=== PATIENT | male | born 1955 | race Caucasian/White ===

== ENCOUNTER 2017-07-05 11:05 | Inpatient (IN) | payer MEDICARE ==
[2017-07-05] MEDS ORDERED: Vancomycin(*) 1,000 MG in NS 0.9% 250 ML* 250 ML IVPB SCH (15:44)
[2017-07-05] MEDS ORDERED: NS 0.9% 500 ML* 500 ML IV ONE (15:47)
--- NOTE | 2017-07-05 16:25 | RAD ---
INDICATION: Atrial fibrillation. Sepsis. CHF. COMPARISON: None TECHNIQUE: An AP portable semierect view obtained at 1603 hours is submitted. FINDINGS: Bones/Soft Tissues: There are no acute bony findings. Cardiomediastinal: The cardiac silhouette is prominent. Lungs: There are no infiltrates. The examination is mildly expiratory with vascular crowding Pleura: There are no pleural effusions. Other: None IMPRESSION: Mildly prominent cardiac silhouette. Expiratory film. Lungs clear.
[2017-07-05] MEDS ORDERED: Cefepime(*) 1 GM in NS 0.9% 50 ML* 50 ML IVPB SCH (17:00)
--- NOTE | 2017-07-05 17:12 | RAD ---
INDICATION: Pain and swelling. COMPARISON: None TECHNIQUE: Duplex interrogation of the Lowerextremity was performed. FINDINGS: Deep veins: The common femoral, great saphenous, profunda femoris, proximal, mid, and distal deep femoral, popliteal, posterior tibial, and peroneal veins are patent. There is normal compressibility, augmentation, and phasic flow. Superficial veins: There are no findings of superficial thrombophlebitis. Popliteal fossa:There is no evidence of a popliteal cyst. Soft tissues:There are no soft tissue abnormalities. IMPRESSION: Normal examination. No evidence of deep venous thrombosis
[2017-07-05] MEDS: NS 0.9% 1000 ML* 1,000 ML IV SCH (17:56)
[2017-07-05] MEDS ORDERED: Vancomycin per Pharmacy* NOTE FOLLOW UP PRN (17:56)
[2017-07-05] MEDS: Insulin LISPRO* 1 UNITS UNIT SUBCUT SCH (17:56)
[2017-07-05 17:59] LABS: Hematocrit 25 % (42-52); Hemoglobin 8.2 g/dl (14.0-18.0); Mean Corpuscular HGB Conc 33 g/dl (31-36); Mean Corpuscular Hemoglobin 30 pg (27-31); Mean Corpuscular Volume 91 fL (80-94); Mean Platelet Volume 8 um3 (7.4-10.4); Red Blood Count 2.77 10^6/ul (4.0-5.4); Red Cell Distribution Width 17 % (10.5-15); White Blood Count 11.1 10^3/ul (3.5-10.8)
[2017-07-05] MEDS ORDERED: Meropenem 500MG PREMIX(*) 500 MG/50 ML BAG IV SCH ×2 (18:00)
[2017-07-05] MEDS ORDERED: Vancomycin(*) 2,000 MG in NS 0.9% 500 ML* 500 ML IVPB ONE (18:00)
[2017-07-05 18:22] LABS: Albumin 1.7 g/dL (3.2-5.2); BUN/Creatinine Ratio 26.5 (8-20); EGFR African American 52.4 (>60); EGFR Non-African American 40.8 (>60); Globulin 2.5 g/dL (2-4); Potassium 2.8 mmol/L (3.5-5.0); Total Bilirubin 2.4 mg/dL (0.2-1.0); Total Protein 4.2 g/dL (6.4-8.9)
[2017-07-05 18:24] LABS: Calcium 5.6 mg/dL (8.6-10.3)
[2017-07-05 18:42] LABS: Troponin I 0.28 ng/mL (<0.04)
[2017-07-05 19:42] LABS: Albumin 2.7 g/dL (3.2-5.2); BUN/Creatinine Ratio 24.5 (8-20); Calcium 8.7 mg/dL (8.6-10.3); EGFR Non-African American 24.9 (>60); Globulin 3.5 g/dL (2-4); Potassium 4.6 mmol/L (3.5-5.0); Total Bilirubin 3.9 mg/dL (0.2-1.0); Total Protein 6.2 g/dL (6.4-8.9)
[2017-07-05 20:05] LABS: Ferritin 92.6 ng/mL (24-336)
[2017-07-05 20:09] LABS: Folate 7.59 ng/mL (>3.99)
[2017-07-05 20:10] LABS: Vitamin B12 1193 pg/mL (180-914)
[2017-07-05 20:14] LABS: Troponin I 0.38 ng/mL (<0.04)
[2017-07-05 20:17] LABS: Hematocrit 32 % (42-52); Hemoglobin 10.5 g/dl (14.0-18.0); Mean Corpuscular HGB Conc 33 g/dl (31-36); Mean Corpuscular Hemoglobin 29 pg (27-31); Mean Corpuscular Volume 89 fL (80-94); Mean Platelet Volume 8 um3 (7.4-10.4); Red Blood Count 3.64 10^6/ul (4.0-5.4); Red Cell Distribution Width 17 % (10.5-15)
[2017-07-05 20:35] LABS: Total Iron Binding Capacity 307 mcg/dL (250-450); Transferrin 219 mg/dL (203-362)
[2017-07-05 20:46] LABS: Iron < 15 ug/dL (50-212)
--- NOTE | 2017-07-05 21:01 | HP ---
CC: Dr. Felipe* HISTORY AND PHYSICAL: DATE OF ADMISSION: 07/05/17 PRIMARY CARE PROVIDER: Dr. Felipe. ATTENDING PHYSICIAN WHILE IN THE HOSPITAL: Ramakrishna Cheema MD* (report being dictated by Calros Montelongo NP). CHIEF COMPLAINT: Fall. HISTORY OF PRESENT ILLNESS: Mr. Geller is a 62-year-old male patient who does have a history of diabetes, CHF, AFib, and hypertension, also hyperlipidemia, IBS, and chronic cellulitis with a history of MRSA. He comes in to the [facility] originally with complaints of a mechanical fall out of his wheelchair last night. He says that his brother had stopped by, had done his laundry and he was taking the laundry back and tossing it out of the way and when he did, he, in his words, kept going with the laundry bag and he fell out his chair on the floor. This was around 11 o'clock last night. He lied on the floor all night. He was unable to get up back on to the bed and was unable to call for help, but he knew that this morning his neighbors below him would be getting up to go to their jobs as they get up early for their job and he around 8 o'clock started yelling and hollering for help. They heard him and came to his aid and immediately called 911. He denies having any chest pain. He does not feel anymore short of breath and is in his baseline. He denies any fevers or cough, and no chills. He denied having any abdominal pain and he does admit to having vomiting first thing in the morning, but none now and there has not been any diarrhea and there has been no dysuria or frequency. He denied any loss of consciousness. He does state that about 2 weeks ago, it was noted that he did have left lower extremity cellulitis and swelling. He sought care particularly for the swelling about a week ago with his primary. There was not any cellulitis documented at that point. He was set up with the wound clinic. He was set up to have this evaluated and unfortunately though when he went to [facility] for the fall today, it was noted that there was more erythema and the erythema was extending up into his groin, which was new. He denies any pain. He denies any trauma and he does state that over the last week that dressing that was applied has been saturated with weeping. He does state that he has not noticed any purulent discharge or pus and does state that there has not been any pain. There was concern though at [facility] because it was noted that he appeared to be in acute renal failure. He appeared to have an elevated troponin of unclear etiology and because of this he was sent over to our hospital for further evaluation and care. PAST MEDICAL HISTORY: Significant for: 1. Diabetes. 2. CHF, unknown EF. We will try to get records. 3. AFib, on apixaban. 4. Hypertension. 5. Hyperlipidemia. 6. Depression. 7. IBS. 8. History of MRSA. 9. CKD, unknown, baseline creatinine. 10. History of diverticulitis. PAST SURGICAL HISTORY: 1. He has had a bowel resection with colostomy placement secondary to diverticulitis and now reversal. 2. He has had knee surgeries bilaterally. MEDICATIONS: The home meds according to the ER list from [facility], and again we are trying to get a more accurate list, includes: 1. Lasix 40 mg twice a day. 2. Magnesium oxide 400 mg twice a day. 3. Simvastatin 40 mg p.o. daily. 4. Metoprolol 50 mg p.o. daily. 5. Apixaban 5 mg p.o. b.i.d. ALLERGIES TO MEDICATIONS: Include KEFLEX, PENICILLIN, XARELTO, WARFARIN, and BACTRIM. FAMILY HISTORY: Both his mother and father, he specifically denied them having any cancer, strokes, diabetes, or heart disease. He says they both in their 80s. SOCIAL HISTORY: He is former smoker, he quit about 8 months ago. He does not drink alcohol anymore. He does live alone. His surrogate decision maker is his ex- . REVIEW OF SYSTEMS: There is no documented fever. He denied any significant weight change. There was no double vision. He denies having any ear discharge. No rhinorrhea. No sore throat. No thyroid enlargement. Denied having any chest pain. No worsening shortness of breath. No abdominal pain. He did admit to having 1 episode of nausea and vomiting this morning. No diarrhea. No dysuria. No frequency. There was no loss of consciousness reported. No pruritus. He does admit to having the lower extremity swelling and the erythema is now new. Review of 14 systems was completed, all others negative. PHYSICAL EXAMINATION GENERAL: At this time, Mr. Geller is a 62-year-old male patient, he appears to be chronically ill and he appears to be older than stated age. He is sitting in the hospital bed. He does not appear to be in any acute distress. VITAL SIGNS: Here today reveals his blood pressure was 97/57, temperature was 97.2, respirations were 20, his pulse was noted on telemetry of 101. HEENT: Head: Atraumatic. Eyes: Sclerae are anicteric. Throat: Oral mucosa appears to be dry. No oropharyngeal erythema. NECK: Supple. LUNGS: Diminished in the bases, but there was no wheezes or rales. HEART: Sounds S1 and S2. Irregularly irregular rate. No murmurs, rubs, or gallops. ABDOMEN: Soft and flat. He did have a significant amount of scrotal edema and edema to the penis. Again, nontender on exam. Bowel sounds present. EXTREMITIES: Pulses are palpable. He does have pedal edema bilaterally and the left leg does appear to be more swollen compared to the right leg. There are areas of erythema extending from the left knee up into the left groin. That was warm to touch. There was no pain on palpation. He did have pitting edema to the pedal areas again, about +3 bilaterally. He has sensation and range of motion intact at this point. No obvious gross wounds. He has a significant amount of dry skin to the left lower extremity and there was weeping noted. NEUROLOGICAL: He is awake. He is alert. He is oriented x3. No gross focal deficits. SKIN: Grossly intact with the exception of the aforementioned erythema. DIAGNOSTIC STUDIES/LAB DATA: His labs from [facility] today revealed sodium of 134, potassium of 4.6, chloride of 99, bicarb of 22, BUN of 65. His creatinine was 3, again I do not have previous values, I am going to try to get records. His glucose was 104. His lactic was 2.9. His calcium was 9.1, mag 2.2, total bili is 4.0, AST 46, ALT was 10, his alk phos was 128. His CK was 1090. His CK -MB was 14.2 and his troponin was 0.349. BNP was 2890. INR was 1.5. PTT was 31. WBC of 13.4, his RBC was 4.08, hemoglobin 12.0, hematocrit of 37, his platelet count was 386,000. There was chest x-ray obtained, I am unable to load it as it is cracked, but the impression was read as cardiomegaly, impression: Massive cardiomegaly. No gross acute cardiopulmonary disease. He had multiple EKGs at [facility], the one from today did show what appeared to be right bundle-branch block with atrial fibrillation with a PVC, rate of 120. I did review it to the previous EKG today , it does appear to be similar with the exception that the rate now is 120. Old medical records were reviewed. ASSESSMENT AND PLAN: Mr. Geller is a 62-year-old male patient with multiple medical problems coming into our hospital today from [facility] as a transfer with concerns for cellulitis and sepsis and indeterminate troponins. He will be admitted under inpatient status for: 1. Sepsis as evidenced by he has an elevated white count. His heart rate there was 120. He also has signs of serious sepsis as again, he does appear to be in acute renal failure. In addition to this, also does appear to have some demand ischemia and his lactic was 2.9 over there. I am going to repeat the lactic now, repeat blood cultures here. I am going to actually give him vancomycin for his antibiotic along with cefepime as well. I will give him 1 g every 24 hours of the cefepime given his renal function. I will give him an additional 500 cc bolus as I do not want to fluid overload him. He did get a liter over at [facility]. Then I will put him on normal saline at 100 an hour and follow him closely and again follow serial lactates. We will tinsley culture him. We will repeat the chest x-ray now and I will send off a urinalysis as well. 2. Atrial fibrillation. I do note that he was on apixaban outpatient. Unfortunately, though I am going to hold off on giving him anymore apixaban. He will probably need to be on a heparin drip and I am going to wait until tomorrow to start full anticoagulation. Because of him taking apixaban last night and with his renal failure, I would like to make sure that this drug is cleared out his system before we anticoagulate him. I think he should probably be bridged. His CHADS- VASC score is high given his history of congestive heart failure, diabetes, and hypertension, but I think we can wait until tomorrow. Right now rate is at 100. We will monitor him for any atrial fibrillation with rapid ventricular response. 3. Acute renal failure. The patient does state that his creatinine is always elevated. He does not know his numbers, but we will try to get records. The plan will be to get a FeNa. We will hydrate him. I am going to hold off on his Lasix as I do think that probably there is a component of acute tubular necrosis, he may be prerenal and dehydration. Also, his CK being elevated certainly could have caused him to have a little bit of worsening failure, so I think we need to hydrate him, follow his renal function closely and avoid nephrotoxic agents. 4. Mild rhabdomyolysis. Again his CK was in the 1000s. We are gong to repeat these and follow and continue hydration. 5. Lactic acidosis. Again, probably secondary to him being septic from the cellulitis. I will go ahead and trend these. Also he, according to the patient was on metformin for his diabetes and that certainly with the elevated creatinine could cause this, so we will again follow these serially. 6. Hypertension. His blood pressure is in the 90s systolic here. We will hydrate him, hold off on blood pressure meds. 7. Hyperlipidemia. Once we have an accurate list, we will continue his meds. 8. Diabetes. He will be on lispro sliding scale while he is here. 9. History of congestive heart failure. Again, he appears to be dehydrated. I do know that his BNP was over 2000 at [facility], but again the acute renal failure certainly could throw this number off. He appears to be dry, so I am going to continue with hydration, particularly given the concerns of cellulitis. 10. Left lower extremity edema. Again, this does appear to be chronic; however , I am going to get a wound care consult. He was to see wound care, but he has not been able to set up the appointment. I am going to get an ultrasound of lower extremity. For now, for dressing changes, I am just going to put him on ABDs with Kerlix dressings and we will follow the cellulitis closely. 11. Scrotal edema. He is not having any pain currently. I am just going to elevate the scrotum. We will monitor this. It was probably going to get worse with the IV hydration, but I think at this point he does need the hydration. Should there be any issues, we would have a low threshold to consult Urology. 12. DVT prophylaxis. I will start him on heparin subcu, but again I think within 24 hours from now, we may want to consider bridging him on to a heparin drip in the setting of acute illness with his atrial fibrillation as his CHADS- VASC score is high to prevent cerebrovascular accident. 13. Code status. He wished to be a full code. 14. Fluids, electrolytes, and nutrition. I did order a heart-healthy diet. TIME SPENT: On the admission was approximately 60 minutes; greater than half the time was spent [id number] with the patient obtaining my history and physical, other half time was spent going over the plan of care with the patient and implementing plan of care. I did discuss the plan of care with my attending, Dr. Cheema, he is in agreement. CARLOS MONTELONGO NP [id number]/CPS #: [id number] BRITANY
[2017-07-05] MEDS ORDERED: Heparin VIAL(*) 5000 UNITS/ML VIAL (FIVE THOUSAND) SUBCUT SCH (22:00)
[2017-07-05] MEDS ORDERED: Diltiazem IV* 5 MG/ML 5 ML VIAL (for loading dose/IV Push) (25 MG) IV PUSH ONE (23:00)
[2017-07-05 23:59] LABS: Urine Bacteria 3+ (Absent); Urine Bilirubin Negative (Negative); Urine Glucose Negative (Negative); Urine Nitrite Negative (Negative)
[2017-07-06 00:08] LABS: Troponin I 0.37 ng/mL (<0.04)
[2017-07-06 00:10] LABS: Urine Random Sodium < 18 mmol/L
[2017-07-06 00:28] LABS: Hematocrit 33 % (42-52); Hemoglobin 10.8 g/dl (14.0-18.0)
[2017-07-06] MEDS ORDERED: Diltiazem DRIP* 100 MG/100 ML ADDV.BAG IVPB ONE (01:43)
[2017-07-06] MEDS ORDERED: Diltiazem IV* 5 MG/ML 5 ML VIAL (for loading dose/IV Push) (25 MG) IV SLOW PU ONE (01:45)
[2017-07-06] MEDS: diPHENhydraMINE PO* 25 MG PO PRN ×2 (02:09→22:02)
[2017-07-06 04:53] LABS: Hematocrit 33 % (42-52); Hemoglobin 10.7 g/dl (14.0-18.0); Mean Corpuscular HGB Conc 32 g/dl (31-36); Mean Corpuscular Hemoglobin 29 pg (27-31); Mean Corpuscular Volume 89 fL (80-94); Mean Platelet Volume 8 um3 (7.4-10.4); Red Cell Distribution Width 17 % (10.5-15); White Blood Count 13.5 10^3/ul (3.5-10.8)
[2017-07-06 05:14] LABS: Calcium 8.7 mg/dL (8.6-10.3); EGFR Non-African American 24.1 (>60); Potassium 4.6 mmol/L (3.5-5.0)
[2017-07-06] MEDS ORDERED: NS 0.9% 250 ML* 250 ML ONE (08:05)
[2017-07-06] MEDS: Insulin LISPRO* 1 UNITS UNIT SUBCUT SCH ×3 (08:11→18:02)
[2017-07-06] MEDS ORDERED: Perflutren Lipid Microsphere* 3 ML VIAL ONE (08:12)
[2017-07-06] MEDS ORDERED: Vancomycin(*) 1,250 MG in NS 0.9% 250 ML* 250 ML IVPB SCH (09:00)
--- NOTE | 2017-07-06 09:57 | ECHO ---
Patient: CHERRY MONIQUE [facility] Rec#: [id number] : 1955 Date: 07/06/2017 Age: 62y Height: 185.42 cm / 73.0 in Weight: 191.42 kg / 421.9 lbs Sex: M BSA: 2.96 Room#: 453 Admit Date#: 07/05/2017 Type: Inpatient Referring: Carlos Montelongo NP Reading: Nain Jeff MD Lead Custodian: Kathryn Herrera RDCS CC: Josh Felipe DO Transthoracic Echocardiogram Indication: CHF, A-fib, elevated troponins. BP: 104/76 HR: 102 Rhythm: A-Fib Findings History: Morbid obesity, DM, CHF, A-fib, HTN, HLD, MRSA, CKD, former smoker. Technical Comments: The study is technically difficult. The study is technically limited due to poor apical windows. The study is technically limited due to patient body habitus. The study was technically limited due to the patient's inability to lay in the left lateral decubitus position. Completed at 0915. Left Ventricle: The left ventricular chamber size is mildly dilated. Moderate concentric left ventricular hypertrophy is observed. There is a focal wall motion abnormality present.In limited views and with contrast the inferior wall appears hypokinetic as does the interventricular septum. There is mild to moderately decreased left ventricular systolic function. The estimated ejection fraction is 40-45%. There is septal flattening of the interventricular septum consistent with right ventricular volume or pressure overload. The assessment of diastolic function is non-diagnostic. Left Atrium: The left atrium is not well visualized. The left atrium is moderate to severely dilated. Right Ventricle: The right ventricle is not well visualized. Moderator Band present. The right ventricle is moderate to severely dilated. The right ventricular global systolic function is mildly to moderately reduced.Imagee qualty is suboptimal for accurate assessment Right Atrium: The right atrium is not well visualized. The right atrial cavity size is severely dilated. Aortic Valve: The aortic valve is trileaflet. The aortic valve leaflets are moderately thickened.The noncoroanry cusp has a calcified nodule on it. There is a trace of aortic regurgitation. There is borderline aortic stenosis present. Mitral Valve: The mitral valve leaflets are mildly thickened. There is a trace of mitral regurgitation. There is no evidence of mitral stenosis. Tricuspid Valve: The tricuspid valve leaflets are normal. There is mild tricuspid regurgitation. The right ventricular systolic pressure is estimated at 31 mmHg. There is evidence that pulmonary hypertension may be underestimated. There is no tricuspid stenosis. Pulmonic Valve: The pulmonic valve appears normal. There is trace to mild pulmonic regurgitation. There is no pulmonic stenosis. Pericardium: There is no significant pericardial effusion. A pericardial fat pad is visualized. Aorta: There is no dilatation of the ascending aorta. The aortic arch is not well visualized. The aortic root is normal in size. Pulmonary Artery: The main pulmonary artery appears normal. Venous: The venous system is not well visualized. The inferior vena cava is not visualized. Contrast: Definity was used to optimize study. 6 mL of diluted Definity was utilized. Intravenous contrast was used to enhance endocardial border definition. Conclusions The study is technically difficult making comments ingeneral less reliable. The study is technically limited due to poor apical windows. The study is technically limited due to patient body habitus. The study was technically limited due to the patient's inability to lay in the left lateral decubitus position. There is a focal wall motion abnormality present.In limited views and with contrast the inferior wall appears hypokinetic as does the interventricular septum. There is mild to moderately decreased left ventricular systolic function. The estimated ejection fraction is 40-45%. There is septal flattening of the interventricular septum consistent with right ventricular volume or pressure overload. The left atrium is moderate to severely dilated. The right ventricle is moderate to severely dilated. The right ventricular global systolic function is mild to moderately reduced. The right atrial cavity size is severely dilated. There is a trace of aortic regurgitation. There is borderline aortic stenosis present. There is a trace of mitral regurgitation. There is mild tricuspid regurgitation. There is trace to mild pulmonic regurgitation. No reports of prior studies are offered for comparison. Measurements Name Value Normal Range RVIDd (AP) 2D 4.5 cm (0.9 - 2.6) RVDdMajor (2D) 5.2 cm (2.2 - 4.4) RAd ISD 4CH 6.48 cm (3.4 - 4.9) RA (A4C)W 5.62 cm (2.9 - 4.6) IVSd (2D) 1.5 cm (0.6 - 1) LVPWd (2D) 1.4 cm (0.6 - 1) LVIDd (2D) 5.7 cm (3.6 - 5.4) LVIDs (2D) 4.4 cm - LV FS (2D) 22 % (25 - 45) Aortic Annulus 2 cm (1.4 - 2.6) Ao root diameter (2D) 2.8 cm (2.1 - 3.5) Ascending Ao 3.1 cm (2.1 - 3.4) LA dimension (AP) 2D 6.3 cm (2.3 - 3.8) LAd ISD 4CH 7.9 cm (2.9 - 5.3) LA ISD 4CH W 6.1 cm (2.5 - 4.5) Name Value Normal Range MV E-wave Vmax 1.11 m/sec - MV deceleration time 222.8 msec - LV septal e' Vmax 0.12 m/sec - LV lateral e' Vmax 0.11 m/sec - LV E:e' septal ratio 9.25 ratio - LV E:e' lateral ratio 10.09 ratio - Name Value Normal Range AV Vmax 1.96 m/sec - AV VTI 51.04 cm - AV peak gradient 15.51 mmHg - AV mean gradient 10.28 mmHg - LVOT Vmax 0.8 m/sec - LVOT VTI 13.4 cm - LVOT peak gradient 2.58 mmHg - LVOT mean gradient 1.46 mmHg - JEFF Vmax 1 m/sec - Name Value Normal Range TR Vmax 2.4 m/sec - TR peak gradient 23 mmHg - RAP 8 mmHg - RVSP 31 mmHg - Name Value Normal Range PV Vmax 0.7 m/sec - PV peak gradient 2.1 mmHg -
[2017-07-06 10:58] LABS: Hematocrit 33 % (42-52); Hemoglobin 10.5 g/dl (14.0-18.0); Mean Corpuscular HGB Conc 32 g/dl (31-36); Mean Corpuscular Hemoglobin 29 pg (27-31); Mean Corpuscular Volume 90 fL (80-94); Mean Platelet Volume 8 um3 (7.4-10.4); Red Blood Count 3.63 10^6/ul (4.0-5.4); Red Cell Distribution Width 17 % (10.5-15); White Blood Count 14.4 10^3/ul (3.5-10.8)
[2017-07-06] MEDS ORDERED: Clindamycin 600 MG IVPREMIX(* 600 MG/50 ML SDV IV SCH (11:00)
[2017-07-06] MEDS: Heparin DRIP 25,000 UNITS(*) 25,000 UNITS/500 ML BAG IVPB SCH (11:03)
[2017-07-06] MEDS: Metoprolol Tartrate TAB* 50 mg PO SCH ×2 (11:04→22:07)
[2017-07-06] MEDS: Heparin VIAL(*) 5000 UNITS/ML VIAL (FIVE THOUSAND) IV SCH (11:04)
[2017-07-06 11:45] LABS: Blood Urea Nitrogen 68 mg/dL (6-24); Creatine Kinase 395 U/L (10-223)
[2017-07-06] MEDS ORDERED: Diltiazem TAB* 30 MG PO SCH (12:00)
[2017-07-06] MEDS: Clindamycin 600 MG IVPREMIX(* 600 MG/50 ML SDV IV SCH ×2 (13:32→22:03)
--- NOTE | 2017-07-06 14:13 | CONS ---
CONSULTATION REPORT: DATE OF CONSULT: 07/06/17 REQUESTING PROVIDER: ALEXA Mon CONSULTING SERVICE: Infectious Disease. REASON FOR CONSULT: Left lower extremity cellulitis. IMPRESSION: 1. Left lower extremity lymphedema with venous stasis changes and cellulitis, likely streptococcal. 2. Morbid obesity. 3. Non-ST elevation myocardial infarction. 4. Sepsis present on admission. 5. Multiple antibiotic allergies including CEPHALOSPORINS, PENICILLIN, and SULFA causing hives. RECOMMENDATION: Stop meropenem, start clindamycin 600 mg IV every 8 hours and follow his leg. A Wound consult for his severe stasis dermatitis would be helpful. We will stop the vancomycin. HISTORY OF PRESENT ILLNESS: This is a 62-year-old man with left lower extremity cellulitis, transferred here from [facility]. He had been developing some redness in the left leg over the last few days and had some drainage from his leg chronically as well. He had presented to the [facility]. He was found to have acute kidney injury in the setting of chronic kidney disease, he was transferred here. He was placed on cefepime and then meropenem. Fevers improved. Blood cultures are pending. A urinalysis done showed leukocyte esterase, no nitrites. He has had elevated troponin, he is to have a cardiac evaluation. He has no chest pain. He had some shortness of breath. He has noticed left leg is painful. It is a little bit better since he has kept it elevated while he has been here. He had no draining fluid. No discrete wound. PAST MEDICAL HISTORY: 1. Diabetes. 2. Congestive heart failure. 3. Atrial fibrillation. 4. Hypertension. 5. Hyperlipidemia. 6. Depression. 7. Irritable bowel syndrome. 8. Past MRSA infection 9. Chronic kidney disease. 10. Diverticulitis. 11. History of partial colectomy with colostomy and then reversal. 12. Status post bilateral knee surgery. MEDICATIONS: 1. Meropenem 500 mg IV every day. 2. Insulin. 3. Heparin infusion. 4. Diltiazem infusion. 5. Zofran. 6. Vancomycin 1 g q.12 hours. 7. Benadryl. ALLERGIES: KEFLEX, PENICILLIN, BACTRIM caused hives, XARELTO, and WARFARIN. FAMILY HISTORY: Both in their 80s with no particular illness that he knows of. SOCIAL HISTORY: Past smoker, past alcohol. Lives by himself. REVIEW OF SYSTEMS: A 14-point review of systems was negative except as noted above. PHYSICAL EXAM: Vital Signs: Temperature 36.2, heart rate 100, respiratory rate 22, blood pressure 105/60, O2 sat 95% on room air. General: He is awake, nondistressed. Neurologic: He is oriented x3. Follows all commands. He has sensation decreased to light touch in both legs. HEENT: There is no conjunctival hemorrhage. Oropharynx without lesions. Neck: Supple. Lymph Nodes: There is no cervical, supraclavicular, inguinal, axillary, or epitrochlear lymphadenopathy. Heart: Regular and tachycardic without murmurs. Lungs: Clear to auscultation bilaterally. Abdomen: Soft, nontender, nondistended, obese, well-healed midline scar. Skin: There are bilateral lower extremity venous stasis changes. On the left, there is diffuse erythema and warmth extending up through the mid thigh from the ankle. There is no knee or ankle tenderness to palpation. LABORATORY DATA: White blood cell count 13, hemoglobin 10, platelets 320. Creatinine is 2.7. Please see impressions and recommendation as outlined above, which I have discussed with ALEXA Mon. Thank you for asking me to see Ms. Geller in consultation. [id number]/[facility] #: [id number] BRITANY
[2017-07-06] MEDS: NS 0.9% 1000 ML* 1,000 ML IV SCH (15:34)
--- NOTE | 2017-07-06 17:22 | PN ---
Subjective Date of Service: 07/06/17 Interval History: Patient's only acute complaint is itching rash on the right side of his back. This is new and has not been experienced before at home. Questionable correlation between first administration of vancomycin and onset of rash. No other signs of red man syndrome. Partial relief with Benadryl. No CP, SOB, N/V, F/C, Abdominal Pain, dysuria. Persistent pain in leg. Family History: Unchanged from Admission Social History: Unchanged from Admission Past Medical History: Unchanged from Admission Objective Active Medications: Acetaminophen (Tylenol Tab*) 650 mg PO Q4H PRN PRN Reason: FEVER/PAIN Dextrose (D50w Syringe 50 Ml*) 12.5 gm IV PUSH .FOR FS < 60 - SS PRN PRN Reason: FS < 60 Diphenhydramine HCl (Benadryl Po*) 25 mg PO Q6H PRN PRN Reason: ITCHING Last Admin: 07/06/17 02:09 Dose: 25 mg Heparin Sodium (Porcine) (Heparin Vial(*)) 0 units IV .PER PROTOCOL MASTER PRN Reason: Protocol Last Admin: 07/06/17 11:04 Dose: 9,400 units Sodium Chloride (Ns 0.9% 1000 Ml*) 1,000 mls @ 100 mls/hr IV PER RATE MASTER Stop: 07/07/17 01:59 Last Admin: 07/06/17 15:34 Dose: 100 mls/hr Heparin Sodium/Dextrose (Heparin Drip 25,000 Units(*)) 25,000 units in 500 mls @ 0 mls/hr IVPB .PER RATE MASTER; Per Protocol PRN Reason: Protocol Last Admin: 07/06/17 11:03 Dose: 35 mls/hr Clindamycin HCl/Dextrose (Cleocin 600 Mg Ivpremix(*) Sdv) 600 mg in 50 mls @ 100 mls/hr IV Q8H [facility] Last Admin: 07/06/17 13:32 Dose: 100 mls/hr Insulin Human Lispro (Humalog*) 0 units SUBCUT AC [facility] PRN Reason: Protocol Last Admin: 07/06/17 12:26 Dose: 2 units Metoprolol Tartrate (Lopressor Tab*) 50 mg PO BID [facility] Last Admin: 07/06/17 11:04 Dose: 50 mg Ondansetron HCl (Zofran Inj*) 4 mg IV Q6H PRN PRN Reason: NAUSEA Vital Signs 07/05/17 07/05/17 07/05/17 17:43 19:15 19:30 Temperature 97.7 F Pulse Rate 110 Respiratory 16 16 Rate Blood Pressure 108/68 104/62 (mmHg) O2 Sat by Pulse 97 Oximetry 07/05/17 07/05/17 07/05/17 21:07 22:37 22:52 Temperature 98.1 F 97.6 F 97.6 F Pulse Rate 102 67 138 Respiratory 16 20 20 Rate Blood Pressure 98/63 106/61 106/61 (mmHg) O2 Sat by Pulse 96 97 97 Oximetry 07/05/17 07/06/17 07/06/17 23:21 00:03 01:47 Temperature 97.9 F 97.5 F Pulse Rate 115 90 Respiratory 20 16 Rate Blood Pressure 100/52 102/55 (mmHg) O2 Sat by Pulse 97 94 98 Oximetry 07/06/17 07/06/17 07/06/17 02:09 02:22 02:26 Temperature Pulse Rate 103 Respiratory 18 Rate Blood Pressure 110/66 103/70 (mmHg) O2 Sat by Pulse 92 Oximetry 07/06/17 07/06/17 07/06/17 02:31 02:34 02:35 Temperature Pulse Rate Respiratory Rate Blood Pressure 120/67 113/69 113/70 (mmHg) O2 Sat by Pulse Oximetry 07/06/17 07/06/17 07/06/17 02:37 02:39 02:41 Temperature Pulse Rate 110 103 Respiratory Rate Blood Pressure 111/68 112/71 113/68 (mmHg) O2 Sat by Pulse 81 90 Oximetry 07/06/17 07/06/17 07/06/17 02:46 02:56 03:00 Temperature Pulse Rate 104 107 Respiratory Rate Blood Pressure 111/73 100/75 (mmHg) O2 Sat by Pulse 93 94 Oximetry 07/06/17 07/06/17 07/06/17 03:11 03:26 03:30 Temperature Pulse Rate 104 114 104 Respiratory Rate Blood Pressure 108/75 89/65 106/80 (mmHg) O2 Sat by Pulse 93 92 93 Oximetry 07/06/17 07/06/17 07/06/17 03:45 03:47 03:48 Temperature Pulse Rate 104 105 Respiratory Rate Blood Pressure 122/67 84/42 105/74 (mmHg) O2 Sat by Pulse 93 93 Oximetry 07/06/17 07/06/17 07/06/17 03:56 04:00 04:09 Temperature Pulse Rate 103 103 Respiratory 16 Rate Blood Pressure 103/67 (mmHg) O2 Sat by Pulse 93 95 Oximetry 07/06/17 07/06/17 07/06/17 04:11 04:13 04:20 Temperature 98.3 F Pulse Rate 103 105 Respiratory Rate Blood Pressure 97/61 114/71 (mmHg) O2 Sat by Pulse 94 95 Oximetry 07/06/17 07/06/17 07/06/17 04:37 04:41 05:00 Temperature Pulse Rate 105 Respiratory Rate Blood Pressure 104/76 113/80 (mmHg) O2 Sat by Pulse 95 Oximetry 07/06/17 07/06/17 07/06/17 05:11 05:26 06:00 Temperature Pulse Rate 103 109 108 Respiratory Rate Blood Pressure 117/73 101/76 (mmHg) O2 Sat by Pulse 95 97 94 Oximetry 07/06/17 07/06/17 07/06/17 07:00 07:12 07:35 Temperature 97.2 F Pulse Rate 104 103 Respiratory 22 Rate Blood Pressure 105/60 (mmHg) O2 Sat by Pulse 96 95 Oximetry 07/06/17 07/06/17 07/06/17 08:00 08:23 09:00 Temperature Pulse Rate 103 102 103 Respiratory 22 Rate Blood Pressure 91/55 (mmHg) O2 Sat by Pulse 94 92 95 Oximetry 07/06/17 07/06/17 07/06/17 09:07 09:09 09:22 Temperature Pulse Rate 103 103 Respiratory Rate Blood Pressure 111/68 111/71 107/81 (mmHg) O2 Sat by Pulse 97 94 Oximetry 07/06/17 07/06/17 07/06/17 10:00 15:21 16:00 Temperature 97.3 F Pulse Rate 102 81 Respiratory 18 Rate Blood Pressure 92/65 (mmHg) O2 Sat by Pulse 98 98 Oximetry Oxygen Devices in Use Now: None Appearance: Patient is a 62yo morbidly obese male who appears older than stated age and is sitting in the bed in NAD. Eyes: No Scleral Icterus, PERRLA Ears/Nose/Mouth/Throat: NL Teeth, Lips, Gums, Clear Oropharnyx, Mucous Membranes Moist, - - High Mallampati score. Neck: NL Appearance and Movements; NL JVP, Trachea Midline Respiratory: Symmetrical Chest Expansion and Respiratory Effort, Clear to Auscultation Cardiovascular: NL Sounds; No Murmurs; No JVD, RRR, - - 4+ pitting edema in the B/L LE, worse in left than right. Abdominal: NL Sounds; No Tenderness; No Distention, No Hepatosplenomegaly, - - Exam limited by morbid obesity. Lymphatic: No Cervical Adenopathy, No Inguinal Adenopathy Skin: - - Redness and blanchable skin edema on Right side. Superficial lacerations on leg with erythema without weeping. Neurological: Alert and Oriented x 3, - - CN II-XII intact. Result Diagrams: 07/06/17 10:28 07/06/17 10:28 Microbiology and Other Data: Microbiology 07/05/17 16:30 Nasal Screen MRSA (PCR)(RICK) - Final Nasal Mrsa Negative Assess/Plan/Problems-Billing Assessment: Patient is a 62yo male with a PMH significant for Morbid obesity, CHF, Paroxysmal Afib, DMII, HTN, HLD, Depression, CKD who presents after a fall without head trauma and prolonged laying and sepsis presumably secondary to a lower leg wound or a UTI, also with mild rhabdomyolysis, Prerenal ROSY, and NSTEMI presumably from demand ischemia. Patient is improving with fluids and antibiotics. - Patient Problems (1) Cellulitis Current Visit: Yes Status: Acute Code(s): L03.90 - CELLULITIS, UNSPECIFIED SNOMED Code(s): 630686380 Comment: Presumable cause of sepsis. Chronic leg wound. Was supposed to follow up with wound clinic today. No inguinal lymphadenopathy palpated. Erythema up whole left leg to groin. Appreciate ID input, Clindamycin ordered. Will order probiotic. Appreciate wound care consult. Keep legs elevated to decrease edema and aid healing. (2) CHF (congestive heart failure) Current Visit: Yes Status: Acute Code(s): I50.9 - HEART FAILURE, UNSPECIFIED SNOMED Code(s): 03729976 Comment: EF 40-45 by most recent Echo, will attempt to get records to compare. NSTEMI most likely due to demand ischemia, trending down. Consider outpatient stress test. Hold lasix at this time due to prerenal ROSY by FeNa. Consider ACEI on discharge after ROSY resolves. (3) UTI (urinary tract infection) Current Visit: Yes Status: Acute Comment: Positive Leukocyte esterase without nitrate. No Dysuria. Awaiting culture and sensativities. Continue Clindamycin. (4) Rhabdomyolysis Current Visit: Yes Status: Acute Code(s): M62.82 - RHABDOMYOLYSIS SNOMED Code(s): 634417476 Comment: CK peaked at 575, tending down, ROSY prerenal, will keep hydrated to avoid rhabdomyolysis induced ROSY. (5) ROSY (acute kidney injury) Current Visit: Yes Status: Acute Code(s): N17.9 - ACUTE KIDNEY FAILURE, UNSPECIFIED SNOMED Code(s): 86664878 Comment: Prerenal by FeNa, dehydrated on admission. Given 2.5L of fluid at this point, will gently supplement fluids and continue to monitor kidney function. Hold Lasix. (6) NSTEMI (non-ST elevated myocardial infarction) Current Visit: Yes Status: Acute Code(s): I21.4 - NON-ST ELEVATION (NSTEMI) MYOCARDIAL INFARCTION SNOMED Code(s): 612515180 Comment: Probably due to demand ischemia. No CP, SOB, or EKG changes. Consider outpatient stress test. (7) HTN (hypertension) Current Visit: Yes Status: Acute Code(s): I10 - ESSENTIAL (PRIMARY) HYPERTENSION SNOMED Code(s): 30176753 Comment: Borderline hypotension on metoprolol for rate control. Will continue to monitor. (8) HLD (hyperlipidemia) Current Visit: Yes Status: Acute Code(s): E78.5 - HYPERLIPIDEMIA, UNSPECIFIED SNOMED Code(s): 04884544 Comment: Hold simvastatin due to rhabdomyolysis. (9) Afib Current Visit: Yes Status: Acute Code(s): I48.91 - UNSPECIFIED ATRIAL FIBRILLATION SNOMED Code(s): 04186227 Comment: Paroxysmal, hard to interpret EKG due to body habitus. Probable Afib after probable NSR. Rate controlled. Heparin Drip for Anticoagulation due ROSY. Continue Eliquis at discharge if able. (10) Diabetes mellitus Current Visit: Yes Status: Acute Code(s): E11.9 - TYPE 2 DIABETES MELLITUS WITHOUT COMPLICATIONS SNOMED Code(s): 08640281 Comment: FSBG and SSI. Status and Disposition: Patient is admitted inpatient. Will Discharge when medically stable.
[2017-07-07] MEDS: Heparin DRIP 25,000 UNITS(*) 25,000 UNITS/500 ML BAG IVPB SCH ×3 (02:07→17:28)
[2017-07-07 04:54] LABS: Hematocrit 35 % (42-52); Hemoglobin 11.5 g/dl (14.0-18.0); Mean Corpuscular HGB Conc 33 g/dl (31-36); Mean Corpuscular Hemoglobin 30 pg (27-31); Mean Corpuscular Volume 90 fL (80-94); Mean Platelet Volume 9 um3 (7.4-10.4); Red Blood Count 3.89 10^6/ul (4.0-5.4); Red Cell Distribution Width 17 % (10.5-15); White Blood Count 12.8 10^3/ul (3.5-10.8)
[2017-07-07 05:09] LABS: Albumin 2.7 g/dL (3.2-5.2); BUN/Creatinine Ratio 23.8 (8-20); Calcium 9.1 mg/dL (8.6-10.3); EGFR African American 27.4 (>60); EGFR Non-African American 21.3 (>60); Globulin 3.9 g/dL (2-4); Magnesium 2.2 mg/dL (1.9-2.7); Potassium 4.5 mmol/L (3.5-5.0); Total Bilirubin 2.8 mg/dL (0.2-1.0); Total Protein 6.6 g/dL (6.4-8.9)
[2017-07-07] MEDS: Clindamycin 600 MG IVPREMIX(* 600 MG/50 ML SDV IV SCH ×3 (05:12→20:16)
[2017-07-07] MEDS: Heparin VIAL(*) 5000 UNITS/ML VIAL (FIVE THOUSAND) IV SCH ×2 (05:52→14:43)
[2017-07-07] MEDS: Insulin LISPRO* 1 UNITS UNIT SUBCUT SCH ×3 (08:17→17:02)
[2017-07-07] MEDS ORDERED: Vancomycin Trough Check NOTE FOLLOW UP ONE (08:30)
[2017-07-07] MEDS: Metoprolol Tartrate TAB* 50 mg PO SCH ×2 (09:02→20:15)
[2017-07-07] MEDS ORDERED: NS 0.9% 1000 ML* 1,000 ML IV SCH (14:30)
[2017-07-07] MEDS: Lactobacillus Acidophilu (GG)* 1 CAP CAP PO SCH (14:44)
--- NOTE | 2017-07-07 18:23 | PN ---
Subjective Date of Service: 07/07/17 Interval History: Patient states he feels better than he has in months and denies any complaints including CP, N/V, F/C, Dizziness, Abdominal Pain, Dysuria, or other pain. Patient denies SOB, but can only speak for several words at a time without having to stop to breathe. Family History: Unchanged from Admission Social History: Unchanged from Admission Past Medical History: Unchanged from Admission Objective Active Medications: Acetaminophen (Tylenol Tab*) 650 mg PO Q4H PRN PRN Reason: FEVER/PAIN Dextrose (D50w Syringe 50 Ml*) 12.5 gm IV PUSH .FOR FS < 60 - SS PRN PRN Reason: FS < 60 Diphenhydramine HCl (Benadryl Po*) 25 mg PO Q6H PRN PRN Reason: ITCHING Last Admin: 07/06/17 22:02 Dose: 25 mg Heparin Sodium (Porcine) (Heparin Vial(*)) 0 units IV .PER PROTOCOL [facility] PRN Reason: Protocol Last Admin: 07/07/17 14:43 Dose: 5,000 units Heparin Sodium/Dextrose (Heparin Drip 25,000 Units(*)) 25,000 units in 500 mls @ 0 mls/hr IVPB .PER RATE MASTER; Per Protocol PRN Reason: Protocol Last Admin: 07/07/17 17:28 Dose: 45 mls/hr Clindamycin HCl/Dextrose (Cleocin 600 Mg Ivpremix(*) Sdv) 600 mg in 50 mls @ 100 mls/hr IV Q8H [facility] Last Admin: 07/07/17 12:56 Dose: 100 mls/hr Sodium Chloride (Ns 0.9% 1000 Ml*) 1,000 mls @ 100 mls/hr IV PER RATE [facility] Stop: 07/08/17 00:29 Last Admin: 07/07/17 14:44 Dose: 100 mls/hr Insulin Human Lispro (Humalog*) 0 units SUBCUT AC [facility] PRN Reason: Protocol Last Admin: 07/07/17 17:02 Dose: Not Given Lactobacillus Rhamnosus (Culturelle*) 1 cap PO DAILY [facility] Last Admin: 07/07/17 14:44 Dose: 1 cap Metoprolol Tartrate (Lopressor Tab*) 50 mg PO BID [facility] Last Admin: 07/07/17 09:02 Dose: Not Given Ondansetron HCl (Zofran Inj*) 4 mg IV Q6H PRN PRN Reason: NAUSEA Vital Signs 07/06/17 07/06/17 07/06/17 19:54 20:00 22:02 Temperature Pulse Rate 80 Respiratory 19 20 20 Rate Blood Pressure 93/65 (mmHg) O2 Sat by Pulse 99 Oximetry 07/07/17 07/07/17 07/07/17 00:02 03:35 08:00 Temperature 98.6 F 99.0 F Pulse Rate 76 85 Respiratory 20 20 16 Rate Blood Pressure 99/65 98/69 (mmHg) O2 Sat by Pulse 98 97 Oximetry 07/07/17 07/07/17 07/07/17 08:38 09:02 11:11 Temperature 97.3 F 97.3 F 97.4 F Pulse Rate 84 84 92 Respiratory 20 20 20 Rate Blood Pressure 94/63 94/63 96/64 (mmHg) O2 Sat by Pulse 95 95 97 Oximetry 07/07/17 15:20 Temperature Pulse Rate 91 Respiratory 18 Rate Blood Pressure 103/62 (mmHg) O2 Sat by Pulse 100 Oximetry Oxygen Devices in Use Now: None Appearance: Patient is a 62yo morbidly obese male who appears older than stated age and is sitting in the bed in [facility]. Eyes: No Scleral Icterus, PERRLA Ears/Nose/Mouth/Throat: NL Teeth, Lips, Gums, Clear Oropharnyx, Mucous Membranes Moist Neck: NL Appearance and Movements; NL JVP, Trachea Midline Respiratory: Symmetrical Chest Expansion and Respiratory Effort, - - Slight expiratory wheezes heard throughout. Cardiovascular: NL Sounds; No Murmurs; No JVD, RRR, - - Pulses 2+ in the bilateral PT, DP and Radial Areas. Abdominal: NL Sounds; No Tenderness; No Distention, No Hepatosplenomegaly, - - Exam limited by body habitus. Large hypertrophic scar consistent with previous abdominal surgery. Lymphatic: No Cervical Adenopathy Extremities: No Clubbing, Cyanosis, - - 4+ pitting edema in the B/L LE, worse on the left than the right with erythma and scaling of the skin worse on the left than the right. No interval improvement. Neurological: Alert and Oriented x 3 Result Diagrams: 07/07/17 04:20 07/07/17 04:20 Microbiology and Other Data: Microbiology 07/05/17 16:30 Nasal Screen MRSA (PCR)(RICK) - Final Nasal Mrsa Negative Assess/Plan/Problems-Billing Assessment: Patient is a 62yo male with a PMH significant for Morbid obesity, CHF, Paroxysmal Afib, DMII, HTN, HLD, Depression, CKD who presents after a fall without head trauma and prolonged laying and sepsis presumably secondary to a lower leg wound or a UTI, also with mild rhabdomyolysis, Prerenal ROSY, and NSTEMI presumably from demand ischemia. Patient is improving with fluids and antibiotics. - Patient Problems (1) Cellulitis Current Visit: Yes Status: Acute Code(s): L03.90 - CELLULITIS, UNSPECIFIED SNOMED Code(s): 301219310 Comment: Presumable cause of sepsis. Chronic leg wound. Was supposed to follow up with wound clinic today. No inguinal lymphadenopathy palpated. Erythema up whole left leg to groin. Appreciate ID input, Clindamycin ordered. Will order probiotic. Appreciate wound care consult. Keep legs elevated to decrease edema and aid healing. Kidney functioning still deteriorating with prerenal cause. Will continue fluids and hold lasix. (2) CHF (congestive heart failure) Current Visit: Yes Status: Acute Code(s): I50.9 - HEART FAILURE, UNSPECIFIED SNOMED Code(s): 38707387 Comment: EF 40-45 by most recent Echo, Consistent with 07/27 TTE. NSTEMI most likely due to demand ischemia, trending down. Consider outpatient stress test. Hold lasix at this time due to prerenal ROSY by FeNa. Consider ACEI on discharge after ROSY resolves. (3) UTI (urinary tract infection) Current Visit: Yes Status: Acute Comment: Positive Leukocyte esterase without nitrate. No Dysuria. Awaiting culture and sensativities. Continue Clindamycin. (4) Rhabdomyolysis Current Visit: Yes Status: Acute Code(s): M62.82 - RHABDOMYOLYSIS SNOMED Code(s): 017918536 Comment: CK peaked at 575, trending down, ROSY prerenal, will keep hydrated to avoid rhabdomyolysis induced ROSY. (5) ROSY (acute kidney injury) Current Visit: Yes Status: Acute Code(s): N17.9 - ACUTE KIDNEY FAILURE, UNSPECIFIED SNOMED Code(s): 86747210 Comment: Prerenal by FeNa, dehydrated on admission. Creatinine still increasing. Continue gentle fluids. Given 3.5L of fluid at this point, will gently supplement fluids and continue to monitor kidney function. Hold Lasix. (6) NSTEMI (non-ST elevated myocardial infarction) Current Visit: Yes Status: Acute Code(s): I21.4 - NON-ST ELEVATION (NSTEMI) MYOCARDIAL INFARCTION SNOMED Code(s): 323868547 Comment: Probably due to demand ischemia. No CP, SOB, or EKG changes. Consider outpatient stress test. (7) HTN (hypertension) Current Visit: Yes Status: Acute Code(s): I10 - ESSENTIAL (PRIMARY) HYPERTENSION SNOMED Code(s): 99997408 Comment: Borderline hypotension on metoprolol for rate control. Will continue to monitor. One dose held today for hypotension. (8) HLD (hyperlipidemia) Current Visit: Yes Status: Acute Code(s): E78.5 - HYPERLIPIDEMIA, UNSPECIFIED SNOMED Code(s): 23894356 Comment: Hold simvastatin due to rhabdomyolysis. (9) Afib Current Visit: Yes Status: Acute Code(s): I48.91 - UNSPECIFIED ATRIAL FIBRILLATION SNOMED Code(s): 10161753 Comment: Paroxysmal, hard to interpret EKG due to body habitus. Probable Afib after probable NSR. Rate controlled. Heparin Drip for Anticoagulation due ROSY. Continue Eliquis at discharge if able. Unknown reaction to warfarin. (10) Diabetes mellitus Current Visit: Yes Status: Acute Code(s): E11.9 - TYPE 2 DIABETES MELLITUS WITHOUT COMPLICATIONS SNOMED Code(s): 15472498 Comment: FSBG and SSI. Status and Disposition: Patient is admitted inpatient. Will Discharge when medically stable.
[2017-07-08] MEDS: Clindamycin 600 MG IVPREMIX(* 600 MG/50 ML SDV IV SCH ×3 (04:58→21:26)
[2017-07-08] MEDS: Heparin DRIP 25,000 UNITS(*) 25,000 UNITS/500 ML BAG IVPB SCH (05:31)
[2017-07-08 06:47] LABS: Hematocrit 36 % (42-52); Hemoglobin 11.5 g/dl (14.0-18.0); Mean Corpuscular HGB Conc 33 g/dl (31-36); Mean Corpuscular Hemoglobin 29 pg (27-31); Mean Corpuscular Volume 90 fL (80-94); Mean Platelet Volume 8 um3 (7.4-10.4); Red Blood Count 3.92 10^6/ul (4.0-5.4); Red Cell Distribution Width 17 % (10.5-15); White Blood Count 11.7 10^3/ul (3.5-10.8)
[2017-07-08 06:54] LABS: Comments Flag Yes
[2017-07-08 06:55] LABS: Add Diff/Slide Review? Slide Review Added
[2017-07-08 07:01] LABS: Anion Gap 9 mmol/L (2-11); BUN/Creatinine Ratio 24.9 (8-20); Blood Urea Nitrogen 76 mg/dL (6-24); CO2 Carbon Dioxide 22 mmol/L (22-32); Calcium 9.4 mg/dL (8.6-10.3); Chloride 98 mmol/L (101-111); Creatine Kinase 86 U/L (10-223); EGFR African American 26.7 (>60); EGFR Non-African American 20.8 (>60); Glucose 90 mg/dL (70-100); Magnesium 2.4 mg/dL (1.9-2.7); Potassium 4.9 mmol/L (3.5-5.0); Sodium 129 mmol/L (133-145)
[2017-07-08] MEDS: Insulin LISPRO* 1 UNITS UNIT SUBCUT SCH ×3 (08:01→16:13)
[2017-07-08] MEDS: Metoprolol Tartrate TAB* 50 mg PO SCH (09:33)
[2017-07-08] MEDS: Lactobacillus Acidophilu (GG)* 1 CAP CAP PO SCH (09:33)
--- NOTE | 2017-07-08 13:37 | PN ---
Subjective Date of Service: 07/08/17 Interval History: Patient seen and examined at his bedside. He reports he feels much better today but c/o "back itching" and increased edema in his LE, and scrotum. He denies SOB /CP. No fevers or chills. No N/V/D. Reports good appetite. No abdominal pain. Family History: Unchanged from Admission Social History: Unchanged from Admission Past Medical History: Unchanged from Admission Objective Active Medications: Acetaminophen (Tylenol Tab*) 650 mg PO Q4H PRN PRN Reason: FEVER/PAIN Dextrose (D50w Syringe 50 Ml*) 12.5 gm IV PUSH .FOR FS < 60 - SS PRN PRN Reason: FS < 60 Diphenhydramine HCl (Benadryl Po*) 25 mg PO Q6H PRN PRN Reason: ITCHING Last Admin: 07/06/17 22:02 Dose: 25 mg Heparin Sodium (Porcine) (Heparin Vial(*)) 0 units IV .PER PROTOCOL MASTER PRN Reason: Protocol Last Admin: 07/07/17 14:43 Dose: 5,000 units Hydroxyzine HCl (Atarax Tab*) 25 mg PO Q4H PRN PRN Reason: PRURITIS Heparin Sodium/Dextrose (Heparin Drip 25,000 Units(*)) 25,000 units in 500 mls @ 0 mls/hr IVPB .PER RATE MASTER; Per Protocol PRN Reason: Protocol Last Admin: 07/08/17 05:31 Dose: 40 mls/hr Clindamycin HCl/Dextrose (Cleocin 600 Mg Ivpremix(*) Sdv) 600 mg in 50 mls @ 100 mls/hr IV Q8H [facility] Last Admin: 07/08/17 13:24 Dose: 100 mls/hr Insulin Human Lispro (Humalog*) 0 units SUBCUT AC [facility] PRN Reason: Protocol Last Admin: 07/08/17 11:39 Dose: Not Given Lactobacillus Rhamnosus (Culturelle*) 1 cap PO DAILY [facility] Last Admin: 07/08/17 09:33 Dose: 1 cap Metoprolol Tartrate (Lopressor Tab*) 50 mg PO BID [facility] Last Admin: 07/08/17 09:33 Dose: 50 mg Ondansetron HCl (Zofran Inj*) 4 mg IV Q6H PRN PRN Reason: NAUSEA Vital Signs 07/07/17 07/07/17 07/07/17 15:20 19:38 20:00 Temperature Pulse Rate 91 94 Respiratory 18 18 20 Rate Blood Pressure 103/62 114/65 (mmHg) O2 Sat by Pulse 100 98 Oximetry 07/07/17 07/08/17 07/08/17 23:30 04:09 07:38 Temperature 97.3 F 97.3 F Pulse Rate 91 88 Respiratory 20 24 22 Rate Blood Pressure 102/70 88/57 (mmHg) O2 Sat by Pulse 98 100 Oximetry 07/08/17 07/08/17 07/08/17 07:39 11:19 11:29 Temperature 97.1 F 97.3 F 97.3 F Pulse Rate 86 83 83 Respiratory 20 20 20 Rate Blood Pressure 106/68 95/65 95/65 (mmHg) O2 Sat by Pulse 99 100 100 Oximetry Oxygen Devices in Use Now: None Appearance: morbidly obese male laying in bed resting with eyes closed; awkes easily to voice, A+O x3 in NAD. Eyes: No Scleral Icterus, PERRLA Ears/Nose/Mouth/Throat: Mucous Membranes Moist, - - poor dentition Respiratory: Symmetrical Chest Expansion and Respiratory Effort, Clear to Auscultation Cardiovascular: RRR, - - 3+ LE edema noted Abdominal: - - morbidly obese, soft, nontender. unable to auscultate BS due to obesity Neurological: Alert and Oriented x 3, NL Sensation Lines/Tubes/Other Access: Clean, Dry and Intact Peripheral IV Nutrition: Taking PO's Result Diagrams: 07/08/17 06:35 07/08/17 06:35 Microbiology and Other Data: Microbiology 07/05/17 16:30 Nasal Screen MRSA (PCR)(RICK) - Final Nasal Mrsa Negative Assess/Plan/Problems-Billing Assessment: Patient is a 62yo male with a PMH significant for Morbid obesity, CHF, Paroxysmal Afib, DMII, HTN, HLD, Depression, CKD who presents after a fall without head trauma and prolonged laying and sepsis presumably secondary to a lower leg wound or a UTI, also with mild rhabdomyolysis, Prerenal ROSY, and NSTEMI presumably from demand ischemia. - Patient Problems (1) Cellulitis Comment: Presumable cause of sepsis. Chronic leg wound. Follows with the wound clinic. Appreciate ID input, Clindamycin ordered. Continue probiotic. Appreciate wound care consult. Keep legs elevated to decrease edema and aid healing. (2) ROSY (acute kidney injury) Comment: Prerenal by FeNa, dehydrated on admission. Creatinine still increasing (mildly) . Lasix on hold. Recheck in am (3) Elevated troponin Comment: Trop peaked at 0.40. Suspect secondary to demand ischemia. No CP, SOB, or EKG changes. Consider outpatient stress test. (4) Afib Comment: Eliquis on hold due to renal function Continue BB w/ hold parameters (5) CHF (congestive heart failure) Comment: No SOB; increased LE edema EF 40-45 by most recent Echo, Consistent with 07/27 TTE Hold Lasix today and re-evaluate tomorrow. (6) Diabetes mellitus Comment: FSBG and SSI. (7) HLD (hyperlipidemia) Comment: continue simvastatin (8) HTN (hypertension) Comment: Borderline hypotension on metoprolol for rate control with hold parameters (9) DVT prophylaxis Comment: HSQ Status and Disposition: inpatient. LOS > 2 days. Discharge when medically stable.
[2017-07-08] MEDS ORDERED: Furosemide IV* 10 MG/ML VIAL (40 MG) IV ONE (14:16)
[2017-07-08] MEDS ORDERED: Metoprolol Tartrate TAB* 50 mg PO SCH (14:33)
[2017-07-08 14:58] LABS: Prealbumin < 3 mg/dL (18-38)
[2017-07-08] MEDS: Atorvastatin* 10 MG TAB PO SCH (16:48)
[2017-07-08] MEDS: Heparin VIAL(*) 5000 UNITS/ML VIAL (FIVE THOUSAND) SUBCUT SCH (21:26)
[2017-07-08] MEDS: Benzonatate CAP* 100 MG PO SCH (22:28)
[2017-07-08] MEDS: Metoprolol Tartrate TAB* 25 MG PO SCH (22:28)
[2017-07-09] MEDS: Clindamycin 600 MG IVPREMIX(* 600 MG/50 ML SDV IV SCH ×3 (05:28→21:53)
[2017-07-09] MEDS: Heparin VIAL(*) 5000 UNITS/ML VIAL (FIVE THOUSAND) SUBCUT SCH ×3 (05:28→21:53)
[2017-07-09 06:59] LABS: Hematocrit 36 % (42-52); Hemoglobin 11.6 g/dl (14.0-18.0); Mean Corpuscular HGB Conc 32 g/dl (31-36); Mean Corpuscular Hemoglobin 29 pg (27-31); Mean Corpuscular Volume 90 fL (80-94); Mean Platelet Volume 8 um3 (7.4-10.4); Red Blood Count 4.03 10^6/ul (4.0-5.4); Red Cell Distribution Width 17 % (10.5-15); White Blood Count 12.1 10^3/ul (3.5-10.8)
[2017-07-09 07:01] LABS: Add Diff/Slide Review? Slide Review Added; Comments Flag Yes
[2017-07-09 07:12] LABS: Calcium 9.3 mg/dL (8.6-10.3); EGFR African American 24.1 (>60); EGFR Non-African American 18.7 (>60)
[2017-07-09 07:32] LABS: Potassium 5.2 mmol/L (3.5-5.0)
[2017-07-09] MEDS: Insulin LISPRO* 1 UNITS UNIT SUBCUT SCH ×3 (08:26→16:36)
[2017-07-09 08:38] LABS: Eosinophils % 5 % (0-6); Immature Granulocytes 1 % (0-9); Neutrophil % 69 % (38-83)
[2017-07-09 08:39] LABS: Polychromasia 1+
[2017-07-09] MEDS: Metoprolol Tartrate TAB* 25 MG PO SCH ×3 (10:11→21:58)
[2017-07-09] MEDS: Benzonatate CAP* 100 MG PO SCH ×4 (10:11→21:53)
[2017-07-09] MEDS: Lactobacillus Acidophilu (GG)* 1 CAP CAP PO SCH (10:11)
[2017-07-09] MEDS ORDERED: Furosemide IV* 10 MG/ML 2 ML VIAL (20 MG) IV SLOW PU ONE (15:44)
--- NOTE | 2017-07-09 16:30 | PN ---
Subjective Date of Service: 07/09/17 Interval History: Mr. Geller reports he feels tired today because he hasnt been able to sleep well. He reports he continues to feel edematous in LE's, thighs and back. He reports his LE wounds has less pain and feels that it is getting better. He denies SOB or CP. Denies orthopnea. No fevers or chills. He reports good appetite. No N/V/ D. He reports it is his norm to "dribble when urinating" but he does think he has been urinating a little less than normally - he does reports he has voided multiple times today. No abdominal or flank pain. He denies large prostate, no hx of kidney stones or stents in the past. Family History: Unchanged from Admission Social History: Unchanged from Admission Past Medical History: Unchanged from Admission Objective Active Medications: Acetaminophen (Tylenol Tab*) 650 mg PO Q4H PRN PRN Reason: FEVER/PAIN Atorvastatin Calcium (Lipitor*) 10 mg PO 1700 [facility] Last Admin: 07/08/17 16:48 Dose: 10 mg Benzonatate (Tessalon Cap*) 100 mg PO QID [facility] Last Admin: 07/09/17 13:54 Dose: 100 mg Dextrose (D50w Syringe 50 Ml*) 12.5 gm IV PUSH .FOR FS < 60 - SS PRN PRN Reason: FS < 60 Diphenhydramine HCl (Benadryl Po*) 25 mg PO Q6H PRN PRN Reason: ITCHING Last Admin: 07/06/17 22:02 Dose: 25 mg Heparin Sodium (Porcine) (Heparin Vial(*)) 5,000 units SUBCUT Q8HR [facility] Last Admin: 07/09/17 13:54 Dose: 5,000 units Hydroxyzine HCl (Atarax Tab*) 25 mg PO Q4H PRN PRN Reason: PRURITIS Clindamycin HCl/Dextrose (Cleocin 600 Mg Ivpremix(*) Sdv) 600 mg in 50 mls @ 100 mls/hr IV Q8H [facility] Last Admin: 07/09/17 13:54 Dose: 100 mls/hr Insulin Human Lispro (Humalog*) 0 units SUBCUT AC [facility] PRN Reason: Protocol Last Admin: 07/09/17 12:32 Dose: Not Given Lactobacillus Rhamnosus (Culturelle*) 1 cap PO DAILY [facility] Last Admin: 07/09/17 10:11 Dose: 1 cap Metoprolol Tartrate (Lopressor Tab*) 25 mg PO BID [facility] Last Admin: 07/09/17 10:11 Dose: 25 mg Ondansetron HCl (Zofran Inj*) 4 mg IV Q6H PRN PRN Reason: NAUSEA Vital Signs 07/08/17 07/08/17 07/08/17 20:00 20:05 23:07 Temperature 97.3 F 97.3 F Pulse Rate 87 85 Respiratory 18 18 22 Rate Blood Pressure 103/65 100/71 (mmHg) O2 Sat by Pulse 97 96 Oximetry 07/08/17 07/09/17 07/09/17 23:32 03:11 04:00 Temperature 97.3 F Pulse Rate 85 86 Respiratory 24 Rate Blood Pressure 81/64 110/60 (mmHg) O2 Sat by Pulse 96 93 95 Oximetry 07/09/17 07/09/17 07/09/17 08:00 08:03 11:33 Temperature 97.3 F 97.4 F Pulse Rate 84 82 Respiratory 18 20 20 Rate Blood Pressure 103/65 106/70 (mmHg) O2 Sat by Pulse 97 97 96 Oximetry 07/09/17 07/09/17 07/09/17 15:34 15:43 16:00 Temperature 97.0 F Pulse Rate 81 Respiratory 16 Rate Blood Pressure 95/59 (mmHg) O2 Sat by Pulse 94 94 Oximetry Oxygen Devices in Use Now: None Appearance: super morbid obesity male A+O x3 in NAD Eyes: No Scleral Icterus, PERRLA Ears/Nose/Mouth/Throat: - - poor dentition Neck: NL Appearance and Movements; NL JVP Respiratory: Symmetrical Chest Expansion and Respiratory Effort, Clear to Auscultation Cardiovascular: RRR, - Abdominal: - - obese, soft, nontender Extremities: No Edema - 3+ Neurological: Alert and Oriented x 3 Lines/Tubes/Other Access: Clean, Dry and Intact Peripheral IV Result Diagrams: 07/09/17 06:40 07/09/17 06:39 Microbiology and Other Data: Microbiology 07/05/17 16:30 Nasal Screen MRSA (PCR)(RICK) - Final Nasal Mrsa Negative Assess/Plan/Problems-Billing Assessment: Patient is a 62yo male with a PMH significant for Morbid obesity, CHF, Paroxysmal Afib, DMII, HTN, HLD, Depression, CKD who presents after a fall without head trauma and prolonged laying and sepsis presumably secondary to a lower leg wound or a UTI, also with mild rhabdomyolysis, Prerenal ROSY, and elevated troponins - Patient Problems (1) Cellulitis Comment: Presumable cause of sepsis. Chronic leg wound. Follows with the wound clinic. Appreciate ID input, Clindamycin ordered. Continue probiotic. Appreciate wound care consult. (2) ROSY (acute kidney injury) Comment: Prerenal by FeNa on admission, plan to recheck FeNa now. Creatinine still increasing. Low urine output. Place carter. Check renal u/s. ravi wraps to LE b/l Lasix on hold (lasix ordered yesterday & today in NOV was NOT given) Pre-albumin <3 - third spacing fluids. Dr. Jacinto to consult tomorrow Strict I+Os (3) Elevated troponin Comment: Trop peaked at 0.40. Suspect secondary to demand ischemia. No CP, SOB, or EKG changes. Consider outpatient stress test. (4) Afib Comment: Eliquis on hold due to renal function -was on hepariin gtt first few days of admission stopped 07/08 due to no need to bridge for afib. Continue BB w/ hold parameters (5) CHF (congestive heart failure) Comment: No SOB; increased LE edema EF 40-45 by most recent Echo, Consistent with 07/27 TTE Hold Lasix today Continue metoprolol (6) Diabetes mellitus Comment: controlled. FSBG and SSI. (7) HLD (hyperlipidemia) Comment: continue simvastatin (8) HTN (hypertension) Comment: metoprolol for rate control with hold parameters (9) DVT prophylaxis Comment: HSQ Status and Disposition: inpatient. LOS > 2 days. Discharge when medically stable.
[2017-07-09] MEDS: Atorvastatin* 10 MG TAB PO SCH (17:33)
--- NOTE | 2017-07-09 19:37 | RAD ---
HISTORY: Acute renal insufficiency COMPARISONS: None TECHNIQUE: Multiple transverse and longitudinal ultrasound images were obtained of the kidneys and bladder using grayscale and color Doppler imaging. FINDINGS: The study is limited by patient body habitus. RIGHT KIDNEY: The right kidney is normal in shape, size, contour, and echogenicity. There is no hydronephrosis or nephrolithiasis. The right kidney measures 11.2 x 5.8 x 4.3 cm. LEFT KIDNEY: Evaluation of the left kidney is limited by body habitus. The left kidney is not evaluated. BLADDER: The bladder is smooth in contour. Ureteral jets are not identified. The prevoid bladder volume is 244 mL. The patient is unable to void continuously. AORTA AND IVC: No images are submitted of the vasculature. RETROPERITONEUM: Unremarkable. OTHER: None. IMPRESSION: 1. LIMITED STUDY. 2. THE LEFT KIDNEY IS NOT EVALUATED. 3. THERE IS NO RIGHT HYDRONEPHROSIS. 4. URETERAL JETS ARE NOT IDENTIFIED. 5. THE PREVOID BLADDER VOLUME IS 244 ML. THE PATIENT IS UNABLE TO VOID FOR CLINICALLY.
[2017-07-10] MEDS: diPHENhydraMINE PO* 25 MG PO PRN (04:07)
[2017-07-10] MEDS: Clindamycin 600 MG IVPREMIX(* 600 MG/50 ML SDV IV SCH ×3 (06:13→21:56)
[2017-07-10] MEDS: Heparin VIAL(*) 5000 UNITS/ML VIAL (FIVE THOUSAND) SUBCUT SCH ×3 (06:13→21:56)
[2017-07-10] MEDS: Insulin LISPRO* 1 UNITS UNIT SUBCUT SCH ×3 (09:12→17:55)
[2017-07-10] MEDS: Benzonatate CAP* 100 MG PO SCH ×4 (09:13→21:56)
[2017-07-10] MEDS: Metoprolol Tartrate TAB* 25 MG PO SCH ×2 (09:13→22:56)
[2017-07-10] MEDS: Lactobacillus Acidophilu (GG)* 1 CAP CAP PO SCH (09:13)
[2017-07-10 09:59] LABS: Hematocrit 37 % (42-52); Hemoglobin 12.2 g/dl (14.0-18.0); Mean Corpuscular HGB Conc 33 g/dl (31-36); Mean Corpuscular Hemoglobin 29 pg (27-31); Mean Corpuscular Volume 90 fL (80-94); Mean Platelet Volume 8 um3 (7.4-10.4); Red Blood Count 4.17 10^6/ul (4.0-5.4); Red Cell Distribution Width 17 % (10.5-15); White Blood Count 12.8 10^3/ul (3.5-10.8)
[2017-07-10 10:10] LABS: BUN/Creatinine Ratio 22.5 (8-20); Calcium 9.5 mg/dL (8.6-10.3); EGFR African American 21.2 (>60); EGFR Non-African American 16.5 (>60); Magnesium 2.4 mg/dL (1.9-2.7); Potassium 5.4 mmol/L (3.5-5.0)
[2017-07-10] MEDS ORDERED: Sodium Polystyrene ORAL.SOL* 15 GM/60 ML BTL PO ONE (10:45)
[2017-07-10] MEDS ORDERED: Lidocaine 2% JELLY* 6 ML JELLY TOPICAL ONE (12:04)
--- NOTE | 2017-07-10 13:43 | PN ---
Subjective Date of Service: 07/10/17 Interval History: Patient seen and examined at bedside. Patient reports no good urination overnight. Patient denies shortness of breath. Primarily c/o of pain from swollen scrotum. Per records patient 7 lbs up from admission weight. Patient states he has not been up out of bed yet. Family History: Unchanged from Admission Social History: Unchanged from Admission Past Medical History: Unchanged from Admission Objective Active Medications: Acetaminophen (Tylenol Tab*) 650 mg PO Q4H PRN Atorvastatin Calcium (Lipitor*) 10 mg PO 1700 [facility] Benzonatate (Tessalon Cap*) 100 mg PO QID [facility] Diphenhydramine HCl (Benadryl Po*) 25 mg PO Q6H PRN Heparin Sodium (Porcine) (Heparin Vial(*)) 5,000 units SUBCUT Q8HR [facility] Hydroxyzine HCl (Atarax Tab*) 25 mg PO Q4H PRN Clindamycin HCl/Dextrose (Cleocin 600 Mg Ivpremix(*) Sdv) 600 mg in 50 mls @ 100 mls/hr IV Q8H [facility] Insulin Human Lispro (Humalog*) 0 units SUBCUT AC [facility] Lactobacillus Rhamnosus (Culturelle*) 1 cap PO DAILY [facility] Metoprolol Tartrate (Lopressor Tab*) 25 mg PO BID [facility] Ondansetron HCl (Zofran Inj*) 4 mg IV Q6H PRN Vital Signs Temp Pulse Resp BP Pulse Ox 97.8 F 81 20 101/70 95 07/10/17 12:04 07/10/17 12:04 07/10/17 12:04 07/10/17 12:04 07/10/17 12:04 Oxygen Devices in Use Now: None Appearance: morbidly obese male, laying in bed NAD Eyes: No Scleral Icterus, PERRLA Ears/Nose/Mouth/Throat: NL Teeth, Lips, Gums, Mucous Membranes Moist Neck: NL Appearance and Movements; NL JVP Respiratory: Symmetrical Chest Expansion and Respiratory Effort, Clear to Auscultation Cardiovascular: NL Sounds; No Murmurs; No JVD, RRR Abdominal: NL Sounds; No Tenderness; No Distention Extremities: - - significant scrotal edema; 3-4+ edema through legs and thighs Neurological: Alert and Oriented x 3, NL Muscle Strength and Tone Lines/Tubes/Other Access: Clean, Dry and Intact Peripheral IV Nutrition: Taking PO's Result Diagrams: 07/10/17 09:31 07/10/17 09:31 Microbiology and Other Data: . Assess/Plan/Problems-Billing Patient is a 62yo male with a PMH significant for Morbid obesity, CHF, Paroxysmal Afib, DMII, HTN, HLD, Depression, CKD who presents after a fall without head trauma and prolonged laying and sepsis presumably secondary to a lower leg wound or a UTI, also with mild rhabdomyolysis, Prerenal ROSY, and elevated troponins now with significant urinary retention and/or acute renal failure. - Patient Problems (1) ROSY (acute kidney injury) Comment: Renal ultrasound non-diagnostic and urine output has tapered off to dribbling. Asked urology to insert catheter as bladder scan >390. Once carter inserted, will be have better sense of cause of renal failure. If poor urine output then more likely pre-renal or ATN. Send urine lytes after insertion. Nephrology to see. Strict I/O. Lasix on hold. (2) Cellulitis Comment: Presumable cause of sepsis. Chronic leg wound. Follows with the wound clinic. Appreciate ID input, continue Clindamycin. Continue probiotic. Appreciate wound care consult. (3) Elevated troponin Comment: Trop peaked at 0.40. Suspect secondary to demand ischemia. No CP, SOB, or EKG changes. Consider outpatient stress test. (4) Afib Comment: Eliquis on hold d/t renal function. Continue beta thom. If renal function does not recover, would plan on starting warfarin at discharge. (5) CHF (congestive heart failure) Comment: Significantly increased LE edema without increased SOB. EF 40-45 by most recent Echo, Consistent with 07/27 TTE. Continue metoprolol. depending on urine output after carter insertion will determine further Lasix dosing. (6) Diabetes mellitus Comment: Controlled. FSBG and SSI. (7) HLD (hyperlipidemia) Comment: Continue simvastatin (8) HTN (hypertension) Comment: Controlled with metoprolol. (9) DVT prophylaxis Comment: HSQ (10) Full code status Status and Disposition: Inpatient. LOS > 2 days. Discharge when medically stable.
[2017-07-10 13:51] LABS: Urine Random Sodium < 18 mmol/L
--- NOTE | 2017-07-10 16:57 | CONS ---
CONSULTATION NOTE: DATE OF CONSULTATION: 07/10/17 PROCEDURE: Complex placement of Li catheter (16 Fr silastic Catheter). REASON FOR CONSULTATION: I was asked by the hospitalist service to see this 62 - year-old white male with renal failure and suspected urinary retention. HISTORY OF PRESENT ILLNESS: Mr. Geller is a morbidly obese 62-year-old who weighs about 450 pounds and who was transferred from [facility] because of renal failure, congestive heart failure, atrial fibrillation, and diffuse anasarca and ascites. He had worsening of his renal function. He had a bladder ultrasound, which showed suspected large urinary retention. Upon questioning, the patient reports having nocturia only once or twice and good urinary stream. He does not feel he is in urinary retention. He recalls that in the past when when was admitted to the [facility], and to [facility], he had required Li catheter placement; however, the procedure had to be done in the endoscopy suite with a flexible cystoscopy because the urethral meatus could not be visualized to be catheterized. A consultation is being requested for catheter placement. On exam, he is a very morbidly obese white male. He has diffuse edema involving his lower extremities, the scrotum, and the foreskin. I could not perform a rectal exam to check on his prostate size. There was marked edema of the scrotal wall and the testes could not be palpated. The patient is not circumcised. There is diffuse edema of the foreskin but no phimosis. The urethral meatus was palpated at about 10 cm from the level of the skin. PROCEDURE: The patient was prepped for a urethral catheterization. A 16 Silastic catheter was then passed inside the foreskin. By digital palpation and guidance, and after several attempts, the urethral meatus was catheterized and the catheter was successfully introduced inside the bladder and the balloon inflated with 10 cc of water. There was only a small amount of concentrated looking urine drained from his bladder. I do not think the patient is in urinary retention. I think what was noted on the ultrasound was ascites and not urine in his bladder. The plan is to keep the Li catheter in place for urine output monitoring. I do recommend that the catheter stays in place until the monitoring of urine output is not needed anymore and then it can be discontinued. I am not sure if I will be again successful at placing a Li catheter at the bedside if he needs another catheterization. [id number]/[facility] #: [id number] BRITANY
[2017-07-10] MEDS: Atorvastatin* 10 MG TAB PO SCH (18:07)
[2017-07-11] MEDS: Clindamycin 600 MG IVPREMIX(* 600 MG/50 ML SDV IV SCH (05:35)
[2017-07-11] MEDS: Heparin VIAL(*) 5000 UNITS/ML VIAL (FIVE THOUSAND) SUBCUT SCH ×3 (05:35→23:12)
[2017-07-11 06:11] LABS: Hematocrit 38 % (42-52); Hemoglobin 11.9 g/dl (14.0-18.0); Mean Corpuscular HGB Conc 32 g/dl (31-36); Mean Corpuscular Hemoglobin 28 pg (27-31); Mean Corpuscular Volume 90 fL (80-94); Mean Platelet Volume 8 um3 (7.4-10.4); Red Blood Count 4.18 10^6/ul (4.0-5.4); Red Cell Distribution Width 18 % (10.5-15); White Blood Count 12.4 10^3/ul (3.5-10.8)
[2017-07-11 06:14] LABS: Comments Flag Yes
[2017-07-11 06:44] LABS: BUN/Creatinine Ratio 22.7 (8-20); Blood Urea Nitrogen 88 mg/dL (6-24); Calcium 9.2 mg/dL (8.6-10.3); Chloride 100 mmol/L (101-111); EGFR African American 20.2 (>60); EGFR Non-African American 15.7 (>60); Glucose 93 mg/dL (70-100); Sodium 127 mmol/L (133-145)
[2017-07-11 06:57] LABS: CO2 Carbon Dioxide 14 mmol/L (22-32)
[2017-07-11 06:58] LABS: Anion Gap 13 mmol/L (2-11)
[2017-07-11] MEDS: Insulin LISPRO* 1 UNITS UNIT SUBCUT SCH ×3 (07:43→16:12)
[2017-07-11] MEDS: Benzonatate CAP* 100 MG PO SCH ×4 (08:26→21:33)
[2017-07-11] MEDS: Lactobacillus Acidophilu (GG)* 1 CAP CAP PO SCH (08:27)
[2017-07-11] MEDS: Metoprolol Tartrate TAB* 25 MG PO SCH ×2 (08:27→21:34)
[2017-07-11] MEDS ORDERED: Sodium Bicarbonate 8.4% IV* 150 MEQ in D5W 1000 ML BAG* 1,000 ML IVPB SCH ×2 (10:00→10:30)
--- NOTE | 2017-07-11 10:36 | PN ---
Subjective Date of Service: 07/11/17 Interval History: Patient seen and examined at bedside. Patient reports continued pain and swelling on scrotum. He was able to tolerate the ravi wrap on L leg overnight but right leg hurts him because of cellulitis. Denies any chest pain or shortness of breath. Family History: Unchanged from Admission Social History: Unchanged from Admission Past Medical History: Unchanged from Admission Objective Active Medications: Acetaminophen (Tylenol Tab*) 650 mg PO Q4H PRN Atorvastatin Calcium (Lipitor*) 10 mg PO 1700 [facility] Benzonatate (Tessalon Cap*) 100 mg PO QID [facility] Citric Acid/Sodium Citrate (Bicitra*) 15 ml PO TID [facility] Dextrose (D50w Syringe 50 Ml*) 12.5 gm IV PUSH .FOR FS < 60 - SS PRN Diphenhydramine HCl (Benadryl Po*) 25 mg PO Q6H PRN Heparin Sodium (Porcine) (Heparin Vial(*)) 5,000 units SUBCUT Q8HR [facility] Hydroxyzine HCl (Atarax Tab*) 25 mg PO Q4H PRN Clindamycin HCl/Dextrose (Cleocin 600 Mg Ivpremix(*) Sdv) 600 mg in 50 mls @ 100 mls/hr IV Q8H [facility] Sodium Bicarbonate 150 meq/ (Dextrose) 1,150 mls @ 125 mls/hr IVPB Q9H [facility] Insulin Human Lispro (Humalog*) 0 units SUBCUT AC [facility] Lactobacillus Rhamnosus (Culturelle*) 1 cap PO DAILY [facility] Metoprolol Tartrate (Lopressor Tab*) 25 mg PO BID [facility] Ondansetron HCl (Zofran Inj*) 4 mg IV Q6H PRN Vital Signs Temp Pulse Resp BP Pulse Ox 97.5 F 82 20 97/64 95 07/11/17 07:10 07/11/17 07:10 07/11/17 08:00 07/11/17 07:10 07/11/17 08:00 Oxygen Devices in Use Now: None Appearance: laying in bed, morbidly obese male, NAD Eyes: No Scleral Icterus, PERRLA Ears/Nose/Mouth/Throat: NL Teeth, Lips, Gums, Mucous Membranes Moist Neck: NL Appearance and Movements; NL JVP Respiratory: Symmetrical Chest Expansion and Respiratory Effort, Clear to Auscultation Cardiovascular: NL Sounds; No Murmurs; No JVD Abdominal: NL Sounds; No Tenderness; No Distention Extremities: - - anasarca - abdomen and bilateral extremities; significant scrotal edema Skin: - - RLE erythema improved. Neurological: Alert and Oriented x 3 Lines/Tubes/Other Access: Clean, Dry and Intact Peripheral IV Nutrition: Taking PO's Result Diagrams: 07/11/17 05:59 07/11/17 08:32 Microbiology and Other Data: . Assess/Plan/Problems-Billing Patient is a 62yo male with a PMH significant for Morbid obesity, CHF, Paroxysmal Afib, DMII, HTN, HLD, Depression, CKD who presents after a fall without head trauma and prolonged laying and sepsis presumably secondary to a lower leg wound or a UTI, also with mild rhabdomyolysis, Prerenal ROSY, and elevated troponins now with significant urinary retention and/or acute renal failure. - Patient Problems (1) ROSY (acute kidney injury) Comment: Li inserted yesterday by urology with minimal output. Minial output continued overnight. This morning patient is quite acidotic from renal failure. Renal failure still pre-renal per FeNa from significant third spacing d/t low albumin. Discussed with nephrology who will see later today. For now start Bicitra and sodium bicarb drip. Recheck VBG in the afternoon. Discussed with patient the likelihood of dialysis in the near future. (2) Acidosis, metabolic Comment: Secondary to renal failure. Will start Bicitra and sodium bicarb drip. Recheck VBG at 1600. (3) Cellulitis Comment: Presumable cause of sepsis. Chronic leg wound. Follows with the wound clinic. Appreciate ID input, continue Clindamycin. Continue probiotic. Appreciate wound care consult. (4) Elevated troponin Comment: Trop peaked at 0.40. Suspect secondary to demand ischemia. No CP, SOB, or EKG changes. Consider outpatient stress test. (5) Afib Comment: Eliquis on hold d/t renal function. Continue beta thom. If renal function does not recover, would plan on starting warfarin at discharge. (6) CHF (congestive heart failure) Comment: Significantly increased LE edema without increased SOB. EF 40-45 by most recent Echo, Consistent with 07/27 TTE. Continue metoprolol. No further Lasix. (7) Diabetes mellitus Comment: Controlled. FSBG and SSI. (8) HLD (hyperlipidemia) Comment: Continue simvastatin (9) HTN (hypertension) Comment: Controlled with metoprolol. (10) DVT prophylaxis Comment: HSQ (11) Full code status Status and Disposition: Inpatient. LOS > 2 days. Discharge when medically stable.
[2017-07-11] MEDS: Sodium Citrate/Citric Acid* 15 ML UDC PO SCH ×3 (10:50→21:34)
[2017-07-11] MEDS ORDERED: Sodium Polystyrene ORAL.SOL* 15 GM/60 ML BTL PO ONE (11:15)
[2017-07-11] MEDS ORDERED: Albumin Human 25%* 100 ML in PREMIX* 0 ML IV SCH (14:00)
[2017-07-11] MEDS: Clindamycin CAP* 150 MG PO SCH ×2 (14:02→23:12)
[2017-07-11] MEDS ORDERED: Albumin Human 25%* 200 ML in PREMIX* 0 ML IV ONE (14:30)
[2017-07-11 16:19] LABS: Venous Bicarbonate HCO3 18.3 mmol/L (24-28)
[2017-07-11] MEDS: Albumin Human 25%* 50 ML in PREMIX* 0 ML IV SCH ×2 (17:46→21:34)
[2017-07-11] MEDS: Acetaminophen TAB* 325 MG PO PRN (17:46)
[2017-07-11] MEDS: Atorvastatin* 10 MG TAB PO SCH (17:48)
--- NOTE | 2017-07-11 18:19 | CONS ---
CC: Shelia Nickerson * NEPHROLOGY CONSULTATION: DATE OF CONSULT: 07/11/17 HISTORY OF PRESENT ILLNESS: Mr. Geller is a 62-year-old gentleman with a 20-year history of diabetes mellitus, type 2, which has been complicated by neuropathy, but not nephropathy. He fell out of his wheelchair prior to admission and could not get up. He lied on the floor all night long. Eventually, neighbors were able to hear him and he was brought to the hospital. Here in the hospital , he has been found to have deteriorating renal function, which precipitated this consultation. At the present time, he says he feels pretty good except for the swelling. He denies shortness of breath, chest pain, nausea, and vomiting. PAST MEDICAL HISTORY: His previous medical history is significant for the previously mentioned diabetes mellitus, type 2. He has history of congestive heart failure. He has a history of atrial fibrillation and has been on Eliquis. He has a history of hypertension, hyperlipidemia, depression, and irritable bowel syndrome. He has a history of MRSA infection. He has a history of diverticulitis. He apparently required a colostomy for sometime as a result of diverticular abscess. MEDICATIONS: His medications at the time of admission include: 1. Lasix 40 mg daily. 2. Magnesium oxide 400 mg twice a day. 3. Simvastatin 40 mg daily. 4. Metoprolol 50 mg daily. 5. Eliquis 5 mg twice a day. ALLERGIES: He is allergic to KEFLEX, PENICILLIN, XARELTO, WARFARIN, and BACTRIM. FAMILY HISTORY: Unremarkable. SOCIAL HISTORY: He lives by himself. He used to be a heavy drinker, but he quit some years ago. He previously was a smoker, but having quit that too. REVIEW OF SYSTEMS: No visual disturbances. No hearing problems. No sore throat. No swallowing difficulties. No changes in his bowel habits. No dysuria , frequency, or urgency. PHYSICAL EXAM: He is a grossly obese white gentleman, who appears to be quite comfortable lying at about 15 degrees of elevation. Blood pressure is 101/57 with a pulse of 84, respirations are 24. Extraocular muscles are intact. He is anicteric. His mucous membranes are moist. I cannot see his neck veins as his neck is quite . I was unable to hear any breath sounds and in fact I was not able to hear his heart tones. His abdomen is grossly distended. He has a scar of his previous surgery. He has massive edema to his extremities extending all the way up to the lower abdominal wall. His scrotum is massively edematous. LABORATORY DATA: Review of his laboratory studies reveals a white count of 12.4 , hemoglobin of 11.9, hematocrit of 38, platelet count of 347,000. INR of 2.18. Sodium 127, potassium 5.5, chloride 100, total CO2 14, and that has been progressively declining. It was down at 15 on admission, but came back up into the low 20s. BUN of 88, that was 45 on presentation. His creatinine is 3.88 up from 1.7 on admission. His iron saturation is 5%. Total iron is less than 15. His albumin is 2.7; it was 1.7 on presentation. His prealbumin is less than 3. Urinalysis reveals 1+ blood, positive urobilinogen, 2+ esterase, 3+ wbc' s, 2+ rbc's. His urine culture revealed less than 10,000 colonies of Proteus mirabilis. On previous set of blood cultures, these were negative. IMPRESSION AND PLAN: Acute on chronic renal insufficiency. He has had a depressed fractional excretion of sodium suggesting a significant prerenal state , which is not surprising considering his markedly depressed serum albumin and his history of congestive heart failure. It is going to be very difficult to diurese him until we are able to improve his intravascular plasma volume. I suggest we start him on an albumin infusion. The application of Santana wraps to his legs has already been undertaken. We probably should replace his iron deficiency. It will be appropriate to get some stools for occult blood. It may be necessary to actually dialyze him while he is on an albumin infusion. I have explained the risks of dialysis to him including bleeding, infection, fluid shift, etc., and he is willing to proceed if required. [id number]/[facility] #: [id number] [facility] HOSPITALSuzie
[2017-07-12] MEDS: Albumin Human 25%* 50 ML in PREMIX* 0 ML IV SCH ×7 (01:58→22:06)
[2017-07-12] MEDS: Clindamycin CAP* 150 MG PO SCH ×3 (06:31→20:44)
[2017-07-12] MEDS: Heparin VIAL(*) 5000 UNITS/ML VIAL (FIVE THOUSAND) SUBCUT SCH ×3 (06:31→20:59)
[2017-07-12 07:09] LABS: Anion Gap 11 mmol/L (2-11); BUN/Creatinine Ratio 21.9 (8-20); Blood Urea Nitrogen 90 mg/dL (6-24); CO2 Carbon Dioxide 22 mmol/L (22-32); Calcium 9.3 mg/dL (8.6-10.3); Chloride 98 mmol/L (101-111); EGFR African American 18.9 (>60); EGFR Non-African American 14.7 (>60); Glucose 105 mg/dL (70-100); Sodium 131 mmol/L (133-145)
[2017-07-12] MEDS: Benzonatate CAP* 100 MG PO SCH ×4 (08:09→20:44)
[2017-07-12] MEDS: Sodium Citrate/Citric Acid* 15 ML UDC PO SCH ×3 (08:09→20:43)
[2017-07-12] MEDS: Insulin LISPRO* 1 UNITS UNIT SUBCUT SCH ×3 (08:09→16:57)
[2017-07-12] MEDS: Lactobacillus Acidophilu (GG)* 1 CAP CAP PO SCH (08:09)
[2017-07-12] MEDS: Metoprolol Tartrate TAB* 25 MG PO SCH ×2 (08:09→20:44)
[2017-07-12] MEDS: Ondansetron INJ* 2 MG/ML VIAL IV PRN ×2 (11:21→18:03)
--- NOTE | 2017-07-12 12:29 | PN ---
Subjective Date of Service: 07/12/17 Interval History: Patient seen and examined at bedside. Patient reports continued scrotal pain. He states this is why he could not work with PT. D/w patient that without mobility skin will breakdown and this could cause infection in addition to the need for short term rehab. Patient denies SOB or labored breathing. He had some nausea this AM but tolerating POs without difficulty. Family History: Unchanged from Admission Social History: Unchanged from Admission Past Medical History: Unchanged from Admission Objective Active Medications: Acetaminophen (Tylenol Tab*) 650 mg PO Q4H PRN Atorvastatin Calcium (Lipitor*) 10 mg PO 1700 MASTER Benzonatate (Tessalon Cap*) 100 mg PO QID MASTER Citric Acid/Sodium Citrate (Bicitra*) 15 ml PO TID MASETR Clindamycin HCl (Cleocin Cap*) 300 mg PO Q8HR MASTER Diphenhydramine HCl (Benadryl Po*) 25 mg PO Q6H PRN Heparin Sodium (Porcine) (Heparin Vial(*)) 5,000 units SUBCUT Q8HR MASTER Hydroxyzine HCl (Atarax Tab*) 25 mg PO Q4H PRN Albumin Human 50 ml/ IV (Solution) 50 mls @ 12 mls/hr IV Q4H MASTER Insulin Human Lispro (Humalog*) 0 units SUBCUT AC MASTER Lactobacillus Rhamnosus (Culturelle*) 1 cap PO DAILY MASTER Metoprolol Tartrate (Lopressor Tab*) 25 mg PO BID MASTER Ondansetron HCl (Zofran Inj*) 4 mg IV Q6H PRN . Oxygen Devices in Use Now: None Appearance: laying in bed, NAD Eyes: No Scleral Icterus, PERRLA Ears/Nose/Mouth/Throat: NL Teeth, Lips, Gums Neck: NL Appearance and Movements; NL JVP Respiratory: Symmetrical Chest Expansion and Respiratory Effort, - - lungs sounds distant and difficult to hear. clear on the right. Cardiovascular: NL Sounds; No Murmurs; No JVD, - - hear sounds distant; total body anasarca. Abdominal: NL Sounds; No Tenderness; No Distention Extremities: - - significant total body anasarca; scrotal edema. Skin: - - LLE cellulitis improved. Neurological: Alert and Oriented x 3 Lines/Tubes/Other Access: Clean, Dry and Intact Peripheral IV Nutrition: Taking PO's Result Diagrams: 07/11/17 05:59 07/12/17 06:44 Microbiology and Other Data: . Assess/Plan/Problems-Billing Patient is a 62yo male with a PMH significant for Morbid obesity, CHF, Paroxysmal Afib, DMII, HTN, HLD, Depression, CKD who presents after a fall without head trauma and prolonged laying and sepsis presumably secondary to a lower leg wound or a UTI, also with mild rhabdomyolysis, Prerenal ROSY, and elevated troponins now with significant urinary retention and/or acute renal failure. - Patient Problems (1) ROSY (acute kidney injury) Comment: Appreciate nephrology input. Albumin 50mg given as bolus yesterday and started on an albumin drip. Urine output seems to have improved yet Cr rising. Will recheck FeNa and if it is 0.8 or greater will try high dose Lasix with metolazone. Continue strict I/O and recheck Cr in the AM. Discussed with patient gravity of the situation and that he may likely need dialysis in the near future. (2) Acidosis, metabolic Comment: Improved. D/c bicarb drip and continue Bicitra (3) Cellulitis Comment: Presumable cause of sepsis. Chronic leg wound. Follows with the wound clinic. Appreciate ID input, continue Clindamycin now PO. Wash leg daily with soap and water. No dressing needed. (4) Elevated troponin Comment: Trop peaked at 0.40. Suspect secondary to demand ischemia. No CP, SOB, or EKG changes. Consider outpatient stress test. (5) Afib Comment: Eliquis on hold d/t renal function. Continue beta thom. Patient has documented allergy to warfarin. (6) CHF (congestive heart failure) Comment: Significantly increased LE edema without increased SOB. EF 40-45 by most recent Echo, Consistent with 07/27 TTE. Continue metoprolol. (7) Diabetes mellitus Comment: Controlled. FSBG and SSI. (8) HLD (hyperlipidemia) Comment: Continue simvastatin (9) HTN (hypertension) Comment: Controlled with metoprolol. (10) DVT prophylaxis Comment: HSQ (11) Full code status Status and Disposition: Inpatient. LOS > 2 days. Discharge when medically stable.
--- NOTE | 2017-07-12 12:55 | RAD ---
INDICATION: Dyspnea COMPARISON: Chest x-ray dated July 05, 2017 TECHNIQUE: Single AP portable view of the chest was obtained. FINDINGS: Image quality is compromised due to the relative inferiority of a portable chest x-ray as well as by the patient's large body habitus. Similar the prior chest x-ray there appears to be cardiomegaly. The right lung is adequately aerated. There is density obscuring the left lung base. IMPRESSION: Density obscuring the left lung base could be consolidation or effusion. There appears to be persistent mild cardiomegaly. The value of this portable chest x-ray is severely limited due to the inherent inferiority a portable chest x-ray and the patient's large body habitus reducing x-ray penetration.
[2017-07-12 13:13] LABS: Albumin 3.1 g/dL (3.2-5.2)
[2017-07-12 13:25] LABS: Renal Sodium Excretion 0.24 %; Urine Random Sodium < 18 mmol/L
[2017-07-12 14:34] LABS: Prealbumin < 3 mg/dL (18-38)
--- NOTE | 2017-07-12 16:19 | PN ---
Hospitalist Progress Note HOSPITALIST ADDENDUM: FeNA came back at 0.24; D/w Nephrology who recommended the following: Plan: 1) Give annother 25g of albumin and to increase the drip to 4g/hr. 2) Recheck FeNa in the AM. The goal is for a FeNa 0.8 or higher. 2) If FeNa at that level given 5mg of metolazone and 120mg IV Lasix 3) If patient's respiratory status stars to decline - give diuretics as delineated above. Dr. Jacinto in agreement.
[2017-07-12] MEDS: Atorvastatin* 10 MG TAB PO SCH (18:02)
[2017-07-12] MEDS ORDERED: Albumin Human 25%* 100 ML in PREMIX* 0 ML IV ONE (20:00)
[2017-07-13] MEDS: Albumin Human 25%* 50 ML in PREMIX* 0 ML IV SCH ×8 (01:41→20:41)
[2017-07-13] MEDS ORDERED: Albumin Human 25%* 50 ML in PREMIX* 0 ML IV SCH (05:00)
[2017-07-13] MEDS: Clindamycin CAP* 150 MG PO SCH ×3 (05:47→23:11)
[2017-07-13] MEDS: Heparin VIAL(*) 5000 UNITS/ML VIAL (FIVE THOUSAND) SUBCUT SCH ×3 (05:47→23:13)
[2017-07-13] MEDS: hydrOXYzine HCL TAB* 25 MG PO PRN ×2 (05:48→23:11)
[2017-07-13 06:19] LABS: Hematocrit 37 % (42-52); Mean Corpuscular HGB Conc 32 g/dl (31-36); Mean Corpuscular Hemoglobin 29 pg (27-31); Mean Corpuscular Volume 90 fL (80-94); Mean Platelet Volume 8 um3 (7.4-10.4); Red Blood Count 4.14 10^6/ul (4.0-5.4); Red Cell Distribution Width 18 % (10.5-15)
[2017-07-13 06:21] LABS: Comments Flag Yes
[2017-07-13 06:37] LABS: BUN/Creatinine Ratio 20.7 (8-20); Calcium 9.7 mg/dL (8.6-10.3); EGFR African American 16.7 (>60)
[2017-07-13 06:42] LABS: Potassium 5.8 mmol/L (3.5-5.0)
[2017-07-13] MEDS: Insulin LISPRO* 1 UNITS UNIT SUBCUT SCH ×3 (07:48→16:55)
[2017-07-13] MEDS: Ondansetron INJ* 2 MG/ML VIAL IV PRN (07:58)
[2017-07-13] MEDS: Metoprolol Tartrate TAB* 25 MG PO SCH ×2 (09:16→23:14)
[2017-07-13] MEDS: Sodium Citrate/Citric Acid* 15 ML UDC PO SCH ×3 (09:17→23:07)
[2017-07-13] MEDS: Metolazone TAB* 5 MG PO SCH (09:17)
[2017-07-13] MEDS: Lactobacillus Acidophilu (GG)* 1 CAP CAP PO SCH (09:17)
[2017-07-13] MEDS: Benzonatate CAP* 100 MG PO SCH ×4 (09:17→23:11)
[2017-07-13 09:48] LABS: Renal Sodium Excretion 0.28 %; Urine Random Sodium < 18 mmol/L
--- NOTE | 2017-07-13 10:10 | PN ---
Subjective Date of Service: 07/13/17 Interval History: Mr. Geller reports that his back hurts from laying in the bed. He denies other complaint including chest pain, SOB, nausea, or abdominal pain. Family History: Unchanged from Admission Social History: Unchanged from Admission Past Medical History: Unchanged from Admission Objective Active Medications: Acetaminophen (Tylenol Tab*) 650 mg PO Q4H PRN Atorvastatin Calcium (Lipitor*) 10 mg PO 1700 MASTER Benzonatate (Tessalon Cap*) 100 mg PO QID MASTER Citric Acid/Sodium Citrate (Bicitra*) 15 ml PO TID MASTER Clindamycin HCl (Cleocin Cap*) 300 mg PO Q8HR MASTER Dextrose (D50w Syringe 50 Ml*) 12.5 gm IV PUSH .FOR FS < 60 - SS PRN Diphenhydramine HCl (Benadryl Po*) 25 mg PO Q6H PRN Furosemide (Lasix Tab*) 120 mg PO 1000 MASTER Heparin Sodium (Porcine) (Heparin Vial(*)) 5,000 units SUBCUT Q8HR MASTER Hydroxyzine HCl (Atarax Tab*) 25 mg PO Q4H PRN Albumin Human 50 ml/ IV (Solution) 50 mls @ 16 mls/hr IV Q3H MASTER Insulin Human Lispro (Humalog*) 0 units SUBCUT AC MASTER Lactobacillus Rhamnosus (Culturelle*) 1 cap PO DAILY MASTER Metolazone (Zaroxolyn Tab*) 5 mg PO DAILY MASTER Metoprolol Tartrate (Lopressor Tab*) 25 mg PO BID MASTER Ondansetron HCl (Zofran Inj*) 4 mg IV Q6H PRN Tramadol HCl (Ultram*) 50 mg PO Q6H PRN Vital Signs: Temp Pulse Resp BP Pulse Ox 97.5 F 81 18 102/66 92 07/13/17 09:28 07/13/17 09:28 07/13/17 08:51 07/13/17 09:28 07/13/17 08:51 Oxygen Devices in Use Now: None Appearance: Male lying in bed in NAD Eyes: No Scleral Icterus Ears/Nose/Mouth/Throat: NL Teeth, Lips, Gums Neck: NL Appearance and Movements; NL JVP Respiratory: Symmetrical Chest Expansion and Respiratory Effort, Clear to Auscultation Cardiovascular: NL Sounds; No Murmurs; No JVD, - - +2-3 pitting edema Abdominal: NL Sounds; No Tenderness; No Distention Lymphatic: No Cervical Adenopathy Extremities: - - +2-3 pitting edema to LEs, above level of knee Skin: - - LE dressings CDI Neurological: Alert and Oriented x 3, NL Muscle Strength and Tone Nutrition: Taking PO's Result Diagrams: 07/13/17 05:49 07/13/17 09:00 Microbiology and Other Data: . Assess/Plan/Problems-Billing Mr. Geller is a 62yo male with a PMH significant for morbid obesity, CHF, paroxysmal Afib, DMII, HTN, HLD, Depression, and CKD who presents after a fall with prolonged down time with sepsis secondary to a lower leg cellulitis and UTI , also with mild rhabdomyolysis, Prerenal ROSY, and elevated troponins now with acute renal failure. - Patient Problems (1) Acute renal failure Comment: - Creatinine continues to rise - Appreciate nephrology input. - No response to metolazone and lasix today. Dialysis catheter placed by surgery. Plan for dialysis tomorrow. (2) CHF (congestive heart failure) Comment: - Significantly increased LE edema without increased SOB. - EF 40-45 by most recent Echo, Consistent with 07/27 TTE. - Continue metoprolol. (3) Acidosis, metabolic Comment: - Improved. Continue Bicitra. (4) Cellulitis Comment: - Chronic leg wound with cellulitis. Follows with the wound clinic. - Appreciate ID input, continue Clindamycin now PO. - Wash leg daily with soap and water. No dressing needed. (5) UTI (urinary tract infection) Comment: - Asymptomatic. - Only 10,000 colonies of proteus. - Is on clindamycin for LE wound, Repeat UA now. (6) Elevated troponin Comment: - Trop peaked at 0.40. Suspect secondary to demand ischemia. - No CP, SOB, or EKG changes. - Consider outpatient stress test when recovered from acute illness. (7) HTN (hypertension) Comment: - Reduce dose of metoprolol to allow for diuresis as needed. (8) Diabetes mellitus Comment: - Controlled. - Continue lispro SSI coverage with meals. (9) Afib Comment: - Eliquis on hold d/t renal function. Patient has documented allergy to warfarin. No history of CVA therefore does not need bridging therapy. - Continue beta thom. (10) HLD (hyperlipidemia) Comment: - Continue simvastatin (11) Rhabdomyolysis Comment: - Resolved. (12) DVT prophylaxis Comment: - HSQ (13) Full code status Current Visit: Yes Status: Acute Code(s): Z78.9 - OTHER SPECIFIED HEALTH STATUS SNOMED Code(s): 251924641 Status and Disposition: Inpatient with LOS > 2 days. May need sub acute rehab at discharge.
[2017-07-13] MEDS: Furosemide TAB* 40 MG PO SCH (11:03)
[2017-07-13] MEDS ORDERED: Lidocaine 1% INJ* 10 MG/ML 30 ML SDV ONE (14:17)
[2017-07-13] MEDS ORDERED: Heparin DIALYSIS ONLY(*) 1,000 UNITS/ML VIAL ONE (14:17)
--- NOTE | 2017-07-13 16:38 | RAD ---
HISTORY: Line placement COMPARISONS: July 12, 2017 VIEWS: 2: frontal portable view of the chest at 4:10 PM. The patient is obliqued to the left FINDINGS: LINES AND TUBES: There is a central venous catheter from a subclavian approach with the tip overlying the projected location of the superior vena cava.. CARDIOMEDIASTINAL SILHOUETTE: The cardiac silhouette is enlarged. The cardiomediastinal silhouette is otherwise normal for portable technique. PLEURA: There is no appreciable pneumothorax. LUNG PARENCHYMA: There is patchy bibasilar alveolar opacification ABDOMEN: The upper abdomen is clear. There is no subphrenic gas. BONES AND SOFT TISSUES: No bone or soft tissue abnormalities are noted. IMPRESSION: 1. LINES AND TUBES ABOVE. 2. NO APPRECIABLE PNEUMOTHORAX. 3. CARDIOMEGALY. 4. BIBASILAR ATELECTASIS VERSUS CONSOLIDATION
[2017-07-13] MEDS: Atorvastatin* 10 MG TAB PO SCH (18:23)
[2017-07-13] MEDS ORDERED: Calcium Gluconate INJ* 1 GM in NS 0.9% 50 ML* 50 ML IVPB ONE (20:42)
[2017-07-13] MEDS ORDERED: Insulin REGULAR(*) 1 UNITS UNIT IV PUSH ONE (20:42)
[2017-07-13] MEDS ORDERED: Dextrose 50% Syringe 50 ML* 25 GM/50 ML SYRINGE IV PUSH PRN (20:44)
[2017-07-13 23:09] LABS: BUN/Creatinine Ratio 18.9 (8-20); Blood Urea Nitrogen 97 mg/dL (6-24); CO2 Carbon Dioxide 20 mmol/L (22-32); Calcium 9.8 mg/dL (8.6-10.3); Chloride 97 mmol/L (101-111); EGFR African American 14.7 (>60); EGFR Non-African American 11.4 (>60); Glucose 78 mg/dL (70-100); Sodium 130 mmol/L (133-145)
[2017-07-13] MEDS: Acetaminophen TAB* 325 MG PO PRN (23:10)
[2017-07-13] MEDS: traMADol TAB* 50 MG PO PRN (23:12)
[2017-07-13 23:28] LABS: Anion Gap 13 mmol/L (2-11)
[2017-07-14] MEDS: Morphine INJ* 2 MG/ML 1 ML SYRINGE (TWO MG - NEW SYRINGE VERSION) IV PRN (01:07)
[2017-07-14] MEDS: Albumin Human 25%* 50 ML in PREMIX* 0 ML IV SCH ×6 (01:12→21:14)
[2017-07-14] MEDS: Clindamycin CAP* 150 MG PO SCH ×2 (06:13→14:52)
[2017-07-14] MEDS: Heparin VIAL(*) 5000 UNITS/ML VIAL (FIVE THOUSAND) SUBCUT SCH ×2 (06:13→14:52)
[2017-07-14 07:35] LABS: BUN/Creatinine Ratio 19.2 (8-20); Blood Urea Nitrogen 100 mg/dL (6-24); Calcium 9.7 mg/dL (8.6-10.3); Chloride 98 mmol/L (101-111); EGFR African American 14.4 (>60); EGFR Non-African American 11.2 (>60); Glucose 58 mg/dL (70-100); Sodium 130 mmol/L (133-145)
[2017-07-14 07:41] LABS: Anion Gap 18 mmol/L (2-11); CO2 Carbon Dioxide 14 mmol/L (22-32)
[2017-07-14] MEDS: Insulin LISPRO* 1 UNITS UNIT SUBCUT SCH ×3 (07:56→17:15)
[2017-07-14] MEDS: Benzonatate CAP* 100 MG PO SCH ×4 (09:05→20:47)
[2017-07-14] MEDS: Sodium Citrate/Citric Acid* 15 ML UDC PO SCH ×3 (09:05→20:48)
--- NOTE | 2017-07-14 10:19 | OP ---
CC: Dr. Moreno Jacinto * DATE OF OPERATION: 07/13/17 - ROOM #453 DATE OF : 51 SURGEON: Mejia Bang MD LEVEL VIAL SETTER: None. ANESTHESIOLOGIST: None. PRE-OP DIAGNOSIS: Renal failure. POST-OP DIAGNOSIS: Renal failure. OPERATIVE PROCEDURE: Placement of right subclavian temporary hemodialysis catheter. DESCRIPTION OF PROCEDURE: The patient is supine on the stretcher in the procedure room. The time-out was performed to confirm patient identity and procedure. The right neck and subclavian region were prepped with Chlora-Prep and draped in a sterile fashion. A sterile gown, mask, gloves, and so forth are utilized, and local anesthetic was administered, a total of 12 mL of 1% lidocaine. Subclavian venipuncture was carried out without difficulty. Guidewire passed without difficulty. Dilator was utilized, and then the catheter passed without difficulty. There was excellent blood return. It was flushed with saline solution followed by the final heparin flush solution. The catheter was sutured with 3-0 nylon followed by a sterile dressing. He tolerated the procedure well and was brought back to his room following the procedure. There were no complications. No drains. No specimens and about 20 mL blood loss. [id number]/[facility] #: [id number] MTDD
[2017-07-14] MEDS ORDERED: Heparin DIALYSIS ONLY(*) 1,000 UNITS/ML VIAL DIALYSIS ONE (12:00)
[2017-07-14] MEDS: Metoprolol Tartrate TAB* 25 MG PO SCH ×2 (14:28→20:45)
[2017-07-14] MEDS: Furosemide TAB* 40 MG PO SCH (14:52)
[2017-07-14] MEDS: Metolazone TAB* 5 MG PO SCH (14:52)
[2017-07-14] MEDS: Lactobacillus Acidophilu (GG)* 1 CAP CAP PO SCH (14:52)
--- NOTE | 2017-07-14 15:25 | PN ---
Subjective Date of Service: 07/14/17 Interval History: Mr. Geller states that he feels quite well today. He denies chest pain, SOB, nausea, or abdominal pain. He also denies pain to his back or scrotum though this had bothered him yesterday. He is tolerating oral intake well. Patient underwent dialysis today with no report of complication. Family History: Unchanged from Admission Social History: Unchanged from Admission Past Medical History: Unchanged from Admission Objective Active Medications: Acetaminophen (Tylenol Tab*) 650 mg PO Q4H PRN Atorvastatin Calcium (Lipitor*) 10 mg PO 1700 MASTER Benzonatate (Tessalon Cap*) 100 mg PO QID MASTER Citric Acid/Sodium Citrate (Bicitra*) 15 ml PO TID MASTER Clindamycin HCl (Cleocin Cap*) 300 mg PO Q8HR MASTER Dextrose (D50w Syringe 50 Ml*) 12.5 gm IV PUSH .FOR FS < 60 - SS PRN Dextrose (D50w Syringe 50 Ml*) 25 gm IV PUSH ONCE PRN Diphenhydramine HCl (Benadryl Po*) 25 mg PO Q6H PRN Furosemide (Lasix Tab*) 120 mg PO 1000 MASTER Heparin Sodium (Porcine) (Heparin Vial(*)) 5,000 units SUBCUT Q8HR MASTER Hydroxyzine HCl (Atarax Tab*) 25 mg PO Q4H PRN Albumin Human 50 ml/ IV (Solution) 50 mls @ 16 mls/hr IV Q3H MASTER Insulin Human Lispro (Humalog*) 0 units SUBCUT AC MASTER Lactobacillus Rhamnosus (Culturelle*) 1 cap PO DAILY MASTER Metolazone (Zaroxolyn Tab*) 5 mg PO DAILY MASTER Metoprolol Tartrate (Lopressor Tab*) 12.5 mg PO BID MASTER Morphine Sulfate (Morphine Inj (Syringe)*) 2 mg IV Q4H PRN Ondansetron HCl (Zofran Inj*) 4 mg IV Q6H PRN Tramadol HCl (Ultram*) 50 mg PO Q6H PRN Vital Signs 07/13/17 07/13/17 07/13/17 16:00 16:35 17:15 Temperature 97.1 F 97.2 F Pulse Rate 76 75 Respiratory 16 16 Rate Blood Pressure 104/72 100/68 (mmHg) O2 Sat by Pulse 97 96 97 Oximetry 07/13/17 07/13/17 07/13/17 20:00 20:32 20:59 Temperature 97.5 F 94.4 F Pulse Rate 77 80 Respiratory 18 16 18 Rate Blood Pressure 102/58 95/60 (mmHg) O2 Sat by Pulse 88 89 Oximetry 07/13/17 07/13/17 07/13/17 21:30 22:00 23:12 Temperature 97.3 F 97.5 F Pulse Rate 78 Respiratory 20 20 Rate Blood Pressure 88/58 (mmHg) O2 Sat by Pulse 95 Oximetry 07/14/17 07/14/17 07/14/17 00:00 00:24 00:31 Temperature 97.5 F Pulse Rate 79 79 Respiratory 20 Rate Blood Pressure 88/61 109/61 (mmHg) O2 Sat by Pulse 93 91 Oximetry 07/14/17 07/14/17 07/14/17 01:07 01:12 01:20 Temperature 97.3 F Pulse Rate Respiratory 20 20 20 Rate Blood Pressure 102/61 (mmHg) O2 Sat by Pulse 91 Oximetry 07/14/17 07/14/17 07/14/17 02:07 03:41 04:35 Temperature 97.4 F 97.4 F Pulse Rate 74 78 Respiratory 18 20 20 Rate Blood Pressure 101/68 102/64 (mmHg) O2 Sat by Pulse 95 93 Oximetry 07/14/17 07/14/17 07/14/17 07:52 09:07 12:34 Temperature 96.8 F 98.2 F Pulse Rate 76 74 80 Respiratory 16 12 16 Rate Blood Pressure 97/70 98/60 101/51 (mmHg) O2 Sat by Pulse 92 92 92 Oximetry 07/14/17 13:59 Temperature 96.5 F Pulse Rate 79 Respiratory 10 Rate Blood Pressure 93/57 (mmHg) O2 Sat by Pulse 96 Oximetry Oxygen Devices in Use Now: Nasal Cannula Appearance: Male sitting up in bed in NAD Eyes: No Scleral Icterus Ears/Nose/Mouth/Throat: Mucous Membranes Moist Neck: Trachea Midline Respiratory: Symmetrical Chest Expansion and Respiratory Effort, Clear to Auscultation Cardiovascular: NL Sounds; No Murmurs; No JVD, - - +2 pitting edema Abdominal: NL Sounds; No Tenderness; No Distention Lymphatic: No Cervical Adenopathy Skin: No Rash or Ulcers Neurological: Alert and Oriented x 3, NL Muscle Strength and Tone Nutrition: Taking PO's Result Diagrams: 07/13/17 05:49 07/14/17 11:00 Microbiology and Other Data: . Assess/Plan/Problems-Billing Mr. Geller is a 62yo male with a PMH significant for morbid obesity, CHF, paroxysmal Afib, DMII, HTN, HLD, Depression, and CKD who presents after a fall with prolonged down time with sepsis secondary to a lower leg cellulitis and UTI , also with mild rhabdomyolysis, Prerenal ROSY, and elevated troponins now with acute renal failure. - Patient Problems (1) Acute renal failure Comment: - Appreciate nephrology input. - Dialysis completed today, further management per Dr. Jacinto and his team. (2) CHF (congestive heart failure) Comment: - EF 40-45 by most recent Echo, Consistent with 07/27 TTE. - Continue metoprolol as tolerated. (3) Acidosis, metabolic Comment: - Worsened today. Continue Bicitra and dialysis. (4) Cellulitis Comment: - Chronic leg wound with cellulitis. Follows with the wound clinic. - Appreciate ID input, continue Clindamycin now PO. - Wash leg daily with soap and water. No dressing needed. (5) UTI (urinary tract infection) Comment: - Asymptomatic. - Only 10,000 colonies of proteus. - On clindamycin for LE wound. (6) Elevated troponin Comment: - Trop peaked at 0.40. Suspect secondary to demand ischemia. - No CP, SOB, or EKG changes. - Consider outpatient stress test when recovered from acute illness. (7) HTN (hypertension) Comment: - Reduce dose of metoprolol to allow for diuresis as needed. (8) Diabetes mellitus Comment: - Controlled. - Continue lispro SSI coverage with meals. (9) Afib Comment: - Eliquis on hold d/t renal function. Patient has documented allergy to warfarin. No history of CVA therefore does not need bridging therapy. - Continue beta thom. (10) HLD (hyperlipidemia) Comment: - Continue simvastatin (11) Rhabdomyolysis Comment: - Resolved. (12) DVT prophylaxis Comment: - HSQ (13) Full code status Current Visit: Yes Status: Acute Code(s): Z78.9 - OTHER SPECIFIED HEALTH STATUS SNOMED Code(s): 118770738 Status and Disposition: Inpatient with LOS > 2 days. May need sub acute rehab at discharge.
[2017-07-14] MEDS: Atorvastatin* 10 MG TAB PO SCH (18:05)
[2017-07-14] MEDS: traMADol TAB* 50 MG PO PRN (20:47)
[2017-07-14] MEDS: Acetaminophen TAB* 325 MG PO PRN (20:47)
[2017-07-15] MEDS: Albumin Human 25%* 50 ML in PREMIX* 0 ML IV SCH ×10 (01:16→23:49)
[2017-07-15] MEDS: Heparin VIAL(*) 5000 UNITS/ML VIAL (FIVE THOUSAND) SUBCUT SCH ×4 (01:19→21:52)
[2017-07-15] MEDS: Clindamycin CAP* 150 MG PO SCH ×4 (01:22→21:52)
[2017-07-15] MEDS: Acetaminophen TAB* 325 MG PO PRN (01:22)
[2017-07-15 05:31] LABS: BUN/Creatinine Ratio 17.9 (8-20); Calcium 9.9 mg/dL (8.6-10.3); EGFR African American 14.1 (>60); EGFR Non-African American 10.9 (>60); Potassium 5.6 mmol/L (3.5-5.0)
[2017-07-15] MEDS: Insulin LISPRO* 1 UNITS UNIT SUBCUT SCH ×3 (07:51→16:35)
[2017-07-15] MEDS: Sodium Citrate/Citric Acid* 15 ML UDC PO SCH ×3 (08:29→21:50)
[2017-07-15] MEDS: Lactobacillus Acidophilu (GG)* 1 CAP CAP PO SCH (08:29)
[2017-07-15] MEDS: Furosemide TAB* 40 MG PO SCH (08:29)
[2017-07-15] MEDS: Benzonatate CAP* 100 MG PO SCH ×4 (08:29→21:52)
[2017-07-15] MEDS: Metolazone TAB* 5 MG PO SCH (08:29)
[2017-07-15] MEDS: Metoprolol Tartrate TAB* 25 MG PO SCH (08:30)
--- NOTE | 2017-07-15 16:15 | PN ---
Subjective Date of Service: 07/15/17 Interval History: Mr. Geller is not very communicative though he states that he is feeling fine today , even better than yesterday. He denies any complaint. He continues to refuse to participate with his care and refuses to get out of bed to chair. Family History: Unchanged from Admission Social History: Unchanged from Admission Past Medical History: Unchanged from Admission Objective Active Medications: Acetaminophen (Tylenol Tab*) 650 mg PO Q4H PRN Atorvastatin Calcium (Lipitor*) 10 mg PO 1700 MASTER Benzonatate (Tessalon Cap*) 100 mg PO QID MASTER Citric Acid/Sodium Citrate (Bicitra*) 15 ml PO TID MASTER Clindamycin HCl (Cleocin Cap*) 300 mg PO Q8HR MASTER Dextrose (D50w Syringe 50 Ml*) 12.5 gm IV PUSH .FOR FS < 60 - SS PRN Dextrose (D50w Syringe 50 Ml*) 25 gm IV PUSH ONCE PRN Diphenhydramine HCl (Benadryl Po*) 25 mg PO Q6H PRN Furosemide (Lasix Tab*) 120 mg PO 1000 MASTER Heparin Sodium (Porcine) (Heparin Vial(*)) 5,000 units SUBCUT Q8HR MASTER Hydroxyzine HCl (Atarax Tab*) 25 mg PO Q4H PRN Albumin Human 50 ml/ IV (Solution) 50 mls @ 16 mls/hr IV Q3HR MASTER Insulin Human Lispro (Humalog*) 0 units SUBCUT AC MASTER Lactobacillus Rhamnosus (Culturelle*) 1 cap PO DAILY MASTER Metolazone (Zaroxolyn Tab*) 5 mg PO DAILY MASTER Morphine Sulfate (Morphine Inj (Syringe)*) 2 mg IV Q4H PRN Ondansetron HCl (Zofran Inj*) 4 mg IV Q6H PRN Tramadol HCl (Ultram*) 50 mg PO Q6H PRN Vital Signs: Temp Pulse Resp BP Pulse Ox 97.1 F 73 12 101/57 98 07/15/17 13:45 07/15/17 13:45 07/15/17 13:45 07/15/17 13:45 07/15/17 16:00 Oxygen Devices in Use Now: Nasal Cannula Appearance: Morbidly obese male lying in bed in NAD Eyes: No Scleral Icterus Ears/Nose/Mouth/Throat: Mucous Membranes Moist Neck: Trachea Midline Respiratory: Symmetrical Chest Expansion and Respiratory Effort, Clear to Auscultation, - - Diminished Cardiovascular: NL Sounds; No Murmurs; No JVD, - - Edema to bilateral LEs Skin: No Rash or Ulcers Neurological: NL Muscle Strength and Tone, - - Awakens to voice and is oriented x 3, otherwise sleeping and minimally interactive Nutrition: Taking PO's Result Diagrams: 07/13/17 05:49 07/15/17 04:50 Microbiology and Other Data: . Assess/Plan/Problems-Billing Mr. Geller is a 62yo male with a PMH significant for morbid obesity, CHF, paroxysmal Afib, DMII, HTN, HLD, Depression, and CKD who presents after a fall with prolonged down time with sepsis secondary to a lower leg cellulitis and UTI , also with mild rhabdomyolysis, Prerenal ROSY, and elevated troponins now with acute renal failure. - Patient Problems (1) Acute renal failure Comment: - Appreciate nephrology input. - Dialysis completed Monday, plan for M/W/F dialysis. (2) CHF (congestive heart failure) Comment: - EF 40-45 by most recent Echo, Consistent with 07/27 TTE. - Continue metoprolol as tolerated. (3) Acidosis, metabolic Comment: - Improved with dialysis. (4) Cellulitis Comment: - Chronic leg wound with cellulitis. Follows with the wound clinic. - Appreciate ID input, continue Clindamycin now PO. - Wash leg daily with soap and water. No dressing needed. (5) UTI (urinary tract infection) Comment: - Asymptomatic. - Only 10,000 colonies of proteus. - On clindamycin for LE wound. (6) Elevated troponin Comment: - Trop peaked at 0.40. Suspect secondary to demand ischemia. - No CP, SOB, or EKG changes. - Consider outpatient stress test when recovered from acute illness. (7) HTN (hypertension) Comment: - SBP 80-110. - Hold metoprolol. (8) Diabetes mellitus Comment: - Controlled. - Continue lispro SSI coverage with meals. (9) Afib Comment: - Eliquis on hold d/t renal function. Patient has documented allergy to warfarin. No history of CVA therefore does not need bridging therapy. - Continue beta thom. (10) HLD (hyperlipidemia) Comment: - Continue simvastatin (11) Rhabdomyolysis Comment: - Resolved. (12) DVT prophylaxis Comment: - HSQ (13) Full code status Current Visit: Yes Status: Acute Code(s): Z78.9 - OTHER SPECIFIED HEALTH STATUS SNOMED Code(s): 835616848 Status and Disposition: Inpatient with LOS > 2 days. May need sub acute rehab at discharge.
[2017-07-15] MEDS: Atorvastatin* 10 MG TAB PO SCH (17:24)
[2017-07-16] MEDS: Albumin Human 25%* 50 ML in PREMIX* 0 ML IV SCH ×3 (01:22→07:10)
[2017-07-16] MEDS: Clindamycin CAP* 150 MG PO SCH ×2 (06:22→14:38)
[2017-07-16] MEDS: Heparin VIAL(*) 5000 UNITS/ML VIAL (FIVE THOUSAND) SUBCUT SCH ×3 (06:23→22:41)
[2017-07-16 06:35] LABS: BUN/Creatinine Ratio 16.7 (8-20); Calcium 9.9 mg/dL (8.6-10.3); EGFR African American 12.7 (>60); EGFR Non-African American 9.9 (>60)
[2017-07-16 06:49] LABS: Potassium 5.9 mmol/L (3.5-5.0)
[2017-07-16] MEDS: Insulin LISPRO* 1 UNITS UNIT SUBCUT SCH ×3 (07:45→21:03)
[2017-07-16] MEDS: Lactobacillus Acidophilu (GG)* 1 CAP CAP PO SCH (08:11)
[2017-07-16] MEDS: Sodium Citrate/Citric Acid* 15 ML UDC PO SCH ×3 (08:11→21:05)
[2017-07-16] MEDS: Benzonatate CAP* 100 MG PO SCH ×4 (08:11→21:05)
[2017-07-16] MEDS: Metolazone TAB* 5 MG PO SCH (08:11)
[2017-07-16] MEDS: Furosemide TAB* 40 MG PO SCH (11:08)
--- NOTE | 2017-07-16 11:28 | PN ---
Subjective Date of Service: 07/16/17 Interval History: Mr. Geller remains very belligerent and does not want to participate in his care. He complains of back pain and does not want to move in bed or be repositioned. He denies any other specific complaint including chest pain, SOB, nausea, or abdominal pain. Family History: Unchanged from Admission Social History: Unchanged from Admission Past Medical History: Unchanged from Admission Objective Active Medications: Acetaminophen (Tylenol Tab*) 650 mg PO Q4H PRN Atorvastatin Calcium (Lipitor*) 10 mg PO 1700 MASTER Benzonatate (Tessalon Cap*) 100 mg PO QID MASTER Citric Acid/Sodium Citrate (Bicitra*) 15 ml PO TID MASTER Clindamycin HCl (Cleocin Cap*) 300 mg PO Q8HR MASTER Dextrose (D50w Syringe 50 Ml*) 12.5 gm IV PUSH .FOR FS < 60 - SS PRN Dextrose (D50w Syringe 50 Ml*) 25 gm IV PUSH ONCE PRN Diphenhydramine HCl (Benadryl Po*) 25 mg PO Q6H PRN Furosemide (Lasix Tab*) 120 mg PO 1000 MASTER Heparin Sodium (Porcine) (Heparin Vial(*)) 5,000 units SUBCUT Q8HR MASTER Hydroxyzine HCl (Atarax Tab*) 25 mg PO Q4H PRN Insulin Human Lispro (Humalog*) 0 units SUBCUT AC MASTER Lactobacillus Rhamnosus (Culturelle*) 1 cap PO DAILY MASTER Metolazone (Zaroxolyn Tab*) 5 mg PO DAILY MASTER Morphine Sulfate (Morphine Inj (Syringe)*) 2 mg IV Q4H PRN Ondansetron HCl (Zofran Inj*) 4 mg IV Q6H PRN Tramadol HCl (Ultram*) 50 mg PO Q6H PRN Vital Signs: Temp Pulse Resp BP Pulse Ox 96.5 F 73 18 97/54 95 07/16/17 07:45 07/16/17 11:30 07/16/17 11:30 07/16/17 11:30 07/16/17 11:30 Oxygen Devices in Use Now: Nasal Cannula Appearance: Morbidly obese male lying in bed in NAD Eyes: No Scleral Icterus Ears/Nose/Mouth/Throat: Mucous Membranes Moist Neck: Trachea Midline Respiratory: Symmetrical Chest Expansion and Respiratory Effort, Clear to Auscultation Cardiovascular: NL Sounds; No Murmurs; No JVD, - - +2-3 pitting edema Abdominal: NL Sounds; No Tenderness; No Distention Lymphatic: No Cervical Adenopathy Skin: No Rash or Ulcers Neurological: - - Alert and oriented, refuses to participate in exam Result Diagrams: 07/13/17 05:49 07/16/17 06:06 Microbiology and Other Data: . Assess/Plan/Problems-Billing Mr. Geller is a 62yo male with a PMH significant for morbid obesity, CHF, paroxysmal Afib, DMII, HTN, HLD, Depression, and CKD who presents after a fall with prolonged down time with sepsis secondary to a lower leg cellulitis and UTI , also with mild rhabdomyolysis, Prerenal ROSY, and elevated troponins now with acute renal failure. - Patient Problems (1) Acute renal failure Comment: - Appreciate nephrology input. - Dialysis completed Monday, plan for M/W/F dialysis. - Patient remains significantly edematous, will give lactulose for hyperkalemia. (2) CHF (congestive heart failure) Comment: - EF 40-45 by most recent Echo, Consistent with 07/27 TTE. - Continue metoprolol as tolerated. (3) Acidosis, metabolic Comment: - Improved with dialysis. (4) Cellulitis Comment: - Chronic leg wound with cellulitis. Follows with the wound clinic. - Appreciate ID input, continue Clindamycin now PO. - Wash leg daily with soap and water. No dressing needed. (5) Depression Comment: - Patient agitated and refuses to participate in care. States, "I just wanna be left alone." - Psych consult ordered to assess for appropriateness of starting anti- depressant. - Will attempt to determine if patient has any family/friends, it seems that no one has visited and there are no next of kin listed in EMR. (6) UTI (urinary tract infection) Comment: - Asymptomatic. - Only 10,000 colonies of proteus. - On clindamycin for LE wound. (7) Elevated troponin Comment: - Trop peaked at 0.40. Suspect secondary to demand ischemia. - No CP, SOB, or EKG changes. - Consider outpatient stress test when recovered from acute illness. (8) HTN (hypertension) Comment: - SBP 80-110. - Hold metoprolol. (9) Diabetes mellitus Comment: - Controlled. - Continue lispro SSI coverage with meals. (10) Afib Comment: - Eliquis on hold d/t renal function. Patient has documented allergy to warfarin. No history of CVA therefore does not need bridging therapy. - Continue beta thom. (11) HLD (hyperlipidemia) Comment: - Continue simvastatin (12) Rhabdomyolysis Comment: - Resolved. (13) DVT prophylaxis Comment: - HSQ (14) Full code status Current Visit: Yes Status: Acute Code(s): Z78.9 - OTHER SPECIFIED HEALTH STATUS SNOMED Code(s): 102048079 Status and Disposition: Inpatient with LOS > 2 days. Anticipate fpc placement when medically stable.
[2017-07-16] MEDS: Dextrose 50% Syringe 50 ML* 25 GM/50 ML SYRINGE IV PUSH PRN ×2 (11:37→11:45)
[2017-07-16] MEDS ORDERED: Lactulose* 15 ML UDC PO SCH (14:00)
[2017-07-16] MEDS ORDERED: Sodium Bicarbonate 8.4% IV* 150 MEQ in D5W 1000 ML BAG* 1,000 ML IVPB SCH (18:00)
[2017-07-16] MEDS ORDERED: Sodium Bicarbonate 8.4% IV* 50 ML VIAL IV ONE (18:09)
[2017-07-16] MEDS ORDERED: Sodium Polystyrene RECTAL* 30 GM/120 ML RECTAL.SUS PR ONE (18:09)
[2017-07-16 18:15] LABS: PCO2 Arterial 37 mmHg (35-45)
--- NOTE | 2017-07-16 18:19 | PN ---
Progress Note - Progress Note Date of Service: 07/16/17 Note: Patient assessed earlier in shift to be belligerent but oriented and answering questions appropriately. Stopped by to try to speak with patient about possible family or friends that could be contacted regarding his illness. 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 Stat ABG and BMP ordered. Reviewed case with Dr. Jacinto on the phone, plan for 2 amps bicarb and kayexalate while awaiting results. Dr. Dubon (covering Hospitalist updated) and will call Dr. Winters once results of ABG and BMP are available to review.
[2017-07-16 19:01] LABS: ALT 11 U/L (7-52); Albumin 3.9 g/dL (3.2-5.2); Alkaline Phosphatase 106 U/L (34-104); BUN/Creatinine Ratio 17.3 (8-20); Blood Urea Nitrogen 106 mg/dL (6-24); CO2 Carbon Dioxide 19 mmol/L (22-32); Chloride 96 mmol/L (101-111); EGFR Non-African American 9.3 (>60); Globulin 3.5 g/dL (2-4); Glucose 76 mg/dL (70-100); Sodium 130 mmol/L (133-145); Total Protein 7.4 g/dL (6.4-8.9)
[2017-07-16 19:06] LABS: Anion Gap 15 mmol/L (2-11); Troponin I 0.05 ng/mL (<0.04)
--- NOTE | 2017-07-16 19:27 | RAD ---
Indication: Confusion. CT of the brain was performed without contrast. Ventricular structures are midline. No midline shift is noted. The extra-axial spaces. There is no evidence of intracranial mass or hemorrhage. No other high or low density lesions are identified. Motion artifact degrades the images. IMPRESSION: No intracranial mass or hemorrhage is noted.
--- NOTE | 2017-07-16 20:01 | RAD ---
Indication: Hypoxia. Single frontal view of the chest performed at 1935 hours was reviewed. Comparison is made with previous exam dated July 13, 2017. Cardiomegaly is noted. No alveolar consolidation is noted. Lungs appear clear. IMPRESSION: NO ACTIVE CARDIOPULMONARY DISEASE IS NOTED.
[2017-07-16 20:08] LABS: EPAP 10; FIO2 100; IPAP 20
[2017-07-16 20:11] LABS: PCO2 Arterial 47 mmHg (35-45)
[2017-07-16 20:34] LABS: Hematocrit 38 % (42-52); Mean Corpuscular HGB Conc 32 g/dl (31-36); Mean Corpuscular Hemoglobin 29 pg (27-31); Mean Corpuscular Volume 92 fL (80-94); Mean Platelet Volume 8 um3 (7.4-10.4); Red Blood Count 4.14 10^6/ul (4.0-5.4); Red Cell Distribution Width 18 % (10.5-15); White Blood Count 14.2 10^3/ul (3.5-10.8)
[2017-07-16 20:42] LABS: Add Diff/Slide Review? Slide Review Added; Comments Flag Yes
[2017-07-16] MEDS: Atorvastatin* 10 MG TAB PO SCH (21:04)
[2017-07-16 21:07] LABS: C Reactive Protein 73.65 mg/L (< 5.00)
[2017-07-16] MEDS ORDERED: Levofloxacin 750 MG IVPREMIX(* 750 MG/150 ML BAG IVPB ONE (21:23)
[2017-07-16] MEDS: Clindamycin 600 MG IVPREMIX(* 600 MG/50 ML SDV IV SCH (21:59)
[2017-07-16] MEDS: Lactulose 300 ML for PR* 10 GM/15 ML BTL PR SCH (22:13)
[2017-07-16 23:05] LABS: Direct Bilirubin Redraw 1.7 mg/dL (0.03-0.18)
[2017-07-16 23:43] LABS: Troponin I 0.05 ng/mL (<0.04)
[2017-07-17] MEDS ORDERED: Ondansetron INJ* 2 MG/ML VIAL ONE (01:32)
[2017-07-17] MEDS: Haloperidol INJ IV/IM* 5 MG/ML AMP IV SLOW PU PRN (05:32)
[2017-07-17] MEDS: Heparin VIAL(*) 5000 UNITS/ML VIAL (FIVE THOUSAND) SUBCUT SCH ×3 (05:32→22:14)
[2017-07-17] MEDS: Clindamycin 600 MG IVPREMIX(* 600 MG/50 ML SDV IV SCH ×3 (06:23→22:15)
--- NOTE | 2017-07-17 07:34 | PN ---
Subjective Date of Service: 07/17/17 Interval History: Mr. Geller is confused but awake and yelling at times. He does not offer any complaint and appears to not be in any acute distress. Family History: Unchanged from Admission Social History: Unchanged from Admission Past Medical History: Unchanged from Admission Objective Active Medications: Acetaminophen (Tylenol Tab*) 650 mg PO Q4H PRN Atorvastatin Calcium (Lipitor*) 10 mg PO 1700 MASTER Benzonatate (Tessalon Cap*) 100 mg PO QID MASTER Citric Acid/Sodium Citrate (Bicitra*) 15 ml PO TID MASTER Dextrose (D50w Syringe 50 Ml*) 12.5 gm IV PUSH .FOR FS < 60 - SS PRN Haloperidol Lactate (Haldol Inj Iv/Im*) 2 mg IV SLOW PU Q6H PRN Heparin Sodium (Porcine) (Heparin Vial(*)) 5,000 units SUBCUT Q8HR MASTER Clindamycin HCl/Dextrose (Cleocin 600 Mg Ivpremix(*) Sdv) 600 mg in 50 mls @ 100 mls/hr IV Q8H MASTER Insulin Human Lispro (Humalog*) 0 units SUBCUT AC MASTER Lactobacillus Rhamnosus (Culturelle*) 1 cap PO DAILY MASTER Lactulose (Lactulose 300 Ml For Pr*) 200 gm WV QID MASTER Morphine Sulfate (Morphine Inj (Syringe)*) 2 mg IV Q4H PRN Ondansetron HCl (Zofran Inj*) 4 mg IV Q4H PRN Vital Signs Vital Signs: Temp Pulse Resp BP Pulse Ox 97.7 F 80 17 98/60 97 07/17/17 07:23 07/17/17 06:00 07/17/17 06:00 07/17/17 06:00 07/17/17 06:00 Oxygen Devices in Use Now: High Flow Heated Nasal Cannula Appearance: Morbidly obese male lying in bed in NAD Eyes: No Scleral Icterus Ears/Nose/Mouth/Throat: Mucous Membranes Moist Neck: Trachea Midline Respiratory: Symmetrical Chest Expansion and Respiratory Effort, - - Diminished Cardiovascular: NL Sounds; No Murmurs; No JVD, - - +2-3 edema, significant scrotal edema Abdominal: NL Sounds; No Tenderness; No Distention Skin: - - Bilateral LEs with chronic venous stasis changes, no clear evidence of acute infection with no marked area of erythema or drainage Neurological: - - Awake, responds to voice and yells out or mumbles. Moves all extremities but is inconsistent in following commands. Nutrition: Taking PO's Result Diagrams: 07/16/17 20:00 07/16/17 22:00 Microbiology and Other Data: . Assess/Plan/Problems-Billing Mr. Geller is a 62yo male with a PMH significant for morbid obesity, CHF, paroxysmal Afib, DMII, HTN, HLD, depression, and CKD who presents after a fall with prolonged down time with sepsis secondary to a lower leg cellulitis and UTI , also with mild rhabdomyolysis, prerenal ROSY, and elevated troponins now with acute renal failure. - Patient Problems (1) Acute hypoxemic respiratory failure Comment: - Patient suddenly hypoxic on arrival to ICU last evening. - Suspect secondary to pulmonary edema, responded well to bipap, now on vapotherm. - Cxray with pulm edema and cardiomegaly, no clear evidence of infiltrate. - Patient noted to vomit into bipap mask overnight, will be vigilant for signs of aspiration pneumonia, vitals stable at this point, currently on levaquin. (2) Acute renal failure Comment: - Appreciate nephrology input, events of last evening reviewed with Dr. Jacinto. - Dialysis completed Monday, plan for M/W/F dialysis. - Patient now on vapotherm after episode of hypoxia last evening, suspect due to fluid overload as he responded well to bipap initially. - Continue bicarb prn for metabolic acidosis. - Continue kayexalate for hyperkalemia, K 6.0. (3) Leukocytosis Comment: - WBC up to 14, I suspect this is due to stress with acute hypoxic resp failure. However CRP also mildly elevated. No fever. - No clear source of infection other than cellulitis to left lower extremity which does not appear to be acutely worsened. - Given respiratory failure and episode of possible aspiration, blood cultures were ordered and antibiotics were broadened. Patient has multiple allergies including cephalosporins, penicillins, and sulfa. For now, patient will be covered with levaquin and increased dose of clindamycin. - LA remained elevated > 2. Suspect due to respiratory failure. IV fluids contraindicated in setting of renal failure and hypoxic respiratory failure. (4) CHF (congestive heart failure) Comment: - EF 40-45 by most recent Echo, Consistent with 07/27 TTE. - SBP 90s, metoprolol discontinued. - Plan for dialysis today. (5) Acidosis, metabolic Comment: - Acidosis steadily worsening after dialysis. - Patient given 2 amps bicard, awaiting HD today. (6) Cellulitis Comment: - No clear evidence of acute cellulitis at this point. Patient has chronic leg wound with chronic venous stasis changes. - Switch to IV clindamycin as depressed mentation prevents consistent po administration. - Wash leg daily with soap and water. Cover with gauze. (7) Depression Comment: - Since arrival, patient has been intermittently agitated and refusing to participate in care. States, "I just wanna be left alone." - Psych consult ordered to assess for appropriateness of starting anti- depressant, will defer until patient is more alert and oriented. - Spoke to patient's PCP, Dr. Felipe. Patient has "burned all bridges." He has a son who is no longer involved with him, Dr. Felipe did not have any contact information. (8) UTI (urinary tract infection) Comment: - Asymptomatic. - Only 10,000 colonies of proteus. - On clindamycin for LE wound. (9) Elevated troponin Comment: - Trop peaked at 0.40. Suspect secondary to demand ischemia. - No CP, SOB, or EKG changes. - Consider outpatient stress test when recovered from acute illness. (10) HTN (hypertension) Comment: - SBP 80-110. - Hold metoprolol. (11) Diabetes mellitus Comment: - Controlled. - Continue lispro SSI coverage with meals. (12) Afib Comment: - Rate controlled. - Eliquis on hold d/t renal function. Patient has documented allergy to warfarin. No history of CVA therefore does not need bridging therapy. (13) HLD (hyperlipidemia) Comment: - Continue simvastatin (14) DVT prophylaxis Comment: - HSQ (15) Full code status Status and Disposition: Inpatient with LOS > 2 days. Anticipate correction placement when medically stable.
[2017-07-17] MEDS: Insulin LISPRO* 1 UNITS UNIT SUBCUT SCH ×3 (09:29→19:42)
[2017-07-17] MEDS: Benzonatate CAP* 100 MG PO SCH ×4 (09:33→22:14)
[2017-07-17] MEDS: Sodium Citrate/Citric Acid* 15 ML UDC PO SCH ×3 (09:33→22:14)
[2017-07-17] MEDS: Lactobacillus Acidophilu (GG)* 1 CAP CAP PO SCH ×2 (09:33→09:44)
[2017-07-17] MEDS ORDERED: Heparin DIALYSIS ONLY(*) 1,000 UNITS/ML VIAL DIALYSIS ONE (11:00)
[2017-07-17] MEDS: Lactulose 300 ML for PR* 10 GM/15 ML BTL PR SCH ×2 (11:27→13:52)
[2017-07-17] MEDS: Atorvastatin* 10 MG TAB PO SCH (16:54)
[2017-07-18] MEDS: Haloperidol INJ IV/IM* 5 MG/ML AMP IV SLOW PU PRN (03:17)
[2017-07-18] MEDS: Heparin VIAL(*) 5000 UNITS/ML VIAL (FIVE THOUSAND) SUBCUT SCH ×3 (05:48→22:12)
[2017-07-18] MEDS: Clindamycin 600 MG IVPREMIX(* 600 MG/50 ML SDV IV SCH ×3 (05:49→22:12)
[2017-07-18 06:20] LABS: Comments Flag Yes; Hematocrit 35 % (42-52); Hemoglobin 11.4 g/dl (14.0-18.0); Mean Corpuscular HGB Conc 32 g/dl (31-36); Mean Corpuscular Hemoglobin 29 pg (27-31); Mean Corpuscular Volume 89 fL (80-94); Mean Platelet Volume 8 um3 (7.4-10.4); Red Blood Count 3.96 10^6/ul (4.0-5.4); Red Cell Distribution Width 18 % (10.5-15); White Blood Count 15.1 10^3/ul (3.5-10.8)
[2017-07-18 06:37] LABS: Albumin 3.5 g/dL (3.2-5.2); BUN/Creatinine Ratio 14.2 (8-20); Calcium 9.8 mg/dL (8.6-10.3); EGFR African American 12.3 (>60); EGFR Non-African American 9.6 (>60); Globulin 3.7 g/dL (2-4); Total Bilirubin 3.2 mg/dL (0.2-1.0); Total Protein 7.2 g/dL (6.4-8.9)
[2017-07-18 06:39] LABS: Potassium 5.2 mmol/L (3.5-5.0)
[2017-07-18] MEDS: Ondansetron INJ* 2 MG/ML VIAL IV PRN ×2 (07:53→13:37)
[2017-07-18] MEDS: Benzonatate CAP* 100 MG PO SCH ×4 (08:19→22:12)
[2017-07-18] MEDS: Lactobacillus Acidophilu (GG)* 1 CAP CAP PO SCH (08:19)
[2017-07-18] MEDS: Sodium Citrate/Citric Acid* 15 ML UDC PO SCH ×3 (08:19→22:12)
[2017-07-18] MEDS: Insulin LISPRO* 1 UNITS UNIT SUBCUT SCH ×3 (08:19→19:24)
--- NOTE | 2017-07-18 10:02 | PN ---
Subjective Date of Service: 07/18/17 Interval History: Overnight events noted, patient pulled out HD catheter. Mr. Geller had episode of N/V earlier this morning. Reports feeling better now. Still seems very encephalopathic, unable to tell me where he is or why he is here. Denies pain or SOB. O2 weaned. Family History: Unchanged from Admission Social History: Unchanged from Admission Past Medical History: Unchanged from Admission Objective Active Medications: Acetaminophen (Tylenol Tab*) 650 mg PO Q4H PRN Atorvastatin Calcium (Lipitor*) 10 mg PO 1700 MASTER Benzonatate (Tessalon Cap*) 100 mg PO QID MASTER Citric Acid/Sodium Citrate (Bicitra*) 15 ml PO TID MASTER Dextrose (D50w Syringe 50 Ml*) 12.5 gm IV PUSH .FOR FS < 60 - SS PRN Haloperidol Lactate (Haldol Inj Iv/Im*) 2 mg IV SLOW PU Q6H PRN Heparin Sodium (Porcine) (Heparin Vial(*)) 5,000 units SUBCUT Q8HR MASTER Clindamycin HCl/Dextrose (Cleocin 600 Mg Ivpremix(*) Sdv) 600 mg in 50 mls @ 100 mls/hr IV Q8H MASTER Levofloxacin/Dextrose (Levaquin 500 Mg Ivpremix(*)) 500 mg in 100 mls @ 100 mls /hr IVPB Q48H MASTER Insulin Human Lispro (Humalog*) 0 units SUBCUT AC MASTER Lactobacillus Rhamnosus (Culturelle*) 1 cap PO DAILY MASTER Lactulose (Lactulose*) 30 ml PO TID MASTER Morphine Sulfate (Morphine Inj (Syringe)*) 2 mg IV Q4H PRN Ondansetron HCl (Zofran Inj*) 4 mg IV Q4H PRN Vital Signs 07/17/17 07/17/17 07/17/17 10:00 10:06 10:47 Temperature Pulse Rate 88 93 Respiratory 19 16 16 Rate Blood Pressure 78/58 (mmHg) O2 Sat by Pulse 97 97 Oximetry 07/17/17 07/17/17 07/17/17 12:00 12:03 12:15 Temperature Pulse Rate 88 84 85 Respiratory 15 17 15 Rate Blood Pressure 80/59 81/48 73/47 (mmHg) O2 Sat by Pulse 96 97 96 Oximetry 07/17/17 07/18/17 07/18/17 23:56 00:00 00:01 Temperature Pulse Rate 85 82 Respiratory 18 18 17 Rate Blood Pressure 119/54 (mmHg) O2 Sat by Pulse 97 96 Oximetry 07/18/17 07/18/17 07/18/17 08:00 08:01 08:03 Temperature 96.7 F Pulse Rate 96 93 85 Respiratory 22 18 14 Rate Blood Pressure 110/78 (mmHg) O2 Sat by Pulse 96 95 95 Oximetry Oxygen Devices in Use Now: Nasal Cannula Appearance: Middle-aged, M, laying in bed, lethargic Eyes: No Scleral Icterus Ears/Nose/Mouth/Throat: - - Dry MM Neck: NL Appearance and Movements; NL JVP Respiratory: Symmetrical Chest Expansion and Respiratory Effort, Clear to Auscultation - in anterior and lateral shelby Cardiovascular: NL Sounds; No Murmurs; No JVD, RRR Abdominal: - - Obese, soft, non-distended, non-tender, BS+ Extremities: - - Diffuse anasarca Skin: - - Chronic LE skin changes, scrotal edema Neurological: - - Lethargic, oriented to self only, could not tell me where he was, thought year was 1976, no focal deficits noted Result Diagrams: 07/18/17 06:10 07/18/17 06:10 Microbiology and Other Data: . Assess/Plan/Problems-Billing Mr. Geller is a 62yo male with a PMH significant for morbid obesity, CHF, paroxysmal Afib, DMII, HTN, HLD, depression, and CKD who presents after a fall with prolonged down time with sepsis secondary to a lower leg cellulitis and UTI , also with mild rhabdomyolysis, prerenal ROSY, and elevated troponins now with acute renal failure requiring HD - Patient Problems (1) Acute hypoxemic respiratory failure Current Visit: Yes Comment: - Patient suddenly hypoxic on arrival to ICU on 07/17, unclear etiology. Some concern for PE. Will get B/L LE dopplers. CTA would likely prolong patient's HD needs and VQ scan would not be helpful. O2 needs improving, continue to wean. - Patient noted to vomit into bipap mask 07/17, will be vigilant for signs of aspiration pneumonia, Currently on levaquin in addition to Clinda (2) Acute renal failure Current Visit: Yes Comment: - Appreciate nephrology input. Last HD on 07/17. Unfortunately patient pulled out his temporary HD cath - Spoke to Dr. Sanchez and will plan for placement of tunneled HD cath on 07/19 - Continue bicitra for metabolic acidosis. (3) Cellulitis Current Visit: Yes Comment: - No clear evidence of acute cellulitis at this point. Patient has chronic leg wound with chronic venous stasis changes. - Continue IV clindamycin as depressed mentation prevents consistent po administration. - Wash leg daily with soap and water. Cover with gauze. (4) Depression Current Visit: Yes Comment: - Since arrival, patient has been intermittently agitated and refusing to participate in care. States, "I just wanna be left alone." - Psych consult ordered to assess for appropriateness of starting anti- depressant, will defer until patient is more alert and oriented. - Spoke to patient's PCP, Dr. Felipe. Patient has "burned all bridges." He has a son who is no longer involved with him, Dr. Felipe did not have any contact information. (5) Elevated troponin Current Visit: Yes Comment: - Trop peaked at 0.40. Suspect secondary to demand ischemia. - No CP, SOB, or EKG changes. - Consider outpatient stress test when recovered from acute illness. (6) HTN (hypertension) Current Visit: Yes Comment: - Holding metoprolol. (7) Afib Current Visit: Yes Comment: - Rate controlled at the moment, currently off medications - Eliquis on hold d/t renal function. Patient has documented allergy to warfarin. (8) Diabetes mellitus Current Visit: Yes Comment: - Not taking much PO due to nausea - Continue lispro SSI coverage with meals. (9) CHF (congestive heart failure) Current Visit: Yes Comment: - EF 40-45 by most recent Echo, Consistent with 07/27 TTE. - Metoprolol held for relative hypotension (10) DVT prophylaxis Current Visit: Yes Comment: - HSQ Status and Disposition: Inpatient with LOS > 2 days. Anticipate custodial placement when medically stable.
[2017-07-18] MEDS ORDERED: PROCHLORPERAZINE INJ 5 MG/ML 2 ML VIAL IV PRN (11:10)
[2017-07-18] MEDS: Pantoprazole IV* 40 MG IV SCH (11:27)
--- NOTE | 2017-07-18 13:04 | RAD ---
Indication: Request for assessment of the bilateral internal jugular veins; procedure planning for dialysis catheter placement. Comparison: No relevant prior exams available on the [facility] PACS for comparison. Technique: Ultrasound with Doppler of the bilateral internal jugular and subclavian veins. Report: Patent bilateral internal jugular and subclavian veins documented.
[2017-07-18] MEDS: Morphine INJ* 2 MG/ML 1 ML SYRINGE (TWO MG - NEW SYRINGE VERSION) IV PRN (16:36)
[2017-07-18] MEDS: Atorvastatin* 10 MG TAB PO SCH (17:12)
--- NOTE | 2017-07-18 18:04 | RAD ---
INDICATION: Lower extremity edema evaluate for deep venous thrombosis. COMPARISON: Comparison is made with a prior study from July 05, 2017. TECHNIQUE: Multiple real-time, color flow and Doppler tracings of both lower extremities were obtained. The exam is limited due to the patient's body habitus. FINDINGS: The common femoral, femoral, profunda femoral and popliteal veins all demonstrate normal compressibility, augmentation with compression and phasic response with respiration. The posterior tibial and peroneal veins demonstrate normal compressibility and augmentation with compression. IMPRESSION: SLIGHTLY LIMITED EXAM, NO EVIDENCE FOR DEEP VENOUS THROMBOSIS.
[2017-07-18] MEDS: Levofloxacin 500 MG IVPREMIX(* 500 MG/100 ML BAG IVPB SCH (22:12)
[2017-07-19] MEDS: Clindamycin 600 MG IVPREMIX(* 600 MG/50 ML SDV IV SCH ×2 (05:09→16:33)
[2017-07-19] MEDS: Heparin VIAL(*) 5000 UNITS/ML VIAL (FIVE THOUSAND) SUBCUT SCH ×3 (05:10→22:16)
[2017-07-19 05:19] LABS: Comments Flag Yes; Hematocrit 35 % (42-52); Hemoglobin 11.1 g/dl (14.0-18.0); Mean Corpuscular HGB Conc 32 g/dl (31-36); Mean Corpuscular Hemoglobin 29 pg (27-31); Mean Corpuscular Volume 90 fL (80-94); Mean Platelet Volume 9 um3 (7.4-10.4); Red Blood Count 3.87 10^6/ul (4.0-5.4); Red Cell Distribution Width 18 % (10.5-15); White Blood Count 14.2 10^3/ul (3.5-10.8)
[2017-07-19 05:31] LABS: Blood Urea Nitrogen 95 mg/dL (6-24); CO2 Carbon Dioxide 17 mmol/L (22-32); Calcium 9.5 mg/dL (8.6-10.3); Chloride 96 mmol/L (101-111); EGFR African American 11.5 (>60); Glucose 71 mg/dL (70-100); Sodium 129 mmol/L (133-145)
[2017-07-19 05:58] LABS: Anion Gap 16 mmol/L (2-11)
[2017-07-19 07:29] LABS: Magnesium 2.4 mg/dL (1.9-2.7)
[2017-07-19] MEDS: Lactobacillus Acidophilu (GG)* 1 CAP CAP PO SCH (08:51)
[2017-07-19] MEDS: Benzonatate CAP* 100 MG PO SCH ×4 (08:51→22:16)
[2017-07-19] MEDS: Sodium Citrate/Citric Acid* 15 ML UDC PO SCH ×3 (08:51→22:16)
[2017-07-19] MEDS: Insulin LISPRO* 1 UNITS UNIT SUBCUT SCH ×3 (09:02→17:31)
--- NOTE | 2017-07-19 09:14 | PN ---
Subjective Date of Service: 07/19/17 Interval History: Patient seen this morning, much more alert today. Denies any complaints, no pain or SOB. Understands plans for HD cath replacement and need for dialysis. He states he has been on dialysis in the past but did not think it extended beyond his hospitalization. Of note, review of labs from [place] indicate presenting labs with creatinine of 3 and CK of 1090. Records from [facility] reviewed, patient was hospitalized for acute on chronic CHF, hypercarbic respiratory failure, diffuse anasarca, liver failure with ascites (8L paracentesis there), VRE SBP and acute on chronic renal failure. No mention of HD in the d/c summary and patient was discharged on diuretics. Family History: Unchanged from Admission Social History: Unchanged from Admission Past Medical History: Unchanged from Admission Objective Active Medications: Acetaminophen (Tylenol Tab*) 650 mg PO Q4H PRN Atorvastatin Calcium (Lipitor*) 10 mg PO 1700 MASTER Benzonatate (Tessalon Cap*) 100 mg PO QID MASTER Citric Acid/Sodium Citrate (Bicitra*) 15 ml PO TID MASTER Dextrose (D50w Syringe 50 Ml*) 12.5 gm IV PUSH .FOR FS < 60 - SS PRN Haloperidol Lactate (Haldol Inj Iv/Im*) 2 mg IV SLOW PU Q6H PRN Heparin Sodium (Porcine) (Heparin Vial(*)) 5,000 units SUBCUT Q8HR MASTER Clindamycin HCl/Dextrose (Cleocin 600 Mg Ivpremix(*) Sdv) 600 mg in 50 mls @ 100 mls/hr IV Q8H MASTER Levofloxacin/Dextrose (Levaquin 500 Mg Ivpremix(*)) 500 mg in 100 mls @ 100 mls /hr IVPB Q48H MASTER Insulin Human Lispro (Humalog*) 0 units SUBCUT AC MASTER Lactobacillus Rhamnosus (Culturelle*) 1 cap PO DAILY MASTER Lactulose (Lactulose*) 30 ml PO TID MASTER Morphine Sulfate (Morphine Inj (Syringe)*) 2 mg IV Q4H PRN Ondansetron HCl (Zofran Inj*) 4 mg IV Q4H PRN Pantoprazole Sodium (Protonix Iv*) 40 mg IV Q24H MASTER Prochlorperazine Edisylate (Compazine Inj*) 5 mg IV Q6H PRN Vital Signs 07/18/17 07/18/17 07/18/17 09:22 09:30 09:36 Temperature Pulse Rate 93 87 Respiratory 17 14 20 Rate Blood Pressure 105/73 120/57 (mmHg) O2 Sat by Pulse 94 95 Oximetry 07/18/17 07/18/17 07/18/17 19:49 20:00 20:30 Temperature 98.2 F Pulse Rate 82 82 Respiratory 15 15 Rate Blood Pressure 121/73 104/73 (mmHg) O2 Sat by Pulse 96 96 Oximetry 07/19/17 07/19/17 07/19/17 06:01 06:17 06:30 Temperature Pulse Rate 91 92 90 Respiratory 14 14 14 Rate Blood Pressure 85/52 87/53 104/58 (mmHg) O2 Sat by Pulse 95 96 96 Oximetry Oxygen Devices in Use Now: Nasal Cannula - 5L Appearance: Middle-aged, M, laying in bed in NAD Eyes: No Scleral Icterus Ears/Nose/Mouth/Throat: Mucous Membranes Moist Neck: NL Appearance and Movements; NL JVP Respiratory: Symmetrical Chest Expansion and Respiratory Effort, - - Diminished in bases Cardiovascular: NL Sounds; No Murmurs; No JVD, RRR Abdominal: - - Obese, soft, non-tender, non-distended, BS+, abdominal scar Extremities: - - Diffuse anasarca with weeping Skin: - - Chronic LE skin changes Neurological: - - Alert, oriented to self, place, year and date (with help from info on whiteboard) Result Diagrams: 07/19/17 04:57 07/19/17 06:25 Microbiology and Other Data: . Assess/Plan/Problems-Billing Mr. Geller is a 62yo male with a PMH significant for morbid obesity, CHF, paroxysmal Afib, DMII, HTN, HLD, depression, and CKD who presents after a fall with prolonged down time with sepsis secondary to a lower leg cellulitis and UTI , also with mild rhabdomyolysis, prerenal ROSY, and elevated troponins now with acute renal failure requiring HD - Patient Problems (1) Acute renal failure Current Visit: Yes Comment: - Appreciate nephrology input. Last HD on 07/17. Plan for placement of tunneled HD cath today by IR and HD session later today, 07/19 - Continue bicitra for metabolic acidosis. (2) Encephalopathy Current Visit: Yes Comment: Seems to be slowly improving. Likely combination of uremia, hyperammonemia, prolonged hospitalization/ICU stay. Continue lactulose, will add Rifaximin which he has been on in the past. HD today. (3) Acute hypoxemic respiratory failure Current Visit: Yes Comment: - Patient suddenly hypoxic on arrival to ICU on 07/17, unclear etiology. Some concern for PE. Dopplers with no evidence of DVT. CTA would likely prolong patient's HD needs and VQ scan would not be helpful. O2 needs improving, continue to wean. - Patient noted to vomit into bipap mask 07/17, will be vigilant for signs of aspiration pneumonia, Currently on levaquin in addition to Clinda (4) Cellulitis Current Visit: Yes Comment: - No clear evidence of acute cellulitis at this point. Patient has chronic leg wound with chronic venous stasis changes. - Continue IV clindamycin as depressed mentation prevents consistent po administration. - Wash leg daily with soap and water. Cover with gauze. (5) Depression Current Visit: Yes Comment: - Since arrival, patient has been intermittently agitated and refusing to participate in care. States, "I just wanna be left alone." - Psych consult ordered to assess for appropriateness of starting anti- depressant, will defer until patient is more alert and oriented. - Spoke to patient's PCP, Dr. Felipe. Patient has "burned all bridges." He has a son who is no longer involved with him, Dr. Felipe did not have any contact information. (6) Elevated troponin Current Visit: Yes Comment: - Trop peaked at 0.40. Suspect secondary to demand ischemia. - No CP, SOB, or EKG changes. - Consider outpatient stress test when recovered from acute illness. (7) HTN (hypertension) Current Visit: Yes Comment: - Holding metoprolol. (8) Afib Current Visit: Yes Comment: - Rate controlled at the moment, currently off medications - Eliquis on hold d/t renal function. Patient has documented allergy to warfarin. (9) Diabetes mellitus Current Visit: Yes Comment: - Not taking much PO - Continue lispro SSI coverage with meals. (10) CHF (congestive heart failure) Current Visit: Yes Comment: - EF 40-45 by most recent Echo, Consistent with 07/27 TTE. - Metoprolol held for relative hypotension (11) DVT prophylaxis Current Visit: Yes Comment: - HSQ Status and Disposition: Inpatient with LOS > 2 days. Anticipate fdc placement when medically stable.
--- NOTE | 2017-07-19 10:51 | CONS ---
CC: Josh Felipe DO; Michael Nunez MD. * PALLIATIVE CONSULTATION REPORT: DATE OF CONSULTATION: 07/19/17 PRIMARY CARE PHYSICIAN: Josh Felipe DO. REFERRING PHYSICIAN: Michael Nunez MD HOSPITAL COURSE: This is a 62-year-old male with past medical history of diabetes, CHF, atrial fibrillation, and a history of CKD, who presented to the emergency room on after having a fall. Per report, the patient is wheelchair bound. He states he does ambulate some. He is independent of his ADLs. He was doing his laundry when he fell out of his chair and he was unable to get up. He was transferred from [place] for acute kidney injury. On arrival here in the emergency room, he was being evaluated for sepsis that was secondary to cellulitis and he was admitted and placed on antibiotics. The patient was seen by Infectious Diseases and they started him on clindamycin for lower extremity lymphedema with venous stasis changes and cellulitis. The patient was also noted to have a NSTEMI. He had an echocardiogram done that was unremarkable; it was thought that his NSTEMI was due to demand ischemia from sepsis. He was also seen in consultation by urology, Dr. Hutchison, for concern for urinary retention and followup with this urinary retention was not in fact an issue, but more ascites that was seen. Li catheter was placed. Nephrology, Dr. Jacinto also evaluated the patient on the for his worsening renal failure, recommended albumin infusion, and that he would likely need dialysis during this hospitalization. The patient was planned to have dialysis on the . On the evening of the , patient became belligerent, disoriented , confused. He was transferred to the ICU for further workup and evaluation. On arrival to the ICU, patient was persistently hypoxic and had to be placed on BiPAP. His labs showed metabolic acidosis and also noted that he had an elevated ammonia level. He has been since treated with lactulose and he has continued to still have issues with altered mental status. He pulled out his dialysis catheter. He has plans later today for a tunneled catheter. This morning, he seems to be more alert and oriented. On my encounter, he is alert and oriented x3. He is aware of his renal failure. When speaking to him him about his hospital course, he said that it was very important for him to get back home to his apartment. I discussed my concern that he will likely need rehab and he may never return, given his comorbidities and his prolonged hospitalization. I spoke with the patient at length regarding his code status. He wishes to be a full code. He did designate his ex- Lynn to be his healthcare proxy and we will get this documented as well. I spoke with him regarding hospice eligibility with his respiratory failure secondary to volume overload, the fact that it has not improved with dialysis that he should consider hospice. The patient was not interested in speaking further regarding this. He currently denies any pain. No shortness of breath. No nausea or vomiting. States he is comfortable. Otherwise remainder review of systems is negative. PAST MEDICAL HISTORY: 1. Diabetes. 2. CHF with diastolic dysfunction. 3. Atrial fibrillation. 4. Hypertension. 5. Hyperlipidemia. 6. Depression. 7. Irritable bowel syndrome. 8. History of MRSA. 9. CKD. 10. History of diverticulitis. PAST SURGICAL HISTORY: 1. History of bowel resection with colostomy placed secondary to diverticulitis now reversal. 2. History of knee surgery bilaterally. PROBLEM LIST: 1. Acute hypoxic respiratory failure. 2. Acute on chronic renal failure. 3. Cellulitis. 4. Depression. INPATIENT MEDICATIONS: 1. Tylenol 650 mg every 6 hours as needed. 2. Atorvastatin 10 mg daily. 3. Benzonatate 100 mg p.o. q.i.d. 4. Clindamycin 650 every 8 hours. 5. Haldol 2 mg q. 6 hours as needed. 6. Heparin 5000 units subcu t.i.d. 7. Lispro sliding scale, lactobacillus 1 cap daily. 8. Lactulose 30 mL p.o. t.i.d. 9. Levaquin 500 mg q. 48 hours. 10. Morphine 2 mg IV q. 4 hours as needed. 11. Zofran 4 mg IV q. 4 hours as needed. 12. Pantoprazole 40 mg q. 24. 13. Prochlorperazine 5 mg IV q. 6 hours as needed. 14. Rifaximin 550 mg p.o. b.i.d. 15. Sodium citric acid 15 mL p.o. b.i.d. ALLERGIES: KEFLEX, PENICILLIN, XARELTO, SULFA, WARFARIN. FAMILY HISTORY: Reviewed and noncontributory. SOCIAL HISTORY: As mentioned, the patient was living in an apartment independent of his ADLs. He was wheelchair bound. He was able to ambulate some. He is a former smoker, quit 8 months ago. No alcohol or illicit drug use. He lives alone. His surrogate decision maker is his ex- Lynn. CODE STATUS: Discussed for code status, he is a full code. REVIEW OF SYSTEMS: A 14-point review of systems as mentioned in the HPI, pertinent positives and negatives are otherwise negative. PHYSICAL EXAM: Vitals: Temp 97.4, pulse rate 90, respiratory rate 14, oxygen saturation 96% on 5 L, blood pressure 104/58. General: No acute distress, morbidly obese male. HEENT: Head normocephalic. Pupils are equal, reactive, and anicteric. Oropharynx and mucous membranes are dry. Neck: Supple. No lymphadenopathy. Cardiac: Regular rate and rhythm. Soft systolic murmurs heard. Respiratory: Poor aeration. Noted to have abdominal breathing. No increased work of breathing. Abdomen: Morbidly obese. Soft, nondistended, and nontender. Extremities: The patient with chronic venous stasis, lymphedema , and more erythema and his left lower extremity with skin peeling noted. No fluctuance or induration. Distal pulses. Neurologic: Alert and oriented x3. No gross focal neurological deficits. DIAGNOSTIC STUDIES/LAB DATA: White count 14.2, hemoglobin 11.1, hematocrit 35, platelets 167. Sodium 129, potassium 5.6, chloride 96, bicarb 17, BUN 95, creatinine 6.32. Albumin on admission noted to be 1.7, troponin peak at 0.4. ASSESSMENT/PLAN: This is a 62-year-old male with a past medical history of morbid obesity, diabetes, congestive heart failure, atrial fibrillation, and chronic kidney disease, who presented to the emergency room on the after having a fall, found to be septic from cellulitis. He has had progressive worsening renal failure requiring dialysis. Hospital course complicated by altered mental status, delirium, now in the ICU with hypoxic respiratory failure. His mentation does seem to have improved. He has plans to get a tunneled catheter for dialysis. I spoke with him regarding his code status, he would like to be a full code. I discussed with him his prognosis, my concern that he will never get back to independent living, and that he will at least need a minimum of acute short term rehab. I spoke with him regarding hospice eligibility that with his respiratory failure, if it does not improve with dialysis treatment that he would be eligible for hospice. He was not interested in discussing this further. He did state that I could call his ex-, his healthcare proxy, Lynn to update her and inform her of my recommendations and my concerns. However, I was not able to reach her and was unable to leave a message on the cellphone number that was provided. The patient is going to fill up a healthcare proxy form, now that he does have capacity to make his own medical decisions. I would recommend readdressing his code status throughout his hospitalization and if his respiratory status does not improve, despite getting dialysis, I am happy to come back and readdress options for hospice with him and his ex-. Currently, the patient remains asymptomatic. Thank you for this consultation. I will follow along with you. TIME SPENT: Greater than 100 minutes spent doing the consultation, more than half time was spent in direct patient contact. [id number]/[facility] #: [id number] BRITANY
[2017-07-19] MEDS ORDERED: fentaNYL* 50 MCG/ML 2 ML VIAL (100 MCG VIAL) ONE (13:40)
[2017-07-19] MEDS ORDERED: Midazolam* 1 MG/ML 10 ML VIAL (10 MG) ONE (13:40)
[2017-07-19] MEDS: Pantoprazole IV* 40 MG IV SCH (15:48)
[2017-07-19] MEDS: RiFAXimin* 550 MG TAB PO SCH ×2 (16:15→22:16)
[2017-07-19] MEDS: Atorvastatin* 10 MG TAB PO SCH (17:30)
--- NOTE | 2017-07-19 18:55 | RAD ---
CPT II Codes: 6045F Procedures performed: Placement of a right internal jugular vein tunneled hemodialysis catheter with ultrasound and fluoroscopic guidance. Date of service: July 19, 2017 Indication for procedure: Acute renal failure Comparison: Jugular vein ultrasound July 18, 2017 Contrast: None Fluoroscopy Time: 1 minute 30 seconds Vessels Accessed: Percutaneous access was obtained with ultrasound guidance in the right internal jugular vein towards the cavoatrial junction. Anesthesia: Conscious sedation with IV Fentanyl and Versed as well as local 1% lidocaine injected locally at the venotomy site. Conscious sedation time: Timeout: 1415 hours Case end: 1500 hours Total conscious sedation time: 45 minutes Additional medications: Heparin 100 units per mL injected into each catheter lumen according to training and development manager's recommendation. Procedure narration and imaging findings: Emergency consent was provided by the attending ICU DrSony as the patient was not oriented to time in place and a surrogate could not be contacted in a timely manner. Preoperative ultrasound of the right internal jugular vein demonstrated the vein to patent and compressible. Sheet Turner images were saved. The patient was placed in the supine position in the fluoroscopy suite and the neck and upper chest was prepped and draped according to standard sterile protocol. A formal time out was performed by Dr. Sanchez in the presence of the IR staff and all agreed on the patient, procedure and laterality. The skin overlying the jugular vein and upper chest was anesthetized with 1% lidocaine. Real time ultrasound imaging shows the internal jugular vein is patent and determined to be adequate for catheter placement. Utilizing real time ultrasound visualization the internal jugular vein was accessed with an 18 gauge needle. An image was recorded and saved confirming appropriate intraluminal position of the needle tip. Blood return further confirmed position. Through the needle and under fluoroscopic control a 0.035 inch guidewire was advanced below the diaphragm into the IVC confirming appropriate venous access. An image of the wire in the IVC was recorded. The wire tip was then positioned in the cavoatrial junction and the length of intravascular wire was measured. Then the percutaneous catheter exit site was selected at the upper chest appropriate for the tip-to-cuff and tip-to-hub lengths. Over the access wire the internal jugular venotomy was serially dilated culminating with placement of the peel away sheath. A skin duc was created at the previously selected upper chest skin exit site and the catheter was tunnelled subcutaneously with a blunt tunnelling device from the skin duc to the venotomy site. The tunnelling device was removed and the catheter was advanced into the peel away sheath under fluoroscopic control. The sheath was peeled away and the catheter tip was pulled back so that it terminated approximately at the cavoatrial junction. Each lumen of the catheter was tested for adequate blood flow, flushed with sterile saline and finally filled with an appropriate volume of 100 units/mL of Heparin according to the device specifications. A fluoroscopic image was saved demonstrating appropriate position of the entire length of the hemodialysis catheter. The venotomy site was sutured closed with a single buried absorbable suture. A "purse string" suture was tied around the upper chest catheter exit site with non-absorbable suture. The catheter was secured to the skin with additional non-absorbable sutures. The venotomy and catheter exit site were dressed with sterile gauze and Tegaderm. The patient tolerated the procedure well and left the fluoroscopy suite in stable condition for one hour of observation prior to discharge. SUMMARY OF PROCEDURE, IMAGING FINDINGS AND INTERVENTIONS PERFORMED: 1. Diagnostic studies performed: * Venous access was obtained at the right internal jugular vein in the antegrade direction (i.e. towards the heart) with ultrasound guidance. A sonographic image was recorded. 2. Interpretation of diagnostic studies performed: Evaluation of the venotomy site with sonography demonstrated the vessel to be patent and adequately sized for catheter placement. 3. Surgical interventions performed: * Placement of a right internal jugular vein 15.5-[employer] Duramax tunneled hemodialysis catheter with ultrasound and fluoroscopic guidance. 4. Interpretation of interventions performed: * Final fluoroscopic image demonstrates the catheter to be in appropriate position with the catheter tips at the cavoatrial junction. PLAN: 1. The hemodialysis catheter may be accessed immediately for hemodialysis. 2. The "pursestring" suture tied around the catheter exit site should be removed 5-7 days post procedure. If this cannot be done at the hemodialysis center please refer the patient back to Interventional Radiology for suture removal.
[2017-07-20] MEDS: Clindamycin 600 MG IVPREMIX(* 600 MG/50 ML SDV IV SCH ×4 (00:20→17:35)
[2017-07-20] MEDS: Heparin VIAL(*) 5000 UNITS/ML VIAL (FIVE THOUSAND) SUBCUT SCH ×3 (06:03→21:10)
[2017-07-20 06:56] LABS: Comments Flag Yes; Hematocrit 33 % (42-52); Hemoglobin 10.8 g/dl (14.0-18.0); Mean Corpuscular HGB Conc 32 g/dl (31-36); Mean Corpuscular Hemoglobin 29 pg (27-31); Mean Corpuscular Volume 89 fL (80-94); Mean Platelet Volume 9 um3 (7.4-10.4); Red Blood Count 3.76 10^6/ul (4.0-5.4); Red Cell Distribution Width 18 % (10.5-15); White Blood Count 11.6 10^3/ul (3.5-10.8)
[2017-07-20 07:09] LABS: BUN/Creatinine Ratio 13.3 (8-20); Calcium 9.4 mg/dL (8.6-10.3); EGFR African American 11.7 (>60); EGFR Non-African American 9.1 (>60); Magnesium 2.4 mg/dL (1.9-2.7); Potassium 4.9 mmol/L (3.5-5.0)
[2017-07-20] MEDS: Benzonatate CAP* 100 MG PO SCH ×4 (09:03→21:10)
[2017-07-20] MEDS: Sodium Citrate/Citric Acid* 15 ML UDC PO SCH ×3 (09:03→21:10)
[2017-07-20] MEDS: RiFAXimin* 550 MG TAB PO SCH ×2 (09:03→21:10)
[2017-07-20] MEDS: Lactobacillus Acidophilu (GG)* 1 CAP CAP PO SCH (09:03)
[2017-07-20] MEDS: Insulin LISPRO* 1 UNITS UNIT SUBCUT SCH ×3 (09:41→17:36)
[2017-07-20] MEDS: Pantoprazole IV* 40 MG IV SCH (12:15)
[2017-07-20] MEDS: Albumin Human 25%* 50 ML in PREMIX* 0 ML IV SCH (13:32)
--- NOTE | 2017-07-20 15:07 | PN ---
Subjective Date of Service: 07/20/17 Interval History: . Saw patient at bedside with [employer] staff. Patient in good spirits. More alert this AM. Denies pain. Getting HD without complication Better mental status Eating lunch without difficulty. Will order PT eval; pt states he is ready to cooperate with strengthening exercises. . Family History: Unchanged from Admission Social History: Unchanged from Admission Past Medical History: Unchanged from Admission Objective Active Medications: . Acetaminophen (Tylenol Tab*) 650 mg PO Q4H PRN PRN Reason: FEVER/PAIN Last Admin: 07/15/17 01:22 Dose: 650 mg Atorvastatin Calcium (Lipitor*) 10 mg PO 1700 [facility] Last Admin: 07/19/17 17:30 Dose: 10 mg Benzonatate (Tessalon Cap*) 100 mg PO QID [facility] Last Admin: 07/20/17 13:40 Dose: 100 mg Citric Acid/Sodium Citrate (Bicitra*) 15 ml PO TID [facility] Last Admin: 07/20/17 13:40 Dose: 15 ml Dextrose (D50w Syringe 50 Ml*) 12.5 gm IV PUSH .FOR FS < 60 - SS PRN PRN Reason: FS < 60 Last Admin: 07/16/17 11:45 Dose: 12.5 gm Haloperidol Lactate (Haldol Inj Iv/Im*) 2 mg IV SLOW PU Q6H PRN PRN Reason: AGITATION Last Admin: 07/18/17 03:17 Dose: 2 mg Heparin Sodium (Porcine) (Heparin Vial(*)) 5,000 units SUBCUT Q8HR [facility] Last Admin: 07/20/17 13:40 Dose: 5,000 units Heparin Sodium (Porcine) (Heparin Flush Picc/Ml/Cvc(*)) 1 - 3 ml FLUSH 0600, 1800 [facility] PRN Reason: Protocol Last Admin: 07/20/17 09:42 Dose: 1 ml Levofloxacin/Dextrose (Levaquin 500 Mg Ivpremix(*)) 500 mg in 100 mls @ 100 mls /hr IVPB Q48H [facility] Last Admin: 07/18/17 22:12 Dose: 100 mls/hr Clindamycin HCl/Dextrose (Cleocin 600 Mg Ivpremix(*) Sdv) 600 mg in 50 mls @ 100 mls/hr IV 0100,0900,1700 [facility] Last Admin: 07/20/17 08:51 Dose: 100 mls/hr Insulin Human Lispro (Humalog*) 0 units SUBCUT AC [facility] PRN Reason: Protocol Last Admin: 07/20/17 12:49 Dose: Not Given Lactobacillus Rhamnosus (Culturelle*) 1 cap PO DAILY [facility] Last Admin: 07/20/17 09:03 Dose: 1 cap Lactulose (Lactulose*) 30 ml PO TID [facility] Last Admin: 07/20/17 13:40 Dose: 30 ml Nystatin (Nystatin Top Powder*) 1 applic TOPICAL TID [facility] Ondansetron HCl (Zofran Inj*) 4 mg IV Q4H PRN PRN Reason: NAUSEA Last Admin: 07/18/17 13:37 Dose: 4 mg Pantoprazole Sodium (Protonix Iv*) 40 mg IV Q24H [facility] Last Admin: 07/20/17 12:15 Dose: 40 mg Prochlorperazine Edisylate (Compazine Inj*) 5 mg IV Q6H PRN PRN Reason: NAUSEA/VOMITING Rifaximin (Xifaxan*) 550 mg PO BID [facility] Last Admin: 07/20/17 09:03 Dose: 550 mg . Vital Signs 07/19/17 07/19/17 07/19/17 15:21 15:31 15:45 Temperature Pulse Rate 103 136 94 Respiratory 14 10 Rate Blood Pressure 91/61 123/67 (mmHg) O2 Sat by Pulse 94 92 95 Oximetry 07/19/17 07/19/17 07/19/17 16:00 16:15 16:30 Temperature 97.9 F Pulse Rate 93 90 105 Respiratory 8 13 9 Rate Blood Pressure 111/73 118/76 106/72 (mmHg) O2 Sat by Pulse 96 93 93 Oximetry Oxygen Devices in Use Now: Nasal Cannula Appearance: NAd; obese; dishevelled Eyes: No Scleral Icterus Ears/Nose/Mouth/Throat: Clear Oropharnyx Neck: NL Appearance and Movements; NL JVP Respiratory: Symmetrical Chest Expansion and Respiratory Effort Cardiovascular: NL Sounds; No Murmurs; No JVD Abdominal: NL Sounds; No Tenderness; No Distention, - - isabel in intertriginous areas Lymphatic: No Cervical Adenopathy Extremities: - - + lower extremity edema bilaterally Skin: - - isabel Neurological: Alert and Oriented x 3 Lines/Tubes/Other Access: Clean, Dry and Intact Other Access - HD access; tunnelled Nutrition: Taking PO's Result Diagrams: 07/21/17 06:11 07/21/17 06:11 Microbiology and Other Data: . Assess/Plan/Problems-Billing Mr. Geller is a 62 yo male with a PMH significant for morbid obesity, CHF, paroxysmal Afib, DMII, HTN, HLD, depression, and CKD who presents after a fall with prolonged down time with SEPSIS secondary to both a lower leg cellulitis and a UTI, also with mild rhabdomyolysis, acute renal failure, and elevated troponins now with acute renal failure requiring HD. . Current Medications (as of Jul 28) - Acetaminophen 650 mg PO Q4H PRN FEVER/PAIN - Atorvastatin (Lipitor) 10 mg PO daily - Benzonatate (Tessalon Cap) 100 mg PO QID - Citric Acid/Sodium Citrate (Bicitra) 15 ml PO TID - Dextrose PRN FS < 60 - Haloperidol 2 mg IV SLOW PU Q6H PRN AGITATION - Heparin 5,000 units SUBCUT Q8HR - Levofloxacin 500 mg in 100 mls @ 100 mls/hr IVPB Q48H - Clindamycin 600 mg IV 0100,0900,1700 [facility] - Insulin Human Lispro (Humalog) SUBCUT AC Protocol - Lactobacillus Rhamnosus (Culturelle) 1 cap PO DAILY - Lactulose (Lactulose) 30 ml PO TID -Nystatin (Nystatin Top Powder) 1 applic TOPICAL TID - Ondansetron HCl (Zofran Inj) 4 mg IV Q4H PRN NAUSEA - Pantoprazole Sodium (Protonix Iv) 40 mg IV Q24H - Prochlorperazine Edisylate (Compazine Inj) 5 mg IV Q6H PRN NAUSEA / VOMITING - Rifaximin (Xifaxan) 550 mg PO BID . - Patient Problems (1) Acute renal failure Current Visit: Yes Status: Acute Priority: High Comment: - Appreciate nephrology input. HD on 07/19 without trouble. - IR replaced tunneled HD cath today. - Continue bicitra for metabolic acidosis. - HD is quite effective at removing ammonium and related toxins accumulating in patients with metabolic encephalopathy. (2) Encephalopathy Current Visit: Yes Status: Acute Priority: High Code(s): G93.40 - ENCEPHALOPATHY, UNSPECIFIED Comment: - Better today. - Likely combination of uremia, hyperammonemia, prolonged hospitalization/ICU stay. - Continue lactulose, will add Rifaximin which he has been on in the past. - Continue HD as directed by nephrology. (3) Acute hypoxemic respiratory failure Current Visit: Yes Status: Acute Priority: High Code(s): J96.01 - ACUTE RESPIRATORY FAILURE WITH HYPOXIA Comment: - Patient suddenly hypoxic on arrival to ICU on 07/17, unclear etiology. - Some concern for PE, but dopplers with no evidence of DVT. - team opted against CTA; patient doing well now; strongly doubt PE at this point, and CTA would be deleterious given tenuous renal failure and hope for improvement in renal function. - Patient noted to vomit into bipap mask 07/17, will be vigilant for signs of aspiration pneumonia, Currently on levaquin in addition to Clinda (good anaerobic coverage). (4) Cellulitis Current Visit: Yes Status: Acute Code(s): L03.90 - CELLULITIS, UNSPECIFIED Comment: - Patient has chronic leg wound with chronic venous stasis changes. - Consider switching IV clinda to PO soon. - Wash leg daily with soap and water. - Cover with gauze. (5) DVT prophylaxis Current Visit: Yes Status: Acute Code(s): ZQS9782 - SNOMED Code(s): 545908980 Comment: - HSQ (6) Acidosis, metabolic Current Visit: Yes Status: Acute Code(s): E87.2 - ACIDOSIS SNOMED Code(s) : 42902675 Comment: - Acidosis steadily worsening after dialysis. - Patient given 2 amps bicard, awaiting HD today. (7) Depression Current Visit: Yes Status: Acute Code(s): F32.9 - MAJOR DEPRESSIVE DISORDER , SINGLE EPISODE, UNSPECIFIED Comment: - Patient more interactive than earlier in hospitalization - Was in generally good spirits 07/20/17. (8) Elevated troponin Current Visit: Yes Status: Acute Code(s): R74.8 - ABNORMAL LEVELS OF OTHER SERUM ENZYMES Comment: - Trop peaked at 0.40. Suspect secondary to demand ischemia and diminished renal function (reduced troponin clearance). - No CP, SOB, or EKG changes. - Consider outpatient stress test when recovered from acute illness. (9) HLD (hyperlipidemia) Current Visit: Yes Status: Acute Priority: High Code(s): E78.5 - HYPERLIPIDEMIA, UNSPECIFIED Comment: - Continue simvastatin (10) HTN (hypertension) Current Visit: Yes Status: Acute Priority: High Code(s): I10 - ESSENTIAL ( PRIMARY) HYPERTENSION Comment: - Holding metoprolol. (11) Rhabdomyolysis Current Visit: Yes Status: Resolved Code(s): M62.82 - RHABDOMYOLYSIS Comment: - Resolved. (12) UTI (urinary tract infection) Current Visit: Yes Status: Resolved Comment: - Asymptomatic. - Only 10,000 colonies of proteus. - On clindamycin for LE wound / levo for poss pna...UTI covered/treated. (13) Afib Current Visit: Yes Status: Chronic Priority: Medium Code(s): I48.91 - UNSPECIFIED ATRIAL FIBRILLATION Comment: - Rate controlled, currently off medications - Eliquis on hold d/t renal function. - Patient has documented allergy to warfarin. (14) Full code status Current Visit: Yes Status: Acute Priority: High Code(s): Z78.9 - OTHER SPECIFIED HEALTH STATUS Comment: - patient clear about wanting to be full code Status and Disposition: Inpatient with LOS > 2 days. Anticipate [facility] when medically stable.
[2017-07-20] MEDS: Nystatin TOP POWDER* 15 GM BTL TOPICAL SCH ×2 (17:15→21:11)
[2017-07-20] MEDS: Levofloxacin 500 MG IVPREMIX(* 500 MG/100 ML BAG IVPB SCH (21:11)
[2017-07-20] MEDS: Atorvastatin* 10 MG TAB PO SCH (21:27)
[2017-07-21] MEDS: Clindamycin 600 MG IVPREMIX(* 600 MG/50 ML SDV IV SCH ×3 (01:41→17:33)
[2017-07-21] MEDS: Heparin VIAL(*) 5000 UNITS/ML VIAL (FIVE THOUSAND) SUBCUT SCH ×3 (06:00→22:14)
[2017-07-21 06:30] LABS: Comments Flag Yes; Hematocrit 32 % (42-52); Hemoglobin 10.7 g/dl (14.0-18.0); Mean Corpuscular HGB Conc 33 g/dl (31-36); Mean Corpuscular Hemoglobin 29 pg (27-31); Mean Corpuscular Volume 88 fL (80-94); Mean Platelet Volume 8 um3 (7.4-10.4); Red Blood Count 3.68 10^6/ul (4.0-5.4); Red Cell Distribution Width 18 % (10.5-15); White Blood Count 10.8 10^3/ul (3.5-10.8)
[2017-07-21 06:44] LABS: Albumin 3.2 g/dL (3.2-5.2); Calcium 9.1 mg/dL (8.6-10.3); EGFR African American 10.7 (>60); EGFR Non-African American 8.3 (>60); Globulin 3.5 g/dL (2-4); Magnesium 2.4 mg/dL (1.9-2.7); Phosphorus 8.2 mg/dL (2.5-5.0); Potassium 4.7 mmol/L (3.5-5.0); Total Bilirubin 2.5 mg/dL (0.2-1.0); Total Protein 6.7 g/dL (6.4-8.9)
[2017-07-21] MEDS ORDERED: Heparin DIALYSIS ONLY(*) 1,000 UNITS/ML VIAL DIALYSIS ONE (09:00)
[2017-07-21] MEDS: Insulin LISPRO* 1 UNITS UNIT SUBCUT SCH ×3 (09:30→17:40)
[2017-07-21] MEDS: Benzonatate CAP* 100 MG PO SCH ×4 (11:56→21:06)
[2017-07-21] MEDS: Nystatin TOP POWDER* 15 GM BTL TOPICAL SCH ×3 (11:57→21:29)
[2017-07-21] MEDS: RiFAXimin* 550 MG TAB PO SCH ×2 (12:04→21:07)
[2017-07-21] MEDS: Lactobacillus Acidophilu (GG)* 1 CAP CAP PO SCH (12:04)
[2017-07-21] MEDS: Sodium Citrate/Citric Acid* 15 ML UDC PO SCH ×3 (12:05→21:06)
[2017-07-21] MEDS: Pantoprazole IV* 40 MG IV SCH (12:10)
--- NOTE | 2017-07-21 18:29 | PN ---
Subjective Date of Service: 07/21/17 Interval History: . rounded on patient with [employer] cytotechnologist. patient having diarrhea...flexiseal applied and barrier cream applied to irritated skin. likely antibiotic assoicated diarrhea. given improvement in cellulitic areas, will stop antibiotics, as diarrhea poses more of a problem than the skin infection at this point. HD continues with substantial fluid removed. PT unsuccessful mobilizing patient despite good effort patient otherwise without new s/sx. . Family History: Unchanged from Admission Social History: Unchanged from Admission Past Medical History: Unchanged from Admission Objective Active Medications: Acetaminophen (Tylenol Tab*) 650 mg PO Q4H PRN PRN Reason: FEVER/PAIN Last Admin: 07/15/17 01:22 Dose: 650 mg Atorvastatin Calcium (Lipitor*) 10 mg PO BEDTIME [facility] Last Admin: 07/20/17 21:27 Dose: 10 mg Benzonatate (Tessalon Cap*) 100 mg PO QID [facility] Last Admin: 07/21/17 17:35 Dose: 100 mg Citric Acid/Sodium Citrate (Bicitra*) 15 ml PO TID [facility] Last Admin: 07/21/17 14:28 Dose: 15 ml Dextrose (D50w Syringe 50 Ml*) 12.5 gm IV PUSH .FOR FS < 60 - SS PRN PRN Reason: FS < 60 Last Admin: 07/16/17 11:45 Dose: 12.5 gm Haloperidol Lactate (Haldol Inj Iv/Im*) 2 mg IV SLOW PU Q6H PRN PRN Reason: AGITATION Last Admin: 07/18/17 03:17 Dose: 2 mg Heparin Sodium (Porcine) (Heparin Vial(*)) 5,000 units SUBCUT Q8HR [facility] Last Admin: 07/21/17 14:28 Dose: 5,000 units Heparin Sodium (Porcine) (Heparin Flush Picc/Ml/Cvc(*)) 1 - 3 ml FLUSH 0600, 1800 [facility] PRN Reason: Protocol Last Admin: 07/21/17 06:02 Dose: 1 ml Levofloxacin/Dextrose (Levaquin 500 Mg Ivpremix(*)) 500 mg in 100 mls @ 100 mls /hr IVPB Q48H [facility] Last Admin: 07/20/17 21:11 Dose: 100 mls/hr Clindamycin HCl/Dextrose (Cleocin 600 Mg Ivpremix(*) Sdv) 600 mg in 50 mls @ 100 mls/hr IV 0100,0900,1700 [facility] Last Admin: 07/21/17 17:33 Dose: 100 mls/hr Insulin Human Lispro (Humalog*) 0 units SUBCUT AC [facility] PRN Reason: Protocol Last Admin: 07/21/17 17:40 Dose: Not Given Lactobacillus Rhamnosus (Culturelle*) 1 cap PO DAILY [facility] Last Admin: 07/21/17 12:04 Dose: 1 cap Lactulose (Lactulose*) 30 ml PO TID [facility] Last Admin: 07/21/17 14:28 Dose: 30 ml Nystatin (Nystatin Top Powder*) 1 applic TOPICAL TID [facility] Last Admin: 07/21/17 13:39 Dose: 1 applic Ondansetron HCl (Zofran Inj*) 4 mg IV Q4H PRN PRN Reason: NAUSEA Last Admin: 07/18/17 13:37 Dose: 4 mg Pantoprazole Sodium (Protonix Iv*) 40 mg IV Q24H [facility] Last Admin: 07/21/17 12:10 Dose: 40 mg Prochlorperazine Edisylate (Compazine Inj*) 5 mg IV Q6H PRN PRN Reason: NAUSEA/VOMITING Rifaximin (Xifaxan*) 550 mg PO BID [facility] Last Admin: 07/21/17 12:04 Dose: 550 mg Vital Signs 07/20/17 07/20/17 07/20/17 18:30 19:00 19:23 Temperature 97.3 F Pulse Rate 90 91 Respiratory 21 23 19 Rate Blood Pressure 86/60 89/69 (mmHg) O2 Sat by Pulse 95 93 Oximetry 07/20/17 07/20/17 07/20/17 19:31 20:00 20:30 Temperature Pulse Rate 91 91 92 Respiratory 27 32 16 Rate Blood Pressure 91/57 87/53 79/59 (mmHg) O2 Sat by Pulse 95 93 96 Oximetry Oxygen Devices in Use Now: Nasal Cannula Appearance: obese; dishevelled Ears/Nose/Mouth/Throat: Clear Oropharnyx, Mucous Membranes Moist Neck: NL Appearance and Movements; NL JVP Respiratory: Symmetrical Chest Expansion and Respiratory Effort Cardiovascular: NL Sounds; No Murmurs; No JVD Abdominal: NL Sounds; No Tenderness; No Distention Extremities: - - + edema bilaterally Skin: - - erythematous, purpuric rash on back and perianal area with stage I skin breakdown. Neurological: Alert and Oriented x 3 Lines/Tubes/Other Access: Clean, Dry and Intact Peripheral IV, Clean, Dry and Intact Other Access - HD access - tunelled catheter Nutrition: Taking PO's Result Diagrams: 07/21/17 06:11 07/21/17 06:11 Microbiology and Other Data: . Assess/Plan/Problems-Billing Mr. Geller is a 62 yo male with a PMH significant for morbid obesity, CHF, paroxysmal Afib, DMII, HTN, HLD, depression, and CKD who presents after a fall with prolonged down time with SEPSIS secondary to both a lower leg cellulitis and a UTI, also with mild rhabdomyolysis, acute renal failure, and elevated troponins now with acute renal failure requiring HD. . Current Medications (as of Jul 28) - Acetaminophen 650 mg PO Q4H PRN FEVER/PAIN - Atorvastatin (Lipitor) 10 mg PO daily - Benzonatate (Tessalon Cap) 100 mg PO QID - Citric Acid/Sodium Citrate (Bicitra) 15 ml PO TID - Dextrose PRN FS < 60 - Haloperidol 2 mg IV SLOW PU Q6H PRN AGITATION - Heparin 5,000 units SUBCUT Q8HR - Levofloxacin 500 mg in 100 mls @ 100 mls/hr IVPB Q48H - Clindamycin 600 mg IV 0100,0900,1700 [facility] - Insulin Human Lispro (Humalog) SUBCUT [facility] Protocol - Lactobacillus Rhamnosus (Culturelle) 1 cap PO DAILY - Lactulose (Lactulose) 30 ml PO TID - Nystatin (Nystatin Top Powder) 1 applic TOPICAL TID - Ondansetron HCl (Zofran Inj) 4 mg IV Q4H PRN NAUSEA - Pantoprazole Sodium (Protonix Iv) 40 mg IV Q24H - Prochlorperazine Edisylate (Compazine Inj) 5 mg IV Q6H PRN NAUSEA / VOMITING - Rifaximin (Xifaxan) 550 mg PO BID . - Patient Problems (1) Acute renal failure Current Visit: Yes Status: Acute Priority: High Comment: - Appreciate nephrology input. HD on 07/19 & 07/20 without trouble. - IR replaced tunneled HD cath. - Continue bicitra for metabolic acidosis. - HD is quite effective at removing ammonium and related toxins accumulating in patients with metabolic encephalopathy. (2) Encephalopathy Current Visit: Yes Status: Acute Priority: High Code(s): G93.40 - ENCEPHALOPATHY, UNSPECIFIED Comment: - remains lucid. - Altered mental status a combination of uremia, hyperammonemia, prolonged hospitalization/ICU stay (uremic and metabolic encephalopathy) - Continue lactulose, will add Rifaximin, which he has been on in the past. - Continue HD as directed by nephrology. (3) Acute hypoxemic respiratory failure Current Visit: Yes Status: Acute Priority: High Code(s): J96.01 - ACUTE RESPIRATORY FAILURE WITH HYPOXIA Comment: - Patient suddenly hypoxic on arrival to ICU on 07/17, unclear etiology. - Some concern for PE, but dopplers with no evidence of DVT. - team opted against CTA; patient doing well now; strongly doubt PE at this point, and CTA would be deleterious given tenuous renal failure and hope for improvement in renal function. - Patient noted to vomit into bipap mask 07/17, will be vigilant for signs of aspiration pneumonia, was on levaquin in addition to Clinda (good anaerobic coverage) - zoltan lstop for abx-associated diarrhea (4) Cellulitis Current Visit: Yes Status: Acute Code(s): L03.90 - CELLULITIS, UNSPECIFIED Comment: - Patient has chronic leg wound with chronic venous stasis changes. - sto pabx - Wash leg daily with soap and water. - Cover with gauze. (5) DVT prophylaxis Current Visit: Yes Status: Acute Code(s): BAQ6497 - SNOMED Code(s): 190145759 Comment: - HSQ (6) Acidosis, metabolic Current Visit: Yes Status: Acute Code(s): E87.2 - ACIDOSIS SNOMED Code(s) : 64618602 Comment: - Acidosis steadily worsening after dialysis. - Patient given 2 amps bicard, awaiting HD today. (7) Depression Current Visit: Yes Status: Acute Code(s): F32.9 - MAJOR DEPRESSIVE DISORDER , SINGLE EPISODE, UNSPECIFIED Comment: - Patient more interactive than earlier in hospitalization - Was in generally good spirits 07/20/17. (8) Elevated troponin Current Visit: Yes Status: Acute Code(s): R74.8 - ABNORMAL LEVELS OF OTHER SERUM ENZYMES Comment: - Trop peaked at 0.40. Suspect secondary to demand ischemia and diminished renal function (reduced troponin clearance). - No CP, SOB, or EKG changes. - Consider outpatient stress test when recovered from acute illness. (9) HLD (hyperlipidemia) Current Visit: Yes Status: Acute Priority: High Code(s): E78.5 - HYPERLIPIDEMIA, UNSPECIFIED Comment: - Continue simvastatin (10) HTN (hypertension) Current Visit: Yes Status: Acute Priority: High Code(s): I10 - ESSENTIAL ( PRIMARY) HYPERTENSION Comment: - Holding metoprolol. (11) Rhabdomyolysis Current Visit: Yes Status: Resolved Code(s): M62.82 - RHABDOMYOLYSIS Comment: - Resolved. (12) UTI (urinary tract infection) Current Visit: Yes Status: Resolved Comment: - Asymptomatic. - Only 10,000 colonies of proteus. - On clindamycin for LE wound / levo for poss pna...UTI covered/treated. (13) Afib Current Visit: Yes Status: Chronic Priority: Medium Code(s): I48.91 - UNSPECIFIED ATRIAL FIBRILLATION Comment: - Rate controlled, currently off medications - Eliquis on hold d/t renal function. - Patient has documented allergy to warfarin. (14) Full code status Current Visit: Yes Status: Acute Priority: High Code(s): Z78.9 - OTHER SPECIFIED HEALTH STATUS Comment: - patient clear about wanting to be full code Status and Disposition: Inpatient with LOS > 2 days. Anticipate long term placement when medically stable.
[2017-07-21] MEDS: Atorvastatin* 10 MG TAB PO SCH (21:07)
[2017-07-22] MEDS: Heparin VIAL(*) 5000 UNITS/ML VIAL (FIVE THOUSAND) SUBCUT SCH ×3 (05:22→21:32)
[2017-07-22 06:27] LABS: Hematocrit 33 % (42-52); Hemoglobin 10.7 g/dl (14.0-18.0); Mean Corpuscular HGB Conc 32 g/dl (31-36); Mean Corpuscular Hemoglobin 29 pg (27-31); Mean Corpuscular Volume 89 fL (80-94); Mean Platelet Volume 9 um3 (7.4-10.4); Red Blood Count 3.74 10^6/ul (4.0-5.4); Red Cell Distribution Width 18 % (10.5-15); White Blood Count 9.3 10^3/ul (3.5-10.8)
[2017-07-22 06:29] LABS: Comments Flag Yes
[2017-07-22 06:44] LABS: Albumin 3.2 g/dL (3.2-5.2); BUN/Creatinine Ratio 12.1 (8-20); Calcium 9.1 mg/dL (8.6-10.3); EGFR African American 11.6 (>60); Globulin 3.7 g/dL (2-4); Magnesium 2.4 mg/dL (1.9-2.7); Phosphorus 7.5 mg/dL (2.5-5.0); Potassium 4.1 mmol/L (3.5-5.0); Total Bilirubin 2.5 mg/dL (0.2-1.0); Total Protein 6.9 g/dL (6.4-8.9)
[2017-07-22] MEDS: Insulin LISPRO* 1 UNITS UNIT SUBCUT SCH ×3 (08:47→17:12)
[2017-07-22] MEDS: Lactobacillus Acidophilu (GG)* 1 CAP CAP PO SCH (10:03)
[2017-07-22] MEDS: Sodium Citrate/Citric Acid* 15 ML UDC PO SCH ×3 (10:03→21:32)
[2017-07-22] MEDS: RiFAXimin* 550 MG TAB PO SCH ×2 (10:04→21:32)
[2017-07-22] MEDS: Benzonatate CAP* 100 MG PO SCH ×4 (10:04→21:32)
[2017-07-22] MEDS: Nystatin TOP POWDER* 15 GM BTL TOPICAL SCH ×3 (10:18→21:39)
[2017-07-22] MEDS: Pantoprazole IV* 40 MG IV SCH (11:47)
[2017-07-22] MEDS: Atorvastatin* 10 MG TAB PO SCH ×2 (12:52→21:31)
[2017-07-22] MEDS ORDERED: Al Hydrox/Mg Hydrox/Simet LIQ* 30 ML UDC PO PRN (14:23)
--- NOTE | 2017-07-22 18:16 | PN ---
Subjective Date of Service: 07/22/17 Interval History: . pt in good spirits wants to go to floor (he is ready) working with PT skin care underway, but challenging. denies pain eating well. Family History: Unchanged from Admission Social History: Unchanged from Admission Past Medical History: Unchanged from Admission Objective Active Medications: Acetaminophen (Tylenol Tab*) 650 mg PO Q4H PRN PRN Reason: FEVER/PAIN Last Admin: 07/15/17 01:22 Dose: 650 mg Al Hydrox/Mg Hydrox/Simethicone (Maalox Plus*) 30 ml PO Q6H PRN PRN Reason: heartburn / indigestion Last Admin: 07/22/17 14:35 Dose: 30 ml Atorvastatin Calcium (Lipitor*) 10 mg PO BEDTIME [facility] Last Admin: 07/21/17 21:07 Dose: 10 mg Benzonatate (Tessalon Cap*) 100 mg PO QID [facility] Last Admin: 07/22/17 16:58 Dose: 100 mg Citric Acid/Sodium Citrate (Bicitra*) 15 ml PO TID [facility] Last Admin: 07/22/17 14:00 Dose: 15 ml Dextrose (D50w Syringe 50 Ml*) 12.5 gm IV PUSH .FOR FS < 60 - SS PRN PRN Reason: FS < 60 Last Admin: 07/16/17 11:45 Dose: 12.5 gm Haloperidol Lactate (Haldol Inj Iv/Im*) 2 mg IV SLOW PU Q6H PRN PRN Reason: AGITATION Last Admin: 07/18/17 03:17 Dose: 2 mg Heparin Sodium (Porcine) (Heparin Vial(*)) 5,000 units SUBCUT Q8HR [facility] Last Admin: 07/22/17 14:00 Dose: 5,000 units Heparin Sodium (Porcine) (Heparin Flush Picc/Ml/Cvc(*)) 1 - 3 ml FLUSH 0600, 1800 [facility] PRN Reason: Protocol Last Admin: 07/22/17 16:58 Dose: 1 ml Insulin Human Lispro (Humalog*) 0 units SUBCUT AC [facility] PRN Reason: Protocol Last Admin: 07/22/17 17:12 Dose: Not Given Lactobacillus Rhamnosus (Culturelle*) 1 cap PO DAILY [facility] Last Admin: 07/22/17 10:03 Dose: 1 cap Lactulose (Lactulose*) 30 ml PO TID [facility] Last Admin: 07/22/17 14:00 Dose: 30 ml Nystatin (Nystatin Top Powder*) 1 applic TOPICAL TID [facility] Last Admin: 07/22/17 14:36 Dose: 1 applic Ondansetron HCl (Zofran Inj*) 4 mg IV Q4H PRN PRN Reason: NAUSEA Last Admin: 07/18/17 13:37 Dose: 4 mg Pantoprazole Sodium (Protonix Iv*) 40 mg IV Q24H [facility] Last Admin: 07/22/17 11:47 Dose: 40 mg Prochlorperazine Edisylate (Compazine Inj*) 5 mg IV Q6H PRN PRN Reason: NAUSEA/VOMITING Rifaximin (Xifaxan*) 550 mg PO BID [facility] Last Admin: 07/22/17 10:04 Dose: 550 mg Vital Signs 07/21/17 07/21/17 07/21/17 18:30 19:00 19:31 Temperature Pulse Rate Respiratory 16 14 16 Rate Blood Pressure 90/55 96/65 (mmHg) O2 Sat by Pulse Oximetry 07/21/17 07/21/17 07/21/17 20:00 20:01 20:30 Temperature 97.0 F Pulse Rate 97 Respiratory 17 16 15 Rate Blood Pressure 77/60 62/30 (mmHg) O2 Sat by Pulse 98 Oximetry Oxygen Devices in Use Now: Nasal Cannula Appearance: obese, dishevelled Ears/Nose/Mouth/Throat: Clear Oropharnyx Neck: Trachea Midline Respiratory: Symmetrical Chest Expansion and Respiratory Effort Cardiovascular: NL Sounds; No Murmurs; No JVD Abdominal: NL Sounds; No Tenderness; No Distention Lymphatic: No Cervical Adenopathy Skin: - - extensive skin rash and irritation around buttox...flexiseal in place Neurological: Alert and Oriented x 3 Lines/Tubes/Other Access: Clean, Dry and Intact Peripheral IV, Clean, Dry and Intact Other Access - HD tunelled cath Nutrition: Taking PO's Result Diagrams: 07/22/17 05:25 07/22/17 05:25 Microbiology and Other Data: . Assess/Plan/Problems-Billing Mr. Geller is a 62 yo male with a PMH significant for morbid obesity, CHF, paroxysmal Afib, DMII, HTN, HLD, depression, and CKD who presents after a fall with prolonged down time with SEPSIS secondary to both a lower leg cellulitis and a UTI, also with mild rhabdomyolysis, acute renal failure, and elevated troponins now with acute renal failure requiring HD. . Current Medications (as of Jul 28) - Acetaminophen 650 mg PO Q4H PRN FEVER/PAIN - Atorvastatin (Lipitor) 10 mg PO daily - Benzonatate (Tessalon Cap) 100 mg PO QID - Citric Acid/Sodium Citrate (Bicitra) 15 ml PO TID - Dextrose PRN FS < 60 - Haloperidol 2 mg IV SLOW PU Q6H PRN AGITATION - Heparin 5,000 units SUBCUT Q8HR - Levofloxacin 500 mg in 100 mls @ 100 mls/hr IVPB Q48H - Clindamycin 600 mg IV 0100,0900,1700 MASTER - Insulin Human Lispro (Humalog) SUBCUT AC Protocol - Lactobacillus Rhamnosus (Culturelle) 1 cap PO DAILY - Lactulose (Lactulose) 30 ml PO TID - Nystatin (Nystatin Top Powder) 1 applic TOPICAL TID - Ondansetron HCl (Zofran Inj) 4 mg IV Q4H PRN NAUSEA - Pantoprazole Sodium (Protonix Iv) 40 mg IV Q24H - Prochlorperazine Edisylate (Compazine Inj) 5 mg IV Q6H PRN NAUSEA / VOMITING - Rifaximin (Xifaxan) 550 mg PO BID . - Patient Problems (1) Acute renal failure Current Visit: Yes Status: Acute Priority: High Comment: - Appreciate nephrology input. HD ongoing without trouble. - IR replaced tunneled HD cath. - Continue bicitra for metabolic acidosis. - HD is quite effective at removing ammonium and related toxins accumulating in patients with metabolic encephalopathy. (2) Encephalopathy Current Visit: Yes Status: Acute Priority: High Code(s): G93.40 - ENCEPHALOPATHY, UNSPECIFIED Comment: - remains lucid. - Altered mental status was a combination of uremia, hyperammonemia, prolonged hospitalization/ICU stay (combined uremic and metabolic encephalopathy) - Continue lactulose, will add Rifaximin, which he has been on in the past. - Continue HD as directed by nephrology. (3) Acute hypoxemic respiratory failure Current Visit: Yes Status: Acute Priority: High Code(s): J96.01 - ACUTE RESPIRATORY FAILURE WITH HYPOXIA Comment: - Patient suddenly hypoxic on arrival to ICU on 07/17, unclear etiology. - Some concern for PE, but dopplers with no evidence of DVT. - team opted against CTA; patient doing well now; strongly doubt PE at this point, and CTA would be deleterious given tenuous renal failure and hope for improvement in renal function. - Patient noted to vomit into bipap mask 07/17, will be vigilant for signs of aspiration pneumonia, was on levaquin in addition to Clinda (good anaerobic coverage) - stopped for abx-associated diarrhea (4) Cellulitis Current Visit: Yes Status: Acute Code(s): L03.90 - CELLULITIS, UNSPECIFIED Comment: - Patient has chronic leg wound with chronic venous stasis changes. - stop abx - Wash leg daily with soap and water. - Cover with gauze. (5) DVT prophylaxis Current Visit: Yes Status: Acute Priority: High Code(s): [id number] - Comment: - HSQ (6) Acidosis, metabolic Current Visit: Yes Status: Acute Priority: High Code(s): E87.2 - ACIDOSIS Comment: - Acidosis resolving (7) Depression Current Visit: Yes Status: Acute Code(s): F32.9 - MAJOR DEPRESSIVE DISORDER , SINGLE EPISODE, UNSPECIFIED Comment: - Patient more interactive than earlier in hospitalization - Was in generally good spirits 07/20/17. (8) Elevated troponin Current Visit: Yes Status: Acute Code(s): R74.8 - ABNORMAL LEVELS OF OTHER SERUM ENZYMES Comment: - Trop peaked at 0.40. Suspect secondary to demand ischemia and diminished renal function (reduced troponin clearance). - No CP, SOB, or EKG changes. - Consider outpatient stress test when recovered from acute illness. (9) HLD (hyperlipidemia) Current Visit: Yes Status: Chronic Priority: High Code(s): E78.5 - HYPERLIPIDEMIA, UNSPECIFIED Comment: - Continue simvastatin (10) HTN (hypertension) Current Visit: Yes Status: Acute Priority: High Code(s): I10 - ESSENTIAL ( PRIMARY) HYPERTENSION Comment: - Holding metoprolol. (11) Rhabdomyolysis Current Visit: Yes Status: Resolved Code(s): M62.82 - RHABDOMYOLYSIS Comment: - Resolved. (12) UTI (urinary tract infection) Current Visit: Yes Status: Resolved Comment: - Asymptomatic. - Only 10,000 colonies of proteus. - On clindamycin for LE wound / levo for poss pna...UTI covered/treated. (13) Afib Current Visit: Yes Status: Chronic Priority: Medium Code(s): I48.91 - UNSPECIFIED ATRIAL FIBRILLATION Comment: - Rate controlled, currently off medications - Eliquis on hold d/t renal function. - Patient has documented allergy to warfarin. (14) Full code status Current Visit: Yes Status: Acute Priority: High Code(s): Z78.9 - OTHER SPECIFIED HEALTH STATUS Comment: - patient clear about wanting to be full code Status and Disposition: Inpatient with LOS > 2 days. Anticipate intermediate placement when medically stable.
--- NOTE | 2017-07-23 02:52 | PN ---
PROGRESS NOTE: DATE OF SERVICE: HISTORY: Mr. Geller seems improved. His mental status seems clearer. He is complaining of some diffus e itching. He is having no respiratory difficulties. No nausea or vomiting. His blood pressure has been a bit low, presently 100/71, heart rate of 101, respirations of 21. He is still markedly edema tous, although the level of edema is considerably reduced. His urine output has been very, very smal l. His weight today, on measuring, it seems totally wrong, but they have switched beds so that may a ccount for the change. IMPRESSION: Acute on chronic renal insufficiency. I am very disappointed by the levels of his urine output with regard to the possibility of recovery of function. We are going to be proceeding now wit h hemodialysis for the next few days before trying to reassess. [id number]/[facility] #: [id number]
[2017-07-23] MEDS: Heparin VIAL(*) 5000 UNITS/ML VIAL (FIVE THOUSAND) SUBCUT SCH ×3 (06:23→22:12)
[2017-07-23] MEDS: Insulin LISPRO* 1 UNITS UNIT SUBCUT SCH ×3 (07:46→18:14)
[2017-07-23] MEDS: RiFAXimin* 550 MG TAB PO SCH ×2 (10:08→22:10)
[2017-07-23] MEDS: Lactobacillus Acidophilu (GG)* 1 CAP CAP PO SCH (10:08)
[2017-07-23] MEDS: Benzonatate CAP* 100 MG PO SCH ×4 (10:08→22:10)
[2017-07-23] MEDS: Sodium Citrate/Citric Acid* 15 ML UDC PO SCH ×3 (10:08→22:10)
[2017-07-23] MEDS: Nystatin TOP POWDER* 15 GM BTL TOPICAL SCH ×3 (10:08→22:11)
[2017-07-23] MEDS: Pantoprazole IV* 40 MG IV SCH (14:30)
--- NOTE | 2017-07-23 18:35 | PN ---
Subjective Date of Service: 07/23/17 Interval History: . - Rounded on patient with RN - pt still very lethargic and weakened. - PT/OT ordered - Wound consult requested for tomorrow (monday) - his illness and current situation -- despite vigilant turning and positioning -- make skin care VERY challenging. - Will stop lactulose 2/2 loose stools and irritated skin. (Abx already off). - Eating OK. Actually quite pleasant and interactive when talking. - Confirmed he was independent (using wheelchair) in community before this admission. . Family History: Unchanged from Admission Social History: Unchanged from Admission Past Medical History: Unchanged from Admission Objective Active Medications: . Acetaminophen (Tylenol Tab*) 650 mg PO Q4H PRN PRN Reason: FEVER/PAIN Last Admin: 07/15/17 01:22 Dose: 650 mg Al Hydrox/Mg Hydrox/Simethicone (Maalox Plus*) 30 ml PO Q6H PRN PRN Reason: heartburn / indigestion Last Admin: 07/22/17 14:35 Dose: 30 ml Atorvastatin Calcium (Lipitor*) 10 mg PO BEDTIME [facility] Last Admin: 07/22/17 21:31 Dose: 10 mg Benzonatate (Tessalon Cap*) 100 mg PO QID [facility] Last Admin: 07/23/17 16:50 Dose: Not Given Citric Acid/Sodium Citrate (Bicitra*) 15 ml PO TID [facility] Last Admin: 07/23/17 14:30 Dose: 15 ml Dextrose (D50w Syringe 50 Ml*) 12.5 gm IV PUSH .FOR FS < 60 - SS PRN PRN Reason: FS < 60 Last Admin: 07/16/17 11:45 Dose: 12.5 gm Haloperidol Lactate (Haldol Inj Iv/Im*) 2 mg IV SLOW PU Q6H PRN PRN Reason: AGITATION Last Admin: 07/18/17 03:17 Dose: 2 mg Heparin Sodium (Porcine) (Heparin Vial(*)) 5,000 units SUBCUT Q8HR [facility] Last Admin: 07/23/17 14:31 Dose: 5,000 units Heparin Sodium (Porcine) (Heparin Flush Picc/Ml/Cvc(*)) 1 - 3 ml FLUSH 0600, 1800 [facility] PRN Reason: Protocol Last Admin: 07/23/17 16:50 Dose: 1 ml Insulin Human Lispro (Humalog*) 0 units SUBCUT AC [facility] PRN Reason: Protocol Last Admin: 07/23/17 18:14 Dose: Not Given Lactobacillus Rhamnosus (Culturelle*) 1 cap PO DAILY [facility] Last Admin: 07/23/17 10:08 Dose: 1 cap Nystatin (Nystatin Top Powder*) 1 applic TOPICAL TID [facility] Last Admin: 07/23/17 16:14 Dose: 1 applic Ondansetron HCl (Zofran Inj*) 4 mg IV Q4H PRN PRN Reason: NAUSEA Last Admin: 07/18/17 13:37 Dose: 4 mg Pantoprazole Sodium (Protonix Iv*) 40 mg IV Q24H [facility] Last Admin: 07/23/17 14:30 Dose: 40 mg Prochlorperazine Edisylate (Compazine Inj*) 5 mg IV Q6H PRN PRN Reason: NAUSEA/VOMITING Rifaximin (Xifaxan*) 550 mg PO BID [facility] Last Admin: 07/23/17 10:08 Dose: 550 mg . Vital Signs 07/22/17 07/22/17 07/22/17 19:50 20:00 20:47 Temperature 97.5 F Pulse Rate 106 Respiratory 18 18 Rate Blood Pressure 89/54 90/40 (mmHg) O2 Sat by Pulse 91 Oximetry 07/22/17 07/22/17 07/23/17 23:19 23:48 00:00 Temperature 96.8 F Pulse Rate 107 Respiratory 16 Rate Blood Pressure 84/42 70/1 (mmHg) O2 Sat by Pulse 90 91 Oximetry Oxygen Devices in Use Now: Nasal Cannula Appearance: obese, dishevelled. sleeps a lot. Eyes: No Scleral Icterus Ears/Nose/Mouth/Throat: Clear Oropharnyx Neck: Trachea Midline Respiratory: Symmetrical Chest Expansion and Respiratory Effort Cardiovascular: NL Sounds; No Murmurs; No JVD Abdominal: NL Sounds; No Tenderness; No Distention Lymphatic: No Cervical Adenopathy Extremities: - - considerable b/l edema - Skin: No Nodules or Sclerosis, - - back and groin irritation. stage II ulcers on back (worsening). patient is on air mattress and being turned. so heavy - and immobile and chronically ill. Neurological: Alert and Oriented x 3 Lines/Tubes/Other Access: Clean, Dry and Intact Peripheral IV, Clean, Dry and Intact Other Access - HD access Nutrition: Taking PO's Result Diagrams: 07/22/17 05:25 07/22/17 05:25 Microbiology and Other Data: . Assess/Plan/Problems-Billing Mr. Geller is a 62 yo male with a PMH significant for morbid obesity, CHF, paroxysmal Afib, DMII, HTN, HLD, depression, and CKD who presents after a fall with prolonged down time with SEPSIS secondary to both a lower leg cellulitis and a UTI, also with mild rhabdomyolysis, acute renal failure, and elevated troponins now with acute renal failure requiring ongoing HD. . Current Medications (as of Jul 28) - Acetaminophen 650 mg PO Q4H PRN FEVER/PAIN - Atorvastatin (Lipitor) 10 mg PO daily - Benzonatate (Tessalon Cap) 100 mg PO QID - Citric Acid/Sodium Citrate (Bicitra) 15 ml PO TID - Dextrose PRN FS < 60 - Haloperidol 2 mg IV SLOW PU Q6H PRN AGITATION - Heparin 5,000 units SUBCUT Q8HR - Levofloxacin 500 mg in 100 mls @ 100 mls/hr IVPB Q48H - Clindamycin 600 mg IV 0100,0900,1700 MASTER - Insulin Human Lispro (Humalog) SUBCUT AC Protocol - Lactobacillus Rhamnosus (Culturelle) 1 cap PO DAILY - Lactulose (Lactulose) 30 ml PO TID -- STOPPED 07/23/17 - Nystatin (Nystatin Top Powder) 1 applic TOPICAL TID - Ondansetron HCl (Zofran Inj) 4 mg IV Q4H PRN NAUSEA - Pantoprazole Sodium (Protonix Iv) 40 mg IV Q24H - Prochlorperazine Edisylate (Compazine Inj) 5 mg IV Q6H PRN NAUSEA / VOMITING - Rifaximin (Xifaxan) 550 mg PO BID . - Patient Problems (1) Acute renal failure Current Visit: Yes Status: Acute Priority: High Comment: - Appreciate nephrology input. HD ongoing without trouble. - IR replaced tunneled HD cath. / Continue bicitra for metabolic acidosis. - HD is quite effective at removing ammonium and related toxins accumulating in patients with metabolic encephalopathy. (2) Encephalopathy Current Visit: Yes Status: Acute Priority: High Code(s): G93.40 - ENCEPHALOPATHY, UNSPECIFIED Comment: - Remains lucid. - Altered mental status was a combination of uremia, hyperammonemia, prolonged hospitalization/ICU stay (combined uremic and metabolic encephalopathy) - STOPPED lactulose for diarrhea and skin considerations, will continue Rifaximin, which he has been on in the past. - Continue HD, as directed by nephrology. (3) Acute hypoxemic respiratory failure Current Visit: Yes Status: Acute Priority: High Code(s): J96.01 - ACUTE RESPIRATORY FAILURE WITH HYPOXIA Comment: - Patient suddenly hypoxic on arrival to ICU on 07/17, unclear etiology. - Some concern for PE, but dopplers with no evidence of DVT. - team opted against CTA; patient doing well now; strongly doubt PE at this point, and CTA would be deleterious given tenuous renal failure and hope for improvement in renal function. - Patient noted to vomit into bipap mask 07/17, will be vigilant for signs of aspiration pneumonia, WAS on levaquin in addition to Clinda (good anaerobic coverage) - but stopped both for abx-associated diarrhea (4) Cellulitis Current Visit: Yes Status: Acute Code(s): L03.90 - CELLULITIS, UNSPECIFIED Comment: - Patient has chronic leg wound with chronic venous stasis changes. - stop abx - Wash leg daily with soap and water. - Cover with gauze. (5) DVT prophylaxis Current Visit: Yes Status: Acute Priority: High Code(s): [id number] - Comment: - SQH (6) Acidosis, metabolic Current Visit: Yes Status: Acute Priority: High Code(s): E87.2 - ACIDOSIS Comment: - Acidosis resolving (7) Depression Current Visit: Yes Status: Acute Code(s): F32.9 - MAJOR DEPRESSIVE DISORDER , SINGLE EPISODE, UNSPECIFIED Comment: - Patient more interactive than earlier in hospitalization - Was in generally good spirits 07/20/17. (8) Elevated troponin Current Visit: Yes Status: Acute Code(s): R74.8 - ABNORMAL LEVELS OF OTHER SERUM ENZYMES Comment: - Trop peaked at 0.40. Suspect secondary to demand ischemia and diminished renal function (reduced troponin clearance). - No CP, SOB, or EKG changes. - Consider outpatient stress test when recovered from acute illness. (9) HLD (hyperlipidemia) Current Visit: Yes Status: Chronic Priority: High Code(s): E78.5 - HYPERLIPIDEMIA, UNSPECIFIED Comment: - Continue simvastatin (10) HTN (hypertension) Current Visit: Yes Status: Acute Priority: High Code(s): I10 - ESSENTIAL ( PRIMARY) HYPERTENSION Comment: - Holding metoprolol. (11) Rhabdomyolysis Current Visit: Yes Status: Resolved Code(s): M62.82 - RHABDOMYOLYSIS Comment: - Resolved. (12) UTI (urinary tract infection) Current Visit: Yes Status: Resolved Comment: - Asymptomatic. - Only 10,000 colonies of proteus. - On clindamycin for LE wound / levo for poss pna...UTI covered/treated. (13) Afib Current Visit: Yes Status: Chronic Priority: Medium Code(s): I48.91 - UNSPECIFIED ATRIAL FIBRILLATION Comment: - Rate controlled, currently off medications - Eliquis on hold d/t renal function. - Patient has documented allergy to warfarin. (14) Full code status Current Visit: Yes Status: Acute Priority: High Code(s): Z78.9 - OTHER SPECIFIED HEALTH STATUS Comment: - patient clear about wanting to be full code Status and Disposition: Inpatient with LOS > 2 days. Anticipate longterm placement when medically stable.
[2017-07-23] MEDS: Atorvastatin* 10 MG TAB PO SCH (22:11)
[2017-07-24] MEDS: Heparin VIAL(*) 5000 UNITS/ML VIAL (FIVE THOUSAND) SUBCUT SCH ×2 (06:15→14:20)
[2017-07-24 06:47] LABS: Hematocrit 33 % (42-52); Hemoglobin 10.6 g/dl (14.0-18.0); Mean Corpuscular HGB Conc 33 g/dl (31-36); Mean Corpuscular Hemoglobin 29 pg (27-31); Mean Corpuscular Volume 89 fL (80-94); Mean Platelet Volume 9 um3 (7.4-10.4); Red Blood Count 3.65 10^6/ul (4.0-5.4); Red Cell Distribution Width 19 % (10.5-15)
[2017-07-24 06:57] LABS: Albumin 2.9 g/dL (3.2-5.2); Calcium 8.9 mg/dL (8.6-10.3); EGFR African American 9.5 (>60); EGFR Non-African American 7.4 (>60); Globulin 3.6 g/dL (2-4); Potassium 4.2 mmol/L (3.5-5.0); Total Bilirubin 2.5 mg/dL (0.2-1.0); Total Protein 6.5 g/dL (6.4-8.9)
[2017-07-24] MEDS: Insulin LISPRO* 1 UNITS UNIT SUBCUT SCH ×2 (07:29→12:17)
[2017-07-24 08:42] LABS: BUN/Creatinine Ratio 12.2 (8-20)
[2017-07-24] MEDS: RiFAXimin* 550 MG TAB PO SCH (09:34)
[2017-07-24] MEDS: Benzonatate CAP* 100 MG PO SCH ×2 (09:34→14:20)
[2017-07-24] MEDS: Lactobacillus Acidophilu (GG)* 1 CAP CAP PO SCH (09:34)
[2017-07-24] MEDS: Sodium Citrate/Citric Acid* 15 ML UDC PO SCH ×2 (09:34→14:20)
[2017-07-24] MEDS: Nystatin TOP POWDER* 15 GM BTL TOPICAL SCH ×2 (09:37→14:29)
[2017-07-24] MEDS: Pantoprazole IV* 40 MG IV SCH (14:20)
[2017-07-24 14:40] VITALS: BP 102/56
== END 2017-07-24 15:00 | disposition swing bed (61) | DRG 871 ==
LOC: MEDTELE 14:59 → MED 07-12 18:30 → MEDTELE 07-13 21:50 → ICU 07-16 19:15 → MED 07-22 13:27
PROVIDERS: ADMIT Internal Medicine; ATTEND Internal Medicine
PROC: 0T9B70Z Drainage of Bladder with Drainage Device, Via Natural or Artificial Opening (ICD-10-PCS; principal; 2017-07-10)
PROC: 5A1D70Z Performance of Urinary Filtration, Intermittent, Less than 6 Hours Per Day (ICD-10-PCS; 2017-07-14)
PROC: 05H533Z Insertion of Infusion Device into Right Subclavian Vein, Percutaneous Approach (ICD-10-PCS; 2017-07-15)
PROC: 5A09357 Assistance with Respiratory Ventilation, Less than 24 Consecutive Hours, Continuous Positive Airway Pressure (ICD-10-PCS; 2017-07-16)
PROC: 5A1D70Z Performance of Urinary Filtration, Intermittent, Less than 6 Hours Per Day (ICD-10-PCS; 2017-07-17)
PROC: 0JH63XZ Insertion of Tunneled Vascular Access Device into Chest Subcutaneous Tissue and Fascia, Percutaneous Approach (ICD-10-PCS; 2017-07-19)
PROC: 02HV33Z Insertion of Infusion Device into Superior Vena Cava, Percutaneous Approach (ICD-10-PCS; 2017-07-19)
PROC: B518ZZA Fluoroscopy of Superior Vena Cava, Guidance (ICD-10-PCS; 2017-07-19)
PROC: 5A1D70Z Performance of Urinary Filtration, Intermittent, Less than 6 Hours Per Day (ICD-10-PCS; 2017-07-19)
PROC: 5A1D70Z Performance of Urinary Filtration, Intermittent, Less than 6 Hours Per Day (ICD-10-PCS; 2017-07-21)
DX: A41.9 Sepsis, unspecified organism (principal); G93.40 Encephalopathy, unspecified; J96.01 Acute respiratory failure with hypoxia; N17.9 Acute kidney failure, unspecified; E11.22 Type 2 diabetes mellitus with diabetic chronic kidney disease; E11.40 Type 2 diabetes mellitus with diabetic neuropathy, unspecified; E87.2 Acidosis; I95.9 Hypotension, unspecified; I24.1 Dressler's syndrome; E66.01 Morbid (severe) obesity due to excess calories; I13.0 Hypertensive heart and chronic kidney disease with heart failure and stage 1 through stage 4 chronic kidney disease, or unspecified chronic kidney disease; I24.8 Other forms of acute ischemic heart disease; L03.116 Cellulitis of left lower limb; M62.82 Rhabdomyolysis; N39.0 Urinary tract infection, site not specified; L03.115 Cellulitis of right lower limb; I50.9 Heart failure, unspecified; K58.9 Irritable bowel syndrome, unspecified; F32.9 Major depressive disorder, single episode, unspecified; N18.9 Chronic kidney disease, unspecified; E78.5 Hyperlipidemia, unspecified; N50.89 Other specified disorders of the male genital organs; I48.0 Paroxysmal atrial fibrillation; R74.8 Abnormal levels of other serum enzymes; R21 Rash and other nonspecific skin eruption; W05.0XXA Fall from non-moving wheelchair, initial encounter; R33.9 Retention of urine, unspecified; R41.0 Disorientation, unspecified; I89.0 Lymphedema, not elsewhere classified; I87.8 Other specified disorders of veins; Z88.2 Allergy status to sulfonamides; Z88.8 Allergy status to other drugs, medicaments and biological substances; Z88.0 Allergy status to penicillin; Z68.43 Body mass index [BMI] 50.0-59.9, adult; Z90.49 Acquired absence of other specified parts of digestive tract; Z86.14 Personal history of Methicillin resistant Staphylococcus aureus infection; Z88.1 Allergy status to other antibiotic agents; Z87.891 Personal history of nicotine dependence; Y92.009 Unspecified place in unspecified non-institutional (private) residence as the place of occurrence of the external cause; Z99.3 Dependence on wheelchair
CPT/HCPCS: 36415; 36558; 36600; 70450; 71010; 76770; 76937; 77001; 80048; 80053; 80074; 80076; 81003; 81015; 82040; 82140; 82272; 82550; 82570; 82607; 82728; 82746; 82803; 83540; 83550; 83605; 83735; 83880; 83921; 83935; 84100; 84134; 84300; 84466; 84484; 84520; 85014; 85018; 85025; 85610; 85730; 86140; 86850; 86900; 86901; 87040; 87077; 87086; 87186; 87641; 90935; 93005; 93306; 93970; 94660; 94760; 99156; 99157; A9270-GY; C1752; C8929; G0257; J0610; J1630; J1642; J1644; J1756; J1956; J2001; J2250; J2270; J2405; J3010; J3370; J7060; P9047

== ENCOUNTER 2017-07-24 15:00 | Inpatient (IN) | payer MEDICARE ==
[2017-07-24] MEDS ORDERED: Heparin DIALYSIS ONLY(*) 1,000 UNITS/ML VIAL DIALYSIS ONE (18:00)
[2017-07-24] MEDS ORDERED: Dextrose 50% Syringe 50 ML* 25 GM/50 ML SYRINGE IV PUSH PRN (18:16)
[2017-07-24] MEDS ORDERED: Al Hydrox/Mg Hydrox/Simet LIQ* 30 ML UDC PO PRN (18:18)
[2017-07-24] MEDS: RiFAXimin* 550 MG TAB PO SCH (20:59)
[2017-07-24] MEDS: Insulin LISPRO* 1 UNITS UNIT SUBCUT SCH (20:59)
[2017-07-24] MEDS: Sodium Citrate/Citric Acid* 15 ML UDC PO SCH (20:59)
[2017-07-24] MEDS: Nystatin TOP POWDER* 15 GM BTL TOPICAL SCH (21:00)
[2017-07-24] MEDS: Heparin VIAL(*) 5000 UNITS/ML VIAL (FIVE THOUSAND) SUBCUT SCH (21:00)
[2017-07-25] MEDS: Omeprazole CAP* 20 MG PO SCH (05:51)
[2017-07-25] MEDS: Heparin VIAL(*) 5000 UNITS/ML VIAL (FIVE THOUSAND) SUBCUT SCH ×3 (05:51→22:06)
[2017-07-25] MEDS: Insulin LISPRO* 1 UNITS UNIT SUBCUT SCH ×2 (07:57→12:34)
[2017-07-25] MEDS: RiFAXimin* 550 MG TAB PO SCH ×2 (08:03→22:06)
[2017-07-25] MEDS: Lactobacillus Acidophilu (GG)* 1 CAP CAP PO SCH (08:03)
[2017-07-25] MEDS: Nystatin TOP POWDER* 15 GM BTL TOPICAL SCH ×3 (08:03→22:06)
[2017-07-25] MEDS: Sodium Citrate/Citric Acid* 15 ML UDC PO SCH ×3 (08:03→22:05)
[2017-07-25] MEDS: Atorvastatin* 10 MG TAB PO SCH (17:39)
[2017-07-26] MEDS: Benzonatate CAP* 100 MG PO PRN (03:50)
[2017-07-26] MEDS: Ondansetron TAB* 4 MG PO PRN (03:50)
[2017-07-26] MEDS: Heparin VIAL(*) 5000 UNITS/ML VIAL (FIVE THOUSAND) SUBCUT SCH ×3 (06:07→22:30)
[2017-07-26] MEDS: Omeprazole CAP* 20 MG PO SCH (06:07)
[2017-07-26] MEDS: Nystatin TOP POWDER* 15 GM BTL TOPICAL SCH ×3 (08:30→20:33)
[2017-07-26] MEDS: Sodium Citrate/Citric Acid* 15 ML UDC PO SCH ×3 (11:16→20:33)
[2017-07-26] MEDS: RiFAXimin* 550 MG TAB PO SCH ×2 (11:16→20:33)
[2017-07-26] MEDS: Lactobacillus Acidophilu (GG)* 1 CAP CAP PO SCH (11:16)
[2017-07-26] MEDS ORDERED: Heparin DIALYSIS ONLY(*) 1,000 UNITS/ML VIAL DIALYSIS ONE (14:00)
[2017-07-26] MEDS: Atorvastatin* 10 MG TAB PO SCH (17:57)
[2017-07-27] MEDS: Heparin VIAL(*) 5000 UNITS/ML VIAL (FIVE THOUSAND) SUBCUT SCH ×3 (06:08→21:36)
[2017-07-27] MEDS: Omeprazole CAP* 20 MG PO SCH (06:08)
[2017-07-27] MEDS: Lactobacillus Acidophilu (GG)* 1 CAP CAP PO SCH (09:05)
[2017-07-27] MEDS: Sodium Citrate/Citric Acid* 15 ML UDC PO SCH ×3 (09:05→21:39)
[2017-07-27] MEDS: Nystatin TOP POWDER* 15 GM BTL TOPICAL SCH ×3 (09:06→21:38)
[2017-07-27] MEDS: RiFAXimin* 550 MG TAB PO SCH ×2 (09:06→21:39)
[2017-07-27] MEDS ORDERED: Benzocaine/Menthol LOZ* 1 LOZENGE PO PRN (13:49)
[2017-07-27] MEDS ORDERED: Benzocaine/Menthol LOZ* 1 LOZENGE ONE (13:58)
[2017-07-27] MEDS: Benzonatate CAP* 100 MG PO PRN (14:02)
[2017-07-27] MEDS: Atorvastatin* 10 MG TAB PO SCH (17:11)
[2017-07-27] MEDS ORDERED: [UNRECOGNIZED DRUG - REMARK] MT PRN (17:11)
--- NOTE | 2017-07-27 17:18 | PN ---
Subjective Date of Service: 07/27/17 Interval History: Patient seen and examined at bedside. Pt reports a dry mouth from being thirsty , Pt states that he is "a big debbie with a big thirst". Denies fever, shortness of breath, chest discomfort, N/V/D. Pt encouraged to change positions frequently and keep scrotum elevated. Pt reports continues rash and chills. Family History: Unchanged from Admission Social History: Unchanged from Admission Past Medical History: Unchanged from Admission Objective Active Medications: Acetaminophen (Tylenol Tab*) 650 mg PO Q4H PRN Reason: PAIN Al Hydrox/Mg Hydrox/Simethicone (Maalox Plus*) 30 ml PO Q6H PRN Reason: gastritis Atorvastatin Calcium (Lipitor*) 10 mg PO 1700 MASTER Benzonatate (Tessalon Cap*) 100 mg PO BID PRN Reason: COUGH Citric Acid/Sodium Citrate (Bicitra*) 15 ml PO TID MASTER Dextrose (D50w Syringe 50 Ml*) 12.5 gm IV PUSH .FOR FS < 60 - SS PRN Reason: FS < 60 Heparin Sodium (Porcine) (Heparin Vial(*)) 5,000 units SUBCUT Q8HR MASTER Lactobacillus Rhamnosus (Culturelle*) 1 cap PO DAILY MASTER Multi-Ingredient Mouthwash/Gargle (Biotene Dry Mouth Oral Rinse(Nf)) 15 ml MT QID PRN Reason: Dry mouth Nystatin (Nystatin Top Powder*) 1 applic TOPICAL TID MASTER Omeprazole (Prilosec Cap*) 20 mg PO DAILY@0600 [facility] Ondansetron HCl (Zofran Tab*) 4 mg PO Q6H PRN Reason: NAUSEA Rifaximin (Xifaxan*) 550 mg PO BID [facility] Throat Lozenges (Chloraseptic Sudheer*) 1 sudheer PO Q6H PRN Reason: SORE THROAT Vital Signs 07/26/17 07/26/17 07/27/17 19:52 20:00 03:07 Temperature 98.2 F 97.6 F Pulse Rate 95 95 Respiratory 16 16 20 Rate Blood Pressure 88/53 84/45 (mmHg) O2 Sat by Pulse 94 92 Oximetry 07/27/17 07/27/17 07/27/17 07:31 07:59 08:00 Temperature 97.5 F Pulse Rate 90 Respiratory 17 18 Rate Blood Pressure 79/42 82/42 (mmHg) O2 Sat by Pulse 94 Oximetry 07/27/17 12:09 Temperature 98.1 F Pulse Rate 99 Respiratory 18 Rate Blood Pressure (mmHg) O2 Sat by Pulse 94 Oximetry Oxygen Devices in Use Now: None Appearance: NAD, laying in bed Respiratory: Symmetrical Chest Expansion and Respiratory Effort, Clear to Auscultation Cardiovascular: NL Sounds; No Murmurs; No JVD, RRR Abdominal: NL Sounds; No Tenderness; No Distention Extremities: - - Significant edema to bilateral LEs Skin: - - Redness to bilateral LE, rash to left UE and upper left thigh, Scrotum edematous and red Neurological: Alert and Oriented x 3, NL Muscle Strength and Tone Lines/Tubes/Other Access: Clean, Dry and Intact Other Access - Hemodialysis cath , site benign Nutrition: Taking PO's Assess/Plan/Problems-Billing Assessment: Mr. Geller is a 62 yo male with PMH significant for morbid obesity, CHF, P afib, DM , HTN, HLD, depression and CKD who presented initially to [facility] after a fall and prolonged down time with sepsis secondary to both LE cellulitis and an UTI, mild rhabdomyolysis, acute on chronic renal failure, and elevated troponins who was transferred to [facility] and is not requiring ongoing HD and a swing patient. - Patient Problems (1) Acute renal failure Comment: - Acute on CKD - Appreciate nephrology input. HD ongoing without trouble. - Tunneled HD cath in place. - Continue bicitra for metabolic acidosis. (2) Encephalopathy Code(s): G93.40 - ENCEPHALOPATHY, UNSPECIFIED SNOMED Code(s): 25348808 Comment: - Remains lucid. - Altered mental status was a combination of uremia, hyperammonemia, prolonged hospitalization/ICU stay (combined uremic and metabolic encephalopathy) - STOPPED lactulose for diarrhea and skin considerations, will continue Rifaximin, which he has been on in the past. - Continue HD, as directed by nephrology. (3) Acute hypoxemic respiratory failure Code(s): J96.01 - ACUTE RESPIRATORY FAILURE WITH HYPOXIA SNOMED Code(s): 209644867 Comment: - Resolved - Patient suddenly hypoxic on arrival to ICU on 07/17, unclear etiology. - Some concern for PE, but dopplers with no evidence of DVT. - Opted against CTA; patient doing well now; strongly doubt PE at this point, and CTA would be deleterious given tenuous renal failure and hope for improvement in renal function. (4) Cellulitis Code(s): L03.90 - CELLULITIS, UNSPECIFIED SNOMED Code(s): 625887059 Comment: - Patient has chronic leg wound with chronic venous stasis changes. - Completed course of ABX - Wash leg daily with soap and water. - Cover with gauze. (5) Acidosis, metabolic Code(s): E87.2 - ACIDOSIS SNOMED Code(s): 32867936 Comment: - Acidosis resolving - Will recheck labs in the AM - Continue Bicitra for now (6) Elevated troponin Code(s): R74.8 - ABNORMAL LEVELS OF OTHER SERUM ENZYMES SNOMED Code(s): 083568123 Comment: - Trop peaked at 0.40. Suspect secondary to demand ischemia and diminished renal function (reduced troponin clearance). - No CP, SOB, or EKG changes. - Consider outpatient stress test when recovered from acute illness. (7) Depression Code(s): F32.9 - MAJOR DEPRESSIVE DISORDER, SINGLE EPISODE, UNSPECIFIED SNOMED Code(s): 31601240 Comment: - Patient more interactive than earlier in hospitalization (8) HTN (hypertension) Code(s): I10 - ESSENTIAL (PRIMARY) HYPERTENSION SNOMED Code(s): 98454874 Comment: - Hypotensive, SBP 70-110's - Continue holding metoprolol. (9) Afib Code(s): I48.91 - UNSPECIFIED ATRIAL FIBRILLATION SNOMED Code(s): 98285371 Comment: - Rate controlled, currently off medications - Eliquis on hold d/t renal function. - Patient has documented allergy to warfarin. (10) Diabetes mellitus Current Visit: No Status: Chronic Code(s): E11.9 - TYPE 2 DIABETES MELLITUS WITHOUT COMPLICATIONS SNOMED Code(s): 06534643 Comment: - SBP 90-120's - Continue lispro SSI coverage with meals. (11) HLD (hyperlipidemia) Code(s): E78.5 - HYPERLIPIDEMIA, UNSPECIFIED SNOMED Code(s): 28464625 Comment: - Continue simvastatin (12) Rhabdomyolysis Code(s): M62.82 - RHABDOMYOLYSIS SNOMED Code(s): 078046968 Comment: - Resolved. (13) DVT prophylaxis Code(s): VTV2574 - SNOMED Code(s): 492016409 Comment: - SQ Heparin (14) Full code status Code(s): Z78.9 - OTHER SPECIFIED HEALTH STATUS SNOMED Code(s): 093700470 Comment: - Patient clear about wanting to be full code Status and Disposition: Inpatient. Discharge to SNF vs [facility] when bed is available.
[2017-07-27] MEDS: Benzocaine/Menthol LOZ* 1 LOZENGE PO PRN (21:44)
--- NOTE | 2017-07-28 01:13 | PN ---
PROGRESS NOTE: DATE OF SERVICE / DICTATION: 07/27/17 HISTORY: Mr. Geller continues to be dialyzed on a regular basis. He is tolerating dialysis well and we removed a significant amount of fluid from him. Unfortunately, we have no evidence of any recovery of renal function. In the past, he has had a couple of occasions where he has had episodes of renal failure and required hemodialysis and then recovered function. This does not look to be the case at the present time. As a result, I think we can now say that he has end-stage renal disease. We will continue to try to ultrafilter up additional fluid as he is still quite edematous even though we have removed at least 25 kg from him. [id number]/[facility] #: [id number] [facility]
[2017-07-28 05:20] LABS: Calcium 8.7 mg/dL (8.6-10.3); EGFR African American 9.6 (>60); EGFR Non-African American 7.5 (>60); Potassium 4.7 mmol/L (3.5-5.0)
[2017-07-28] MEDS: Omeprazole CAP* 20 MG PO SCH (06:11)
[2017-07-28] MEDS: Heparin VIAL(*) 5000 UNITS/ML VIAL (FIVE THOUSAND) SUBCUT SCH ×3 (06:11→23:17)
[2017-07-28] MEDS: Benzocaine/Menthol LOZ* 1 LOZENGE PO PRN (09:51)
[2017-07-28] MEDS: Lactobacillus Acidophilu (GG)* 1 CAP CAP PO SCH (09:51)
[2017-07-28] MEDS: RiFAXimin* 550 MG TAB PO SCH ×2 (09:51→23:18)
[2017-07-28] MEDS: Sodium Citrate/Citric Acid* 15 ML UDC PO SCH ×3 (09:51→23:19)
[2017-07-28] MEDS: Nystatin TOP POWDER* 15 GM BTL TOPICAL SCH ×3 (09:55→23:18)
--- NOTE | 2017-07-28 17:44 | PN ---
Hospitalist Progress Note Pt has been hypotensive with SBP 70-80's at baseline. Pt dropped down to SBP in the 40-60's during dialysis today. Dialysis nurse noted lethargy when SBP in 40- 60's. Pt's BP has now improved back to his baseline. His mentation is now back to baseline. Discussed with Dr. Jacinto and will start Midodrine 5mg TID. Consider starting wrapping legs if he continues to be hypotensive.
[2017-07-28] MEDS: Atorvastatin* 10 MG TAB PO SCH (17:51)
[2017-07-28] MEDS ORDERED: Heparin DIALYSIS ONLY(*) 1,000 UNITS/ML VIAL DIALYSIS ONE (18:00)
[2017-07-28] MEDS: CMCS Midodrine (NF) 5 MG TAB PO SCH (23:18)
[2017-07-29] MEDS: Heparin VIAL(*) 5000 UNITS/ML VIAL (FIVE THOUSAND) SUBCUT SCH ×3 (06:09→20:45)
[2017-07-29] MEDS: Omeprazole CAP* 20 MG PO SCH (06:09)
[2017-07-29] MEDS: Sodium Citrate/Citric Acid* 15 ML UDC PO SCH ×3 (09:52→20:45)
[2017-07-29] MEDS: Lactobacillus Acidophilu (GG)* 1 CAP CAP PO SCH (09:52)
[2017-07-29] MEDS: RiFAXimin* 550 MG TAB PO SCH ×2 (09:53→20:46)
[2017-07-29] MEDS: CMCS Midodrine (NF) 5 MG TAB PO SCH ×3 (09:53→20:46)
[2017-07-29] MEDS: Nystatin TOP POWDER* 15 GM BTL TOPICAL SCH ×3 (09:54→20:46)
[2017-07-29 11:58] LABS: Hematocrit 32 % (42-52); Hemoglobin 10.3 g/dl (14.0-18.0); Mean Corpuscular HGB Conc 33 g/dl (31-36); Mean Corpuscular Hemoglobin 29 pg (27-31); Mean Corpuscular Volume 90 fL (80-94); Mean Platelet Volume 8 um3 (7.4-10.4); Red Blood Count 3.54 10^6/ul (4.0-5.4); Red Cell Distribution Width 20 % (10.5-15); White Blood Count 9.8 10^3/ul (3.5-10.8)
[2017-07-29] MEDS ORDERED: NS 0.9% 250 ML* 250 ML IV SCH (14:00)
[2017-07-29] MEDS: Ondansetron TAB* 4 MG PO PRN (15:09)
[2017-07-29] MEDS: Benzocaine/Menthol LOZ* 1 LOZENGE PO PRN (15:09)
[2017-07-29] MEDS: Atorvastatin* 10 MG TAB PO SCH (18:21)
[2017-07-30] MEDS: Heparin VIAL(*) 5000 UNITS/ML VIAL (FIVE THOUSAND) SUBCUT SCH ×3 (06:17→20:45)
[2017-07-30] MEDS: Omeprazole CAP* 20 MG PO SCH (06:17)
[2017-07-30] MEDS: RiFAXimin* 550 MG TAB PO SCH ×2 (09:54→20:39)
[2017-07-30] MEDS: Lactobacillus Acidophilu (GG)* 1 CAP CAP PO SCH (09:54)
[2017-07-30] MEDS: CMCS Midodrine (NF) 5 MG TAB PO SCH ×3 (09:55→20:39)
[2017-07-30] MEDS: Nystatin TOP POWDER* 15 GM BTL TOPICAL SCH ×3 (09:55→20:40)
[2017-07-30] MEDS: Sodium Citrate/Citric Acid* 15 ML UDC PO SCH ×3 (09:55→20:39)
[2017-07-30] MEDS: Atorvastatin* 10 MG TAB PO SCH (16:15)
[2017-07-30] MEDS: Benzocaine/Menthol LOZ* 1 LOZENGE PO PRN ×2 (19:41→23:54)
[2017-07-31] MEDS: Acetaminophen TAB* 325 MG PO PRN (02:18)
[2017-07-31] MEDS: Heparin VIAL(*) 5000 UNITS/ML VIAL (FIVE THOUSAND) SUBCUT SCH ×3 (05:25→21:08)
[2017-07-31] MEDS: Omeprazole CAP* 20 MG PO SCH (05:26)
[2017-07-31] MEDS: Sodium Citrate/Citric Acid* 15 ML UDC PO SCH ×3 (09:19→21:08)
[2017-07-31] MEDS: CMCS Midodrine (NF) 5 MG TAB PO SCH ×3 (09:19→21:08)
[2017-07-31] MEDS: Lactobacillus Acidophilu (GG)* 1 CAP CAP PO SCH (09:19)
[2017-07-31] MEDS: RiFAXimin* 550 MG TAB PO SCH ×2 (09:19→21:08)
[2017-07-31] MEDS: Nystatin TOP POWDER* 15 GM BTL TOPICAL SCH ×3 (09:20→21:52)
[2017-07-31] MEDS ORDERED: Heparin DIALYSIS ONLY(*) 1,000 UNITS/ML VIAL DIALYSIS ONE (19:00)
[2017-07-31] MEDS: Atorvastatin* 10 MG TAB PO SCH (21:08)
[2017-08-01] MEDS: Benzocaine/Menthol LOZ* 1 LOZENGE PO PRN ×2 (01:08→05:39)
[2017-08-01] MEDS: Omeprazole CAP* 20 MG PO SCH ×2 (05:39→06:07)
[2017-08-01] MEDS: Heparin VIAL(*) 5000 UNITS/ML VIAL (FIVE THOUSAND) SUBCUT SCH ×3 (05:39→21:28)
[2017-08-01] MEDS: RiFAXimin* 550 MG TAB PO SCH ×2 (09:52→21:28)
[2017-08-01] MEDS: Lactobacillus Acidophilu (GG)* 1 CAP CAP PO SCH (09:52)
[2017-08-01] MEDS: CMCS Midodrine (NF) 5 MG TAB PO SCH ×3 (09:52→21:28)
[2017-08-01] MEDS: Nystatin TOP POWDER* 15 GM BTL TOPICAL SCH ×3 (09:53→21:29)
[2017-08-01] MEDS: Sodium Citrate/Citric Acid* 15 ML UDC PO SCH ×3 (09:53→21:28)
[2017-08-01] MEDS: Atorvastatin* 10 MG TAB PO SCH (15:37)
[2017-08-02 06:10] LABS: Hematocrit 31 % (42-52); Hemoglobin 10.1 g/dl (14.0-18.0)
[2017-08-02] MEDS: Ondansetron TAB* 4 MG PO PRN (06:15)
[2017-08-02] MEDS: Omeprazole CAP* 20 MG PO SCH (06:16)
[2017-08-02] MEDS: Benzocaine/Menthol LOZ* 1 LOZENGE PO PRN ×2 (06:16→18:15)
[2017-08-02] MEDS: Heparin VIAL(*) 5000 UNITS/ML VIAL (FIVE THOUSAND) SUBCUT SCH ×3 (06:16→21:31)
[2017-08-02] MEDS: Lactobacillus Acidophilu (GG)* 1 CAP CAP PO SCH (09:47)
[2017-08-02] MEDS: Nystatin TOP POWDER* 15 GM BTL TOPICAL SCH ×3 (09:47→21:39)
[2017-08-02] MEDS: RiFAXimin* 550 MG TAB PO SCH ×2 (09:47→21:31)
[2017-08-02] MEDS: Sodium Citrate/Citric Acid* 15 ML UDC PO SCH ×3 (09:47→21:31)
[2017-08-02] MEDS: CMCS Midodrine (NF) 5 MG TAB PO SCH ×3 (09:47→21:31)
--- NOTE | 2017-08-02 11:56 | PN ---
Subjective Date of Service: 08/02/17 Interval History: Patient seen and examined at bedside. Denies fever, shortness of breath, chest discomfort, N/V. Pt reports chills and diarrhea. NSG staff report ~ 2 BMs q shift. Family History: Unchanged from Admission Social History: Unchanged from Admission Past Medical History: Unchanged from Admission Objective Active Medications: Acetaminophen (Tylenol Tab*) 650 mg PO Q4H PRN Reason: PAIN Al Hydrox/Mg Hydrox/Simethicone (Maalox Plus*) 30 ml PO Q6H PRN Reason: gastritis Atorvastatin Calcium (Lipitor*) 10 mg PO 1700 MASTER Benzonatate (Tessalon Cap*) 100 mg PO BID PRN Reason: COUGH Citric Acid/Sodium Citrate (Bicitra*) 15 ml PO TID [facility]STER Dextrose (D50w Syringe 50 Ml*) 12.5 gm IV PUSH .FOR FS < 60 - SS PRN Reason: FS < 60 Heparin Sodium (Porcine) (Heparin Vial(*)) 5,000 units SUBCUT Q8HR MASTER Heparin Sodium (Porcine) (Heparin Dialysis Only(*)) 5,000 units DIALYSIS ONCE ONE Stop: 08/02/17 12:01 Lactobacillus Rhamnosus (Culturelle*) 1 cap PO DAILY [facility]STER Midodrine (Midodrine (Nf)) 5 mg PO TID MASTER Multi-Ingredient Mouthwash/Gargle (Biotene Dry Mouth Oral Rinse(Nf)) 15 ml MT FIVE TIMES DAILY PRN Reason: DRY MOUTH Nystatin (Nystatin Top Powder*) 1 applic TOPICAL TID MASTER Omeprazole (Prilosec Cap*) 20 mg PO DAILY@0600 [facility] Ondansetron HCl (Zofran Tab*) 4 mg PO Q6H PRN Reason: NAUSEA Rifaximin (Xifaxan*) 550 mg PO BID [facility] Throat Lozenges (Chloraseptic Sudheer*) 1 sudheer PO Q4H PRN Reason: SORE THROAT Vital Signs 08/01/17 08/02/17 08/02/17 21:38 03:34 08:53 Temperature 98.5 F Pulse Rate 108 Respiratory 20 20 18 Rate Blood Pressure 85/45 (mmHg) O2 Sat by Pulse 96 Oximetry Oxygen Devices in Use Now: None Appearance: NAD, laying in bed Respiratory: Symmetrical Chest Expansion and Respiratory Effort, Clear to Auscultation Cardiovascular: NL Sounds; No Murmurs; No JVD, RRR Abdominal: NL Sounds; No Tenderness; No Distention Neurological: Alert and Oriented x 3 Lines/Tubes/Other Access: Clean, Dry and Intact Other Access - Dialysis cath, site benign Nutrition: Taking PO's Result Diagrams: 08/02/17 05:52 07/28/17 04:49 Microbiology and Other Data: Microbiology 07/29/17 11:31 Aerobic Blood Culture - Preliminary Blood Venous No Growth Day 4 Anaerobic Blood Culture - Preliminary No Growth Day 4 07/31/17 20:25 Stool Gross Appearance - Final Stool Shiga Toxin I & II - Final Negative Shiga Toxin 1 & 2 Cryptosporidium/Giardia - Final Neg Cryptosporidium/Giardia 07/29/17 13:16 Aerobic Blood Culture - Preliminary Blood Venous No Growth Day 3 Anaerobic Blood Culture - Preliminary No Growth Day 3 Assess/Plan/Problems-Billing Assessment: Mr. Geller is a 62 yo male with PMH significant for morbid obesity, CHF, P afib, DM , HTN, HLD, depression and CKD who presented initially to [facility] after a fall and prolonged down time with sepsis secondary to both LE cellulitis and an UTI, mild rhabdomyolysis, acute on chronic renal failure, and elevated troponins who was transferred to [facility] and is not requiring ongoing HD and a swing patient. - Patient Problems (1) Acute renal failure Comment: - Acute on CKD - Appreciate nephrology input. HD ongoing without trouble. - Tunneled HD cath in place. - Continue bicitra for metabolic acidosis. - Continue HD, as directed by nephrology. (2) Encephalopathy Code(s): G93.40 - ENCEPHALOPATHY, UNSPECIFIED SNOMED Code(s): 14617856 Comment: - Resolved (3) Acute hypoxemic respiratory failure Code(s): J96.01 - ACUTE RESPIRATORY FAILURE WITH HYPOXIA SNOMED Code(s): 042553546 Comment: - Resolved (4) Cellulitis Code(s): L03.90 - CELLULITIS, UNSPECIFIED SNOMED Code(s): 187438477 Comment: - Resolved - Patient has chronic leg wound with chronic venous stasis changes. - Completed course of ABX - Wash leg daily with soap and water. - Cover with gauze and MOON wraps. (5) Acidosis, metabolic Code(s): E87.2 - ACIDOSIS SNOMED Code(s): 03051388 Comment: - Acidosis resolving - Continue Bicitra for now (6) Elevated troponin Code(s): R74.8 - ABNORMAL LEVELS OF OTHER SERUM ENZYMES SNOMED Code(s): 615835275 Comment: - Trop peaked at 0.40. Suspect secondary to demand ischemia and diminished renal function (reduced troponin clearance). - No CP, SOB, or EKG changes. - Consider outpatient stress test when recovered from acute illness. (7) Depression Code(s): F32.9 - MAJOR DEPRESSIVE DISORDER, SINGLE EPISODE, UNSPECIFIED SNOMED Code(s): 15516641 Comment: - Patient more interactive than earlier in hospitalization (8) HTN (hypertension) Code(s): I10 - ESSENTIAL (PRIMARY) HYPERTENSION SNOMED Code(s): 87846482 Comment: - Hypotensive, SBP 80-120's - SBP improving with Midodrine TID - Continue holding metoprolol. (9) Afib Code(s): I48.91 - UNSPECIFIED ATRIAL FIBRILLATION SNOMED Code(s): 11870036 Comment: - Rate controlled, currently off medications - Eliquis on hold d/t renal function. - Patient has documented allergy to warfarin. (10) Diabetes mellitus Current Visit: No Status: Chronic Code(s): E11.9 - TYPE 2 DIABETES MELLITUS WITHOUT COMPLICATIONS SNOMED Code(s): 95457540 Comment: - SBP 100-120's - Continue lispro SSI coverage with meals. (11) HLD (hyperlipidemia) Code(s): E78.5 - HYPERLIPIDEMIA, UNSPECIFIED SNOMED Code(s): 79564684 Comment: - Continue simvastatin (12) Rhabdomyolysis Code(s): M62.82 - RHABDOMYOLYSIS SNOMED Code(s): 617548642 Comment: - Resolved. (13) DVT prophylaxis Code(s): DRA5539 - SNOMED Code(s): 610774675 Comment: - SQ Heparin (14) Full code status Code(s): Z78.9 - OTHER SPECIFIED HEALTH STATUS SNOMED Code(s): 746668059 Comment: - Patient clear about wanting to be full code Status and Disposition: Inpatient. Pt is stable for discharge to SNF vs [facility] when bed is available.
[2017-08-02] MEDS ORDERED: Heparin DIALYSIS ONLY(*) 1,000 UNITS/ML VIAL DIALYSIS ONE (12:00)
[2017-08-02] MEDS: Atorvastatin* 10 MG TAB PO SCH (15:49)
[2017-08-03] MEDS: Omeprazole CAP* 20 MG PO SCH (05:54)
[2017-08-03] MEDS: Benzocaine/Menthol LOZ* 1 LOZENGE PO PRN (05:55)
[2017-08-03] MEDS: Heparin VIAL(*) 5000 UNITS/ML VIAL (FIVE THOUSAND) SUBCUT SCH ×3 (05:56→21:35)
[2017-08-03] MEDS: Sodium Citrate/Citric Acid* 15 ML UDC PO SCH ×3 (07:50→21:35)
[2017-08-03] MEDS: CMCS Midodrine (NF) 5 MG TAB PO SCH ×3 (07:50→21:35)
[2017-08-03] MEDS: Lactobacillus Acidophilu (GG)* 1 CAP CAP PO SCH (07:50)
[2017-08-03] MEDS: Nystatin TOP POWDER* 15 GM BTL TOPICAL SCH ×3 (07:50→21:35)
[2017-08-03] MEDS: RiFAXimin* 550 MG TAB PO SCH ×2 (07:50→21:35)
[2017-08-03] MEDS: Atorvastatin* 10 MG TAB PO SCH (16:33)
[2017-08-04] MEDS: Omeprazole CAP* 20 MG PO SCH (05:30)
[2017-08-04] MEDS: Heparin VIAL(*) 5000 UNITS/ML VIAL (FIVE THOUSAND) SUBCUT SCH ×3 (05:30→21:28)
[2017-08-04] MEDS: Benzocaine/Menthol LOZ* 1 LOZENGE PO PRN ×3 (05:35→20:39)
[2017-08-04] MEDS: Sodium Citrate/Citric Acid* 15 ML UDC PO SCH ×3 (10:00→20:38)
[2017-08-04] MEDS: CMCS Midodrine (NF) 5 MG TAB PO SCH ×3 (10:00→20:39)
[2017-08-04] MEDS: Lactobacillus Acidophilu (GG)* 1 CAP CAP PO SCH (10:00)
[2017-08-04] MEDS: RiFAXimin* 550 MG TAB PO SCH ×2 (10:00→20:39)
[2017-08-04] MEDS: Nystatin TOP POWDER* 15 GM BTL TOPICAL SCH ×3 (10:01→20:42)
[2017-08-04 14:16] LABS: BUN/Creatinine Ratio 12.5 (8-20); Calcium 8.9 mg/dL (8.6-10.3); EGFR African American 10.3 (>60); Potassium 4.3 mmol/L (3.5-5.0)
[2017-08-04] MEDS ORDERED: Heparin DIALYSIS ONLY(*) 1,000 UNITS/ML VIAL DIALYSIS ONE (15:30)
[2017-08-04] MEDS: Atorvastatin* 10 MG TAB PO SCH (17:53)
[2017-08-05] MEDS: Heparin VIAL(*) 5000 UNITS/ML VIAL (FIVE THOUSAND) SUBCUT SCH ×3 (05:24→21:02)
[2017-08-05] MEDS: Omeprazole CAP* 20 MG PO SCH (05:26)
[2017-08-05 05:29] LABS: Hematocrit 31 % (42-52); Hemoglobin 10.2 g/dl (14.0-18.0); Mean Corpuscular HGB Conc 33 g/dl (31-36); Mean Corpuscular Hemoglobin 30 pg (27-31); Mean Corpuscular Volume 90 fL (80-94); Mean Platelet Volume 8 um3 (7.4-10.4); Red Blood Count 3.41 10^6/ul (4.0-5.4); Red Cell Distribution Width 20 % (10.5-15); White Blood Count 6.7 10^3/ul (3.5-10.8)
[2017-08-05 05:43] LABS: Albumin 2.6 g/dL (3.2-5.2); BUN/Creatinine Ratio 11.3 (8-20); Calcium 8.4 mg/dL (8.6-10.3); EGFR African American 12.6 (>60); EGFR Non-African American 9.8 (>60); Globulin 3.5 g/dL (2-4); One Over Creatinine 0.17 mg/dL (0.67-1.17); Phosphorus 5.1 mg/dL (2.5-5.0); Total Bilirubin 2.5 mg/dL (0.2-1.0); Total Protein 6.1 g/dL (6.4-8.9)
[2017-08-05] MEDS: Lactobacillus Acidophilu (GG)* 1 CAP CAP PO SCH (10:15)
[2017-08-05] MEDS: Loperamide CAP* 2 MG PO PRN ×2 (10:15→16:15)
[2017-08-05] MEDS: RiFAXimin* 550 MG TAB PO SCH ×2 (10:15→20:29)
[2017-08-05] MEDS: CMCS Midodrine (NF) 5 MG TAB PO SCH ×3 (10:15→20:29)
[2017-08-05] MEDS: Nystatin TOP POWDER* 15 GM BTL TOPICAL SCH ×3 (10:15→20:29)
[2017-08-05] MEDS: Benzocaine/Menthol LOZ* 1 LOZENGE PO PRN ×2 (10:20→15:04)
[2017-08-05] MEDS: Benzonatate CAP* 100 MG PO PRN (10:20)
[2017-08-05] MEDS: Sodium Citrate/Citric Acid* 15 ML UDC PO SCH ×3 (10:20→20:28)
[2017-08-05] MEDS: Ondansetron TAB* 4 MG PO PRN (10:20)
[2017-08-05] MEDS: Atorvastatin* 10 MG TAB PO SCH (16:16)
[2017-08-06] MEDS: Benzocaine/Menthol LOZ* 1 LOZENGE PO PRN ×3 (02:59→17:12)
[2017-08-06] MEDS: Omeprazole CAP* 20 MG PO SCH (05:50)
[2017-08-06] MEDS: Heparin VIAL(*) 5000 UNITS/ML VIAL (FIVE THOUSAND) SUBCUT SCH ×3 (05:50→21:13)
[2017-08-06] MEDS: Ondansetron TAB* 4 MG PO PRN (06:39)
[2017-08-06] MEDS: Sodium Citrate/Citric Acid* 15 ML UDC PO SCH ×3 (07:49→20:03)
[2017-08-06] MEDS: Lactobacillus Acidophilu (GG)* 1 CAP CAP PO SCH (07:50)
[2017-08-06] MEDS: Nystatin TOP POWDER* 15 GM BTL TOPICAL SCH ×2 (07:50→15:45)
[2017-08-06] MEDS: CMCS Midodrine (NF) 5 MG TAB PO SCH ×3 (07:50→20:04)
[2017-08-06] MEDS: RiFAXimin* 550 MG TAB PO SCH ×2 (07:50→20:04)
[2017-08-06] MEDS: Benzonatate CAP* 100 MG PO PRN ×2 (07:50→21:13)
[2017-08-06] MEDS: Atorvastatin* 10 MG TAB PO SCH (15:45)
[2017-08-07] MEDS: Omeprazole CAP* 20 MG PO SCH (05:44)
[2017-08-07] MEDS: Heparin VIAL(*) 5000 UNITS/ML VIAL (FIVE THOUSAND) SUBCUT SCH ×3 (05:45→21:21)
[2017-08-07] MEDS: RiFAXimin* 550 MG TAB PO SCH ×2 (08:42→21:01)
[2017-08-07] MEDS: Lactobacillus Acidophilu (GG)* 1 CAP CAP PO SCH (08:42)
[2017-08-07] MEDS: Sodium Citrate/Citric Acid* 15 ML UDC PO SCH ×3 (08:42→21:03)
[2017-08-07] MEDS: CMCS Midodrine (NF) 5 MG TAB PO SCH ×3 (08:42→21:01)
[2017-08-07] MEDS: Nystatin CREAM* 15 GM TUBE TOPICAL SCH ×2 (13:12→21:24)
[2017-08-07] MEDS: Benzocaine/Menthol LOZ* 1 LOZENGE PO PRN (13:13)
[2017-08-07] MEDS ORDERED: Heparin DIALYSIS ONLY(*) 1,000 UNITS/ML VIAL DIALYSIS ONE (18:00)
[2017-08-07] MEDS: Nystatin TOP POWDER* 15 GM BTL TOPICAL SCH (20:58)
[2017-08-07] MEDS: Acetaminophen TAB* 325 MG PO PRN (20:58)
[2017-08-07] MEDS: Atorvastatin* 10 MG TAB PO SCH (21:01)
[2017-08-08 00:40] LABS: Hematocrit 31 % (42-52); Hemoglobin 10.2 g/dl (14.0-18.0); Mean Corpuscular HGB Conc 33 g/dl (31-36); Mean Corpuscular Hemoglobin 29 pg (27-31); Mean Corpuscular Volume 89 fL (80-94); Mean Platelet Volume 8 um3 (7.4-10.4); Red Blood Count 3.53 10^6/ul (4.0-5.4); Red Cell Distribution Width 19 % (10.5-15); White Blood Count 11.3 10^3/ul (3.5-10.8)
[2017-08-08] MEDS: Acetaminophen TAB* 325 MG PO PRN ×2 (02:34→13:07)
[2017-08-08] MEDS: Benzocaine/Menthol LOZ* 1 LOZENGE PO PRN (03:43)
[2017-08-08] MEDS: Omeprazole CAP* 20 MG PO SCH (05:35)
[2017-08-08] MEDS: Heparin VIAL(*) 5000 UNITS/ML VIAL (FIVE THOUSAND) SUBCUT SCH ×2 (05:46→13:07)
--- NOTE | 2017-08-08 05:56 | PN ---
Progress Note - Progress Note Date of Service: 08/08/17 Note: Paged for fever - Blood cx x 2 obtained. Recommend dialysis team obtain culture from dialysis catheter. CXR unremarkable. Slight elevated white count. Hold Abx for now.
--- NOTE | 2017-08-08 07:48 | RAD ---
INDICATION: Fever. COMPARISON: Comparison is made with a prior study from July 16, 2017. TECHNIQUE: A portable view of the chest was obtained. FINDINGS: The heart is moderately enlarged. There is a central venous catheter entering on the right side. The catheter tip projects in the right paratracheal region. The lungs appear grossly clear. The left lung base is partially obscured by the enlarged heart. No pleural effusion is seen. IMPRESSION: 1. CARDIOMEGALY UNCHANGED. 2. LIMITED STUDY, NO EVIDENCE FOR ACUTE FINDING.
[2017-08-08] MEDS: Nystatin CREAM* 15 GM TUBE TOPICAL SCH ×2 (09:09→13:07)
[2017-08-08] MEDS: CMCS Midodrine (NF) 5 MG TAB PO SCH ×2 (09:09→13:07)
[2017-08-08] MEDS: Sodium Citrate/Citric Acid* 15 ML UDC PO SCH ×2 (09:09→13:07)
[2017-08-08] MEDS: Lactobacillus Acidophilu (GG)* 1 CAP CAP PO SCH (09:09)
[2017-08-08] MEDS: RiFAXimin* 550 MG TAB PO SCH (09:09)
[2017-08-08 09:17] VITALS: BP 96/48
[2017-08-08] MEDS ORDERED: Thrombin 5,000 UNITS* 1 APPLIC KIT - topical use - TOPICAL ONE (11:07)
--- NOTE | 2017-08-08 14:09 | PN ---
Subjective Date of Service: 08/08/17 Interval History: No new c/o. States he wants to go home. Family History: Unchanged from Admission Social History: Unchanged from Admission Past Medical History: Unchanged from Admission Objective Active Medications: Acetaminophen (Tylenol Tab*) 650 mg PO Q4H PRN PRN Reason: PAIN Last Admin: 08/08/17 13:07 Dose: 650 mg Al Hydrox/Mg Hydrox/Simethicone (Maalox Plus*) 30 ml PO Q6H PRN PRN Reason: gastritis Last Admin: 07/25/17 22:05 Dose: 30 ml Atorvastatin Calcium (Lipitor*) 10 mg PO 1700 MASTER Last Admin: 08/07/17 21:01 Dose: 10 mg Benzonatate (Tessalon Cap*) 100 mg PO BID PRN PRN Reason: COUGH Last Admin: 08/06/17 21:13 Dose: 100 mg Citric Acid/Sodium Citrate (Bicitra*) 15 ml PO TID [facility] Last Admin: 08/08/17 13:07 Dose: 15 ml Dextrose (D50w Syringe 50 Ml*) 12.5 gm IV PUSH .FOR FS < 60 - SS PRN PRN Reason: FS < 60 Heparin Sodium (Porcine) (Heparin Vial(*)) 5,000 units SUBCUT Q8HR [facility] Last Admin: 08/08/17 13:07 Dose: Not Given Heparin Sodium (Porcine) (Heparin Flush Picc/Ml/Cvc(*)) 1 ml FLUSH 0600,1800 MASTER PRN Reason: Protocol Last Admin: 08/08/17 05:36 Dose: 1 ml Vancomycin HCl 2,000 mg/ (Sodium Chloride) 500 mls @ 166.667 mls/hr IVPB ONCE ONE Stop: 08/08/17 17:59 Lactobacillus Rhamnosus (Culturelle*) 1 cap PO DAILY [facility] Last Admin: 08/08/17 09:09 Dose: 1 cap Loperamide HCl (Imodium Cap*) 2 mg PO .SEE DIRECTIONS PRN PRN Reason: DIARRHEA Last Admin: 08/05/17 16:15 Dose: 2 mg Midodrine (Midodrine (Nf)) 5 mg PO TID MASTER PRN Reason: Protocol Last Admin: 08/08/17 13:07 Dose: 5 mg Multi-Ingredient Mouthwash/Gargle (Biotene Dry Mouth Oral Rinse(Nf)) 15 ml MT FIVE TIMES DAILY PRN PRN Reason: DRY MOUTH Nystatin (Nystatin Cream*) 1 applic TOPICAL TID [facility] Last Admin: 08/08/17 13:07 Dose: Not Given Omeprazole (Prilosec Cap*) 20 mg PO DAILY@0600 [facility] Last Admin: 08/08/17 05:35 Dose: 20 mg Ondansetron HCl (Zofran Tab*) 4 mg PO Q6H PRN PRN Reason: NAUSEA Last Admin: 08/06/17 06:39 Dose: 4 mg Pharmacy Consult (Vancomycin Random Level*) 1 note FOLLOW UP 06 [facility] Rifaximin (Xifaxan*) 550 mg PO BID [facility] Last Admin: 08/08/17 09:09 Dose: 550 mg Throat Lozenges (Chloraseptic Sudheer*) 1 sudheer PO Q4H PRN PRN Reason: SORE THROAT Last Admin: 08/08/17 03:43 Dose: 1 sudheer Vital Signs 08/07/17 08/07/17 08/07/17 15:32 20:00 21:26 Temperature 98.1 F 101.2 F Pulse Rate 102 120 Respiratory 20 22 22 Rate Blood Pressure 94/49 101/51 (mmHg) O2 Sat by Pulse 95 95 Oximetry 08/07/17 08/08/17 08/08/17 23:30 00:12 01:51 Temperature 101.6 F 101.9 F 102.0 F Pulse Rate 118 110 Respiratory 22 24 Rate Blood Pressure 86/43 (mmHg) O2 Sat by Pulse 93 Oximetry 08/08/17 08/08/17 08/08/17 02:06 03:45 09:16 Temperature 100.9 F 99.1 F Pulse Rate 117 115 Respiratory 20 18 Rate Blood Pressure 96/42 96/48 (mmHg) O2 Sat by Pulse 94 Oximetry Oxygen Devices in Use Now: None Appearance: Lethagic but responds quickly. Looks comfortable, ? depressed. Eyes: No Scleral Icterus Respiratory: Symmetrical Chest Expansion and Respiratory Effort, Clear to Auscultation, Clear to Percussion Cardiovascular: NL Sounds; No Murmurs; No JVD, RRR, No Edema, - Extremities: No Edema, No Clubbing, Cyanosis, - Skin: - - Extensive non-blanching red areas on back. Multiple small macules on extremitites. BOth loer legs bandaged. Superficial 2 cm ulcer in sacral area. Neurological: Alert and Oriented x 3, NL Sensation Result Diagrams: 08/08/17 00:05 08/04/17 13:04 Microbiology and Other Data: Microbiology 07/29/17 11:31 Aerobic Blood Culture - Preliminary Blood Venous No Growth Day 4 Anaerobic Blood Culture - Preliminary No Growth Day 4 07/31/17 20:25 Stool Gross Appearance - Final Stool Shiga Toxin I & II - Final Negative Shiga Toxin 1 & 2 Cryptosporidium/Giardia - Final Neg Cryptosporidium/Giardia 07/29/17 13:16 Aerobic Blood Culture - Preliminary Blood Venous No Growth Day 3 Anaerobic Blood Culture - Preliminary No Growth Day 3 Assess/Plan/Problems-Billing Assessment: Mr. Geller is a 62 yo male with PMH significant for morbid obesity, CHF, P afib, DM , HTN, HLD, depression and CKD who presented initially to [facility] after a fall and prolonged down time with sepsis secondary to both LE cellulitis and an UTI, mild rhabdomyolysis, acute on chronic renal failure, and elevated troponins who was transferred to [facility] and is not requiring ongoing HD and a swing patient. - Patient Problems (1) MRSA bacteremia Current Visit: Yes Status: Acute Code(s): R78.81 - BACTEREMIA SNOMED Code( s): 05308362611584128 Comment: Start vancomycin 2 gm 08/08, random level 08/09, plan to administer another gram if level <15. (2) ROSY (acute kidney injury) Current Visit: No Status: Acute Priority: High Code(s): N17.9 - ACUTE KIDNEY FAILURE, UNSPECIFIED SNOMED Code(s): 20548990 Comment: Dr. Bang contacted 08/08 to remove HD catheter. I spoke to Dr. Jacinto 08/08--plan on inserting new HD catheter 08/10 and giving HD 01/10. (3) Afib Current Visit: No Status: Chronic Priority: Medium Code(s): I48.91 - UNSPECIFIED ATRIAL FIBRILLATION SNOMED Code(s): 19799865 Comment: - Rate controlled, currently off medications - Eliquis on hold d/t renal function. - Patient has documented allergy to warfarin. (4) Hyperammonemia Current Visit: Yes Status: Acute Code(s): E72.20 - DISORDER OF UREA CYCLE METABOLISM, UNSPECIFIED SNOMED Code(s): 7537007 Comment: Continue rifaximin. (5) HTN (hypertension) Current Visit: No Status: Chronic Priority: High Code(s): I10 - ESSENTIAL (PRIMARY) HYPERTENSION SNOMED Code(s): 45516497 Comment: - Hypotensive, SBP 86-111 from 08/06 to 08/08. - SBP improved with Midodrine TID - Continue holding metoprolol. (6) Morbid obesity Current Visit: Yes Status: Acute Code(s): E66.01 - MORBID (SEVERE) OBESITY DUE TO EXCESS CALORIES SNOMED Code(s): 976411035 Comment: BMI 44.7. Status and Disposition: Inpatient. Pt is stable for discharge to SNF vs [facility] when bed is available.
[2017-08-08] MEDS ORDERED: Vancomycin(*) 1,000 MG in NS 0.9% 250 ML* 250 ML IVPB PRN (14:10)
[2017-08-08] MEDS ORDERED: Vancomycin(*) 2,000 MG in NS 0.9% 500 ML* 500 ML IVPB ONE (15:00)
[2017-08-09] MEDS ORDERED: Vancomycin Random Level* NOTE FOLLOW UP SCH (06:00)
== END 2017-08-08 15:09 | disposition short-term general hospital (02) | DRG 682 ==
LOC: MED 15:00 → UNDODISIN 18:21
PROVIDERS: ADMIT Internal Medicine; ATTEND Internal Medicine
PROC: 5A1D70Z Performance of Urinary Filtration, Intermittent, Less than 6 Hours Per Day (ICD-10-PCS; principal; 2017-07-24)
PROC: 5A1D70Z Performance of Urinary Filtration, Intermittent, Less than 6 Hours Per Day (ICD-10-PCS; 2017-07-26)
PROC: 5A1D70Z Performance of Urinary Filtration, Intermittent, Less than 6 Hours Per Day (ICD-10-PCS; 2017-07-28)
PROC: 5A1D70Z Performance of Urinary Filtration, Intermittent, Less than 6 Hours Per Day (ICD-10-PCS; 2017-07-31)
PROC: 5A1D70Z Performance of Urinary Filtration, Intermittent, Less than 6 Hours Per Day (ICD-10-PCS; 2017-08-02)
PROC: 5A1D70Z Performance of Urinary Filtration, Intermittent, Less than 6 Hours Per Day (ICD-10-PCS; 2017-08-04)
PROC: 5A1D70Z Performance of Urinary Filtration, Intermittent, Less than 6 Hours Per Day (ICD-10-PCS; 2017-08-07)
DX: N17.9 Acute kidney failure, unspecified (principal); G93.40 Encephalopathy, unspecified; I13.0 Hypertensive heart and chronic kidney disease with heart failure and stage 1 through stage 4 chronic kidney disease, or unspecified chronic kidney disease; E72.20 Disorder of urea cycle metabolism, unspecified; R78.81 Bacteremia; I95.9 Hypotension, unspecified; E87.2 Acidosis; I50.9 Heart failure, unspecified; K57.92 Diverticulitis of intestine, part unspecified, without perforation or abscess without bleeding; M62.82 Rhabdomyolysis; L03.119 Cellulitis of unspecified part of limb; Z68.41 Body mass index [BMI] 40.0-44.9, adult; E66.01 Morbid (severe) obesity due to excess calories; I48.91 Unspecified atrial fibrillation; E11.9 Type 2 diabetes mellitus without complications; E78.5 Hyperlipidemia, unspecified; F32.9 Major depressive disorder, single episode, unspecified; R74.8 Abnormal levels of other serum enzymes; R53.83 Other fatigue; R21 Rash and other nonspecific skin eruption; R50.9 Fever, unspecified; I89.0 Lymphedema, not elsewhere classified; B95.62 Methicillin resistant Staphylococcus aureus infection as the cause of diseases classified elsewhere; N18.9 Chronic kidney disease, unspecified; N50.89 Other specified disorders of the male genital organs; I87.8 Other specified disorders of veins; K58.9 Irritable bowel syndrome, unspecified; Z88.0 Allergy status to penicillin; Z86.14 Personal history of Methicillin resistant Staphylococcus aureus infection; Z88.2 Allergy status to sulfonamides; Z99.2 Dependence on renal dialysis; Z88.1 Allergy status to other antibiotic agents; Z99.3 Dependence on wheelchair; Z88.8 Allergy status to other drugs, medicaments and biological substances; Z87.891 Personal history of nicotine dependence
CPT/HCPCS: 36415; 71010; 80048; 80053; 83605; 83735; 84100; 85014; 85018; 85025; 85027; 86140; 87040; 87045; 87046; 87077; 87150; 87177; 87186; 87205; 87209; 87328; 87329; 87899; 90935; A9270-GY; G0257; J1644; J3370

== ENCOUNTER 2017-08-08 14:05 | Inpatient (IN) | payer MEDICARE ==
[2017-08-08] MEDS ORDERED: Acetaminophen TAB* 325 MG PO PRN (15:21)
[2017-08-08] MEDS ORDERED: Lidocaine 1% MPF wEPI 200,000* 30 ML SDV INJ ONE (15:27)
--- NOTE | 2017-08-08 16:32 | PN ---
Progress Note - Progress Note Date of Service: 08/08/17 Note: PROCEDURE NOTE: Asked to remove a HD catheter from a patient with MRSA in blood cultures. The procedure/I/R/B/A were d/w the patient. All questions answered and he agreed. The site was prepped with Betadine. The catheter exit was inspected and pus noted to be emanating from it. The catheter was removed by applying gentle traction and the cuff easily released from the subcutaneous tunnel. The tip was cut and given to the RN in a sterile container for C & S. Direct pressure was then applied and there was ongoing venous bleeding. A single 4-0 nylon suture was placed through the more proximal subcutaneous tunnel in order to occlude it and hemostasis was achieved. Dressings were applied. He tolerated the procedure well and there were no immediate complications.
[2017-08-08] MEDS ORDERED: Vancomycin(*) 2,000 MG in NS 0.9% 500 ML* 500 ML IVPB ONE (17:00)
[2017-08-08] MEDS: Atorvastatin* 10 MG TAB PO SCH (17:11)
[2017-08-08 18:32] LABS: Hematocrit 33 % (42-52); Hemoglobin 10.6 g/dl (14.0-18.0); Mean Corpuscular HGB Conc 33 g/dl (31-36); Mean Corpuscular Hemoglobin 30 pg (27-31); Mean Corpuscular Volume 90 fL (80-94); Mean Platelet Volume 8 um3 (7.4-10.4); Red Blood Count 3.61 10^6/ul (4.0-5.4); Red Cell Distribution Width 20 % (10.5-15); White Blood Count 10.3 10^3/ul (3.5-10.8)
[2017-08-08 18:38] LABS: EGFR African American 13.3 (>60); EGFR Non-African American 10.3 (>60)
[2017-08-08] MEDS: Sodium Citrate/Citric Acid* 15 ML UDC PO SCH (21:48)
[2017-08-08] MEDS: CMCS: Midodrine (NF) 5 MG TAB PO SCH (21:48)
[2017-08-08] MEDS: RiFAXimin* 550 MG TAB PO SCH (21:48)
[2017-08-08] MEDS: Nystatin TOP POWDER* 15 GM BTL TOPICAL SCH (21:48)
[2017-08-08] MEDS: Heparin VIAL(*) 5000 UNITS/ML VIAL (FIVE THOUSAND) SUBCUT SCH (21:49)
[2017-08-09] MEDS: Omeprazole CAP* 20 MG PO SCH (05:19)
[2017-08-09] MEDS: Benzocaine/Menthol LOZ* 1 LOZENGE PO PRN ×2 (05:19→12:54)
[2017-08-09] MEDS: Heparin VIAL(*) 5000 UNITS/ML VIAL (FIVE THOUSAND) SUBCUT SCH ×3 (05:22→21:58)
[2017-08-09] MEDS: Vancomycin Random Level* NOTE FOLLOW UP SCH (05:24)
--- NOTE | 2017-08-09 07:06 | PRO ---
CC: Moreno Jacinto MD * DATE OF PROCEDURE: 08/08/17 - ROOM #[id number] DATE OF : 51 SURGEON: Deangelo Saucedo MD CORE MEASURES ABSTRACTOR: None. ANESTHESIA: 1% lidocaine plain, local. PREPROCEDURE DIAGNOSIS: Methicillin-resistant Staphylococcus aureus positive blood cultures. POSTOPERATIVE DIAGNOSIS: Methicillin-resistant Staphylococcus aureus positive blood cultures. PROCEDURE: Removal of cuffed tunneled hemodialysis catheter from right IJ site. SURGEON: Deangelo Saucedo MD CORE MEASURES ABSTRACTOR: None. ANESTHESIA: 1% lidocaine plain, local. ESTIMATED BLOOD LOSS: Minimal. SPECIMENS: Catheter tip. DESCRIPTION OF PROCEDURE: This is a 62-year-old gentleman with end-stage renal disease with an indwelling right internal jugular hemodialysis catheter. The patient has been found to have blood cultures growing MRSA, and therefore, I was called for removal of the catheter. The procedure was discussed with the patient as were the indications, risks, benefits and alternatives. The patient had an opportunity to ask questions. All questions were answered. He agreed to proceed. The site was prepped with Betadine and ChloraPrep. During the prep, there was noted to be some pus emanating from the exit site of the catheter. The sutures holding the catheter were cut and removed. Gentle traction was applied on the catheter and the cuff easily advanced out of the exit site. The catheter was removed intact with direct pressure applied to the right IJ site. The catheter tip was cut off into a sterile container and thus delivered to the nurse. The hemostasis was ultimately achieved by infiltrating local anesthetic into the skin and soft tissue over more proximal area of the tunnel and then using a 4-0 nylon suture to encircle the subcutaneous tunnel and occlude it. Dressings were then applied over the exit site. The patient tolerated the procedure well and there were no immediate complications. [id number]/[facility] #: [id number] [facility]
--- NOTE | 2017-08-09 07:35 | DCNOTE ---
Subjective Date of Service: 08/08/17 Interval History: DISCHARGE SUMMARY FOR SWING BED ADMISSION 07/28/17 TO 08/08/17: During this swing bed admission the patient was started on midodrine per Dr. Jcainto for hypotension, with some improvement. He received HD every MWF. His leg wounds were washed daily and dressed with gauze and MOON wraps. He was on 1200 ml daily fluid restriction. He frequently asked for more to drink. Very late on 08/07/17 he developed a fever. Two sets of blood C&S were sent, of which all 4 bottles grew MRSA by the next day. He was given 2 gm IV vancomycin, and Dr. Saucedo removed his HD catheter and sent the tip for C&S. A random vanco level was ordered for 08/09, with plans to give another 1 gm of vanco if the level was under 15, then remove his midline. I spoke with Dr. Jacinto on 08/08. The plan is to insert a new HD catheter on 07/31 and perform HD 08/11/17. Family History: Unchanged from Admission Social History: Unchanged from Admission Past Medical History: Unchanged from Admission Objective Active Medications: Acetaminophen (Tylenol Tab*) 650 mg PO Q4H PRN PRN Reason: PAIN Atorvastatin Calcium (Lipitor*) 10 mg PO 1700 [facility] Last Admin: 08/08/17 17:11 Dose: 10 mg Citric Acid/Sodium Citrate (Bicitra*) 15 ml PO BID [facility] Last Admin: 08/08/17 21:48 Dose: 15 ml Heparin Sodium (Porcine) (Heparin Vial(*)) 5,000 units SUBCUT Q8HR [facility] Last Admin: 08/09/17 05:22 Dose: 5,000 units Heparin Sodium (Porcine) (Heparin Flush Picc/Ml/Cvc(*)) 1 ml FLUSH 0600,1800 [facility] PRN Reason: Protocol Last Admin: 08/09/17 05:22 Dose: 1 ml Vancomycin HCl 1,000 mg/ (Sodium Chloride) 250 mls @ 166.667 mls/hr IVPB MoWeFr @1800 [facility] Vancomycin HCl 1,000 mg/ (Sodium Chloride) 250 mls @ 166.667 mls/hr IVPB ONCE ONE Stop: 08/09/17 08:41 Lactobacillus Rhamnosus (Culturelle*) 1 cap PO DAILY [facility] Loperamide HCl (Imodium Cap*) 2 mg PO QID PRN PRN Reason: DIARRHEA Midodrine (Midodrine (Nf)) 5 mg PO TID [facility] PRN Reason: Protocol Last Admin: 08/08/17 21:48 Dose: 5 mg Nystatin (Nystatin Top Powder*) 1 applic TOPICAL TID [facility] Last Admin: 08/08/17 21:48 Dose: 1 applic Omeprazole (Prilosec Cap*) 20 mg PO 0600 [facility] Last Admin: 08/09/17 05:19 Dose: 20 mg Pharmacy Consult (Vancomycin Random Level*) 1 note FOLLOW UP MoWeFr@0600 [facility] Last Admin: 08/09/17 05:24 Dose: 1 note Rifaximin (Xifaxan*) 550 mg PO BID [facility] Last Admin: 08/08/17 21:48 Dose: 550 mg Throat Lozenges (Chloraseptic Ramesh*) 1 ramesh PO Q6H PRN PRN Reason: SORE THROAT Last Admin: 08/09/17 05:19 Dose: 1 ramesh Vital Signs 08/08/17 08/08/17 08/08/17 15:13 16:00 16:32 Temperature 99.7 F 99.7 F Pulse Rate 110 109 Respiratory 24 24 24 Rate Blood Pressure 83/45 83/45 (mmHg) O2 Sat by Pulse 90 93 Oximetry 08/08/17 08/08/17 08/08/17 20:00 20:03 23:55 Temperature 99.6 F 99.8 F Pulse Rate 113 115 Respiratory 20 20 18 Rate Blood Pressure 101/50 94/47 (mmHg) O2 Sat by Pulse 91 91 Oximetry 08/09/17 03:51 Temperature 99.7 F Pulse Rate 115 Respiratory Rate Blood Pressure 90/42 (mmHg) O2 Sat by Pulse 92 Oximetry Oxygen Devices in Use Now: None Appearance: Alert, partly up in bed. Neutral affect. Looks comfortable. Eyes: No Scleral Icterus Neck: NL Appearance and Movements; NL JVP, No Thyroid Enlargement, Masses Respiratory: Symmetrical Chest Expansion and Respiratory Effort, Clear to Auscultation, Clear to Percussion Cardiovascular: NL Sounds; No Murmurs; No JVD, RRR, No Edema, - Abdominal: - - massive obesity Extremities: No Edema, No Clubbing, Cyanosis, - Skin: No Nodules or Sclerosis, - - 2 cm superficial coccygeal skin ulcer. Large areas of non-blanching erythema on trunk, buttocks. Multiple small macules on extremities. Neurological: Alert and Oriented x 3, NL Sensation Result Diagrams: 08/08/17 17:57 08/08/17 17:57 Assess/Plan/Problems-Billing Assessment: - Patient Problems (1) MRSA bacteremia Current Visit: No Status: Acute Code(s): R78.81 - BACTEREMIA SNOMED Code(s ): 83924914944298537 Comment: Start vancomycin 2 gm 08/08, random level 08/09, plan to administer another gram if level <15. (2) Acute renal failure Current Visit: No Status: Acute Priority: High Comment: - Acute on CKD Plan new HD catheter 08/10/17 and HD 08/11/17. - Continue bicitra for metabolic acidosis. (3) CHF (congestive heart failure) Current Visit: No Status: Acute Code(s): I50.9 - HEART FAILURE, UNSPECIFIED SNOMED Code(s): 38460233 Comment: - EF 40-45 by echo 07/05/17. - BB, ACEI not given due to hypotension. (4) Hyperammonemia Current Visit: No Status: Acute Code(s): E72.20 - DISORDER OF UREA CYCLE METABOLISM, UNSPECIFIED SNOMED Code(s): 0079264 Comment: Continue rifaximin. (5) Morbid obesity Current Visit: No Status: Acute Code(s): E66.01 - MORBID (SEVERE) OBESITY DUE TO EXCESS CALORIES SNOMED Code(s): 232259356 Comment: BMI 44.7.
[2017-08-09] MEDS ORDERED: Vancomycin(*) 1,000 MG in NS 0.9% 250 ML* 250 ML IVPB ONE (08:00)
--- NOTE | 2017-08-09 08:44 | PN ---
Subjective Date of Service: 08/09/17 Interval History: Patient asks for something to drink. Itchy. No pain, SOB. He states he wants to go home. Family History: Unchanged from Admission Social History: Unchanged from Admission Past Medical History: Unchanged from Admission Objective Active Medications: Acetaminophen (Tylenol Tab*) 650 mg PO Q4H PRN PRN Reason: PAIN Atorvastatin Calcium (Lipitor*) 10 mg PO 1700 [facility] Last Admin: 08/08/17 17:11 Dose: 10 mg Citric Acid/Sodium Citrate (Bicitra*) 15 ml PO BID [facility] Last Admin: 08/08/17 21:48 Dose: 15 ml Heparin Sodium (Porcine) (Heparin Vial(*)) 5,000 units SUBCUT Q8HR [facility] Last Admin: 08/09/17 05:22 Dose: 5,000 units Heparin Sodium (Porcine) (Heparin Flush Picc/Ml/Cvc(*)) 1 ml FLUSH 0600,1800 [facility] PRN Reason: Protocol Last Admin: 08/09/17 05:22 Dose: 1 ml Vancomycin HCl 1,000 mg/ (Sodium Chloride) 250 mls @ 166.667 mls/hr IVPB MoWeFr @1800 [facility] Vancomycin HCl 1,000 mg/ (Sodium Chloride) 250 mls @ 166.667 mls/hr IVPB ONCE ONE Stop: 08/09/17 09:29 Lactobacillus Rhamnosus (Culturelle*) 1 cap PO DAILY [facility] Loperamide HCl (Imodium Cap*) 2 mg PO QID PRN PRN Reason: DIARRHEA Midodrine (Midodrine (Nf)) 5 mg PO TID [facility] PRN Reason: Protocol Last Admin: 08/08/17 21:48 Dose: 5 mg Nystatin (Nystatin Top Powder*) 1 applic TOPICAL TID [facility] Last Admin: 08/08/17 21:48 Dose: 1 applic Omeprazole (Prilosec Cap*) 20 mg PO 0600 [facility] Last Admin: 08/09/17 05:19 Dose: 20 mg Pharmacy Consult (Vancomycin Random Level*) 1 note FOLLOW UP MoWeFr@0600 [facility] Last Admin: 08/09/17 05:24 Dose: 1 note Rifaximin (Xifaxan*) 550 mg PO BID [facility] Last Admin: 08/08/17 21:48 Dose: 550 mg Throat Lozenges (Chloraseptic Sudheer*) 1 sudheer PO Q6H PRN PRN Reason: SORE THROAT Last Admin: 08/09/17 05:19 Dose: 1 sudheer Vital Signs 08/08/17 08/08/17 08/08/17 15:13 16:00 16:32 Temperature 99.7 F 99.7 F Pulse Rate 110 109 Respiratory 24 24 24 Rate Blood Pressure 83/45 83/45 (mmHg) O2 Sat by Pulse 90 93 Oximetry 08/08/17 08/08/17 08/08/17 20:00 20:03 23:55 Temperature 99.6 F 99.8 F Pulse Rate 113 115 Respiratory 20 20 18 Rate Blood Pressure 101/50 94/47 (mmHg) O2 Sat by Pulse 91 91 Oximetry 08/09/17 03:51 Temperature 99.7 F Pulse Rate 115 Respiratory Rate Blood Pressure 90/42 (mmHg) O2 Sat by Pulse 92 Oximetry Oxygen Devices in Use Now: None Appearance: Alert, supine in bed. In fair spiris. Looks comfortable. Eyes: No Scleral Icterus Respiratory: Symmetrical Chest Expansion and Respiratory Effort, Clear to Auscultation, Clear to Percussion Cardiovascular: RRR, - - distant heart sounds. 2+ pedal edema Lymphatic: No Auricular Adenopathy Extremities: No Clubbing, Cyanosis, - - V Skin: No Nodules or Sclerosis, - - much of his skin is a diffuse pink rash. Neurological: Alert and Oriented x 3, NL Sensation Result Diagrams: 08/08/17 17:57 08/08/17 17:57 Assess/Plan/Problems-Billing Assessment: - Patient Problems (1) MRSA bacteremia Current Visit: No Status: Acute Code(s): R78.81 - BACTEREMIA SNOMED Code(s ): 33158810973380641 Comment: Received vancomycin 2 gm 08/08, plus 1 gm 08/09, should get another dose after HD on 08/11. Midline to be removed when IV vanco finished 08/09. (2) Acute renal failure Current Visit: No Status: Acute Priority: High Comment: - Acute on CKD Plan new HD catheter 08/10/17 and HD 08/11/17. - Continue bicitra for metabolic acidosis. BMP 08/10/17. (3) CHF (congestive heart failure) Current Visit: No Status: Acute Code(s): I50.9 - HEART FAILURE, UNSPECIFIED SNOMED Code(s): 67312306 Comment: - EF 40-45 by echo 07/05/17. - BB, ACEI not given due to hypotension. (4) Hyperammonemia Current Visit: No Status: Acute Code(s): E72.20 - DISORDER OF UREA CYCLE METABOLISM, UNSPECIFIED SNOMED Code(s): 7156987 Comment: Continue rifaximin. (5) Morbid obesity Current Visit: No Status: Acute Code(s): E66.01 - MORBID (SEVERE) OBESITY DUE TO EXCESS CALORIES SNOMED Code(s): 162044975 Comment: BMI 44.7. (6) Cellulitis Current Visit: No Status: Acute Code(s): L03.90 - CELLULITIS, UNSPECIFIED SNOMED Code(s): 422456101 Comment: - Patient has chronic leg wound with chronic venous stasis changes. - Completed first course of ABX - Wash leg daily with soap and water. - Cover with gauze and MOON wraps. Not clear if extensive rash is due to infection.
[2017-08-09] MEDS: Sodium Citrate/Citric Acid* 15 ML UDC PO SCH ×2 (09:09→21:58)
[2017-08-09] MEDS: CMCS: Midodrine (NF) 5 MG TAB PO SCH ×3 (09:10→21:48)
[2017-08-09] MEDS: RiFAXimin* 550 MG TAB PO SCH ×2 (09:10→21:48)
[2017-08-09] MEDS: Nystatin TOP POWDER* 15 GM BTL TOPICAL SCH ×3 (09:10→21:54)
[2017-08-09] MEDS: Lactobacillus Acidophilu (GG)* 1 CAP CAP PO SCH (09:10)
--- NOTE | 2017-08-09 12:16 | CONS ---
CONSULTATION REPORT: DATE OF CONSULT: 08/09/17 REQUESTING PROVIDER: Dr. Schwartz. CONSULTING SERVICE: Infectious Disease. REASON FOR CONSULTATION: Sepsis, MRSA bacteremia. IMPRESSION: 1. Recent diagnosis of right lower extremity cellulitis, acute kidney injury requiring initiation of hemodialysis in setting of chronic kidney disease and [facility], now back with MRSA bacteremia in the setting of fever. He did recently have a hemodialysis catheter and a midline catheter placed, which was removed. 2. No peripheral stigmata of infective endocarditis and no murmur. 3. Morbid obesity. 4. ALLERGY to KEFLEX, PENICILLIN, and SULFA. 5. Bilateral venous stasis disease. 6. Whole body dermatitis. 7. Atrial fibrillation. RECOMMENDATIONS: Continue vancomycin goal trough 15 to 20. Remove midline catheter. We will recheck his blood cultures tomorrow and obtain a transthoracic echocardiogram, which if negative, given no peripheral stigmata of infective endocarditis, lack of murmur, and another source would be reasonable to rule out endocarditis. HISTORY OF PRESENT ILLNESS: This 62-year-old man was admitted after a fall at the end of June, found to have right leg cellulitis in the setting of venous stasis disease bilaterally. He was treated with vancomycin and meropenem initially then clindamycin with resolution of cellulitis. At that time, he was known to have chronic kidney disease, which was complicated by acute kidney injury requiring hemodialysis. He had a right tunneled internal jugular catheter placed, started hemodialysis, was [facility] to [facility], then readmitted with fever. Blood cultures were drawn on the for 4 bottles, gram -positive cocci in clusters, PCR positive for Staph aureus and MRSA; the final sensitivity is pending. He was started on vancomycin. His fevers and chills have resolved. He was feeling better. His dialysis catheter was removed last night. There was pus at the exit site. He has no prosthetic material present. No pain including no back or joint pain. He has had a full body rash for about 3 months. It was very itchy, scratching at it most of the day, worse on his arms and trunk. PAST MEDICAL HISTORY: 1. Morbid obesity. 2. Chronic kidney disease, now on hemodialysis. 3. Diabetes. 4. Congestive heart failure. 5. Atrial fibrillation. 6. Hypertension. 7. Hyperlipidemia. 8. Depression. 9. Irritable bowel syndrome. 10. History of diverticulitis, status post partial colectomy with ostomy and reversal. 11. Status post bilateral knee surgeries, no prosthetic material present. MEDICATIONS: 1. Tylenol. 2. Lipitor. 3. Heparin/heparin subcu injection. 4. Lactobacillus. 5. Midodrine. 6. Nystatin. 7. Omeprazole. 8. Rifaximin. 9. Vancomycin 1 g post dialysis. ALLERGIES: KEFLEX, PENICILLIN, XARELTO, WARFARIN, and BACTRIM. FAMILY HISTORY: Both parents are in their 80s, healthy as far as he knows. SOCIAL HISTORY: Past smoker. No alcohol, lives by himself. REVIEW OF SYSTEMS: A 14-point review of systems was negative as noted above in history of present illness. PHYSICAL EXAM: Vital Signs: Temperature 37, heart rate 110, respiratory rate 18, blood pressure 100/49, O2 sat 90% on room air. In general, he is awake. Not in distress and watching TV. Neurologic: He is oriented x3, follows all commands, moves all his extremities. Sensation is decreased to light touch in both feet. HEENT: There is no conjunctival hemorrhage. Oropharynx is without lesions. Neck: Supple. There is no nuchal rigidity. There is no lymph nodes. There is no inguinal, axillary, or epitrochlear lymphadenopathy. Heart: Irregularly irregular and tachycardic without murmurs. Lungs: Clear to auscultation bilaterally. Abdomen: Soft, nontender, nondistended. There are bowel sounds present. Chest: Right subclavian tunneled catheter site is sutured. There is no erythema warmth or fluctuance. Abdomen: Soft, obese, nontender, and nondistended. Skin: There is diffuse erythematous patch over much of his arms, trunk, and legs with excoriation; it is blanching. Musculoskeletal: There is no spine tenderness to palpation or join synovitis. He has bilateral lower extremity edema and venous stasis changes. DIAGNOSTIC STUDIES/LAB DATA: White blood cell count 10, hemoglobin 10, platelets 288. Creatinine is 5. Vancomycin trough 15. Please see impression and recommendations as outlined above. Thank you for asking me to see Mr. Geller in consultation. [id number]/[facility] #: [id number] BRITANY
--- NOTE | 2017-08-09 16:51 | ECHO ---
Patient: CHERRY MONIQUE [facility] Rec#: [id number] : 1955 Date: 08/09/2017 Age: 62y Height: 177.8 cm / 70.0 in Weight: 176.45 kg / 388.9 lbs Sex: M BSA: 2.77 Room#: [facility] Admit Date#: 08/08/2017 Type: Inpatient Referring: Morgan Holt MD Reading: Maribel Espana MD Cytotechnologist Supervisor: Lynn Montiel,RDCS,RDMS CC: Josh Felipe DO Transthoracic Echocardiogram Indication: BACTEREMIA BP: 98/49 HR: 80 Rhythm: A-Fib Findings History: CHF, AFIB, HTN, HLD, DM, CKD, morbid obesity, Technical Comments: The study is technically limited due to patient body habitus. The study was technically limited due to the patient's inability to lay in the left lateral decubitus position. Left Ventricle: The left ventricular chamber size is normal. Mild to moderate concentric left ventricular hypertrophy is observed. Global left ventricular wall motion and contractility are within normal limits. The estimated ejection fraction is 50-55%. There is septal flattening of the interventricular septum consistent with right ventricular volume or pressure overload. The assessment of diastolic function is non-diagnostic. Left Atrium: The left atrium is moderately dilated. Right Ventricle: The right ventricle is moderate to severely dilated. The right ventricular global systolic function is mildly to moderately reduced. Right Atrium: The right atrium is moderately dilated. Aortic Valve: The aortic valve is trileaflet. The aortic valve leaflets are moderately thickened.NCC sclerosis most prominent and NCC mobility diminished. Systolic excursion of the non coronary cusp is reduced. There is aortic annular calcification. There is no evidence of aortic regurgitation. There is borderline aortic stenosis present. The mean gradient of the aortic valve is 4 mmHg. The aortic valve area, by peak velocities, is calculated at 1.8 cm2. There is no aortic vegetation present. Mitral Valve: The mitral valve leaflets are mildly thickened. There is mild to moderate mitral regurgitation. There is no evidence of mitral stenosis. No vegetation is observed on the mitral valve. Tricuspid Valve: The tricuspid valve leaflets are mildly thickened.Possible prolapse seen on image 14. There is moderate to severe tricuspid regurgitation. The right ventricular systolic pressure is estimated at 44 mmHg. There is evidence that pulmonary hypertension may be underestimated. Pulmonic Valve: The pulmonic valve appears normal. There is mild pulmonic regurgitation. No vegetation is observed on the pulmonic valve. Pericardium: There is no significant pericardial effusion. Aorta: The aortic root appears normal. There is no dilatation of the aortic arch. Pulmonary Artery: The main pulmonary artery appears normal. Venous: The inferior vena cava is dilated. There is no change in the dimension of the inferior vena cava with respiration consistent with markedly increased right atrial pressure. Hepatic vein systolic flow is reversed. Conclusions The study is technically limited due to patient body habitus. Mild to moderate concentric left ventricular hypertrophy is observed. There is septal flattening of the interventricular septum consistent with right ventricular volume or pressure overload. Global left ventricular wall motion and contractility are within normal limits, EF 50-55%. The right ventricle is moderate to severely dilated and RV systolic function is mildly to moderately reduced. Fair imaging of valves, no vegetations noted. Aortic valve sclerosis.. Systolic excursion of the non coronary cusp is reduced with borderline aortic stenosis. There is mild to moderate mitral regurgitation. There is moderate to severe tricuspid regurgitation. The right ventricular systolic pressure is estimated at 44 mmHg, PA pressure may be underestimated. The inferior vena cava is severely dilated. Compared with prior study of 07/05/17, EF prviously 40-45%, RV abnormal on prior study, the degree of TR has increased from mild, MR has increased from trace. Recommendation: if clinically indicated consider CHERYL for better resolution of valves, ability to image vegetations. Measurements Name Value Normal Range RVIDd (AP) 2D 4.6 cm (0.9 - 2.6) RVDdMajor (2D) 5.2 cm (2.2 - 4.4) RAd ISD 4CH 5.4 cm (3.4 - 4.9) RA (A4C)W 5.5 cm (2.9 - 4.6) IVSd (2D) 1.4 cm (0.6 - 1) LVPWd (2D) 1.4 cm (0.6 - 1) LVIDd (2D) 4.9 cm (3.6 - 5.4) LVIDs (2D) 3.6 cm - LV FS (2D) 26 % (25 - 45) Aortic Annulus 2 cm (1.4 - 2.6) Ao root diameter (2D) 2.7 cm (2.1 - 3.5) Ascending Ao 2.6 cm (2.1 - 3.4) Aortic arch 3.2 cm (1.8 - 3.4) LA dimension (AP) 2D 6.3 cm (2.3 - 3.8) LAd ISD 4CH 6.9 cm (2.9 - 5.3) LA ISD 4CH W 5.3 cm (2.5 - 4.5) Name Value Normal Range LA ESV SP 4CH (A/L) 134.06 ml - LA ESV SP 2CH (A/L) 83.22 ml - LA ESV BP (A/L) 116.05 ml - LA ESV BP (A/L) index 42 ml/m2 - LA ESV SP 4CH (MOD) 124.9 ml - LA ESV SP 2CH (MOD) 78.99 ml - Name Value Normal Range MV E-wave Vmax 1.2 m/sec - MV deceleration time 195 msec - LV lateral e' Vmax 0.09 m/sec - LV E:e' lateral ratio 13 ratio - Name Value Normal Range AV Vmax 1.4 m/sec - AV VTI 22.1 cm - AV peak gradient 8 mmHg - AV mean gradient 4 mmHg - LVOT diameter 2 cm - LVOT Vmax 0.8 m/sec - LVOT VTI 13.4 cm - LVOT peak gradient 2.6 mmHg - LVOT mean gradient 1.4 mmHg - TUSHAR (continuity Vmax) 1.8 cm2 - TUSHAR (continuity VTI) 1.9 cm2 - JEFF Vmax 0.7 m/sec - Name Value Normal Range MV Vmax 1.3 m/sec - MV VTI 22.6 cm - MV peak gradient 7 mmHg - MV mean gradient 3.3 mmHg - MV PHT 59 msec - MVA (PHT) 3.7 cm2 - MVA (continuity VTI) 1.9 cm2 - Name Value Normal Range TR Vmax 2.7 m/sec - TR peak gradient 29 mmHg - RAP 15 mmHg - RVSP 44 mmHg - IVC diameter 4.1 cm - Name Value Normal Range PV Vmax 0.9 m/sec - PV peak gradient 3.2 mmHg -
[2017-08-09] MEDS: Atorvastatin* 10 MG TAB PO SCH (17:11)
[2017-08-10] MEDS: Benzocaine/Menthol LOZ* 1 LOZENGE PO PRN ×3 (01:23→17:02)
[2017-08-10] MEDS: Omeprazole CAP* 20 MG PO SCH (06:17)
[2017-08-10] MEDS: Heparin VIAL(*) 5000 UNITS/ML VIAL (FIVE THOUSAND) SUBCUT SCH ×3 (06:17→21:22)
[2017-08-10 08:50] LABS: BUN/Creatinine Ratio 12.7 (8-20); Calcium 8.3 mg/dL (8.6-10.3); EGFR African American 11.4 (>60); EGFR Non-African American 8.9 (>60); Potassium 4.1 mmol/L (3.5-5.0)
[2017-08-10] MEDS: CMCS: Midodrine (NF) 5 MG TAB PO SCH ×3 (09:11→20:49)
[2017-08-10] MEDS: RiFAXimin* 550 MG TAB PO SCH ×2 (09:11→20:49)
[2017-08-10] MEDS: Nystatin TOP POWDER* 15 GM BTL TOPICAL SCH ×3 (09:11→20:49)
[2017-08-10] MEDS: Sodium Citrate/Citric Acid* 15 ML UDC PO SCH ×2 (09:11→20:49)
[2017-08-10] MEDS: Lactobacillus Acidophilu (GG)* 1 CAP CAP PO SCH (09:11)
--- NOTE | 2017-08-10 10:26 | PN ---
Progress Note - Progress Note Date of Service: 08/10/17 SOAP: Subjective: CC: bacteremia HPI: 62 yo man with R chest HD catheter, midline catheter and fever; on vancomycin after HD for BSI. No fever, rash or diarrhea. No complaints. Objective: [] Vital Signs Temp 37.7 C 08/10/17 03:16 Pulse 112 08/10/17 03:16 Resp 16 08/10/17 03:16 BP 108/55 08/10/17 03:16 Pulse Ox 94 08/10/17 03:16 Intake & Output 08/09/17 08/10/17 08/10/17 18:59 06:59 18:59 Intake Total 980 520 570 Output Total 1 Balance 980 519 570 Intake: IVPB 260 ABX - VANCOMYCIN 260 Oral 720 520 570 Output: Urine 1 Other: Estimated Void Large # Bowel Movements 1 1 Estimated Stool Amount Large Small Gen:awake no distress HEENT:PERRL, MMM Neck:Supple Heart:RRR no murmur Lungs:CTA BL Abd:+BS NTND soft Skin: R chest incision intact; no splinter hemorrhage Laboratory Results - last 24 hr 08/10/17 08:12 Sodium 130 L Potassium 4.1 Chloride 94 L Carbon Dioxide 22 Anion Gap 14 H BUN 81 H Creatinine 6.38 H Est GFR ( Amer) 11.4 Est GFR (Non-Af Amer) 8.9 BUN/Creatinine Ratio 12.7 Glucose 76 Calcium 8.3 L Assessment: 1. MRSA bacteremia; TTE negative and no peripheral stigmata of infective endocarditis so it is unlikely 2. ESRD, hemodialysis 3. morbid obesity 4. diabetes with nephropathy Plan: 1. repeat BC pending, hold on central catheters pending cleared cultures if possible. Vancomycin post HD for 2 weeks from negative blood cultures. Discussed with Dr Schwartz.
--- NOTE | 2017-08-10 13:59 | PN ---
Subjective Date of Service: 08/10/17 Interval History: No new c/o. Family History: Unchanged from Admission Social History: Unchanged from Admission Past Medical History: Unchanged from Admission Objective Active Medications: Acetaminophen (Tylenol Tab*) 650 mg PO Q4H PRN PRN Reason: PAIN Atorvastatin Calcium (Lipitor*) 10 mg PO 1700 [facility] Last Admin: 08/09/17 17:11 Dose: 10 mg Citric Acid/Sodium Citrate (Bicitra*) 15 ml PO BID [facility] Last Admin: 08/10/17 09:11 Dose: 15 ml Heparin Sodium (Porcine) (Heparin Vial(*)) 5,000 units SUBCUT Q8HR [facility] Last Admin: 08/10/17 06:17 Dose: 5,000 units Vancomycin HCl 1,000 mg/ (Sodium Chloride) 250 mls @ 166.667 mls/hr IVPB MoWeFr @1800 [facility] Lactobacillus Rhamnosus (Culturelle*) 1 cap PO DAILY [facility] Last Admin: 08/10/17 09:11 Dose: 1 cap Loperamide HCl (Imodium Cap*) 2 mg PO QID PRN PRN Reason: DIARRHEA Midodrine (Midodrine (Nf)) 5 mg PO TID [facility] PRN Reason: Protocol Last Admin: 08/10/17 09:11 Dose: 5 mg Nystatin (Nystatin Top Powder*) 1 applic TOPICAL TID [facility] Last Admin: 08/10/17 09:11 Dose: 1 applic Omeprazole (Prilosec Cap*) 20 mg PO 0600 [facility] Last Admin: 08/10/17 06:17 Dose: 20 mg Pharmacy Consult (Vancomycin Random Level*) 1 note FOLLOW UP MoWeFr@0600 [facility] Last Admin: 08/09/17 05:24 Dose: 1 note Rifaximin (Xifaxan*) 550 mg PO BID [facility] Last Admin: 08/10/17 09:11 Dose: 550 mg Throat Lozenges (Chloraseptic Sudheer*) 1 sudheer PO Q6H PRN PRN Reason: SORE THROAT Last Admin: 08/10/17 11:57 Dose: 1 sudheer Vital Signs 08/09/17 08/09/17 08/09/17 14:16 20:00 23:36 Temperature 97.5 F 98.9 F Pulse Rate 102 115 Respiratory 20 20 16 Rate Blood Pressure 85/45 98/47 (mmHg) O2 Sat by Pulse 94 96 Oximetry 08/10/17 03:16 Temperature 99.8 F Pulse Rate 112 Respiratory 16 Rate Blood Pressure 108/55 (mmHg) O2 Sat by Pulse 94 Oximetry Oxygen Devices in Use Now: None Appearance: Alert, supine in bed. Somewhat irritable, otherwise looks comfortable. Respiratory: Symmetrical Chest Expansion and Respiratory Effort, Clear to Auscultation, Clear to Percussion Cardiovascular: NL Sounds; No Murmurs; No JVD, RRR, No Edema, - Extremities: No Clubbing, Cyanosis, - - 1+ pedal edema BL Skin: No Nodules or Sclerosis, - - widespread erythematous patches Neurological: Alert and Oriented x 3, NL Sensation Result Diagrams: 08/08/17 17:57 08/10/17 08:12 Microbiology and Other Data: Microbiology 08/08/17 16:15 Catheter Tip Culture - Preliminary Catheter Tip MRSA Assess/Plan/Problems-Billing Assessment: - Patient Problems (1) MRSA bacteremia Current Visit: No Status: Acute Code(s): R78.81 - BACTEREMIA SNOMED Code(s ): 11163469196983923 Comment: Received vancomycin 2 gm 08/08, plus 1 gm 08/09, should get another dose after HD on 08/11. Midline removed 08/09. 2 sets of blood C&S ordered . Random vano level 08/11. (2) Acute renal failure Current Visit: No Status: Acute Priority: High Comment: - Acute on CKD Plan new HD catheter 08/10/17 and HD 08/11/17. - Continue bicitra for metabolic acidosis. BMP 08/11/17. (3) CHF (congestive heart failure) Current Visit: No Status: Acute Code(s): I50.9 - HEART FAILURE, UNSPECIFIED SNOMED Code(s): 52619781 Comment: - EF 40-45 by echo 07/05/17. - BB, ACEI not given due to hypotension. (4) Hyperammonemia Current Visit: No Status: Acute Code(s): E72.20 - DISORDER OF UREA CYCLE METABOLISM, UNSPECIFIED SNOMED Code(s): 4155760 Comment: Continue rifaximin. (5) Morbid obesity Current Visit: No Status: Acute Code(s): E66.01 - MORBID (SEVERE) OBESITY DUE TO EXCESS CALORIES SNOMED Code(s): 576186497 Comment: BMI 44.7. (6) Cellulitis Current Visit: No Status: Acute Code(s): L03.90 - CELLULITIS, UNSPECIFIED SNOMED Code(s): 702417543 Comment: - Patient has chronic leg wound with chronic venous stasis changes. - Completed first course of ABX - Wash leg daily with soap and water. - Cover with gauze and MOON wraps. Not clear if extensive rash is due to infection.
[2017-08-10] MEDS: Atorvastatin* 10 MG TAB PO SCH (17:03)
[2017-08-10] MEDS ORDERED: Heparin DIALYSIS ONLY(*) 1,000 UNITS/ML VIAL DIALYSIS ONE (17:55)
--- NOTE | 2017-08-10 18:12 | RAD ---
INDICATION: Short of breath COMPARISON: August 07, 2017 TECHNIQUE: An AP portable view obtained at 1750 hours is submitted. FINDINGS: Bones/Soft Tissues: There are no acute bony findings. There appears be a new dialysis catheter terminating near the right atrial junction. Cardiomediastinal: The cardiac silhouette is enlarged. There is mild interstitial congestion Lungs: There are no infiltrates. There is no pneumothorax. Pleura: There are no pleural effusions. Other: None IMPRESSION: RIGHT-SIDED CENTRAL VENOUS CATHETER. NO PNEUMOTHORAX. ENLARGED CARDIAC SILHOUETTE WITH MILD INTERSTITIAL CONGESTION, UNCHANGED
[2017-08-11] MEDS: Heparin VIAL(*) 5000 UNITS/ML VIAL (FIVE THOUSAND) SUBCUT SCH ×3 (05:29→22:04)
[2017-08-11] MEDS: Omeprazole CAP* 20 MG PO SCH (05:29)
[2017-08-11 07:05] LABS: Hematocrit 30 % (42-52); Hemoglobin 9.7 g/dl (14.0-18.0); Mean Corpuscular HGB Conc 32 g/dl (31-36); Mean Corpuscular Hemoglobin 29 pg (27-31); Mean Corpuscular Volume 89 fL (80-94); Mean Platelet Volume 8 um3 (7.4-10.4); Red Blood Count 3.37 10^6/ul (4.0-5.4); Red Cell Distribution Width 19 % (10.5-15); White Blood Count 7.5 10^3/ul (3.5-10.8)
[2017-08-11 07:16] LABS: BUN/Creatinine Ratio 13.3 (8-20); Calcium 8.6 mg/dL (8.6-10.3); EGFR African American 10.7 (>60); EGFR Non-African American 8.3 (>60); Potassium 4.1 mmol/L (3.5-5.0)
[2017-08-11 07:39] LABS: Vancomycin Random 15.6 mcg/mL
[2017-08-11] MEDS: Sodium Citrate/Citric Acid* 15 ML UDC PO SCH ×2 (08:18→20:56)
[2017-08-11] MEDS: Lactobacillus Acidophilu (GG)* 1 CAP CAP PO SCH (08:18)
[2017-08-11] MEDS: CMCS: Midodrine (NF) 5 MG TAB PO SCH (08:18)
[2017-08-11] MEDS: Nystatin TOP POWDER* 15 GM BTL TOPICAL SCH ×3 (08:19→22:01)
[2017-08-11] MEDS: RiFAXimin* 550 MG TAB PO SCH ×2 (08:19→20:55)
[2017-08-11] MEDS: Benzocaine/Menthol LOZ* 1 LOZENGE PO PRN (08:50)
[2017-08-11] MEDS: Vancomycin Random Level* NOTE FOLLOW UP SCH (09:38)
[2017-08-11] MEDS ORDERED: Heparin DIALYSIS ONLY(*) 1,000 UNITS/ML VIAL DIALYSIS ONE (11:00)
[2017-08-11] MEDS ORDERED: Vancomycin(*) 1,500 MG in NS 0.9% 250 ML* 250 ML IVPB SCH (12:00)
--- NOTE | 2017-08-11 12:06 | PN ---
Subjective Date of Service: 08/11/17 Interval History: No new c/o. Family History: Unchanged from Admission Social History: Unchanged from Admission Past Medical History: Unchanged from Admission Objective Active Medications: Acetaminophen (Tylenol Tab*) 650 mg PO Q4H PRN PRN Reason: PAIN Atorvastatin Calcium (Lipitor*) 10 mg PO 1700 [facility] Last Admin: 08/10/17 17:03 Dose: 10 mg Citric Acid/Sodium Citrate (Bicitra*) 15 ml PO BID [facility] Last Admin: 08/11/17 08:18 Dose: 15 ml Heparin Sodium (Porcine) (Heparin Vial(*)) 5,000 units SUBCUT Q8HR [facility] Last Admin: 08/11/17 05:29 Dose: 5,000 units Vancomycin HCl 1,500 mg/ (Sodium Chloride) 250 mls @ 166.667 mls/hr IVPB MoWeFr @1200 [facility] PRN Reason: Protocol Lactobacillus Rhamnosus (Culturelle*) 1 cap PO DAILY [facility] Last Admin: 08/11/17 08:18 Dose: 1 cap Loperamide HCl (Imodium Cap*) 2 mg PO QID PRN PRN Reason: DIARRHEA Midodrine (Midodrine (Nf)) 5 mg PO TID [facility] PRN Reason: Protocol Last Admin: 08/11/17 08:18 Dose: 5 mg Nystatin (Nystatin Top Powder*) 1 applic TOPICAL TID [facility] Last Admin: 08/11/17 08:19 Dose: 1 applic Omeprazole (Prilosec Cap*) 20 mg PO 0600 [facility] Last Admin: 08/11/17 05:29 Dose: 20 mg Pharmacy Consult (Vancomycin Random Level*) 1 note FOLLOW UP MoWeFr@0600 [facility] Last Admin: 08/11/17 09:38 Dose: 1 note Rifaximin (Xifaxan*) 550 mg PO BID [facility] Last Admin: 08/11/17 08:19 Dose: 550 mg Throat Lozenges (Chloraseptic Sudheer*) 1 sudheer PO Q6H PRN PRN Reason: SORE THROAT Last Admin: 08/11/17 08:50 Dose: 1 sudheer Vital Signs 08/10/17 08/10/17 08/11/17 17:55 20:00 03:57 Temperature 96.9 F 98.5 F Pulse Rate 112 109 Respiratory 22 17 20 Rate Blood Pressure 96/55 101/56 (mmHg) O2 Sat by Pulse 97 96 Oximetry 08/11/17 08/11/17 07:47 08:00 Temperature 98.1 F Pulse Rate 107 Respiratory 20 16 Rate Blood Pressure 102/46 (mmHg) O2 Sat by Pulse 97 Oximetry Oxygen Devices in Use Now: None Appearance: Alert, supine in bed. In fair spirits. Looks comfortable. Eyes: No Scleral Icterus Respiratory: Symmetrical Chest Expansion and Respiratory Effort, Clear to Auscultation, Clear to Percussion, - - Clear anteriorly Cardiovascular: NL Sounds; No Murmurs; No JVD, RRR, No Edema, - Extremities: No Edema, No Clubbing, Cyanosis, - Skin: No Nodules or Sclerosis, - - many red areas and many excoriations. Perineal area not examined Neurological: Alert and Oriented x 3, NL Sensation Result Diagrams: 08/11/17 06:20 08/11/17 06:20 Microbiology and Other Data: Microbiology 08/08/17 16:15 Catheter Tip Culture - Preliminary Catheter Tip MRSA Assess/Plan/Problems-Billing Assessment: - Patient Problems (1) MRSA bacteremia Current Visit: No Status: Acute Code(s): R78.81 - BACTEREMIA SNOMED Code(s ): 26230094640310138 Comment: Received vancomycin 2 gm 08/08, plus 1 gm 08/09, will get another 1.5 gm after HD on 08/11. Midline removed 08/09. 2 sets of blood C&S 08/10 all growing MRSA. Random vano level 08/11 was 15.9. Dialysis cath to be removed 08/11 after vanco infused, tip to be C&S. Two sets of blood C&S 08/12. CHERYL 08/11. (2) Acute renal failure Current Visit: No Status: Acute Priority: High Comment: - Acute on CKD Plan new HD catheter 08/10/17 and HD 08/11/17. - Continue bicitra for metabolic acidosis. BMP 08/11/17. (3) CHF (congestive heart failure) Current Visit: No Status: Acute Code(s): I50.9 - HEART FAILURE, UNSPECIFIED SNOMED Code(s): 46086182 Comment: - EF 40-45 by echo 07/05/17. - BB, ACEI not given due to hypotension. (4) Hyperammonemia Current Visit: No Status: Acute Code(s): E72.20 - DISORDER OF UREA CYCLE METABOLISM, UNSPECIFIED SNOMED Code(s): 4836468 Comment: Continue rifaximin. (5) Morbid obesity Current Visit: No Status: Acute Code(s): E66.01 - MORBID (SEVERE) OBESITY DUE TO EXCESS CALORIES SNOMED Code(s): 255081614 Comment: BMI 44.7. (6) Cellulitis Current Visit: No Status: Acute Code(s): L03.90 - CELLULITIS, UNSPECIFIED SNOMED Code(s): 699852521 Comment: - Patient has chronic leg wound with chronic venous stasis changes. - Completed first course of ABX - Wash leg daily with soap and water. - Cover with gauze and MOON wraps. Not clear if extensive rash is due to infection.
--- NOTE | 2017-08-11 12:28 | ADMNOTE ---
Subjective Date of Service: 08/11/17 Interval History: Addendum to today's note. Family History: Unchanged from Admission Social History: Unchanged from Admission Past Medical History: Unchanged from Admission Review of Systems - Measurements Intake and Output: Intake and Output Last 24 Hours 08/09/17 08/10/17 08/11/17 08/12/17 06:59 06:59 06:59 06:59 Intake Total 1370 1500 1225 0 Output Total 1 Balance 1370 1499 1225 0 Weight 339 lb 346 lb 6.4 oz Intake: IV Fluids 550 0 ABX - VANCOMYCIN 550 0 IVPB 260 ABX - VANCOMYCIN 260 Oral 820 1240 1225 0 Output: Urine 1 Other: Estimated Void Large # Bowel Movements 1 1 1 Estimated Stool Amount Medium Small Small # Voids 1 Objective Active Medications: Acetaminophen (Tylenol Tab*) 650 mg PO Q4H PRN PRN Reason: PAIN Atorvastatin Calcium (Lipitor*) 10 mg PO 1700 [facility] Last Admin: 08/10/17 17:03 Dose: 10 mg Citric Acid/Sodium Citrate (Bicitra*) 15 ml PO BID [facility] Last Admin: 08/11/17 08:18 Dose: 15 ml Heparin Sodium (Porcine) (Heparin Vial(*)) 5,000 units SUBCUT Q8HR [facility] Last Admin: 08/11/17 05:29 Dose: 5,000 units Vancomycin HCl 1,500 mg/ (Sodium Chloride) 250 mls @ 166.667 mls/hr IVPB MoWeFr @1200 [facility] PRN Reason: Protocol Lactobacillus Rhamnosus (Culturelle*) 1 cap PO DAILY [facility] Last Admin: 08/11/17 08:18 Dose: 1 cap Loperamide HCl (Imodium Cap*) 2 mg PO QID PRN PRN Reason: DIARRHEA Midodrine (Midodrine (Nf)) 5 mg PO TID [facility] PRN Reason: Protocol Last Admin: 08/11/17 08:18 Dose: 5 mg Nystatin (Nystatin Top Powder*) 1 applic TOPICAL TID [facility] Last Admin: 08/11/17 08:19 Dose: 1 applic Omeprazole (Prilosec Cap*) 20 mg PO 0600 [facility] Last Admin: 08/11/17 05:29 Dose: 20 mg Pharmacy Consult (Vancomycin Random Level*) 1 note FOLLOW UP MoWeFr@0600 [facility] Last Admin: 08/11/17 09:38 Dose: 1 note Rifaximin (Xifaxan*) 550 mg PO BID [facility] Last Admin: 08/11/17 08:19 Dose: 550 mg Throat Lozenges (Chloraseptic Sudheer*) 1 sudheer PO Q6H PRN PRN Reason: SORE THROAT Last Admin: 08/11/17 08:50 Dose: 1 sudheer Vital Signs 08/10/17 08/10/17 08/11/17 17:55 20:00 03:57 Temperature 96.9 F 98.5 F Pulse Rate 112 109 Respiratory 22 17 20 Rate Blood Pressure 96/55 101/56 (mmHg) O2 Sat by Pulse 97 96 Oximetry 08/11/17 08/11/17 07:47 08:00 Temperature 98.1 F Pulse Rate 107 Respiratory 20 16 Rate Blood Pressure 102/46 (mmHg) O2 Sat by Pulse 97 Oximetry Oxygen Devices in Use Now: None Result Diagrams: 08/11/17 06:20 08/11/17 06:20 Microbiology and Other Data: Microbiology 08/08/17 16:15 Catheter Tip Culture - Preliminary Catheter Tip MRSA Assess/Plan/Problems-Billing Assessment: - Patient Problems (1) MRSA bacteremia Current Visit: No Status: Acute Code(s): R78.81 - BACTEREMIA SNOMED Code(s ): 24392742118763490 Comment: MRSA bactermia is secondary to dialysis catheter infection. The patient received vancomycin 2 gm 08/08, plus 1 gm 08/09, will get another 1.5 gm after HD on 08/11. Midline removed 08/09. 2 sets of blood C&S 08/10 all growing MRSA. Random vano level 08/11 was 15.9. Dialysis cath to be removed 08/11 after vanco infused, tip to be C&S. Two sets of blood C&S 08/12. CHERYL 08/11. (2) Acute renal failure Current Visit: No Status: Acute Priority: High Comment: - Acute on CKD Plan new HD catheter 08/10/17 and HD 08/11/17. - Continue bicitra for metabolic acidosis. BMP 08/11/17. (3) CHF (congestive heart failure) Current Visit: No Status: Acute Code(s): I50.9 - HEART FAILURE, UNSPECIFIED SNOMED Code(s): 76940151 Comment: - EF 40-45 by echo 07/05/17. - BB, ACEI not given due to hypotension. (4) Hyperammonemia Current Visit: No Status: Acute Code(s): E72.20 - DISORDER OF UREA CYCLE METABOLISM, UNSPECIFIED SNOMED Code(s): 7770443 Comment: Continue rifaximin. (5) Morbid obesity Current Visit: No Status: Acute Code(s): E66.01 - MORBID (SEVERE) OBESITY DUE TO EXCESS CALORIES SNOMED Code(s): 537481374 Comment: BMI 44.7. (6) Cellulitis Current Visit: No Status: Acute Code(s): L03.90 - CELLULITIS, UNSPECIFIED SNOMED Code(s): 571767851 Comment: - Patient has chronic leg wound with chronic venous stasis changes. - Completed first course of ABX - Wash leg daily with soap and water. - Cover with gauze and MOON wraps. Not clear if extensive rash is due to infection. (7) ESRD (end stage renal disease) Current Visit: Yes Status: Acute Code(s): N18.6 - END STAGE RENAL DISEASE SNOMED Code(s): 59128916 Comment: HD MoWEFr for ESRD.
[2017-08-11] MEDS: CMCS:Midodrine (NF) 5 MG TAB PO SCH ×2 (14:35→20:55)
--- NOTE | 2017-08-11 14:45 | PN ---
Cardiology Progress Note 08/11/2017: I discussed risks and benefits of CHERYL with patient. I think the benefits far outweigh the risks and discussed this and recommended we proceed with CHERYL to evaluate for endocarditis. Patient declined. Dr. Schwartz notified. Attn coders: Please do not bill for this encounter
--- NOTE | 2017-08-11 15:26 | OP ---
CC: Dr. Bang; Dr. Jacinto OPERATIVE REPORT: DATE OF OPERATION: 08/10/17 DATE OF : 51 SURGEON: Mejia Bang MD EXTERIOR INTERIOR SPECIALIST: None. ANESTHESIOLOGIST: None. PRE-OP DIAGNOSIS: Renal failure. POST-OP DIAGNOSIS: Renal failure. OPERATIVE PROCEDURE: Placement of right internal jugular temporary hemodialysis catheter. DESCRIPTION OF PROCEDURE: The patient was supine in bed. The sterile gown and gloves, hat and mask were utilized. A sterile field was created. The right neck and clavicular region were prepped with ChloraPrep and draped in a sterile fashion. Local infiltrative anesthesia was administered in the rig ht neck and skinny underwriting specialist needle used to identify the internal jugular vein. A larger needle was th en utilized and the guidewire was passed very easily and the dilators were utilized and then the curv ed 20 cm catheter was placed, was place to about 1 to 2 cm from the hub, sutured with nylon suture. Sterile dressing was placed. There was good blood return. It was flushed with saline solution and h eparinized solution followed by a sterile dressing. He tolerated the procedure well. Follow up ches t x-ray revealed catheter in excellent position and no pneumothorax. There were no complications. N o drains. Blood loss was may be 30 mL. [id number]/[facility] #: [id number]
[2017-08-11] MEDS: Atorvastatin* 10 MG TAB PO SCH (16:51)
[2017-08-11] MEDS ORDERED: Vancomycin(*) 1,000 MG in NS 0.9% 250 ML* 250 ML IVPB SCH (18:00)
[2017-08-12] MEDS: Heparin VIAL(*) 5000 UNITS/ML VIAL (FIVE THOUSAND) SUBCUT SCH ×4 (05:40→21:22)
[2017-08-12] MEDS: Omeprazole CAP* 20 MG PO SCH (05:41)
[2017-08-12] MEDS: CMCS:Midodrine (NF) 5 MG TAB PO SCH ×3 (09:20→21:20)
[2017-08-12] MEDS: Sodium Citrate/Citric Acid* 15 ML UDC PO SCH ×2 (09:20→21:20)
[2017-08-12] MEDS: Nystatin TOP POWDER* 15 GM BTL TOPICAL SCH ×3 (09:20→21:52)
[2017-08-12] MEDS: RiFAXimin* 550 MG TAB PO SCH ×2 (09:20→21:20)
[2017-08-12] MEDS: Lactobacillus Acidophilu (GG)* 1 CAP CAP PO SCH (09:20)
[2017-08-12] MEDS ORDERED: Vancomycin(*) 1,000 MG in NS 0.9% 250 ML* 250 ML IVPB ONE (09:49)
--- NOTE | 2017-08-12 09:55 | PN ---
Progress Note - Progress Note Date of Service: 08/12/17 Note: Dy #2 s/p insertion of RIJ HD catheter. D/W Dr Schwartz. There is some risk to removing and replacing HD catheter for every dialysis. The original catheter had monserrat pus coming out of the track, which I believe could explain his continued bacteremia. It is not clear that the current catheter is infected. Will hold off on removal until we have results of today' s blood culture.
[2017-08-12] MEDS ORDERED: Vancomycin(*) 1,000 MG in D5W 250 ML BAG* 250 ML IVPB ONE (11:03)
--- NOTE | 2017-08-12 11:25 | PN ---
Subjective Date of Service: 08/12/17 Interval History: No pain, SOB. No new c/o. Patient brought up the subject of CHERYL, wanted to know what it might show. He still does not want to have it done. Family History: Unchanged from Admission Social History: Unchanged from Admission Past Medical History: Unchanged from Admission Objective Active Medications: Acetaminophen (Tylenol Tab*) 650 mg PO Q4H PRN PRN Reason: PAIN Atorvastatin Calcium (Lipitor*) 10 mg PO 1700 [facility] Last Admin: 08/11/17 16:51 Dose: 10 mg Citric Acid/Sodium Citrate (Bicitra*) 15 ml PO BID [facility] Last Admin: 08/12/17 09:20 Dose: 15 ml Heparin Sodium (Porcine) (Heparin Vial(*)) 5,000 units SUBCUT Q8HR [facility] Last Admin: 08/12/17 05:40 Dose: Not Given Vancomycin HCl 1,500 mg/ (Sodium Chloride) 250 mls @ 166.667 mls/hr IVPB MoWeFr @1200 [facility] PRN Reason: Protocol Last Admin: 08/11/17 13:57 Dose: 166.667 mls/hr Lactobacillus Rhamnosus (Culturelle*) 1 cap PO DAILY [facility] Last Admin: 08/12/17 09:20 Dose: 1 cap Loperamide HCl (Imodium Cap*) 2 mg PO QID PRN PRN Reason: DIARRHEA Midodrine (Midodrine (Nf)) 10 mg PO TID [facility] PRN Reason: Protocol Last Admin: 08/12/17 09:20 Dose: 10 mg Nystatin (Nystatin Top Powder*) 1 applic TOPICAL TID [facility] Last Admin: 08/12/17 09:20 Dose: 1 applic Omeprazole (Prilosec Cap*) 20 mg PO 0600 [facility] Last Admin: 08/12/17 05:41 Dose: 20 mg Pharmacy Consult (Vancomycin Random Level*) 1 note FOLLOW UP MoWeFr@0600 [facility] Last Admin: 08/11/17 09:38 Dose: 1 note Rifaximin (Xifaxan*) 550 mg PO BID [facility] Last Admin: 08/12/17 09:20 Dose: 550 mg Throat Lozenges (Chloraseptic Sudheer*) 1 sudheer PO Q6H PRN PRN Reason: SORE THROAT Last Admin: 08/11/17 08:50 Dose: 1 sudheer Vital Signs 08/11/17 08/11/17 08/11/17 11:43 15:46 20:00 Temperature 97.8 F Pulse Rate 95 98 Respiratory 20 16 20 Rate Blood Pressure 101/48 103/57 (mmHg) O2 Sat by Pulse 96 95 Oximetry 08/11/17 08/12/17 08/12/17 23:41 03:48 08:01 Temperature 98.3 F 98.6 F 98.3 F Pulse Rate 113 114 104 Respiratory 16 16 20 Rate Blood Pressure 96/52 103/56 120/62 (mmHg) O2 Sat by Pulse 96 96 97 Oximetry 08/12/17 09:43 Temperature Pulse Rate Respiratory 16 Rate Blood Pressure (mmHg) O2 Sat by Pulse Oximetry Oxygen Devices in Use Now: None - Alert, supine in bed. In fair spirits. Looks comfortable. Respiratory: Symmetrical Chest Expansion and Respiratory Effort, Clear to Auscultation, Clear to Percussion, - - clear anteiorly Cardiovascular: NL Sounds; No Murmurs; No JVD, RRR, No Edema, - Extremities: No Clubbing, Cyanosis, - - 1+ edema BL Skin: No Nodules or Sclerosis, - - Both lower legs bandaged Neurological: Alert and Oriented x 3, NL Sensation Result Diagrams: 08/11/17 06:20 08/11/17 06:20 Microbiology and Other Data: Microbiology 08/08/17 16:15 Catheter Tip Culture - Preliminary Catheter Tip MRSA Assess/Plan/Problems-Billing Assessment: - Patient Problems (1) MRSA bacteremia Current Visit: No Status: Acute Code(s): R78.81 - BACTEREMIA SNOMED Code(s ): 04052324460228244 Comment: MRSA bactermia is secondary to dialysis catheter infection. The patient received vancomycin 2 gm 08/08, plus 1 gm 08/09, will get another 1.5 gm after HD on 08/11. Midline removed 08/09. 2 sets of blood C&S 08/10 all growing MRSA. Random vano level 08/11 was 15.9, on . was 21.2. Two sets of blood C&S 08/12. Pt refuses CHERYL. I discussed question of removing dialysis catheter with Dr. Bang. There are significant risks with multiple insertions of dialysis catheters. We will wait on results of blood C&S from 08/12. (2) Acute renal failure Current Visit: No Status: Acute Priority: High Comment: ESRD - Acute on CKD Plan new HD 08/14/17. - Continue bicitra for metabolic acidosis. (3) CHF (congestive heart failure) Current Visit: No Status: Acute Code(s): I50.9 - HEART FAILURE, UNSPECIFIED SNOMED Code(s): 03978282 Comment: - EF 40-45 by echo 07/05/17. - BB, ACEI not given due to hypotension. (4) Hyperammonemia Current Visit: No Status: Acute Code(s): E72.20 - DISORDER OF UREA CYCLE METABOLISM, UNSPECIFIED SNOMED Code(s): 7570910 Comment: Continue rifaximin. (5) Morbid obesity Current Visit: No Status: Acute Code(s): E66.01 - MORBID (SEVERE) OBESITY DUE TO EXCESS CALORIES SNOMED Code(s): 878955474 Comment: BMI 44.7. (6) Cellulitis Current Visit: No Status: Acute Code(s): L03.90 - CELLULITIS, UNSPECIFIED SNOMED Code(s): 279738281 Comment: - Patient has chronic leg wound with chronic venous stasis changes. - Completed first course of ABX - Wash leg daily with soap and water. - Cover with gauze and MOON wraps. Not clear if extensive rash is due to infection. (7) ESRD (end stage renal disease) Current Visit: Yes Status: Acute Code(s): N18.6 - END STAGE RENAL DISEASE SNOMED Code(s): 50835627 Comment: HD MoWEFr for ESRD.
[2017-08-12] MEDS: Atorvastatin* 10 MG TAB PO SCH (16:14)
[2017-08-13] MEDS: Omeprazole CAP* 20 MG PO SCH (05:27)
[2017-08-13] MEDS: Heparin VIAL(*) 5000 UNITS/ML VIAL (FIVE THOUSAND) SUBCUT SCH ×3 (07:12→22:44)
[2017-08-13] MEDS: Lactobacillus Acidophilu (GG)* 1 CAP CAP PO SCH (09:39)
[2017-08-13] MEDS: RiFAXimin* 550 MG TAB PO SCH ×2 (09:39→22:43)
[2017-08-13] MEDS: CMCS:Midodrine (NF) 5 MG TAB PO SCH ×3 (09:39→22:43)
[2017-08-13] MEDS: Sodium Citrate/Citric Acid* 15 ML UDC PO SCH ×2 (09:39→22:43)
[2017-08-13] MEDS: Nystatin TOP POWDER* 15 GM BTL TOPICAL SCH ×3 (09:40→22:44)
[2017-08-13] MEDS: Atorvastatin* 10 MG TAB PO SCH (15:58)
--- NOTE | 2017-08-13 16:38 | PN ---
Subjective Date of Service: 08/13/17 Interval History: No new c/o. Family History: Unchanged from Admission Social History: Unchanged from Admission Past Medical History: Unchanged from Admission Objective Active Medications: Acetaminophen (Tylenol Tab*) 650 mg PO Q4H PRN PRN Reason: PAIN Atorvastatin Calcium (Lipitor*) 10 mg PO 1700 [facility] Last Admin: 08/13/17 15:58 Dose: 10 mg Citric Acid/Sodium Citrate (Bicitra*) 15 ml PO BID [facility] Last Admin: 08/13/17 09:39 Dose: 15 ml Heparin Sodium (Porcine) (Heparin Vial(*)) 5,000 units SUBCUT Q12HR [facility] Vancomycin HCl 1,500 mg/ (Sodium Chloride) 500 mls @ 250 mls/hr IVPB MoWeFr@ 1600 PRN PRN Reason: PER RANDOM VANCOMYCIN LEVEL Lactobacillus Rhamnosus (Culturelle*) 1 cap PO DAILY [facility] Last Admin: 08/13/17 09:39 Dose: 1 cap Loperamide HCl (Imodium Cap*) 2 mg PO QID PRN PRN Reason: DIARRHEA Midodrine (Midodrine (Nf)) 10 mg PO TID [facility] PRN Reason: Protocol Last Admin: 08/13/17 15:58 Dose: 10 mg Nystatin (Nystatin Top Powder*) 1 applic TOPICAL TID [facility] Last Admin: 08/13/17 14:10 Dose: Not Given Omeprazole (Prilosec Cap*) 20 mg PO 0600 [facility] Last Admin: 08/13/17 05:27 Dose: 20 mg Pharmacy Consult (Vancomycin Random Level*) 1 note FOLLOW UP MoWeFr@0600 [facility] Last Admin: 08/11/17 09:38 Dose: 1 note Pharmacy Profile Note (Vancomycin Trough Check) 1 note FOLLOW UP MoWeFr@0600 [facility] Rifaximin (Xifaxan*) 550 mg PO BID [facility] Last Admin: 08/13/17 09:39 Dose: 550 mg Throat Lozenges (Chloraseptic Sudheer*) 1 sudheer PO Q6H PRN PRN Reason: SORE THROAT Last Admin: 08/11/17 08:50 Dose: 1 sudheer Vital Signs 08/12/17 08/12/17 08/12/17 20:00 20:23 23:23 Temperature 97.4 F 98.2 F Pulse Rate 94 94 Respiratory 20 20 19 Rate Blood Pressure 114/63 107/57 (mmHg) O2 Sat by Pulse 97 97 Oximetry 08/13/17 08/13/17 08/13/17 03:55 08:24 11:54 Temperature 97.8 F 97.9 F Pulse Rate 97 93 Respiratory 18 20 18 Rate Blood Pressure 97/59 96/53 (mmHg) O2 Sat by Pulse 97 97 Oximetry Oxygen Devices in Use Now: None Appearance: Alert, supine on bariatric bed. In fair spirits. Looks comfortable. Eyes: No Scleral Icterus Respiratory: Symmetrical Chest Expansion and Respiratory Effort, Clear to Auscultation, Clear to Percussion, - - clear anteriorly Cardiovascular: - - 1+ edema BL. Distant heart sounds Skin: No Nodules or Sclerosis, - - Both lower legs bandaged. Multiple patchy red area all extremities and trunk Neurological: Alert and Oriented x 3, NL Sensation Result Diagrams: 08/11/17 06:20 08/11/17 06:20 Microbiology and Other Data: Microbiology 08/08/17 16:15 Catheter Tip Culture - Preliminary Catheter Tip MRSA Assess/Plan/Problems-Billing Assessment: - Patient Problems (1) MRSA bacteremia Current Visit: No Status: Acute Code(s): R78.81 - BACTEREMIA SNOMED Code(s ): 66311352191201139 Comment: MRSA bactermia is secondary to dialysis catheter infection. The patient received vancomycin 2 gm 08/08, plus 1 gm 08/09, will get another 1.5 gm after HD on 08/11. Midline removed 08/09. 2 sets of blood C&S 08/10 all growing MRSA. Random vano level 08/11 was 15.9, on .2 was 21.2. Two sets of blood C&S 08/12. Pt refuses CHERYL. I discussed question of removing dialysis catheter with Dr. Bang. There are significant risks with multiple insertions of dialysis catheters. Two sets of blood C&S received by micro lab 08/12 (one reg set and one pediatric bottle) both no growth on 08/13 1700 hrs. His vanco level went down by 3 between Sat and Sun, expect roughly the same drop from Sun to Mon. I would like to give 1.5 gm vanco after dialysis 08/14 and see if his level in AM on 08/16 is between 15 and 20. If not, the 1.5 gm dose will need to be changed. He states he would rather get vanco for 6 weeks than have a CHERYL. (2) Acute renal failure Current Visit: No Status: Acute Priority: High Comment: ESRD - Acute on CKD Bicitra reduced to bid on 08/08/17. BMP 08/14/17. (3) CHF (congestive heart failure) Current Visit: No Status: Acute Code(s): I50.9 - HEART FAILURE, UNSPECIFIED SNOMED Code(s): 03780599 Comment: - EF 40-45 by echo 07/05/17. - BB, ACEI not given due to hypotension. (4) Hyperammonemia Current Visit: No Status: Acute Code(s): E72.20 - DISORDER OF UREA CYCLE METABOLISM, UNSPECIFIED SNOMED Code(s): 2354101 Comment: Continue rifaximin. (5) Morbid obesity Current Visit: No Status: Acute Code(s): E66.01 - MORBID (SEVERE) OBESITY DUE TO EXCESS CALORIES SNOMED Code(s): 063872987 Comment: BMI 44.7. (6) Cellulitis Current Visit: No Status: Acute Code(s): L03.90 - CELLULITIS, UNSPECIFIED SNOMED Code(s): 146066143 Comment: - Patient has chronic leg wound with chronic venous stasis changes. - Completed first course of ABX - Wash leg daily with soap and water. - Cover with gauze and MOON wraps. Not clear if extensive rash is due to infection. (7) ESRD (end stage renal disease) Current Visit: Yes Status: Acute Code(s): N18.6 - END STAGE RENAL DISEASE SNOMED Code(s): 89250370 Comment: HD MoWEFr for ESRD. (8) Hypotension Current Visit: Yes Status: Acute Comment: Midodrine increased to 10 mg tid on 08/11/17. (9) DVT prophylaxis Current Visit: No Status: Acute Priority: High Code(s): LFG1319 - SNOMED Code(s): 474362278 Comment: Patient refused sq heparint for about 2 days. He states he would rather have a clot in his lungs than get sq heparin. I asked him to try to tolerate sq heparin bid instead of tid and he agreed to try, start 08/13/17 9 PM.
[2017-08-13] MEDS: Benzocaine/Menthol LOZ* 1 LOZENGE PO PRN (23:05)
[2017-08-14] MEDS ORDERED: [UNRECOGNIZED DRUG - REMARK] FOLLOW UP SCH (06:00)
[2017-08-14] MEDS: Omeprazole CAP* 20 MG PO SCH (06:57)
[2017-08-14 07:04] LABS: BUN/Creatinine Ratio 13.1 (8-20); Calcium 8.9 mg/dL (8.6-10.3); EGFR African American 11.4 (>60); EGFR Non-African American 8.8 (>60)
[2017-08-14 07:05] LABS: Vancomycin Trough 17.1 mcg/mL
[2017-08-14] MEDS: Vancomycin Random Level* NOTE FOLLOW UP SCH (08:06)
[2017-08-14] MEDS: CMCS:Midodrine (NF) 5 MG TAB PO SCH ×3 (08:16→22:47)
[2017-08-14] MEDS: Sodium Citrate/Citric Acid* 15 ML UDC PO SCH ×2 (08:16→22:47)
[2017-08-14] MEDS: Heparin VIAL(*) 5000 UNITS/ML VIAL (FIVE THOUSAND) SUBCUT SCH ×2 (08:17→22:48)
[2017-08-14] MEDS: Nystatin TOP POWDER* 15 GM BTL TOPICAL SCH ×2 (08:17→12:44)
[2017-08-14] MEDS: Lactobacillus Acidophilu (GG)* 1 CAP CAP PO SCH (08:17)
[2017-08-14] MEDS: RiFAXimin* 550 MG TAB PO SCH ×2 (08:17→22:47)
[2017-08-14] MEDS: Benzocaine/Menthol LOZ* 1 LOZENGE PO PRN (12:58)
[2017-08-14] MEDS ORDERED: Heparin DIALYSIS ONLY(*) 1,000 UNITS/ML VIAL DIALYSIS ONE (15:00)
[2017-08-14] MEDS: Vancomycin(*) 1,500 MG in NS 0.9% 500 ML* 500 ML IVPB SCH (17:03)
[2017-08-14] MEDS: Atorvastatin* 10 MG TAB PO SCH (17:03)
--- NOTE | 2017-08-14 20:30 | PN ---
Subjective Date of Service: 08/14/17 Interval History: Without new complaints. Family History: Unchanged from Admission Social History: Unchanged from Admission Past Medical History: Unchanged from Admission Objective Active Medications: Acetaminophen (Tylenol Tab*) 650 mg PO Q4H PRN PRN Reason: PAIN Atorvastatin Calcium (Lipitor*) 10 mg PO 1700 [facility] Last Admin: 08/14/17 17:03 Dose: 10 mg Citric Acid/Sodium Citrate (Bicitra*) 15 ml PO BID [facility] Last Admin: 08/14/17 08:16 Dose: 15 ml Heparin Sodium (Porcine) (Heparin Vial(*)) 5,000 units SUBCUT Q12HR [facility] Last Admin: 08/14/17 08:17 Dose: 5,000 units Vancomycin HCl 1,500 mg/ (Sodium Chloride) 500 mls @ 250 mls/hr IVPB MoWeFr@ 1600 [facility] Last Admin: 08/14/17 17:03 Dose: 250 mls/hr Lactobacillus Rhamnosus (Culturelle*) 1 cap PO DAILY [facility] Last Admin: 08/14/17 08:17 Dose: 1 cap Loperamide HCl (Imodium Cap*) 2 mg PO QID PRN PRN Reason: DIARRHEA Midodrine (Midodrine (Nf)) 10 mg PO TID [facility] PRN Reason: Protocol Last Admin: 08/14/17 12:44 Dose: Not Given Nystatin (Nystatin Top Powder*) 1 applic TOPICAL TID [facility] Last Admin: 08/14/17 12:44 Dose: Not Given Omeprazole (Prilosec Cap*) 20 mg PO 0600 [facility] Last Admin: 08/14/17 06:57 Dose: 20 mg Pharmacy Consult (Vancomycin Random Level*) 1 note FOLLOW UP MoWeFr@0600 [facility] Last Admin: 08/14/17 08:06 Dose: 1 note Rifaximin (Xifaxan*) 550 mg PO BID [facility] Last Admin: 08/14/17 08:17 Dose: 550 mg Throat Lozenges (Chloraseptic Sudheer*) 1 sudheer PO Q6H PRN PRN Reason: SORE THROAT Last Admin: 08/14/17 12:58 Dose: 1 sudheer Vital Signs 08/13/17 08/14/17 08/14/17 21:01 00:02 03:48 Temperature 97.9 F 97.8 F 98.0 F Pulse Rate 101 99 101 Respiratory 21 20 19 Rate Blood Pressure 108/61 109/59 96/47 (mmHg) O2 Sat by Pulse 98 97 96 Oximetry 08/14/17 08/14/17 07:45 08:00 Temperature 98.2 F Pulse Rate 99 Respiratory 18 18 Rate Blood Pressure 110/65 (mmHg) O2 Sat by Pulse 98 Oximetry Oxygen Devices in Use Now: None Appearance: Obese gentleman lying in bed in NAD Eyes: No Scleral Icterus Ears/Nose/Mouth/Throat: Mucous Membranes Moist Neck: No Thyroid Enlargement, Masses Respiratory: Clear to Auscultation Cardiovascular: - - S1S2 colette Abdominal: NL Sounds; No Tenderness; No Distention, No Hepatosplenomegaly, - - Obese Lymphatic: No Cervical Adenopathy Neurological: Alert and Oriented x 3 Result Diagrams: 08/11/17 06:20 08/14/17 06:28 Microbiology and Other Data: Microbiology 08/08/17 16:15 Catheter Tip Culture - Preliminary Catheter Tip MRSA Assess/Plan/Problems-Billing Assessment: - Patient Problems (1) Acute on chronic kidney failure Current Visit: Yes Status: Acute Code(s): N17.9 - ACUTE KIDNEY FAILURE, UNSPECIFIED; N18.9 - CHRONIC KIDNEY DISEASE, UNSPECIFIED SNOMED Code(s): 197873914 Comment: Now with just ESRD getting HD ,, Mon (2) Hypotension Current Visit: Yes Status: Acute Comment: BP's acceptable with increase dose of Midodrine. (3) CHF (congestive heart failure) Current Visit: No Status: Acute Code(s): I50.9 - HEART FAILURE, UNSPECIFIED SNOMED Code(s): 11659245 Comment: Stable. No evidence of acute exacerbation at this time. (4) Cellulitis Current Visit: No Status: Acute Code(s): L03.90 - CELLULITIS, UNSPECIFIED SNOMED Code(s): 065474176 Comment: Patient has chronic leg wound with chronic venous stasis changes. Continue Vanco for 6 week course. Wash leg daily with soap and water. Cover with gauze and MOON wraps. (5) Hyperammonemia Current Visit: No Status: Acute Code(s): E72.20 - DISORDER OF UREA CYCLE METABOLISM, UNSPECIFIED SNOMED Code(s): 8105098 Comment: Continue rifaximin. (6) MRSA bacteremia Current Visit: No Status: Acute Code(s): R78.81 - BACTEREMIA SNOMED Code(s ): 29117844286707545 Comment: MRSA bactermia is secondary to dialysis catheter infection. Pt refuses CHERYL. Dr. Bang notes there are significant risks with multiple insertions of dialysis catheters. Two sets of blood C&S received by micro lab 08/12 (one reg set and one pediatric bottle) both no growth on 08/13 1700 hrs. He states he would rather get vanco for 6 weeks than have a CHERYL. (7) ESRD (end stage renal disease) Current Visit: Yes Status: Acute Code(s): N18.6 - END STAGE RENAL DISEASE SNOMED Code(s): 29343106 Comment: HD MoWEFr for ESRD. (8) DVT prophylaxis Current Visit: No Status: Acute Priority: High Code(s): QHT8716 - SNOMED Code(s): 215222771 Comment: Sub q heparin
[2017-08-15] MEDS: Nystatin TOP POWDER* 15 GM BTL TOPICAL SCH ×4 (00:40→21:34)
[2017-08-15] MEDS: Omeprazole CAP* 20 MG PO SCH (05:55)
[2017-08-15] MEDS: Sodium Citrate/Citric Acid* 15 ML UDC PO SCH ×2 (09:38→21:31)
[2017-08-15] MEDS: Lactobacillus Acidophilu (GG)* 1 CAP CAP PO SCH (09:38)
[2017-08-15] MEDS: Heparin VIAL(*) 5000 UNITS/ML VIAL (FIVE THOUSAND) SUBCUT SCH ×2 (09:38→21:34)
[2017-08-15] MEDS: RiFAXimin* 550 MG TAB PO SCH ×2 (09:38→21:31)
[2017-08-15] MEDS: CMCS:Midodrine (NF) 5 MG TAB PO SCH ×3 (09:47→21:31)
--- NOTE | 2017-08-15 16:31 | PN ---
Subjective Date of Service: 08/15/17 Interval History: Patients only complaint is itching all over his body. Family History: Unchanged from Admission Social History: Unchanged from Admission Past Medical History: Unchanged from Admission Objective Active Medications: Acetaminophen (Tylenol Tab*) 650 mg PO Q4H PRN PRN Reason: PAIN Atorvastatin Calcium (Lipitor*) 10 mg PO 1700 [facility] Last Admin: 08/14/17 17:03 Dose: 10 mg Citric Acid/Sodium Citrate (Bicitra*) 15 ml PO BID [facility] Last Admin: 08/15/17 09:38 Dose: 15 ml Diphenhydramine HCl (Benadryl Po*) 25 mg PO Q6H PRN PRN Reason: PRURITIS Heparin Sodium (Porcine) (Heparin Vial(*)) 5,000 units SUBCUT Q12HR [facility] Last Admin: 08/15/17 09:38 Dose: 5,000 units Vancomycin HCl 1,500 mg/ (Sodium Chloride) 500 mls @ 250 mls/hr IVPB MoWeFr@ 1600 [facility] Last Admin: 08/14/17 17:03 Dose: 250 mls/hr Lactobacillus Rhamnosus (Culturelle*) 1 cap PO DAILY [facility] Last Admin: 08/15/17 09:38 Dose: 1 cap Loperamide HCl (Imodium Cap*) 2 mg PO QID PRN PRN Reason: DIARRHEA Midodrine (Midodrine (Nf)) 10 mg PO TID [facility] PRN Reason: Protocol Last Admin: 08/15/17 16:21 Dose: 10 mg Nystatin (Nystatin Top Powder*) 1 applic TOPICAL TID [facility] Last Admin: 08/15/17 15:00 Dose: 1 applic Omeprazole (Prilosec Cap*) 20 mg PO 0600 [facility] Last Admin: 08/15/17 05:55 Dose: 20 mg Pharmacy Consult (Vancomycin Random Level*) 1 note FOLLOW UP MoWeFr@0600 [facility] Last Admin: 08/14/17 08:06 Dose: 1 note Rifaximin (Xifaxan*) 550 mg PO BID [facility] Last Admin: 08/15/17 09:38 Dose: 550 mg Throat Lozenges (Chloraseptic Sudheer*) 1 sudheer PO Q6H PRN PRN Reason: SORE THROAT Last Admin: 08/14/17 12:58 Dose: 1 sudheer Oxygen Devices in Use Now: None Ears/Nose/Mouth/Throat: Mucous Membranes Moist Neck: No Thyroid Enlargement, Masses Respiratory: Clear to Auscultation Cardiovascular: - - S1S2 colette Abdominal: - - Obese Lymphatic: No Cervical Adenopathy Extremities: No Clubbing, Cyanosis Skin: - - Erythematous papules on chest Neurological: Alert and Oriented x 3 Result Diagrams: 08/11/17 06:20 08/14/17 06:28 Microbiology and Other Data: Microbiology 08/08/17 16:15 Catheter Tip Culture - Preliminary Catheter Tip MRSA Assess/Plan/Problems-Billing Assessment: - Patient Problems (1) Acute on chronic kidney failure Current Visit: Yes Status: Acute Code(s): N17.9 - ACUTE KIDNEY FAILURE, UNSPECIFIED; N18.9 - CHRONIC KIDNEY DISEASE, UNSPECIFIED SNOMED Code(s): 822752676 Comment: Spoke to Dr. Jacinto, nephrology, we are not sure if it is ESRD and he will need HD from now on. He says he needs more time. If we could get him to stand and pivot, it would not be an issue. He could get a bed as outpatient dialysis if he could .Now with just continue HD M,W, Mon (2) Hypotension Current Visit: Yes Status: Acute Comment: BP's acceptable with increase dose of Midodrine. (3) CHF (congestive heart failure) Current Visit: No Status: Acute Code(s): I50.9 - HEART FAILURE, UNSPECIFIED SNOMED Code(s): 97958268 Comment: Stable. No evidence of acute exacerbation at this time. (4) Cellulitis Current Visit: No Status: Acute Code(s): L03.90 - CELLULITIS, UNSPECIFIED SNOMED Code(s): 077667125 Comment: Patient has chronic leg wound with chronic venous stasis changes. Continue Vanco for 6 week course. Wash leg daily with soap and water. Cover with gauze and MOON wraps. (5) Hyperammonemia Current Visit: No Status: Acute Code(s): E72.20 - DISORDER OF UREA CYCLE METABOLISM, UNSPECIFIED SNOMED Code(s): 5194798 Comment: Stable. Check level in AM .Continue rifaximin. (6) MRSA bacteremia Current Visit: No Status: Acute Code(s): R78.81 - BACTEREMIA SNOMED Code(s ): 58558221892779771 Comment: MRSA bactermia is secondary to dialysis catheter infection. Pt refuses CHERYL. Dr. Bang notes there are significant risks with multiple insertions of dialysis catheters. Two sets of blood C&S received by micro lab 08/12 (one reg set and one pediatric bottle) both no growth on 08/13 1700 hrs. He states he would rather get vanco for 6 weeks than have a CHERYL. (7) Pruritus Current Visit: Yes Status: Acute Code(s): L29.9 - PRURITUS, UNSPECIFIED SNOMED Code(s): 052743777 Comment: Suspect from uremia but not improving. Started Benadryl prn. Consider hydrocortisone cream. (8) DVT prophylaxis Current Visit: No Status: Acute Priority: High Code(s): VBJ3302 - SNOMED Code(s): 858136066 Comment: Sub q heparin
[2017-08-15] MEDS: Atorvastatin* 10 MG TAB PO SCH (16:33)
[2017-08-16] MEDS: Benzocaine/Menthol LOZ* 1 LOZENGE PO PRN ×3 (00:02→21:18)
[2017-08-16] MEDS: Omeprazole CAP* 20 MG PO SCH (05:22)
[2017-08-16] MEDS: diPHENhydraMINE PO* 25 MG PO PRN (05:22)
[2017-08-16] MEDS: Vancomycin Random Level* NOTE FOLLOW UP SCH (08:45)
[2017-08-16] MEDS: Heparin VIAL(*) 5000 UNITS/ML VIAL (FIVE THOUSAND) SUBCUT SCH ×3 (10:57→20:50)
[2017-08-16] MEDS: Lactobacillus Acidophilu (GG)* 1 CAP CAP PO SCH (10:57)
[2017-08-16] MEDS: Sodium Citrate/Citric Acid* 15 ML UDC PO SCH ×2 (10:57→20:55)
[2017-08-16] MEDS: CMCS:Midodrine (NF) 5 MG TAB PO SCH ×3 (10:57→20:55)
[2017-08-16] MEDS: Nystatin TOP POWDER* 15 GM BTL TOPICAL SCH ×3 (10:58→20:56)
[2017-08-16] MEDS: RiFAXimin* 550 MG TAB PO SCH ×2 (10:58→20:56)
[2017-08-16] MEDS ORDERED: Ondansetron INJ* 2 MG/ML VIAL ONE (12:41)
[2017-08-16] MEDS: Ondansetron INJ* 2 MG/ML VIAL IV PRN (12:43)
[2017-08-16] MEDS ORDERED: Heparin DIALYSIS ONLY(*) 1,000 UNITS/ML VIAL DIALYSIS ONE (14:00)
[2017-08-16] MEDS: Atorvastatin* 10 MG TAB PO SCH (15:37)
[2017-08-16] MEDS: Vancomycin(*) 1,500 MG in NS 0.9% 500 ML* 500 ML IVPB SCH (16:47)
[2017-08-16 17:00] LABS: Urine Bacteria 1+ (Absent); Urine Bilirubin Negative (Negative); Urine Glucose Negative (Negative); Urine Nitrite Negative (Negative)
--- NOTE | 2017-08-16 18:09 | PN ---
Subjective Date of Service: 08/16/17 Interval History: Patient had projectile vomiting at the beginning of dialysis that resolved with 1 dose of zofran with no recurrence patient states this happens intermittently without provocation. Patient also complains of significant dysuria and difficulty starting urine stream. UA grossly positive, culture pending, on Vancomycin already. Patient states that his abdomen hurts at his heparin injection site. Patient also has pain in his calf with manipulation of his right lower leg, but no pain with palpation. Family History: Unchanged from Admission Social History: Unchanged from Admission Past Medical History: Unchanged from Admission Objective Active Medications: Acetaminophen (Tylenol Tab*) 650 mg PO Q4H PRN PRN Reason: PAIN Atorvastatin Calcium (Lipitor*) 10 mg PO 1700 [facility] Last Admin: 08/16/17 15:37 Dose: 10 mg Citric Acid/Sodium Citrate (Bicitra*) 15 ml PO BID [facility] Last Admin: 08/16/17 10:57 Dose: 15 ml Diphenhydramine HCl (Benadryl Po*) 25 mg PO Q6H PRN PRN Reason: PRURITIS Last Admin: 08/16/17 05:22 Dose: 25 mg Heparin Sodium (Porcine) (Heparin Vial(*)) 5,000 units SUBCUT Q12HR [facility] Last Admin: 08/16/17 11:07 Dose: Not Given Vancomycin HCl 1,500 mg/ (Sodium Chloride) 500 mls @ 250 mls/hr IVPB MoWeFr@ 1600 [facility] Last Admin: 08/16/17 16:47 Dose: 250 mls/hr Lactobacillus Rhamnosus (Culturelle*) 1 cap PO DAILY [facility] Last Admin: 08/16/17 10:57 Dose: 1 cap Loperamide HCl (Imodium Cap*) 2 mg PO QID PRN PRN Reason: DIARRHEA Midodrine (Midodrine (Nf)) 10 mg PO TID [facility] PRN Reason: Protocol Last Admin: 08/16/17 15:37 Dose: 10 mg Nystatin (Nystatin Top Powder*) 1 applic TOPICAL TID [facility] Last Admin: 08/16/17 15:44 Dose: 1 applic Omeprazole (Prilosec Cap*) 20 mg PO 0600 [facility] Last Admin: 08/16/17 05:22 Dose: 20 mg Ondansetron HCl (Zofran Inj*) 4 mg IV Q4H PRN PRN Reason: NAUSEA Last Admin: 08/16/17 12:43 Dose: 4 mg Pharmacy Consult (Vancomycin Random Level*) 1 note FOLLOW UP MoWeFr@0600 [facility] Last Admin: 08/16/17 08:45 Dose: Not Given Rifaximin (Xifaxan*) 550 mg PO BID [facility] Last Admin: 08/16/17 10:58 Dose: 550 mg Throat Lozenges (Chloraseptic Sudheer*) 1 sudheer PO Q6H PRN PRN Reason: SORE THROAT Last Admin: 08/16/17 12:48 Dose: 1 sudheer Vital Signs - 8 hr 08/16/17 08/16/17 08/16/17 12:00 13:30 14:30 Pulse Rate 113 100 102 Blood Pressure 130/67 132/74 127/88 (mmHg) Oxygen Devices in Use Now: None Appearance: Patient is a very obese male who appears older than stated age and is sitting in the dialysis chair in [facility]. Eyes: No Scleral Icterus, PERRLA Ears/Nose/Mouth/Throat: NL Teeth, Lips, Gums, Clear Oropharnyx, Mucous Membranes Moist Neck: NL Appearance and Movements; NL JVP, Trachea Midline Respiratory: Symmetrical Chest Expansion and Respiratory Effort, Clear to Auscultation - Diminished throughout, limited by body habitus., - Cardiovascular: NL Sounds; No Murmurs; No JVD, RRR, - - 2+ pitting edema with scaly skin in B/L LE with the left being worse than that right. Abdominal: NL Sounds; No Tenderness; No Distention, No Hepatosplenomegaly, - - Exam limited by body habitus. Lymphatic: No Cervical Adenopathy Extremities: No Edema, No Clubbing, Cyanosis Skin: No Nodules or Sclerosis Neurological: Alert and Oriented x 3, - - CN II-XII intact. Result Diagrams: 08/11/17 06:20 08/14/17 06:28 Microbiology and Other Data: Microbiology 08/08/17 16:15 Catheter Tip Culture - Preliminary Catheter Tip MRSA Assess/Plan/Problems-Billing Assessment - Patient Problems (1) ESRD (end stage renal disease) Current Visit: Yes Status: Acute Code(s): N18.6 - END STAGE RENAL DISEASE SNOMED Code(s): 17494434 Comment: HD MoWEFr for ESRD. Patient given midrodrine for associated hypotension. Patient still making urine. Dialysis catheter previously infected, has temporary. Appreciate Nephrology consult, not sure if this is ESRD or if this will improve. Will continue to monitor. Unable to transfer for outpatient dialysis. (2) Hypotension Current Visit: Yes Status: Acute Comment: BP's acceptable with increase dose of Midodrine. (3) Pruritus Current Visit: Yes Status: Acute Code(s): L29.9 - PRURITUS, UNSPECIFIED SNOMED Code(s): 658986372 Comment: Suspect from uremia, somwehat improved. Benadryl PRN helpful. Will consider hydrocortisone cream if unimproved (4) CHF (congestive heart failure) Current Visit: No Status: Acute Code(s): I50.9 - HEART FAILURE, UNSPECIFIED SNOMED Code(s): 33812082 Comment: Stable. No evidence of acute exacerbation at this time. (5) Cellulitis Current Visit: No Status: Acute Code(s): L03.90 - CELLULITIS, UNSPECIFIED SNOMED Code(s): 845892672 Comment: Patient has chronic leg wound with chronic venous stasis changes. Continue Vanco for 6 week course. Wash leg daily with soap and water. Cover with gauze and MOON wraps. (6) MRSA bacteremia Current Visit: No Status: Acute Code(s): R78.81 - BACTEREMIA SNOMED Code(s ): 83019114168928768 Comment: MRSA bactermia is secondary to dialysis catheter infection. Pt refuses CHERYL. Dr. Bang notes there are significant risks with multiple insertions of dialysis catheters. Two sets of blood C&S received by micro lab 08/12 (one reg set and one pediatric bottle) both no growth on 08/13 1700 hrs. He states he would rather get vanco for 6 weeks than have a CHERYL. (7) UTI (urinary tract infection) Current Visit: No Status: Resolved Comment: Dysuria and difficulty starting stream. On Vancomycin, will wait for culture. (8) DVT prophylaxis Current Visit: No Status: Acute Priority: High Code(s): HQH0395 - SNOMED Code(s): 012756738 Comment: Sub q heparin (9) Full code status Current Visit: No Status: Acute Priority: High Code(s): Z78.9 - OTHER SPECIFIED HEALTH STATUS SNOMED Code(s): 699641232 Comment: - Patient clear about wanting to be full code Status and Disposition: Patient is admitted inpatient. Will transfer to [facility] if unable to find dialysis capable facility that will take him.
[2017-08-17] MEDS: Ondansetron INJ* 2 MG/ML VIAL IV PRN ×2 (03:01→13:31)
[2017-08-17] MEDS: Benzocaine/Menthol LOZ* 1 LOZENGE PO PRN ×2 (03:06→20:26)
[2017-08-17] MEDS: Omeprazole CAP* 20 MG PO SCH (05:48)
[2017-08-17 06:24] LABS: Hematocrit 29 % (42-52); Hemoglobin 9.5 g/dl (14.0-18.0); Mean Corpuscular HGB Conc 33 g/dl (31-36); Mean Corpuscular Hemoglobin 29 pg (27-31); Mean Corpuscular Volume 90 fL (80-94); Mean Platelet Volume 8 um3 (7.4-10.4); Red Blood Count 3.22 10^6/ul (4.0-5.4); Red Cell Distribution Width 19 % (10.5-15); White Blood Count 9.8 10^3/ul (3.5-10.8)
[2017-08-17 06:26] LABS: Comments Flag Yes
[2017-08-17 06:27] LABS: Add Diff/Slide Review? Slide Review Added
[2017-08-17 06:36] LABS: BUN/Creatinine Ratio 12.9 (8-20); Calcium 9.1 mg/dL (8.6-10.3); EGFR African American 15.9 (>60); EGFR Non-African American 12.3 (>60); Magnesium 1.8 mg/dL (1.9-2.7); Potassium 4.3 mmol/L (3.5-5.0)
[2017-08-17] MEDS: Sodium Citrate/Citric Acid* 15 ML UDC PO SCH ×2 (10:06→20:26)
[2017-08-17] MEDS: RiFAXimin* 550 MG TAB PO SCH ×2 (10:08→20:26)
[2017-08-17] MEDS: CMCS:Midodrine (NF) 5 MG TAB PO SCH ×3 (10:08→20:26)
[2017-08-17] MEDS: Lactobacillus Acidophilu (GG)* 1 CAP CAP PO SCH (10:08)
[2017-08-17] MEDS: Heparin VIAL(*) 5000 UNITS/ML VIAL (FIVE THOUSAND) SUBCUT SCH ×2 (10:27→20:33)
[2017-08-17] MEDS: guaiFENesin ER TAB 600 MG PO SCH ×2 (12:06→20:26)
[2017-08-17] MEDS: Nystatin TOP POWDER* 15 GM BTL TOPICAL SCH ×3 (12:09→20:33)
[2017-08-17] MEDS: Benzonatate CAP* 100 MG PO PRN (13:31)
[2017-08-17] MEDS: Atorvastatin* 10 MG TAB PO SCH (16:24)
--- NOTE | 2017-08-17 16:56 | PN ---
Subjective Date of Service: 08/17/17 Interval History: Patient has no complaints at the time of interview. Patient had post-tussive vomiting earlier today and yesterday. Patient states that he has had a cough since he quit smoking and that this often happens to him without nausea. Patient denies post nasal drip, congestion, wheezing or other respiratory symptoms. Patient is itching all over and has many open areas on his exposed areas such as arms and abdomen. Patient also has a stage 2 pressure ulcer over the upper part of his sacrum and an area of blanchable redness around his whole buttocks and upper thighs. Patient has continued pain with urination and difficulty initiating stream. Family History: Unchanged from Admission Social History: Unchanged from Admission Past Medical History: Unchanged from Admission Objective Active Medications: Acetaminophen (Tylenol Tab*) 650 mg PO Q4H PRN PRN Reason: PAIN Atorvastatin Calcium (Lipitor*) 10 mg PO 1700 [facility] Last Admin: 08/17/17 16:24 Dose: 10 mg Benzonatate (Tessalon Cap*) 100 mg PO BID PRN PRN Reason: COUGH Last Admin: 08/17/17 13:31 Dose: 100 mg Citric Acid/Sodium Citrate (Bicitra*) 15 ml PO BID [facility] Last Admin: 08/17/17 10:06 Dose: 15 ml Diphenhydramine HCl (Benadryl Po*) 25 mg PO Q6H PRN PRN Reason: PRURITIS Last Admin: 08/16/17 05:22 Dose: 25 mg Guaifenesin (Mucinex*) 1,200 mg PO BID [facility] Last Admin: 08/17/17 12:06 Dose: 1,200 mg Heparin Sodium (Porcine) (Heparin Vial(*)) 5,000 units SUBCUT Q12HR [facility] Last Admin: 08/17/17 10:27 Dose: Not Given Vancomycin HCl 1,500 mg/ (Sodium Chloride) 500 mls @ 250 mls/hr IVPB MoWeFr@ 1600 [facility] Last Admin: 08/16/17 16:47 Dose: 250 mls/hr Lactobacillus Rhamnosus (Culturelle*) 1 cap PO DAILY [facility] Last Admin: 08/17/17 10:08 Dose: 1 cap Loperamide HCl (Imodium Cap*) 2 mg PO QID PRN PRN Reason: DIARRHEA Midodrine (Midodrine (Nf)) 10 mg PO TID [facility] PRN Reason: Protocol Last Admin: 08/17/17 16:24 Dose: 10 mg Nystatin (Nystatin Top Powder*) 1 applic TOPICAL TID [facility] Last Admin: 08/17/17 16:25 Dose: 1 applic Omeprazole (Prilosec Cap*) 20 mg PO 0600 [facility] Last Admin: 08/17/17 05:48 Dose: 20 mg Ondansetron HCl (Zofran Inj*) 4 mg IV Q4H PRN PRN Reason: NAUSEA Last Admin: 08/17/17 13:31 Dose: 4 mg Pharmacy Consult (Vancomycin Random Level*) 1 note FOLLOW UP MoWeFr@0600 [facility] Last Admin: 08/16/17 08:45 Dose: Not Given Rifaximin (Xifaxan*) 550 mg PO BID [facility] Last Admin: 08/17/17 10:08 Dose: 550 mg Throat Lozenges (Chloraseptic Sudheer*) 1 sudheer PO Q6H PRN PRN Reason: SORE THROAT Last Admin: 08/17/17 03:06 Dose: 1 sudheer Vital Signs - 8 hr 08/17/17 15:31 Temperature 98.0 F Pulse Rate 111 Respiratory 20 Rate Blood Pressure 106/60 (mmHg) O2 Sat by Pulse 97 Oximetry Oxygen Devices in Use Now: None Appearance: Patient is a 62yo male who is morbidly obese and has many scabbed and visibly open areas on arms, legs and torso with small smears of blood around some of them. Eyes: No Scleral Icterus, PERRLA Ears/Nose/Mouth/Throat: NL Teeth, Lips, Gums, Clear Oropharnyx, Mucous Membranes Moist Neck: NL Appearance and Movements; NL JVP, Trachea Midline Respiratory: Symmetrical Chest Expansion and Respiratory Effort, Clear to Auscultation Cardiovascular: NL Sounds; No Murmurs; No JVD, - - Tachycardic around 100. 3+ pitting edema in B/L LE consistent with pervious exams. Abdominal: No Hepatosplenomegaly, - - superficial tenderness to palpation around umbilicus. Lymphatic: No Cervical Adenopathy Extremities: No Clubbing, Cyanosis, - - Edema as above. Scaling of the skin and stasis related changes in B/L LE. Skin: No Nodules or Sclerosis Neurological: Alert and Oriented x 3, - - CN II-XII intact. Result Diagrams: 08/17/17 05:53 08/17/17 05:53 Microbiology and Other Data: Microbiology 08/08/17 16:15 Catheter Tip Culture - Preliminary Catheter Tip MRSA Assess/Plan/Problems-Billing Assessment - Patient Problems (1) Acute on chronic kidney failure Current Visit: Yes Status: Acute Code(s): N17.9 - ACUTE KIDNEY FAILURE, UNSPECIFIED; N18.9 - CHRONIC KIDNEY DISEASE, UNSPECIFIED SNOMED Code(s): 062083918 Comment: HD MoWEFr for CKD that may improve. Patient given midrodrine for associated hypotension. Patient still making urine. Dialysis catheter previously infected, has temporary. Appreciate Nephrology consult, not sure if this is ESRD or if this will improve. Will continue to monitor. Unable to transfer for outpatient dialysis. (2) Hypotension Current Visit: Yes Status: Acute Comment: BP's acceptable with increase dose of Midodrine. (3) Pruritus Current Visit: Yes Status: Acute Code(s): L29.9 - PRURITUS, UNSPECIFIED SNOMED Code(s): 345380855 Comment: Suspect from uremia, somwehat improved. Benadryl PRN helpful. Will try hydrocortisone cream for a short time due to concerns about slowing wound healing. (4) CHF (congestive heart failure) Current Visit: No Status: Acute Code(s): I50.9 - HEART FAILURE, UNSPECIFIED SNOMED Code(s): 87031987 Comment: Stable. No evidence of acute exacerbation at this time. (5) Cellulitis Current Visit: No Status: Acute Code(s): L03.90 - CELLULITIS, UNSPECIFIED SNOMED Code(s): 945592260 Comment: Patient has chronic leg wound with chronic venous stasis changes. Continue Vanco for 6 week course. Wash leg daily with soap and water. Cover with gauze and MOON wraps. (6) MRSA bacteremia Current Visit: No Status: Acute Code(s): R78.81 - BACTEREMIA SNOMED Code(s ): 93702201615249142 Comment: MRSA bactermia is secondary to dialysis catheter infection. Pt refuses CHERYL. Dr. Bang notes there are significant risks with multiple insertions of dialysis catheters. Two sets of blood C&S received by micro lab 08/12 (one reg set and one pediatric bottle) both no growth on 08/13 1700 hrs. He states he would rather get vanco for 6 weeks than have a CHERYL. (7) UTI (urinary tract infection) Current Visit: No Status: Resolved Comment: Dysuria and difficulty starting stream. On Vancomycin, will wait for culture. (8) Post-tussive emesis Current Visit: Yes Status: Acute Code(s): R11.10 - VOMITING, UNSPECIFIED SNOMED Code(s): 912420959 Comment: Chronic problem for patient. Zofran and Antitussives ordered PRN. (9) DVT prophylaxis Current Visit: No Status: Acute Priority: High Code(s): FYF1500 - SNOMED Code(s): 947849645 Comment: Sub q heparin (10) Full code status Current Visit: No Status: Acute Priority: High Code(s): Z78.9 - OTHER SPECIFIED HEALTH STATUS SNOMED Code(s): 706961127 Comment: - Patient clear about wanting to be full code Status and Disposition: Patient is admitted inpatient. Will transfer to [facility] if acute problems resolve and no facility willing to take him.
[2017-08-17] MEDS ORDERED: Phenazopyridine TAB* 100 MG PO ONE (16:58)
[2017-08-17] MEDS: Hydrocortisone 0.5% OINT* 1 APPLIC TUBE TOPICAL SCH (20:29)
[2017-08-18] MEDS: Benzocaine/Menthol LOZ* 1 LOZENGE PO PRN ×3 (03:43→20:54)
[2017-08-18] MEDS: Omeprazole CAP* 20 MG PO SCH (05:04)
[2017-08-18] MEDS: Vancomycin Random Level* NOTE FOLLOW UP SCH (05:28)
[2017-08-18 05:36] LABS: Hematocrit 28 % (42-52); Hemoglobin 9.4 g/dl (14.0-18.0); Mean Corpuscular HGB Conc 33 g/dl (31-36); Mean Corpuscular Hemoglobin 30 pg (27-31); Mean Corpuscular Volume 90 fL (80-94); Mean Platelet Volume 7 um3 (7.4-10.4); Red Blood Count 3.16 10^6/ul (4.0-5.4); Red Cell Distribution Width 19 % (10.5-15); White Blood Count 10.4 10^3/ul (3.5-10.8)
[2017-08-18 05:37] LABS: Comments Flag Yes
[2017-08-18 05:48] LABS: Vancomycin Trough 23.1 mcg/mL
[2017-08-18 05:49] LABS: Albumin 2.4 g/dL (3.2-5.2); Calcium 9.1 mg/dL (8.6-10.3); EGFR African American 14.8 (>60); EGFR Non-African American 11.5 (>60); Globulin 3.6 g/dL (2-4); Potassium 4.3 mmol/L (3.5-5.0); Total Bilirubin 3.6 mg/dL (0.2-1.0)
[2017-08-18] MEDS: CMCS:Midodrine (NF) 5 MG TAB PO SCH ×3 (07:57→20:54)
[2017-08-18] MEDS: Heparin VIAL(*) 5000 UNITS/ML VIAL (FIVE THOUSAND) SUBCUT SCH ×3 (07:58→21:00)
[2017-08-18] MEDS: RiFAXimin* 550 MG TAB PO SCH ×2 (07:58→20:53)
[2017-08-18] MEDS: Nystatin TOP POWDER* 15 GM BTL TOPICAL SCH ×3 (07:59→20:54)
[2017-08-18] MEDS: guaiFENesin ER TAB 600 MG PO SCH ×2 (07:59→20:53)
[2017-08-18] MEDS: Hydrocortisone 0.5% OINT* 1 APPLIC TUBE TOPICAL SCH ×2 (07:59→20:54)
[2017-08-18] MEDS: Lactobacillus Acidophilu (GG)* 1 CAP CAP PO SCH (07:59)
[2017-08-18] MEDS: Sodium Citrate/Citric Acid* 15 ML UDC PO SCH ×2 (08:02→20:53)
--- NOTE | 2017-08-18 09:56 | PN ---
Progress Note - Progress Note Date of Service: 08/18/17 SOAP: Subjective: CC: bacteremia HPI: 62 yo man with R chest HD catheter, midline catheter and fever; on vancomycin after HD for BSI. No fever, rash, or diarrhea. Has dysuria no frequency. Objective: [] Vital Signs Temp 37.0 C 08/18/17 07:45 Pulse 100 08/18/17 07:45 Resp 18 08/18/17 08:00 BP 108/57 08/18/17 07:45 Pulse Ox 97 08/18/17 07:45 Intake & Output 08/17/17 08/18/17 08/18/17 18:59 06:59 18:59 Intake Total 650 120 Output Total 300 160 Balance 350 -40 Weight 331 lb 9.6 oz Intake: Oral 650 120 Output: Urine 300 160 Other: Estimated Void Small Large # Bowel Movements 1 0 Estimated Stool Amount Medium Large # Voids 1 Gen:awake no distress HEENT:PERRL, MMM Neck:Supple Heart:RRR no murmur Lungs:CTA BL Abd:+BS NTND soft Skin: no rash Laboratory Results - last 24 hr 08/18/17 08/18/17 05:10 05:10 WBC 10.4 RBC 3.16 L Hgb 9.4 L Hct 28 L MCV 90 MCH 30 MCHC 33 RDW 19 H Plt Count 353 MPV 7 L Neut % (Auto) 66.0 Lymph % (Auto) 8.3 L [place] % (Auto) 15.7 H Eos % (Auto) 7.1 H Baso % (Auto) 2.9 H Absolute Neuts (auto) 6.9 Absolute Lymphs (auto) 0.9 L Absolute Monos (auto) 1.6 H Absolute Eos (auto) 0.7 H Absolute Basos (auto) 0.3 H Absolute Nucleated RBC 0 Nucleated RBC % 0 Sodium 129 L Potassium 4.3 Chloride 97 L Carbon Dioxide 23 Anion Gap 9 BUN 66 H Creatinine 5.08 H Est GFR ( Amer) 14.8 Est GFR (Non-Af Amer) 11.5 BUN/Creatinine Ratio 13.0 Glucose 88 Calcium 9.1 Total Bilirubin 3.60 H AST 18 ALT 7 Alkaline Phosphatase 175 H Total Protein 6.0 L Albumin 2.4 L Globulin 3.6 Albumin/Globulin Ratio 0.7 L Vancomycin Trough 23.1 Assessment: 1. MRSA bacteremia; TTE negative and no peripheral stigmata of infective endocarditis so it is unlikely 2. ESRD, hemodialysis 3. morbid obesity 4. diabetes with nephropathy Plan: 1. Vancomycin post HD day 02/22 since negative blood culture 2. levaquin 500 mg po Q48hrs while awaiting culture and susceptibility 35 minutes floor time >50% face to face discussing antibiotic plans.
[2017-08-18] MEDS ORDERED: Heparin DIALYSIS ONLY(*) 1,000 UNITS/ML VIAL DIALYSIS ONE (13:00)
[2017-08-18] MEDS: Vancomycin(*) 1,500 MG in NS 0.9% 500 ML* 500 ML IVPB SCH (15:09)
[2017-08-18] MEDS: Atorvastatin* 10 MG TAB PO SCH (16:23)
--- NOTE | 2017-08-18 17:35 | PN ---
Subjective Date of Service: 08/18/17 Interval History: This is a 62 yo male with multiple comorbid conditions originally admitted for cellulitis and associated sepsis as a complication of a chronic leg wound. He developed acute on chronic kidney injury and was started on HD. Patient then developed MRSA bacteremia and HD catheter was removed. Cultures as of 08/12 have been negative and patient had HD catheter replaced. Patient denies any acute concerns today. He is evaluated postdialysis and states he is fatigued. Otherwise, denies CP or SOB. He has a chronic cough. No abd pain, n/v. Family History: Unchanged from Admission Social History: Unchanged from Admission Past Medical History: Unchanged from Admission Objective Active Medications: Acetaminophen (Tylenol Tab*) 650 mg PO Q4H PRN PRN Reason: PAIN Atorvastatin Calcium (Lipitor*) 10 mg PO 1700 [facility] Last Admin: 08/18/17 16:23 Dose: 10 mg Benzonatate (Tessalon Cap*) 100 mg PO BID PRN PRN Reason: COUGH Last Admin: 08/17/17 13:31 Dose: 100 mg Citric Acid/Sodium Citrate (Bicitra*) 15 ml PO BID [facility] Last Admin: 08/18/17 08:02 Dose: 15 ml Diphenhydramine HCl (Benadryl Po*) 25 mg PO Q6H PRN PRN Reason: PRURITIS Last Admin: 08/16/17 05:22 Dose: 25 mg Guaifenesin (Mucinex*) 1,200 mg PO BID [facility] Last Admin: 08/18/17 07:59 Dose: 1,200 mg Heparin Sodium (Porcine) (Heparin Vial(*)) 5,000 units SUBCUT Q12HR [facility] Last Admin: 08/18/17 07:58 Dose: 5,000 units Hydrocortisone (Hydrocortisone 0.5% Oint*) 1 applic TOPICAL BID [facility] Stop: 08/23/17 21:00 Last Admin: 08/18/17 07:59 Dose: 1 applic Vancomycin HCl 1,500 mg/ (Sodium Chloride) 500 mls @ 250 mls/hr IVPB MoWeFr@ 1600 [facility] Last Admin: 08/18/17 15:09 Dose: Not Given Levofloxacin/Dextrose (Levaquin 500 Mg Ivpremix(*)) 500 mg in 100 mls @ 100 mls /hr IVPB Q48HR [facility] Lactobacillus Rhamnosus (Culturelle*) 1 cap PO DAILY [facility] Last Admin: 08/18/17 07:59 Dose: 1 cap Loperamide HCl (Imodium Cap*) 2 mg PO QID PRN PRN Reason: DIARRHEA Midodrine (Midodrine (Nf)) 10 mg PO TID [facility] PRN Reason: Protocol Last Admin: 08/18/17 15:08 Dose: 10 mg Nystatin (Nystatin Top Powder*) 1 applic TOPICAL TID [facility] Last Admin: 08/18/17 15:08 Dose: 1 applic Omeprazole (Prilosec Cap*) 20 mg PO 0600 [facility] Last Admin: 08/18/17 05:04 Dose: 20 mg Ondansetron HCl (Zofran Inj*) 4 mg IV Q4H PRN PRN Reason: NAUSEA Last Admin: 08/17/17 13:31 Dose: 4 mg Pharmacy Consult (Vancomycin Random Level*) 1 note FOLLOW UP MoWeFr@0600 [facility] Last Admin: 08/18/17 05:28 Dose: 1 note Rifaximin (Xifaxan*) 550 mg PO BID [facility] Last Admin: 08/18/17 07:58 Dose: 550 mg Throat Lozenges (Chloraseptic Sudheer*) 1 sudheer PO Q6H PRN PRN Reason: SORE THROAT Last Admin: 08/18/17 10:37 Dose: 1 sudheer Vital Signs - 8 hr 08/18/17 15:55 Temperature 98.5 F Pulse Rate 105 Respiratory 20 Rate Blood Pressure 117/67 (mmHg) O2 Sat by Pulse 98 Oximetry Oxygen Devices in Use Now: None Appearance: 62 yo male who appears older than stated age and slightly fatigued in NAD Respiratory: Symmetrical Chest Expansion and Respiratory Effort, Clear to Auscultation Cardiovascular: NL Sounds; No Murmurs; No JVD, RRR Abdominal: NL Sounds; No Tenderness; No Distention Extremities: - - 1-2+ LE edema Skin: - - diffuse evidence of excoriation Neurological: Alert and Oriented x 3 Result Diagrams: 08/18/17 05:10 08/18/17 05:10 Microbiology and Other Data: Microbiology 08/08/17 16:15 Catheter Tip Culture - Preliminary Catheter Tip MRSA Assess/Plan/Problems-Billing Assessment: This is a 62 yo male who is morbidly obese with CKD, CHF, afib, HTN and HLD who developed acute on chronic kidney injury following sepsis, now requiring HD, complicated by infected HD catheter with MRSA bacteremia. - Patient Problems (1) MRSA bacteremia Comment: MRSA bactermia is secondary to dialysis catheter infection. Pt refuses CHERYL. Repeat blood cultures clear as of 08/12 Cont vanco x 6 weeks from 08/12 (2) Acute on chronic kidney failure Comment: HD MoWEFr for CKD that may improve. Patient given midrodrine for associated hypotension. Patient still making urine. Noted improving trend in Cr. Appreciate Nephrology consult Reviewed plan of care with Dr Jacinto who suggested continuing HD on an acute basis Dialysis catheter previously infected, temporary catheter replaced after blood cultures cleared (3) UTI (urinary tract infection) Comment: c/o dysuria Urine cx growing Proteus, only 50-75K colonies Started on Levaquin (4) Hypotension Comment: Stable, improved with midrodrine (5) Pruritus Comment: Suspect from uremia, somwehat improved. Benadryl PRN helpful. Will try hydrocortisone cream for a short time due to concerns about slowing wound healing. Tbili noted to be elevated Will assess GB US (6) CHF (congestive heart failure) Comment: Mostly RV failure, improved LV fxn on recent echo Stable, no evidence of acute exacerbation (7) Cellulitis Comment: Patient has chronic leg wound with chronic venous stasis changes. Continue Vanco for 6 week course. Wash leg daily with soap and water. Cover with gauze and MOON wraps. (8) Morbid obesity Comment: BMI 43.7 Significant weight loss during hospitalization (9) Afib Comment: Rate controlled, not currently anticoagulated Eliquis on hold d/t renal function. Patient has documented allergy to warfarin. (10) DVT prophylaxis Comment: Sub q heparin Status and Disposition: Inpatient. Anticipate dc to [facility] Monday
[2017-08-19] MEDS: Omeprazole CAP* 20 MG PO SCH (04:41)
--- NOTE | 2017-08-19 09:20 | RAD ---
Indication: Elevated bilirubin. Comparison: No relevant prior exams available on the [facility] PACS for comparison. Technique: RIGHT upper quadrant ultrasound. Report: Appropriate direction flow documented in the portal vein. 16.4 cm liver is increased in echogenicity. Negative for focal hepatic lesions. Negative for intrahepatic biliary dilatation. Upper normal 6.9 mm common bile duct. The gallbladder is not visualized. Patient uncertain if previous cholecystectomy. The pancreas is obscured secondary to bowel gas and body habitus limiting assessment. Small volume of perihepatic ascites. 11.7 cm RIGHT kidney is unremarkable. IMPRESSION: 1. Heterogeneous increased hepatic echogenicity consistent with fatty infiltration. 2. The gallbladder is not visualized. Patient uncertain if previous cholecystectomy. No relevant prior exams available on the [facility] PACS to assess for prior cholecystectomy. 3. Upper normal diameter of the common bile duct. Negative for intrahepatic biliary dilatation. 4. Small volume of perihepatic ascites.
[2017-08-19] MEDS: CMCS:Midodrine (NF) 5 MG TAB PO SCH ×3 (12:13→21:45)
[2017-08-19] MEDS: Benzocaine/Menthol LOZ* 1 LOZENGE PO PRN ×4 (12:13→21:52)
[2017-08-19] MEDS: Benzonatate CAP* 100 MG PO PRN (12:13)
[2017-08-19] MEDS: guaiFENesin ER TAB 600 MG PO SCH ×2 (12:14→21:44)
[2017-08-19] MEDS: Lactobacillus Acidophilu (GG)* 1 CAP CAP PO SCH (12:14)
[2017-08-19] MEDS: RiFAXimin* 550 MG TAB PO SCH ×2 (12:14→21:46)
[2017-08-19] MEDS: Nystatin TOP POWDER* 15 GM BTL TOPICAL SCH ×3 (12:15→21:53)
[2017-08-19] MEDS: Heparin VIAL(*) 5000 UNITS/ML VIAL (FIVE THOUSAND) SUBCUT SCH ×4 (12:16→21:55)
[2017-08-19] MEDS: Hydrocortisone 0.5% OINT* 1 APPLIC TUBE TOPICAL SCH ×2 (12:24→21:53)
[2017-08-19] MEDS: Sodium Citrate/Citric Acid* 15 ML UDC PO SCH ×2 (12:24→21:44)
--- NOTE | 2017-08-19 13:45 | PN ---
Subjective Date of Service: 08/19/17 Interval History: Patient reports some improvement in dysuria since Levaquin was initiated yesterday. No c/o abd pain, n/v. No SOB, occasional cough which he reports is chronic. Family History: Unchanged from Admission Social History: Unchanged from Admission Past Medical History: Unchanged from Admission Objective Active Medications: Acetaminophen (Tylenol Tab*) 650 mg PO Q4H PRN PRN Reason: PAIN Atorvastatin Calcium (Lipitor*) 10 mg PO 1700 [facility] Last Admin: 08/18/17 16:23 Dose: 10 mg Benzonatate (Tessalon Cap*) 100 mg PO BID PRN PRN Reason: COUGH Last Admin: 08/19/17 12:13 Dose: 100 mg Citric Acid/Sodium Citrate (Bicitra*) 15 ml PO BID [facility] Last Admin: 08/19/17 12:24 Dose: Not Given Diphenhydramine HCl (Benadryl Po*) 25 mg PO Q6H PRN PRN Reason: PRURITIS Last Admin: 08/16/17 05:22 Dose: 25 mg Guaifenesin (Mucinex*) 1,200 mg PO BID [facility] Last Admin: 08/19/17 12:14 Dose: 1,200 mg Heparin Sodium (Porcine) (Heparin Vial(*)) 5,000 units SUBCUT Q12HR [facility] Last Admin: 08/19/17 12:20 Dose: Not Given Hydrocortisone (Hydrocortisone 0.5% Oint*) 1 applic TOPICAL BID [facility] Stop: 08/23/17 21:00 Last Admin: 08/19/17 12:24 Dose: 1 applic Vancomycin HCl 1,500 mg/ (Sodium Chloride) 500 mls @ 250 mls/hr IVPB MoWeFr@ 1600 [facility] Last Admin: 08/18/17 15:09 Dose: Not Given Levofloxacin/Dextrose (Levaquin 500 Mg Ivpremix(*)) 500 mg in 100 mls @ 100 mls /hr IVPB Q48HR [facility] Vancomycin HCl 1,500 mg/ (Sodium Chloride) 500 mls @ 333.333 mls/hr IVPB ONCE ONE Stop: 08/19/17 15:29 Lactobacillus Rhamnosus (Culturelle*) 1 cap PO DAILY [facility] Last Admin: 08/19/17 12:14 Dose: 1 cap Loperamide HCl (Imodium Cap*) 2 mg PO QID PRN PRN Reason: DIARRHEA Midodrine (Midodrine (Nf)) 10 mg PO TID [facility] PRN Reason: Protocol Last Admin: 08/19/17 12:13 Dose: 10 mg Nystatin (Nystatin Top Powder*) 1 applic TOPICAL TID [facility] Last Admin: 08/19/17 12:15 Dose: 1 applic Omeprazole (Prilosec Cap*) 20 mg PO 0600 [facility] Last Admin: 08/19/17 04:41 Dose: 20 mg Ondansetron HCl (Zofran Inj*) 4 mg IV Q4H PRN PRN Reason: NAUSEA Last Admin: 08/17/17 13:31 Dose: 4 mg Pharmacy Consult (Vancomycin Random Level*) 1 note FOLLOW UP MoWeFr@0600 [facility] Last Admin: 08/18/17 05:28 Dose: 1 note Rifaximin (Xifaxan*) 550 mg PO BID [facility] Last Admin: 08/19/17 12:14 Dose: 550 mg Throat Lozenges (Chloraseptic Sudheer*) 1 sudheer PO Q6H PRN PRN Reason: SORE THROAT Last Admin: 08/19/17 12:13 Dose: 1 sudheer Vital Signs - 8 hr 08/19/17 13:22 Temperature 98 F Pulse Rate 108 Respiratory 18 Rate Blood Pressure 100/57 (mmHg) O2 Sat by Pulse 96 Oximetry Oxygen Devices in Use Now: None Appearance: Chronically ill appearing 62 yo male in NAD Respiratory: Symmetrical Chest Expansion and Respiratory Effort, Clear to Auscultation Cardiovascular: NL Sounds; No Murmurs; No JVD, RRR Abdominal: NL Sounds; No Tenderness; No Distention Extremities: - - 1-2+ non-pitting edema Skin: - - diffuse excoriation Neurological: Alert and Oriented x 3 Result Diagrams: 08/18/17 05:10 08/18/17 05:10 Microbiology and Other Data: Microbiology 08/08/17 16:15 Catheter Tip Culture - Preliminary Catheter Tip MRSA Assess/Plan/Problems-Billing Assessment: This is a 62 yo male who is morbidly obese with CKD, CHF, afib, HTN and HLD who developed acute on chronic kidney injury following sepsis, now requiring HD, complicated by infected HD catheter with MRSA bacteremia. - Patient Problems (1) MRSA bacteremia Comment: MRSA bactermia is secondary to dialysis catheter infection. Pt refuses CHERYL. Repeat blood cultures clear as of 08/12 Cont vanco x 6 weeks from 08/12 (through Sep 23) (2) Acute on chronic kidney failure Comment: HD MoWEFr for CKD that may improve. Patient given midrodrine for associated hypotension. Patient still making urine. Noted improving trend in Cr. Appreciate Nephrology consult Reviewed plan of care with Dr Jacinto 08/18 who suggested continuing HD on an acute basis Dialysis catheter previously infected, temporary catheter replaced after blood cultures cleared (3) UTI (urinary tract infection) Comment: c/o dysuria Urine cx growing Proteus, only 50-75K colonies Started on Levaquin with symptomatic improvement although Proteus shows only intermediate sensitivity to Patient is otherwise allergic to PCN, cephalosporins and sulfa drugs, leaving only gentamicin and meropenem as options for treatment Will plan to cont Levaquin at this time given his positive treatment response (4) Hypotension Comment: Stable, improved with midrodrine (5) Pruritus Comment: Suspect from uremia, somwehat improved. Benadryl PRN helpful. Tbili noted to be elevated GB not visualized on US, patient denies cholecystectomy, biliary system appears benign on US with small amount of associated ascites Elevated Tbili may be due to mild hepatic congestion due to his R heart failure , will repeat CMP tomorrow. (6) CHF (congestive heart failure) Comment: Mostly RV failure, improved LV fxn on recent echo Stable, no evidence of acute exacerbation (7) Cellulitis Comment: Patient has chronic leg wound with chronic venous stasis changes. Continue Vanco for 6 week course. Wash leg daily with soap and water. Cover with gauze and MOON wraps. (8) Morbid obesity Comment: BMI 43.7 Significant weight loss during hospitalization (9) Afib Comment: Rate controlled, not currently anticoagulated Eliquis on hold d/t renal function. Patient has documented allergy to warfarin. (10) DVT prophylaxis Comment: Sub q heparin Status and Disposition: Inpatient. Anticipate dc to Monday
[2017-08-19] MEDS ORDERED: Vancomycin 1500 MG IV - x ONCE IVPB ONE ×2 (14:00)
[2017-08-19] MEDS: Atorvastatin* 10 MG TAB PO SCH (17:13)
[2017-08-19] MEDS: Loperamide CAP* 2 MG PO PRN (21:45)
[2017-08-19] MEDS: diPHENhydraMINE PO* 25 MG PO PRN (21:46)
[2017-08-20] MEDS: Benzocaine/Menthol LOZ* 1 LOZENGE PO PRN (01:06)
[2017-08-20] MEDS: Omeprazole CAP* 20 MG PO SCH (05:55)
[2017-08-20 06:54] LABS: Albumin 2.3 g/dL (3.2-5.2); BUN/Creatinine Ratio 13.1 (8-20); Calcium 8.6 mg/dL (8.6-10.3); EGFR African American 17.4 (>60); EGFR Non-African American 13.5 (>60); Globulin 3.7 g/dL (2-4); Potassium 4.3 mmol/L (3.5-5.0); Total Bilirubin 2.9 mg/dL (0.2-1.0)
[2017-08-20] MEDS: Heparin VIAL(*) 5000 UNITS/ML VIAL (FIVE THOUSAND) SUBCUT SCH ×2 (08:32→22:11)
[2017-08-20] MEDS: guaiFENesin ER TAB 600 MG PO SCH ×2 (08:35→23:10)
[2017-08-20] MEDS: Lactobacillus Acidophilu (GG)* 1 CAP CAP PO SCH (08:35)
[2017-08-20] MEDS: Sodium Citrate/Citric Acid* 15 ML UDC PO SCH ×2 (08:35→22:16)
[2017-08-20] MEDS: CMCS:Midodrine (NF) 5 MG TAB PO SCH ×3 (08:35→23:09)
[2017-08-20] MEDS: RiFAXimin* 550 MG TAB PO SCH ×2 (08:35→23:10)
[2017-08-20] MEDS: Nystatin TOP POWDER* 15 GM BTL TOPICAL SCH ×3 (08:38→23:19)
[2017-08-20] MEDS: Hydrocortisone 0.5% OINT* 1 APPLIC TUBE TOPICAL SCH ×2 (08:39→23:19)
[2017-08-20] MEDS ORDERED: Levofloxacin 500 MG IVPREMIX(* 500 MG/100 ML BAG IVPB SCH (09:00)
--- NOTE | 2017-08-20 13:19 | PN ---
Subjective Date of Service: 08/20/17 Interval History: Patient offers no new complaints today. Still has a freq cough. Improved with cough drops. No dyspnea. Family History: Unchanged from Admission Social History: Unchanged from Admission Past Medical History: Unchanged from Admission Objective Active Medications: Acetaminophen (Tylenol Tab*) 650 mg PO Q4H PRN PRN Reason: PAIN Atorvastatin Calcium (Lipitor*) 10 mg PO 1700 [facility] Last Admin: 08/19/17 17:13 Dose: 10 mg Benzonatate (Tessalon Cap*) 100 mg PO BID PRN PRN Reason: COUGH Last Admin: 08/19/17 12:13 Dose: 100 mg Citric Acid/Sodium Citrate (Bicitra*) 15 ml PO BID [facility] Last Admin: 08/20/17 08:35 Dose: 15 ml Diphenhydramine HCl (Benadryl Po*) 25 mg PO Q6H PRN PRN Reason: PRURITIS Last Admin: 08/19/17 21:46 Dose: 25 mg Guaifenesin (Mucinex*) 1,200 mg PO BID [facility] Last Admin: 08/20/17 08:35 Dose: 1,200 mg Heparin Sodium (Porcine) (Heparin Vial(*)) 5,000 units SUBCUT Q12HR [facility] Last Admin: 08/20/17 08:32 Dose: Not Given Hydrocortisone (Hydrocortisone 0.5% Oint*) 1 applic TOPICAL BID [facility] Stop: 08/23/17 21:00 Last Admin: 08/20/17 08:39 Dose: 1 applic Vancomycin HCl 1,500 mg/ (Sodium Chloride) 500 mls @ 250 mls/hr IVPB MoWeFr@ 1600 [facility] Last Admin: 08/18/17 15:09 Dose: Not Given Levofloxacin/Dextrose (Levaquin 500 Mg Ivpremix(*)) 500 mg in 100 mls @ 100 mls /hr IVPB Q48HR [facility] Last Admin: 08/20/17 08:35 Dose: 100 mls/hr Lactobacillus Rhamnosus (Culturelle*) 1 cap PO DAILY [facility] Last Admin: 08/20/17 08:35 Dose: 1 cap Loperamide HCl (Imodium Cap*) 2 mg PO QID PRN PRN Reason: DIARRHEA Last Admin: 08/19/17 21:45 Dose: 2 mg Midodrine (Midodrine (Nf)) 10 mg PO TID [facility] PRN Reason: Protocol Last Admin: 08/20/17 08:35 Dose: 10 mg Nystatin (Nystatin Top Powder*) 1 applic TOPICAL TID [facility] Last Admin: 08/20/17 08:38 Dose: 1 applic Omeprazole (Prilosec Cap*) 20 mg PO 0600 [facility] Last Admin: 08/20/17 05:55 Dose: 20 mg Ondansetron HCl (Zofran Inj*) 4 mg IV Q4H PRN PRN Reason: NAUSEA Last Admin: 08/17/17 13:31 Dose: 4 mg Pharmacy Consult (Vancomycin Random Level*) 1 note FOLLOW UP MoWeFr@0600 [facility] Last Admin: 08/18/17 05:28 Dose: 1 note Rifaximin (Xifaxan*) 550 mg PO BID [facility] Last Admin: 08/20/17 08:35 Dose: 550 mg Vital Signs - 8 hr 08/20/17 08/20/17 07:59 08:25 Temperature 98.2 F Pulse Rate 101 Respiratory 18 20 Rate Blood Pressure 111/59 (mmHg) O2 Sat by Pulse 97 Oximetry Oxygen Devices in Use Now: None Appearance: Chronically ill appearing 62 yo male in NAD. Respiratory: Symmetrical Chest Expansion and Respiratory Effort, Clear to Auscultation Cardiovascular: NL Sounds; No Murmurs; No JVD, RRR Extremities: - - 1-2+ non-pitting edema Skin: - - diffuse excoriation Neurological: Alert and Oriented x 3 Result Diagrams: 08/18/17 05:10 08/20/17 06:25 Microbiology and Other Data: Microbiology 08/08/17 16:15 Catheter Tip Culture - Preliminary Catheter Tip MRSA Assess/Plan/Problems-Billing Assessment: This is a 62 yo male who is morbidly obese with CKD, CHF, afib, HTN and HLD who developed acute on chronic kidney injury following sepsis, now requiring HD, complicated by infected HD catheter with MRSA bacteremia. - Patient Problems (1) MRSA bacteremia Comment: MRSA bactermia is secondary to dialysis catheter infection. Pt refuses CHERYL. Repeat blood cultures clear as of 08/12 Cont vanco x 6 weeks from 08/12 (through Sep 23) (2) Acute on chronic kidney failure Comment: HD MoWEFr for CKD that may improve. Patient given midrodrine for associated hypotension. Patient still making urine. Noted improving trend in Cr. Appreciate Nephrology consult Reviewed plan of care with Dr Jacinto 08/18 who suggested continuing HD on an acute basis Dialysis catheter previously infected, temporary catheter replaced after blood cultures cleared (3) UTI (urinary tract infection) Comment: c/o dysuria Urine cx growing Proteus, only 50-75K colonies Started on Levaquin with symptomatic improvement although Proteus shows only intermediate sensitivity to Patient is otherwise allergic to PCN, cephalosporins and sulfa drugs, leaving only gentamicin and meropenem as options for treatment Will plan to cont Levaquin at this time given his positive treatment response (4) Hypotension Comment: Stable, improved with midrodrine (5) Pruritus Comment: Suspect from uremia, somwehat improved. Benadryl PRN helpful. Tbili noted to be elevated GB not visualized on US, patient denies cholecystectomy, biliary system appears benign on US with small amount of associated ascites Elevated Tbili may be due to mild hepatic congestion due to his R heart failure , improved on repeat labs without transaminitis (6) CHF (congestive heart failure) Comment: Mostly RV failure, improved LV fxn on recent echo Stable, no evidence of acute exacerbation (7) Cellulitis Comment: Patient has chronic leg wound with chronic venous stasis changes. Continue Vanco for 6 week course. Wash leg daily with soap and water. Cover with gauze and MOON wraps. (8) Morbid obesity Comment: BMI 43.7 Significant weight loss during hospitalization (9) Afib Comment: Rate controlled, not currently anticoagulated Eliquis on hold d/t renal function. Patient has documented allergy to warfarin. (10) DVT prophylaxis Comment: Sub q heparin Status and Disposition: Inpatient. Anticipate dc to [facility] Monday
[2017-08-20] MEDS: Benzocaine/Menthol LOZ* 1 LOZENGE PO SCH ×4 (13:23→23:12)
[2017-08-20] MEDS: Atorvastatin* 10 MG TAB PO SCH (17:16)
[2017-08-21] MEDS: Benzocaine/Menthol LOZ* 1 LOZENGE PO SCH ×9 (02:00→20:16)
[2017-08-21] MEDS: Omeprazole CAP* 20 MG PO SCH (05:35)
[2017-08-21 07:14] LABS: BUN/Creatinine Ratio 13.4 (8-20); Calcium 9.1 mg/dL (8.6-10.3); EGFR African American 15.9 (>60); EGFR Non-African American 12.4 (>60); Potassium 4.4 mmol/L (3.5-5.0); Vancomycin Trough 21.7 mcg/mL
[2017-08-21] MEDS: Heparin VIAL(*) 5000 UNITS/ML VIAL (FIVE THOUSAND) SUBCUT SCH ×2 (07:29→20:17)
[2017-08-21] MEDS: RiFAXimin* 550 MG TAB PO SCH ×2 (08:21→20:16)
[2017-08-21] MEDS: guaiFENesin ER TAB 600 MG PO SCH ×2 (08:21→20:16)
[2017-08-21] MEDS: CMCS:Midodrine (NF) 5 MG TAB PO SCH ×3 (08:21→20:17)
[2017-08-21] MEDS: Hydrocortisone 0.5% OINT* 1 APPLIC TUBE TOPICAL SCH ×2 (08:21→20:17)
[2017-08-21] MEDS: Lactobacillus Acidophilu (GG)* 1 CAP CAP PO SCH (08:21)
[2017-08-21] MEDS: Nystatin TOP POWDER* 15 GM BTL TOPICAL SCH ×2 (08:21→15:47)
[2017-08-21] MEDS: Sodium Citrate/Citric Acid* 15 ML UDC PO SCH ×2 (08:22→20:17)
[2017-08-21] MEDS: Vancomycin Random Level* NOTE FOLLOW UP SCH (08:22)
--- NOTE | 2017-08-21 10:47 | PN ---
Subjective Date of Service: 08/21/17 Interval History: Patient offers no acute complaints. Family History: Unchanged from Admission Social History: Unchanged from Admission Past Medical History: Unchanged from Admission Objective Active Medications: Acetaminophen (Tylenol Tab*) 650 mg PO Q4H PRN PRN Reason: PAIN Atorvastatin Calcium (Lipitor*) 10 mg PO 1700 [facility] Last Admin: 08/20/17 17:16 Dose: 10 mg Benzonatate (Tessalon Cap*) 100 mg PO BID PRN PRN Reason: COUGH Last Admin: 08/19/17 12:13 Dose: 100 mg Citric Acid/Sodium Citrate (Bicitra*) 15 ml PO BID [facility] Last Admin: 08/21/17 08:22 Dose: Not Given Diphenhydramine HCl (Benadryl Po*) 25 mg PO Q6H PRN PRN Reason: PRURITIS Last Admin: 08/19/17 21:46 Dose: 25 mg Guaifenesin (Mucinex*) 1,200 mg PO BID [facility] Last Admin: 08/21/17 08:21 Dose: 1,200 mg Heparin Sodium (Porcine) (Heparin Vial(*)) 5,000 units SUBCUT Q12HR [facility] Last Admin: 08/21/17 07:29 Dose: Not Given Hydrocortisone (Hydrocortisone 0.5% Oint*) 1 applic TOPICAL BID [facility] Stop: 08/23/17 21:00 Last Admin: 08/21/17 08:21 Dose: 1 applic Vancomycin HCl 1,500 mg/ (Sodium Chloride) 500 mls @ 250 mls/hr IVPB MoWeFr@ 1600 [facility] Last Admin: 08/18/17 15:09 Dose: Not Given Lactobacillus Rhamnosus (Culturelle*) 1 cap PO DAILY [facility] Last Admin: 08/21/17 08:21 Dose: 1 cap Levofloxacin (Levaquin Tab*) 500 mg PO Q48H [facility] Loperamide HCl (Imodium Cap*) 2 mg PO QID PRN PRN Reason: DIARRHEA Last Admin: 08/19/17 21:45 Dose: 2 mg Midodrine (Midodrine (Nf)) 10 mg PO TID [facility] PRN Reason: Protocol Last Admin: 08/21/17 08:21 Dose: 10 mg Nystatin (Nystatin Top Powder*) 1 applic TOPICAL TID [facility] Last Admin: 08/21/17 08:21 Dose: 1 applic Omeprazole (Prilosec Cap*) 20 mg PO 0600 [facility] Last Admin: 08/21/17 05:35 Dose: 20 mg Ondansetron HCl (Zofran Inj*) 4 mg IV Q4H PRN PRN Reason: NAUSEA Last Admin: 08/17/17 13:31 Dose: 4 mg Pharmacy Consult (Vancomycin Random Level*) 1 note FOLLOW UP MoWeFr@0600 [facility] Last Admin: 08/21/17 08:22 Dose: 1 note Rifaximin (Xifaxan*) 550 mg PO BID [facility] Last Admin: 08/21/17 08:21 Dose: 550 mg Throat Lozenges (Chloraseptic Sudheer*) 1 sudheer PO Q2H [facility] Last Admin: 08/21/17 08:29 Dose: Not Given Vital Signs - 8 hr 08/21/17 08/21/17 03:30 08:00 Temperature 98.5 F Pulse Rate 101 Respiratory 16 16 Rate Blood Pressure 101/66 (mmHg) O2 Sat by Pulse 97 Oximetry Oxygen Devices in Use Now: None Appearance: Patient is resting comfortably. Full exam not completed today Result Diagrams: 08/18/17 05:10 08/21/17 06:17 Microbiology and Other Data: Microbiology 08/08/17 16:15 Catheter Tip Culture - Preliminary Catheter Tip MRSA Assess/Plan/Problems-Billing Assessment: This is a 62 yo male who is morbidly obese with CKD, CHF, afib, HTN and HLD who developed acute on chronic kidney injury following sepsis, now requiring HD, complicated by infected HD catheter with MRSA bacteremia. - Patient Problems (1) MRSA bacteremia Comment: MRSA bactermia is secondary to dialysis catheter infection. Pt refuses CHERYL. Repeat blood cultures clear as of 08/12 Cont vanco x 6 weeks from 08/12 (through Sep 23) (2) Acute on chronic kidney failure Comment: HD MoWEFr for CKD that may improve. Patient given midrodrine for associated hypotension. Patient still making urine. Noted improving trend in Cr. Appreciate Nephrology consult Reviewed plan of care with Dr Jacinto 08/18 who suggested continuing HD on an acute basis Dialysis catheter previously infected, temporary catheter replaced after blood cultures cleared (3) UTI (urinary tract infection) Comment: c/o dysuria Urine cx growing Proteus, only 50-75K colonies Started on Levaquin with symptomatic improvement although Proteus shows only intermediate sensitivity to Patient is otherwise allergic to PCN, cephalosporins and sulfa drugs, leaving only gentamicin and meropenem as options for treatment Will plan to cont Levaquin at this time given his positive treatment response (4) Hypotension Comment: Stable, improved with midrodrine (5) Pruritus Comment: Suspect from uremia, somwehat improved. Benadryl PRN helpful. Tbili noted to be elevated GB not visualized on US, patient denies cholecystectomy, biliary system appears benign on US with small amount of associated ascites Elevated Tbili may be due to mild hepatic congestion due to his R heart failure , improved on repeat labs without transaminitis (6) CHF (congestive heart failure) Comment: Mostly RV failure, improved LV fxn on recent echo Stable, no evidence of acute exacerbation (7) Cellulitis Comment: Patient has chronic leg wound with chronic venous stasis changes. Continue Vanco for 6 week course. Wash leg daily with soap and water. Cover with gauze and MOON wraps. (8) Morbid obesity Comment: BMI 43.7 Significant weight loss during hospitalization (9) Afib Comment: Rate controlled, not currently anticoagulated Eliquis on hold d/t renal function. Patient has documented allergy to warfarin. (10) DVT prophylaxis Comment: Sub q heparin Status and Disposition: Inpatient. Anticipate dc to [facility] tomorrow
[2017-08-21] MEDS: Vancomycin(*) 1,500 MG in NS 0.9% 500 ML* 500 ML IVPB SCH (14:54)
[2017-08-21] MEDS ORDERED: Heparin DIALYSIS ONLY(*) 1,000 UNITS/ML VIAL DIALYSIS ONE (17:00)
[2017-08-21] MEDS ORDERED: Iron Sucrose* 200 MG in NS 0.9% 100 ML* 100 ML IVPB ONE (17:00)
[2017-08-21] MEDS ORDERED: Epoetin Alfa* 10,000 UNITS/ML VIAL IV ONE (17:00)
[2017-08-21] MEDS: Atorvastatin* 10 MG TAB PO SCH (20:16)
[2017-08-22] MEDS: Benzocaine/Menthol LOZ* 1 LOZENGE PO SCH ×7 (00:18→10:47)
[2017-08-22] MEDS: Omeprazole CAP* 20 MG PO SCH (05:21)
[2017-08-22] MEDS: Loperamide CAP* 2 MG PO PRN (05:25)
[2017-08-22 06:47] VITALS: BP 112/59
[2017-08-22] MEDS: guaiFENesin ER TAB 600 MG PO SCH (07:55)
[2017-08-22] MEDS: Heparin VIAL(*) 5000 UNITS/ML VIAL (FIVE THOUSAND) SUBCUT SCH ×2 (07:56→08:42)
[2017-08-22] MEDS: Sodium Citrate/Citric Acid* 15 ML UDC PO SCH ×2 (07:56→08:01)
[2017-08-22] MEDS: Lactobacillus Acidophilu (GG)* 1 CAP CAP PO SCH (08:00)
[2017-08-22] MEDS: CMCS:Midodrine (NF) 5 MG TAB PO SCH (10:48)
[2017-08-22] MEDS: RiFAXimin* 550 MG TAB PO SCH (10:48)
[2017-08-22] MEDS: Hydrocortisone 0.5% OINT* 1 APPLIC TUBE TOPICAL SCH (10:49)
--- NOTE | 2017-08-22 10:58 | DS ---
CC: Jasper; Dr. Felipe; Dr. Jacinto; Dr. Morgan Holt * DATE OF ADMISSION: 07/05/2017. DATE OF DISCHARGE TO [facility]: 07/24/2017. DATE OF READMISSION TO ACUTE CARE STATUS: 08/08/2017. DATE OF DISCHARGE TO [facility]: 08/22/2017. PRIMARY CARE PHYSICIAN: Dr. Felipe. CONSULTING GRAVITY PROSPECTING OBSERVER: Dr. Jacinto. CONSULTING INFECTIOUS DISEASE SPECIALIST: Dr. Morgan Holt. DISCHARGING PROVIDER: ALEXA Parson. SUPERVISING PHYSICIAN: Dr. Veena Price * (dictated by ALEXA Parson). PRIMARY DISCHARGE DIAGNOSES: 1. Acute on chronic kidney failure requiring hemodialysis three times weekly with some noted improvement in creatinine - temporary dialysis catheter in place at the time of discharge. 2. MRSA bacteremia secondary to infected hemodialysis catheter, status post removal and replacement after blood cultures cleared 08/12/2017 - cont Vancomycin for a total of 6 weeks 3. Urinary tract infection - uncomplicated, growing proteus, recommend Levaquin through August 26. 4. Hypotension secondary to dialysis, improved with Midodrine. 5. Pruritis - likely secondary to uremia, somewhat relieved with Benadryl and topical Hydrocortisone cream. 6. Periventricular heart failure with LV improvement to 50 to 55 percent on recent echo from 08/08/2017 with mild to moderate systolic dysfunction of the right ventricle. 7. Cellulitis of the lower extremity - resolved. SECONDARY DISCHARGE DIAGNOSES: 1. Morbid obesity with a BMI of 41.6 at the time of discharge. Of note, the patient lost greater than 100 pounds during his hospitalization. 2. Atrial fibrillation, rate controlled and anticoagulation held due to renal function. DISCHARGE MEDICATIONS: 1. Atorvastatin 10 mg p.o. daily. 2. Chloraseptic Lozenge one lozenge every 2 hours as needed for cough. 3. Mucinex 1200 mg p.o. twice daily. 4. Hydrocortisone cream applied topically twice daily. 5. Lactobacillus one capsule p.o. daily. 6. Levaquin 500 mg every other day through 08/26/2017. 7. Midodrine 10 mg p.o. 3 times daily. 8. Prilosec 20 mg p.o. daily. 9. Rifaximin 550 mg p.o. twice daily. 10. Bicitra 15 ml p.o. twice daily. 11. Vancomycin 1500 mg IV Monday, Monday, Monday prior to hemodialysis. Medication changes: Most medications listed above are new. The majority of this home medications have been discontinued. HOSPITAL IMAGING SINCE 08/08/2017: 1. Chest x-ray, 08/10/2017, shows a right-sided central venous catheter, no pneumothorax, an enlarged cardiac silhouette with mild interstitial congestion which is unchanged from prior. 2. Gallbladder ultrasound, 08/19/2017, shows the gallbladder is nonvisualized, fatty infiltration of the liver, common bile duct measuring approximately 7 mm, no intrahepatic biliary dilatation, there is a small volume of perihepatic ascites noted. HOSPITAL COURSE: This is a 62-year-old, chronically ill gentleman who was originally transferred from [facility] on 07/05/2017 with an indeterminate troponin and evidence of acute kidney injury and sepsis secondary to lower extremity cellulitis. Please refer to history and physical from that date for further details on this acute presentation. The patient eventually required hemodialysis for treatment of his kidney injury and eventually was transitioned to swing status the middle of July. The patient's swing stay unfortunately was complicated by a central line infection. The patient was noted to have MRSA bacteremia with a culture positive tip from his hemodialysis catheter. Transthoracic echocardiogram was negative for vegetations at that time and patient refused a transesophageal echocardiogram. He was treated as if he had endocarditis for his reason with recommendations for a total of six weeks of IV Vancomycin per Infectious Disease specialist, Dr. Trey Holt. The patient has been continued on hemodialysis three times weekly with some subtle improvements in his creatinine. He is producing urine at the time of discharge. Documented output of approximately 600 to 700 ml on a daily basis. The patient will require continued hemodialysis three times weekly on an acute basis and does have a temporary catheter in the right IJ at the time of discharge. The patient's blood cultures have been clear since 08/12/2017. IV Vancomycin will need to be continued for six weeks from the date of cleared blood cultures which should take him through 09/23/2017 for his Vancomycin infusions. The patient has been complaining of pruritus during his hospital stay. It was thought to most likely be due to uremia and there is some improvement with prn Benadryl and topical Hydrocortisone. Total bilirubin was noted to be elevated, but no transaminitis or abdominal pain, nausea or vomiting. This elevation is likely due to congestive hepatopathy and may be contributing to his pruritus. Gallbladder ultrasound does not show a significant dilatation of the biliary system. The gallbladder was not visualized and the patient does not recall a history of cholecystectomy. The patient was complaining of dysuria. Urine analysis was suggestive of possible infection and culture grew proteus, approximately 50,000 colonies. He was started on Levaquin with some improvement in his dysuria and should complete antibiotics through the end of this week, 08/26/2017. The patient has sustained a large weight loss during his hospital stay, most notable since his admission at the end of June. The patient is down greater than 50 kg. Of note, the patient was intermittently hypotensive, generally associated with dialysis. This has improved since initiation of Midodrine and should be continued at discharge. DISPOSITION AND FOLLOW-UP PLANS: The patient is being discharged to [facility]. The patient requires continued hemodialysis on Monday, Monday, and Monday with Vancomycin administration prior to hemodialysis and Vanco trough levels once weekly prior to Vanco administration. The patient has a hemodialysis catheter present in the right IJ at the time of discharge; that should remain in place at this time and replacement can be discussed with Dr. Jacinto depending upon his length of hemodialysis needs. The patient will need to follow- up with Dr. Jacinto in one to two weeks, which can occur during dialysis session. Please see medication list above. At the time of discharge, the patient is unable to ambulate and is using a Fred lift for transfer. ALEXA PARSON [id number]/[facility] #: [id number] [facility]ICH[facility] MEM[facility]IAL HOSPITALSuzie
[2017-08-22] MEDS ORDERED: Levofloxacin TAB* 500 MG PO SCH (11:00)
== END 2017-08-22 12:40 | DRG 264 ==
LOC: MED 15:09
PROVIDERS: ADMIT Internal Medicine; ATTEND Internal Medicine
PROC: 0XP Anatomical Regions, Upper Extremities, Removal (ICD-10-PCS; principal; 2017-08-08)
PROC: 0W363ZZ Control Bleeding in Neck, Percutaneous Approach (ICD-10-PCS; 2017-08-08)
PROC: 05HM33Z Insertion of Infusion Device into Right Internal Jugular Vein, Percutaneous Approach (ICD-10-PCS; 2017-08-10)
PROC: 5A1D70Z Performance of Urinary Filtration, Intermittent, Less than 6 Hours Per Day (ICD-10-PCS; 2017-08-11)
DX: T82.7XXA Infection and inflammatory reaction due to other cardiac and vascular devices, implants and grafts, initial encounter (principal); I50.21 Acute systolic (congestive) heart failure; N17.9 Acute kidney failure, unspecified; I95.3 Hypotension of hemodialysis; E72.20 Disorder of urea cycle metabolism, unspecified; I08.1 Rheumatic disorders of both mitral and tricuspid valves; N18.6 End stage renal disease; E66.01 Morbid (severe) obesity due to excess calories; L03.119 Cellulitis of unspecified part of limb; Z68.41 Body mass index [BMI] 40.0-44.9, adult; N39.0 Urinary tract infection, site not specified; I48.91 Unspecified atrial fibrillation; A49.02 Methicillin resistant Staphylococcus aureus infection, unspecified site; Z99.2 Dependence on renal dialysis; I87.8 Other specified disorders of veins; B96.4 Proteus (mirabilis) (morganii) as the cause of diseases classified elsewhere; Z79.01 Long term (current) use of anticoagulants; L29.8 Other pruritus; Z88.1 Allergy status to other antibiotic agents; Z88.0 Allergy status to penicillin; Z88.2 Allergy status to sulfonamides
CPT/HCPCS: 36415; 71010; 76705; 80048; 80053; 80202; 81003; 81015; 82565; 83735; 84520; 85025; 85610; 85730; 87040; 87071; 87077; 87086; 87150; 87186; 87205; 90935; 93306; A9270-GY; G0257; J0885; J1644; J1756; J1956; J2001; J2405; J3370

== ENCOUNTER 2017-08-23 09:50 | Emergency (ER) | payer MEDICARE ==
[2017-08-23 11:49] LABS: Albumin 2.4 g/dL (3.2-5.2); BUN/Creatinine Ratio 12.8 (8-20); Calcium 9.3 mg/dL (8.6-10.3); EGFR African American 16.5 (>60); EGFR Non-African American 12.9 (>60); One Over Creatinine 0.21 mg/dL (0.67-1.17); Potassium 4.4 mmol/L (3.5-5.0); Total Bilirubin 3.2 mg/dL (0.2-1.0); Total Protein 6.4 g/dL (6.4-8.9)
--- NOTE | 2017-08-23 12:36 | ED ---
Dahlia Joseph Edward, scribed for Sincere Orosco MD on 08/23/17 at 1003 . Complex/Multi-Sys Presentation - HPI Summary HPI Summary: 62 y/o male BIBA c/o general weakness. Associated sx: bilateral pedal edema. Symptoms not aggravated or alleviated by anything. Pt lives in a nursing facility. Information was called in by Dr. Patel, who requests the pt be dialyzed. PMHx renal failure. - History Of Current Complaint Chief Complaint: EDGeneral Time Seen by Provider: 08/23/17 09:55 Hx Obtained From: Patient Timing: Constant Associated Signs And Symptoms: Positive: Weakness, Edema - Allergies/Home Medications Allergies/Adverse Reactions: Allergies Allergy/AdvReac Type Severity Reaction Status Date / Time Heparin Allergy Intermediate GI Upset, Verified 08/22/17 08:00 hives Cephalexin [From Keflex] Allergy Hives Verified 07/05/17 17:55 Penicillins Allergy Hives Verified 07/05/17 17:56 Rivaroxaban [From Xarelto] Allergy Unknown Verified 07/05/17 16:49 Reaction Details Sulfa Antibiotics Allergy Unknown Verified 07/05/17 16:49 Reaction Details Warfarin Allergy Unknown Verified 07/05/17 16:49 Reaction Details PMH/Surg Hx/FS Hx/Imm Hx Previously Healthy: No Endocrine/Hematology History: Reports: Hx Diabetes Cardiovascular History: Reports: Hx Hypertension GI History: Reports: Hx Diverticulosis History: Reports: Hx Chronic Renal Failure, Hx Dialysis Sensory History: Reports: Hx Contacts or Glasses Denies: Hx Hearing Aid Opthamlomology History: Reports: Hx Contacts or Glasses - Surgical History Surgery Procedure, Year, and Place: knees, bowel resection, colostomy reversal Infectious Disease History: Yes Infectious Disease History: Denies: Hx of Known/Suspected MRSA - MRSA negative, Traveled Outside the [place] in Last 30 Days - Family History Known Family History: Positive: Unknown - Social History Alcohol Use: None Hx Substance Use: No Substance Use Type: Reports: None Hx Tobacco Use: Yes Smoking Status (MU): Former Smoker Review of Systems Constitutional: Negative Eyes: Negative ENT: Negative Cardiovascular: Negative Respiratory: Negative Gastrointestinal: Negative Genitourinary: Negative Positive: Edema Skin: Negative Positive: Weakness Psychological: Normal All Other Systems Reviewed And Are Negative: Yes Physical Exam Triage Information Reviewed: Yes Vital Signs On Initial Exam: Initial Vitals Temp Pulse Resp BP Pulse Ox 96.2 F 111 20 116/62 97 08/23/17 09:52 08/23/17 09:52 08/23/17 09:52 08/23/17 09:52 08/23/17 09:52 Vital Signs Reviewed: Yes Appearance: Positive: Well-Appearing, No Pain Distress Skin: Positive: Warm, Skin Color Reflects Adequate Perfusion, Dry Head/Face: Positive: Normal Head/Face Inspection Eyes: Positive: EOMI, MCKENZIE ENT: Positive: Normal ENT inspection Neck: Positive: Supple, Nontender Respiratory/Lung Sounds: Positive: Clear to Auscultation, Breath Sounds Present Cardiovascular: Positive: RRR Abdomen Description: Positive: Nontender, Soft Bowel Sounds: Positive: Present Musculoskeletal: Positive: Normal, Strength/ROM Intact Neurological: Positive: Normal, Sensory/Motor Intact, Alert, Oriented to Person Place, Time Psychiatric: Positive: Affect/Mood Appropriate Diagnostics - Vital Signs Vital Signs Temp Pulse Resp BP Pulse Ox 08/23/17 09:52 96.2 F 111 20 116/62 97 - Laboratory Lab Results: Lab Results 08/23/17 Range/Units 11:00 Sodium 132 L (133-145) mmol/L Potassium 4.4 (3.5-5.0) mmol/L Chloride 100 L (101-111) mmol/L Carbon Dioxide 22 (22-32) mmol/L Anion Gap 10 (2-11) mmol/L BUN 59 H (6-24) mg/dL Creatinine 4.62 H (0.67-1.17) mg/dL 1/Creatinine 0.21 L (0.67-1.17) mg/dL Est GFR ( Amer) 16.5 (>60) Est GFR (Non-Af Amer) 12.9 (>60) BUN/Creatinine Ratio 12.8 (8-20) Glucose 77 (70-100) mg/dL Calcium 9.3 (8.6-10.3) mg/dL Total Bilirubin 3.20 H (0.2-1.0) mg/dL AST 20 (13-39) U/L ALT 8 (7-52) U/L Alkaline Phosphatase 176 H (34-104) U/L Total Protein 6.4 (6.4-8.9) g/dL Albumin 2.4 L (3.2-5.2) g/dL Globulin 4.0 (2-4) g/dL Albumin/Globulin Ratio 0.6 L (1-3) Result Diagrams: 08/23/17 11:00 Lab Statement: Any lab studies that have been ordered have been reviewed, and results considered in the medical decision making process. Complex Multi-Symp Course/Dx Course Of Treatment: F/U DR LIU. NO CRITICAL CARE TIME - Diagnoses Provider Diagnoses: Dialysis patient Discharge - Discharge Plan Condition: Stable Disposition: HOME Patient Education Materials: Chronic Kidney Disease (ED) Referrals: No Primary Care Phys,NOPCP [Medical Doctor] - Moreno Liu MD [Medical Doctor] - Additional Instructions: FOLLOW UP WITH DR LIU, NEPHROLOGY. RETURN TO THE EMERGENCY DEPARTMENT FOR ANY WORSENING OF YOUR CONDITION OR QUESTIONS OR CONCERNS. The documentation as recorded by the Dahlia moulton Edward accurately reflects the service I personally performed and the decisions made by me, Sincere Orosco MD.
[2017-08-23] MEDS ORDERED: Heparin DIALYSIS ONLY(*) 1,000 UNITS/ML VIAL DIALYSIS ONE (15:00)
[2017-08-23] MEDS ORDERED: Epoetin Alfa* 10,000 UNITS/ML VIAL IV ONE (15:00)
[2017-08-23 16:56] VITALS: BP 122/76
== END 2017-08-23 16:00 | disposition home or self-care (01) ==
LOC: ED 09:50
DX: R53.1 Weakness (principal); I12.9 Hypertensive chronic kidney disease with stage 1 through stage 4 chronic kidney disease, or unspecified chronic kidney disease; E11.22 Type 2 diabetes mellitus with diabetic chronic kidney disease; N18.9 Chronic kidney disease, unspecified; Z87.891 Personal history of nicotine dependence; Z88.0 Allergy status to penicillin; Z88.2 Allergy status to sulfonamides; Z99.2 Dependence on renal dialysis
CPT/HCPCS: 36415; 80053; 99282; J0885; J1644

== ENCOUNTER 2017-08-28 08:31 | Emergency (ER) | payer MEDICARE ==
[2017-08-28 11:19] LABS: Hematocrit 29 % (42-52); Hemoglobin 9.5 g/dl (14.0-18.0); Mean Corpuscular HGB Conc 33 g/dl (31-36); Mean Corpuscular Hemoglobin 30 pg (27-31); Mean Corpuscular Volume 92 fL (80-94); Mean Platelet Volume 8 um3 (7.4-10.4); Red Blood Count 3.13 10^6/ul (4.0-5.4); Red Cell Distribution Width 20 % (10.5-15); White Blood Count 10.6 10^3/ul (3.5-10.8)
[2017-08-28 11:30] LABS: Albumin 2.3 g/dL (3.2-5.2); BUN/Creatinine Ratio 12.8 (8-20); Calcium 9.5 mg/dL (8.6-10.3); EGFR African American 14.9 (>60); EGFR Non-African American 11.6 (>60); Globulin 3.9 g/dL (2-4); Total Bilirubin 2.8 mg/dL (0.2-1.0); Total Protein 6.2 g/dL (6.4-8.9)
[2017-08-28] MEDS ORDERED: Epoetin Alfa* 10,000 UNITS/ML VIAL IV ONE (12:00)
[2017-08-28] MEDS ORDERED: Heparin DIALYSIS ONLY(*) 1,000 UNITS/ML VIAL DIALYSIS ONE (12:00)
[2017-08-28 15:21] VITALS: BP 103/72
--- NOTE | 2017-08-28 18:23 | ED ---
Amadou Joseph Angela, scribed for Lawrence Schmidt MD on 08/28/17 at 0841 . Complex/Multi-Sys Presentation - HPI Summary HPI Summary: This pt is a 62 y/o male presenting to [facility] for dialysis. Associated sx: bilateral pedal edema and generalized weakness. Symptoms not aggravated or alleviated by anything. Pt lives in a nursing facility. Information was called in by Dr. Liu, who requests the pt come for dialysis. PMHx renal failure. - History Of Current Complaint Chief Complaint: EDGeneral Time Seen by Provider: 08/28/17 08:39 Hx Obtained From: Patient Onset/Duration: Lasting Days, Still Present Timing: Days Location: Negative Associated Signs And Symptoms: Positive: Weakness, Other - edema in LE Related History: Other - chronic renal failure - Allergies/Home Medications Allergies/Adverse Reactions: Allergies Allergy/AdvReac Type Severity Reaction Status Date / Time Heparin Allergy Intermediate GI Upset, Verified 08/28/17 11:14 hives Cephalexin [From Keflex] Allergy Hives Verified 07/05/17 17:55 Penicillins Allergy Hives Verified 07/05/17 17:56 Rivaroxaban [From Xarelto] Allergy Unknown Verified 07/05/17 16:49 Reaction Details Sulfa Antibiotics Allergy Unknown Verified 07/05/17 16:49 Reaction Details Warfarin Allergy Unknown Verified 07/05/17 16:49 Reaction Details PMH/Surg Hx/FS Hx/Imm Hx Endocrine/Hematology History: Reports: Hx Diabetes Cardiovascular History: Reports: Hx Hypertension GI History: Reports: Hx Diverticulosis History: Reports: Hx Chronic Renal Failure, Hx Dialysis Sensory History: Reports: Hx Contacts or Glasses Denies: Hx Hearing Aid Opthamlomology History: Reports: Hx Contacts or Glasses - Surgical History Surgery Procedure, Year, and Place: knees, bowel resection, colostomy reversal Infectious Disease History: No Infectious Disease History: Denies: Hx of Known/Suspected MRSA - MRSA negative, Traveled Outside the [place] in Last 30 Days - Family History Known Family History: Negative: Cardiac Disease, Diabetes - Social History Alcohol Use: None Hx Substance Use: No Substance Use Type: Reports: None Hx Tobacco Use: Yes Smoking Status (MU): Former Smoker Review of Systems Negative: Fever, Chills Eyes: Negative ENT: Negative Cardiovascular: Negative Positive: Edema - in LE Positive: Weakness - generalized All Other Systems Reviewed And Are Negative: Yes Physical Exam - Summary Physical Exam Summary: Appearance: The patient is well-nourished in no acute distress and in no acute pain. Skin: The skin is warm and dry and skin color reflects adequate perfusion. HEENT: The head is normocephalic and atraumatic. The pupils are equal and reactive. The conjunctivae are clear and without drainage. Nares are patent and without drainage. Mouth reveals moist mucous membranes and the throat is without erythema and exudate. The external ears are intact. The ear canals are patent and without drainage. The tympanic membranes are intact. Neck: the neck is supple with full range of motion and non-tender. There are no carotid bruits. There is no neck vein distension. Respiratory: Chest is non-tender. Lungs are clear to auscultation and breath sounds are symmetrical and equal. Cardiovascular: Heart is regular rate and rhythm. There is no murmur or rub auscultated. There is no peripheral edema and pulses are symmetrical and equal. Abdomen: The abdomen is soft and non-tender. There are normal bowel sounds heard in all four quadrants and there is no organomegaly palpated. Musculoskeletal: There is no back tenderness noted. Extremities are non-tender with full range of motion. There is good capillary refill. There is no peripheral edema or calf tenderness elicited. Neurological: Patient is alert and oriented to person, place and time. The patient has symmetrical motor strength in all four extremities. Cranial nerves are grossly intact. Deep tendon reflexes are symmetrical and equal in all four extremities. Psychiatric: The patient has an appropriate affect and does not exhibit any anxiety or depression. Triage Information Reviewed: Yes Vital Signs On Initial Exam: Initial Vitals Temp Pulse Resp BP Pulse Ox 97.4 F 101 18 109/75 96 08/28/17 08:35 08/28/17 08:35 08/28/17 08:35 08/28/17 08:35 08/28/17 08:35 Vital Signs Reviewed: Yes Diagnostics - Vital Signs Vital Signs Temp Pulse Resp BP Pulse Ox 08/28/17 08:35 97.4 F 101 18 109/75 96 - Laboratory Lab Results: Lab Results 08/28/17 08/28/17 Range/Units 10:30 10:30 WBC 10.6 (3.5-10.8) 10^3/ul RBC 3.13 L (4.0-5.4) 10^6/ul Hgb 9.5 L (14.0-18.0) g/dl Hct 29 L (42-52) % MCV 92 (80-94) fL MCH 30 (27-31) pg MCHC 33 (31-36) g/dl RDW 20 H (10.5-15) % Plt Count 329 (150-450) 10^3/ul MPV 8 (7.4-10.4) um3 Neut % (Auto) 56.3 (38-83) % Lymph % (Auto) 10.9 L (25-47) % Bell % (Auto) 13.7 H (1-9) % Eos % (Auto) 16.7 H (0-6) % Baso % (Auto) 2.4 H (0-2) % Absolute Neuts (auto) 6.0 (1.5-7.7) 10^3/ul Absolute Lymphs (auto) 1.2 (1.0-4.8) 10^3/ul Absolute Monos (auto) 1.5 H (0-0.8) 10^3/ul Absolute Eos (auto) 1.8 H (0-0.6) 10^3/ul Absolute Basos (auto) 0.3 H (0-0.2) 10^3/ul Absolute Nucleated RBC 0.01 10^3/ul Nucleated RBC % 0.1 Sodium 130 L (133-145) mmol/L Potassium 4.0 (3.5-5.0) mmol/L Chloride 95 L (101-111) mmol/L Carbon Dioxide 26 (22-32) mmol/L Anion Gap 9 (2-11) mmol/L BUN 65 H (6-24) mg/dL Creatinine 5.06 H (0.67-1.17) mg/dL Est GFR ( Amer) 14.9 (>60) Est GFR (Non-Af Amer) 11.6 (>60) BUN/Creatinine Ratio 12.8 (8-20) Glucose 88 (70-100) mg/dL Calcium 9.5 (8.6-10.3) mg/dL Total Bilirubin 2.80 H (0.2-1.0) mg/dL AST 21 (13-39) U/L ALT 8 (7-52) U/L Alkaline Phosphatase 193 H (34-104) U/L Total Protein 6.2 L (6.4-8.9) g/dL Albumin 2.3 L (3.2-5.2) g/dL Globulin 3.9 (2-4) g/dL Albumin/Globulin Ratio 0.6 L (1-3) Result Diagrams: 08/28/17 10:30 08/28/17 10:30 Lab Statement: Any lab studies that have been ordered have been reviewed, and results considered in the medical decision making process. Re-Evaluation - Re-Evaluation First Eval Re-Evaluation Time: 15:06 Comment: Pt is back from dialysis. Complex Multi-Symp Course/Dx Course Of Treatment: Mr. Geller felt fine after dialysis and was stable in the ED. - Diagnoses Provider Diagnoses: Dialysis patient Discharge - Discharge Plan Condition: Stable Disposition: HOME Patient Education Materials: Chronic Kidney Disease (ED) Referrals: Lenny Julian MD [Primary Care Provider] - Additional Instructions: FOLLOW UP WITH DR. LIU, NEPHROLOGY. RETURN TO THE EMERGENCY DEPARTMENT FOR ANY WORSENING OF YOUR CONDITION OR QUESTIONS OR CONCERNS. The documentation as recorded by the Amadou moulton Angela accurately reflects the service I personally performed and the decisions made by me, Lawrence Schmidt MD.
== END 2017-08-28 15:19 | disposition home or self-care (01) ==
LOC: ED 08:31
DX: E11.22 Type 2 diabetes mellitus with diabetic chronic kidney disease (principal); I12.0 Hypertensive chronic kidney disease with stage 5 chronic kidney disease or end stage renal disease; N18.6 End stage renal disease; Z99.2 Dependence on renal dialysis; Z87.891 Personal history of nicotine dependence
CPT/HCPCS: 36415; 80053; 85025; 99282; J0885; J1644

== ENCOUNTER 2017-09-01 08:29 | Emergency (ER) | payer MEDICARE ==
[2017-09-01 09:51] LABS: Comments Flag Yes; Hematocrit 29 % (42-52); Hemoglobin 9.8 g/dl (14.0-18.0); Mean Corpuscular HGB Conc 33 g/dl (31-36); Mean Corpuscular Hemoglobin 31 pg (27-31); Mean Corpuscular Volume 92 fL (80-94); Mean Platelet Volume 7 um3 (7.4-10.4); Red Blood Count 3.19 10^6/ul (4.0-5.4); Red Cell Distribution Width 19 % (10.5-15); White Blood Count 10.4 10^3/ul (3.5-10.8)
[2017-09-01] MEDS ORDERED: Heparin DIALYSIS ONLY(*) 1,000 UNITS/ML VIAL DIALYSIS ONE (10:00)
[2017-09-01 10:02] LABS: Albumin 2.4 g/dL (3.2-5.2); BUN/Creatinine Ratio 14.2 (8-20); Calcium 9.9 mg/dL (8.6-10.3); EGFR African American 18.7 (>60); EGFR Non-African American 14.5 (>60); Globulin 3.8 g/dL (2-4); One Over Creatinine 0.24 mg/dL (0.67-1.17); Potassium 3.8 mmol/L (3.5-5.0); Total Bilirubin 2.6 mg/dL (0.2-1.0); Total Protein 6.2 g/dL (6.4-8.9)
[2017-09-01 13:05] VITALS: BP 138/78
--- NOTE | 2017-09-01 13:31 | ED ---
Darryn Joseph Natalie, scribed for Lawrence Schmidt MD on 09/01/17 at 0917 . Medical Screening - HPI Summary HPI Summary: The pt is a 62 y/o M BIBA to the ED c/o needing dialysis clearance since . He missed his dialysis on 08/30/17, and he last had treatment on 08/28/17. - History of Current Complaint Chief Complaint: EDGeneral Stated Complaint: NEED DIALYSIS Time Seen by Provider: 09/01/17 08:35 Onset/Duration: Started Days Ago - last dialysis on 08/28/17, missed on 08/30/17 Associated Signs and Symptoms: Negative PMH/Surg Hx/FS Hx/Imm Hx Previously Healthy: No Endocrine/Hematology History: Reports: Hx Diabetes Cardiovascular History: Reports: Hx Hypertension GI History: Reports: Hx Diverticulosis History: Reports: Hx Chronic Renal Failure, Hx Dialysis Sensory History: Reports: Hx Contacts or Glasses Denies: Hx Hearing Aid Opthamlomology History: Reports: Hx Contacts or Glasses - Surgical History Surgery Procedure, Year, and Place: knees, bowel resection, colostomy reversal Infectious Disease History: No Infectious Disease History: Denies: Hx of Known/Suspected MRSA - MRSA negative, Traveled Outside the [place] in Last 30 Days - Family History Known Family History: Negative: Cardiac Disease, Diabetes - Social History Alcohol Use: None Hx Substance Use: No Substance Use Type: Reports: None Hx Tobacco Use: Yes Smoking Status (MU): Former Smoker Review of Systems Negative: Fever Positive: no symptoms reported All Other Systems Reviewed And Are Negative: Yes Physical Exam - Summary Physical Exam Summary: Appearance: The patient is well-nourished in no acute distress and in no acute pain. Skin: The skin is warm and dry and skin color reflects adequate perfusion. HEENT: The head is normocephalic and atraumatic. The pupils are equal and reactive. The conjunctivae are clear and without drainage. Nares are patent and without drainage. Mouth reveals moist mucous membranes and the throat is without erythema and exudate. The external ears are intact. The ear canals are patent and without drainage. The tympanic membranes are intact. Neck: The neck is supple with full range of motion and non-tender. There are no carotid bruits. There is no neck vein distension. Respiratory: Chest is non-tender. Lungs are clear to auscultation and breath sounds are symmetrical and equal. Cardiovascular: Heart is regular rate and rhythm. There is no murmur or rub auscultated. There is no peripheral edema and pulses are symmetrical and equal. Abdomen: The abdomen is soft and non-tender. There are normal bowel sounds heard in all four quadrants and there is no organomegaly palpated. Musculoskeletal: There is no back tenderness noted. Extremities are non-tender with full range of motion. There is good capillary refill. There is no peripheral edema or calf tenderness elicited. Neurological: Patient is alert and oriented to person, place and time. The patient has symmetrical motor strength in all four extremities. Cranial nerves are grossly intact. Deep tendon reflexes are symmetrical and equal in all four extremities. Psychiatric: The patient has an appropriate affect and does not exhibit any anxiety or depression. Triage Information Reviewed: Yes Vital Signs On Initial Exam: Initial Vitals Temp Pulse Resp BP Pulse Ox 98.7 F 99 20 105/57 94 09/01/17 08:30 09/01/17 08:30 09/01/17 08:30 09/01/17 08:30 09/01/17 08:30 Vital Signs Reviewed: Yes Diagnostics - Vital Signs Vital Signs Temp Pulse Resp BP Pulse Ox 09/01/17 08:30 98.7 F 99 20 105/57 94 - Laboratory Lab Results: Lab Results 09/01/17 09/01/17 Range/Units 09:30 09:30 WBC 10.4 (3.5-10.8) 10^3/ul RBC 3.19 L (4.0-5.4) 10^6/ul Hgb 9.8 L (14.0-18.0) g/dl Hct 29 L (42-52) % MCV 92 (80-94) fL MCH 31 (27-31) pg MCHC 33 (31-36) g/dl RDW 19 H (10.5-15) % Plt Count 325 (150-450) 10^3/ul MPV 7 L (7.4-10.4) um3 Neut % (Auto) 57.9 (38-83) % Lymph % (Auto) 9.0 L (25-47) % Sanders % (Auto) 15.1 H (1-9) % Eos % (Auto) 14.3 H (0-6) % Baso % (Auto) 3.7 H (0-2) % Absolute Neuts (auto) 6.0 (1.5-7.7) 10^3/ul Absolute Lymphs (auto) 0.9 L (1.0-4.8) 10^3/ul Absolute Monos (auto) 1.6 H (0-0.8) 10^3/ul Absolute Eos (auto) 1.5 H (0-0.6) 10^3/ul Absolute Basos (auto) 0.4 H (0-0.2) 10^3/ul Absolute Nucleated RBC 0 10^3/ul Nucleated RBC % 0 Sodium 131 L (133-145) mmol/L Potassium 3.8 (3.5-5.0) mmol/L Chloride 95 L (101-111) mmol/L Carbon Dioxide 27 (22-32) mmol/L Anion Gap 9 (2-11) mmol/L BUN 59 H (6-24) mg/dL Creatinine 4.16 H (0.67-1.17) mg/dL 1/Creatinine 0.24 L (0.67-1.17) mg/dL Est GFR ( Amer) 18.7 (>60) Est GFR (Non-Af Amer) 14.5 (>60) BUN/Creatinine Ratio 14.2 (8-20) Glucose 74 (70-100) mg/dL Calcium 9.9 (8.6-10.3) mg/dL Total Bilirubin 2.60 H (0.2-1.0) mg/dL AST 22 (13-39) U/L ALT 8 (7-52) U/L Alkaline Phosphatase 182 H (34-104) U/L Total Protein 6.2 L (6.4-8.9) g/dL Albumin 2.4 L (3.2-5.2) g/dL Globulin 3.8 (2-4) g/dL Albumin/Globulin Ratio 0.6 L (1-3) Result Diagrams: 09/01/17 09:30 09/01/17 09:30 Lab Statement: Any lab studies that have been ordered have been reviewed, and results considered in the medical decision making process. Course/Dx - Course Course Of Treatment: Mr. Geller had no C/O, went to dialysis and was D/C'd in stable condition. - Diagnoses Provider Diagnoses: End stage renal disease, Dependence on renal dialysis, Personal history of nicotine dependence, Type 2 diabetes mellitus with diabetic chronic kidney disease Discharge - Discharge Plan Condition: Stable Disposition: HOME Patient Education Materials: End Stage Kidney Disease (ED) Referrals: Lenny Julian MD [Primary Care Provider] - If Needed Additional Instructions: Follow up with your primary care provider as needed. Return to the Emergency Department if any new or worsening symptoms arise. The documentation as recorded by the Darryn moulton Natalie accurately reflects the service I personally performed and the decisions made by , Lawrence Schmidt MD.
== END 2017-09-01 13:04 | disposition home or self-care (01) ==
LOC: ED 08:29
DX: I12.0 Hypertensive chronic kidney disease with stage 5 chronic kidney disease or end stage renal disease (principal); E11.22 Type 2 diabetes mellitus with diabetic chronic kidney disease; N18.6 End stage renal disease; Z99.2 Dependence on renal dialysis; Z87.891 Personal history of nicotine dependence
CPT/HCPCS: 36415; 80053; 85025; 99282; J1644

== ENCOUNTER 2017-09-05 08:36 | Emergency (ER) | payer MEDICARE ==
--- NOTE | 2017-09-05 09:00 | ED ---
Complex/Multi-Sys Presentation - HPI Summary HPI Summary: This pt is a 62 y/o male presenting to [facility] for dialysis. Associated sx: bilateral pedal edema and generalized weakness. He does not walk at baseline and Venous stasis ulcers present to bilateral lower extremities. Symptoms not aggravated or alleviated by anything. Pt lives in a nursing facility. Information was called in by Dr. Jacinto, who requests the pt come for dialysis. PMHx renal failure. Today he states he feels "wonderful" although he is extremely lethargic and will not open his eyes. He states he is very tired since he does not sleep at night, but is otherwise feeling OK. Denies any and all symptoms this day including fevers, sweats and chills. - History Of Current Complaint Chief Complaint: EDGeneral Time Seen by Provider: 09/05/17 08:41 Hx Obtained From: Patient Onset/Duration: Sudden Onset Timing: Constant Severity Currently: Mild Severity Initially: Mild - Allergies/Home Medications Allergies/Adverse Reactions: Allergies Allergy/AdvReac Type Severity Reaction Status Date / Time Heparin Allergy Intermediate GI Upset, Verified 09/05/17 08:40 hives Cephalexin [From Keflex] Allergy Hives Verified 09/05/17 08:40 Penicillins Allergy Hives Verified 09/05/17 08:40 Rivaroxaban [From Xarelto] Allergy Unknown Verified 09/05/17 08:40 Reaction Details Sulfa Antibiotics Allergy Unknown Verified 09/05/17 08:40 Reaction Details Warfarin Allergy Unknown Verified 09/05/17 08:40 Reaction Details PMH/Surg Hx/FS Hx/Imm Hx Previously Healthy: No Endocrine/Hematology History: Reports: Hx Diabetes Cardiovascular History: Reports: Hx Hypertension GI History: Reports: Hx Diverticulosis History: Reports: Hx Chronic Renal Failure, Hx Dialysis Sensory History: Reports: Hx Contacts or Glasses Denies: Hx Hearing Aid Opthamlomology History: Reports: Hx Contacts or Glasses - Surgical History Surgery Procedure, Year, and Place: knees, bowel resection, colostomy reversal - Immunization History Hx Pertussis Vaccination: No Immunizations Up to Date: Unable to Obtain/Confirm Infectious Disease History: Yes Infectious Disease History: Denies: Hx of Known/Suspected MRSA - MRSA negative, Traveled Outside the [place] in Last 30 Days - Family History Known Family History: Positive: Unknown Negative: Cardiac Disease, Diabetes - Social History Occupation: Unemployed, Disabled Lives: Assisted Living Alcohol Use: None Hx Substance Use: No Substance Use Type: Reports: None Hx Tobacco Use: Yes Smoking Status (MU): Former Smoker Review of Systems Positive: Fatigue. Negative: Fever, Chills Eyes: Negative Respiratory: Negative Positive: no symptoms reported, see HPI Musculoskeletal: Negative Skin: Negative Psychological: Normal All Other Systems Reviewed And Are Negative: Yes Physical Exam Triage Information Reviewed: Yes Vital Signs On Initial Exam: Initial Vitals Temp Pulse Resp BP Pulse Ox 99.6 F 106 20 116/71 98 09/05/17 08:37 09/05/17 08:37 09/05/17 08:37 09/05/17 08:37 09/05/17 08:37 Vital Signs Reviewed: Yes Appearance: Positive: Ill-Appearing, Obese Skin: Positive: Purpura, Scaly Skin/Lesions, Weeping Skin/Lesions Eyes: Positive: MCKENZIE Neck: Positive: No Lymphadenopathy Respiratory/Lung Sounds: Positive: Clear to Auscultation Cardiovascular: Positive: Bradycardia Musculoskeletal: Positive: Other - unable to walk at baseline Neurological: Positive: Speech Normal Psychiatric: Positive: Affect/Mood Appropriate - [place] Coma Scale Coma Scale Total: 15 Diagnostics - Vital Signs Vital Signs Temp Pulse Resp BP Pulse Ox 09/05/17 08:37 99.6 F 106 20 116/71 98 - Laboratory Result Diagrams: 09/05/17 10:45 09/05/17 10:45 Lab Statement: Any lab studies that have been ordered have been reviewed, and results considered in the medical decision making process. Complex Multi-Symp Course/Dx Course Of Treatment: Patient is evaluated and needs to go to dialysis. He is cleared for dialysis and called for transport. On arrival back to ED he was 100.8 temp on arrival and on recheck 10 minutes later 100.0. He refuses ibuprofen or tylenol. He is noted to be 99.6 prior to dialysis. He is OK for discharge and is given strict return precatuions given fever. - Diagnoses Provider Diagnoses: Dialysis patient Discharge - Discharge Plan Condition: Stable Disposition: HOME Referrals: Lenny Julian MD [Primary Care Provider] -
[2017-09-05 11:25] LABS: Hematocrit 29 % (42-52); Hemoglobin 9.5 g/dl (14.0-18.0); Mean Corpuscular HGB Conc 33 g/dl (31-36); Mean Corpuscular Hemoglobin 31 pg (27-31); Mean Corpuscular Volume 94 fL (80-94); Mean Platelet Volume 8 um3 (7.4-10.4); Platelet Count 319 10^3/ul (150-450); Red Blood Count 3.06 10^6/ul (4.0-5.4); Red Cell Distribution Width 19 % (10.5-15); White Blood Count 9.8 10^3/ul (3.5-10.8)
[2017-09-05] MEDS ORDERED: Iron Sucrose* 20 MG/ML 5 ML VIAL IV PUSH ONE (12:00)
[2017-09-05] MEDS ORDERED: Heparin DIALYSIS ONLY(*) 1,000 UNITS/ML VIAL DIALYSIS ONE (12:00)
[2017-09-05 15:26] VITALS: BP 111/52
== END 2017-09-05 15:24 | disposition home or self-care (01) ==
LOC: ED 08:36
DX: I12.0 Hypertensive chronic kidney disease with stage 5 chronic kidney disease or end stage renal disease (principal); E11.22 Type 2 diabetes mellitus with diabetic chronic kidney disease; N18.6 End stage renal disease; Z99.2 Dependence on renal dialysis; K57.90 Diverticulosis of intestine, part unspecified, without perforation or abscess without bleeding; Z87.891 Personal history of nicotine dependence
CPT/HCPCS: 36415; 80053; 82728; 83540; 83550; 85027; 96374; 99281; J1644; J1756

== ENCOUNTER 2017-10-05 14:39 | Inpatient (IN) | payer MEDICARE ==
[2017-10-05] MEDS ORDERED: NS 0.9% 1000 ML*IV.FLUID IV ONE (15:09)
[2017-10-05 15:35] LABS: ABS Basophils 0 10^3/ul (0-0.2); ABS Eosinophils 1.6 10^3/ul (0-0.6); ABS Lymphocytes 1.3 10^3/ul (1.0-4.8); ABS Monocytes 0.9 10^3/ul (0-0.8); ABS Neutrophils 3.6 10^3/ul (1.5-7.7); ABS Nucleated RBC 0 10^3/ul; Eosinophil % 21.3 % (0-6); Hematocrit 36 % (42-52); Hemoglobin 11.6 g/dl (14.0-18.0); Lymphocyte % 17.8 % (25-47); Mean Corpuscular HGB Conc 32 g/dl (31-36); Mean Corpuscular Hemoglobin 32 pg (27-31); Mean Corpuscular Volume 99 fL (80-94); Mean Platelet Volume 8 um3 (7.4-10.4); Nucleated Red Blood Cells % 0.2; Platelet Count 258 10^3/ul (150-450); Red Blood Count 3.66 10^6/ul (4.0-5.4); Red Cell Distribution Width 19 % (10.5-15); White Blood Count 7.4 10^3/ul (3.5-10.8)
[2017-10-05 15:53] LABS: INR 1.31 (0.77-1.02)
[2017-10-05 16:05] LABS: EGFR Non-African American 22.4 (>60)
--- NOTE | 2017-10-05 16:12 | RAD ---
Indication: Confusion. Single frontal view of the chest performed at 1540 hours was reviewed. Comparison is made with previous exam dated August 10, 2017. No mediastinal shift is noted. Heart is of normal size and configuration. Interstitial edema consistent with CHF is noted although findings are similar to that seen on August 10, 2017. IMPRESSION: CARDIOMEGALY WITH INTERSTITIAL EDEMA CONSISTENT WITH VASCULAR CONGESTION.
[2017-10-05] MEDS ORDERED: Benzocaine/Menthol LOZ* 1 LOZENGE PO PRN (18:03)
[2017-10-05] MEDS: guaiFENesin ER TAB 600 MG PO SCH (20:24)
[2017-10-05] MEDS: RiFAXimin* 550 MG TAB PO SCH (20:24)
[2017-10-05] MEDS: CMCS:Midodrine (NF) 5 MG TAB PO SCH (20:24)
[2017-10-05] MEDS: Atorvastatin* 10 MG TAB PO SCH (20:25)
[2017-10-05] MEDS: Sodium Citrate/Citric Acid* 15 ML UDC PO SCH (20:25)
[2017-10-05] MEDS: Hydrocortisone 1% CREAM* 30 GM TUBE TOPICAL SCH (20:29)
--- NOTE | 2017-10-05 22:06 | ED ---
Chan Joseph Thomas, scribed for Mckenzie Downing MD on 10/05/17 at 1626 . Complex/Multi-Sys Presentation - HPI Summary HPI Summary: The patient is a 62 year old male brought in by ambulance from the assisted with shortness of breath and confusion all day. At baseline, he is typically awake, alert, and oriented. He is arousable and speaks in 1-2 word phrases. He has swelling to his lower extremities. He is edematous to his upper thighs. There is dry skin crusting and fungus to his toenails. LEVEL 5 CAVEAT: HPI LIMITED BY LIMITED RESPONSIVENESS OF PATIENT - History Of Current Complaint Chief Complaint: EDShortnessOfBreath Time Seen by Provider: 10/05/17 15:09 Hx Obtained From: Patient Onset/Duration: Still Present Timing: Constant Severity Currently: Moderate Severity Initially: Moderate Aggravating Factor(s): Unknown Alleviating Factor(s): None Associated Signs And Symptoms: Positive: Other - SOB, confusion, edema - Allergies/Home Medications Allergies/Adverse Reactions: Allergies Allergy/AdvReac Type Severity Reaction Status Date / Time Heparin Allergy Intermediate GI Upset, Verified 09/05/17 08:40 hives Cephalexin [From Keflex] Allergy Hives Verified 09/05/17 08:40 Penicillins Allergy Hives Verified 09/05/17 08:40 Rivaroxaban [From Xarelto] Allergy Unknown Verified 09/05/17 08:40 Reaction Details Sulfa Antibiotics Allergy Unknown Verified 09/05/17 08:40 Reaction Details Warfarin Allergy Unknown Verified 09/05/17 08:40 Reaction Details Home Medications: Home Medications Atorvastatin* [Lipitor 10 MG*] 10 mg PO 1900 10/05/17 [History Confirmed ] Benzocaine/Menthol ANALILIA* [Chloraseptic ANALILIA*] 1 analilia PO Q2H PRN 10/05/17 [History Confirmed 10/05/17] Lactobacillus Acidophilu (GG)* [Culturelle*] 1 cap PO QAM 10/05/17 [History Confirmed 10/05/17] Lactulose* 30 ml PO BID 10/05/17 [History Confirmed 10/05/17] Omeprazole CAP* [Prilosec CAP* 20 MG] 20 mg PO 0700 10/05/17 [History Confirmed 10/05/17] RiFAXimin* [Xifaxan*] 550 mg PO 0800,199910/05/17 [History Confirmed 10/05/17] Sodium Citrate/Citric Acid* [Bicitra*] 15 ml PO 0800,199910/05/17 [History Confirmed 10/05/17] guaiFENesin ER TAB [Mucinex*] 1,200 mg PO 0800,199910/05/17 [History Confirmed 10/05/17] oxyCODONE/Acetamin 5/325 MG* [Percocet 5/325 TAB*] 1 tab PO Q6H PRN 10/05/17 [ History Confirmed 10/05/17] PMH/Surg Hx/FS Hx/Imm Hx Endocrine/Hematology History: Reports: Hx Diabetes Cardiovascular History: Reports: Hx Hypertension GI History: Reports: Hx Diverticulosis History: Reports: Hx Chronic Renal Failure, Hx Dialysis Sensory History: Reports: Hx Contacts or Glasses Denies: Hx Hearing Aid Opthamlomology History: Reports: Hx Contacts or Glasses - Surgical History Surgery Procedure, Year, and Place: knees, bowel resection, colostomy reversal Infectious Disease History: Unable to Obtain/Confirm Infectious Disease History: Denies: Hx of Known/Suspected MRSA - MRSA negative, Traveled Outside the [place] in Last 30 Days - Family History Known Family History: Negative: Cardiac Disease, Diabetes - Social History Lives: [facility] Alcohol Use: None Hx Substance Use: No Substance Use Type: Reports: None Hx Tobacco Use: Yes Smoking Status (MU): Former Smoker Review of Systems - ROS Summary Review of Systems Summary: LEVEL 5 CAVEAT: ROS LIMITED BY LIMITED RESPONSIVENESS OF PATIENT Negative: Fever Positive: Shortness Of Breath Positive: Edema Neurological: Other - Confusion All Other Systems Reviewed And Are Negative: No Physical Exam - Summary Physical Exam Summary: LEVEL 5 CAVEAT: PHYSICAL EXAM LIMITED BY LIMITED RESPONSIVENESS OF PATIENT Appearance: He is arousable and speaks in 1-2 word phrases. HEENT: Moist mucous membranes Neck: No masses on the neck, supple Respiratory: He has diminished breath sounds. Cardiovascular: Tachycardia. Abdomen: Soft, non-tender Extremities: He has swelling to his lower extremities. He is edematous to his upper thighs. There is dry skin crusting and fungus to his toenails. Musculoskeletal: No obvious deformity, moving all extremities in a grossly normal manner Neurological: He is arousable and speaks in 1-2 word phrases. Triage Information Reviewed: Yes Vital Signs On Initial Exam: Initial Vitals Temp Pulse Resp BP Pulse Ox 97.5 F 103 20 130/75 98 10/05/17 14:44 10/05/17 14:44 10/05/17 14:44 10/05/17 14:44 10/05/17 14:44 Vital Signs Reviewed: Yes Diagnostics - Vital Signs Vital Signs Temp Pulse Resp BP Pulse Ox 10/05/17 15:15 103 23 123/79 98 10/05/17 15:10 103 21 96 10/05/17 14:44 97.5 F 103 20 130/75 98 - Laboratory Lab Results: Lab Results 10/05/17 10/05/17 10/05/17 Range/Units 15:21 15:21 15:21 WBC 7.4 (3.5-10.8) 10^3/ul RBC 3.66 L (4.0-5.4) 10^6/ul Hgb 11.6 L (14.0-18.0) g/dl Hct 36 L (42-52) % MCV 99 H (80-94) fL MCH 32 H (27-31) pg MCHC 32 (31-36) g/dl RDW 19 H (10.5-15) % Plt Count 258 (150-450) 10^3/ul MPV 8 (7.4-10.4) um3 Neut % (Auto) 48.1 (38-83) % Lymph % (Auto) 17.8 L (25-47) % Rabun % (Auto) 12.1 H (1-9) % Eos % (Auto) 21.3 H (0-6) % Baso % (Auto) 0.7 (0-2) % Absolute Neuts (auto) 3.6 (1.5-7.7) 10^3/ul Absolute Lymphs (auto) 1.3 (1.0-4.8) 10^3/ul Absolute Monos (auto) 0.9 H (0-0.8) 10^3/ul Absolute Eos (auto) 1.6 H (0-0.6) 10^3/ul Absolute Basos (auto) 0 (0-0.2) 10^3/ul Absolute Nucleated RBC 0 10^3/ul Nucleated RBC % 0.2 INR (Anticoag Therapy) 1.31 H (0.77-1.02) APTT 41.3 H (26.0-36.3) seconds Sodium 140 (133-145) mmol/L Potassium 4.3 (3.5-5.0) mmol/L Chloride 106 (101-111) mmol/L Carbon Dioxide 28 (22-32) mmol/L Anion Gap 6 (2-11) mmol/L BUN 35 H (6-24) mg/dL Creatinine 2.86 H (0.67-1.17) mg/dL Est GFR ( Amer) 28.8 (>60) Est GFR (Non-Af Amer) 22.4 (>60) BUN/Creatinine Ratio 12.2 (8-20) Glucose 79 (70-100) mg/dL Lactic Acid (0.5-2.0) mmol/L Calcium 11.6 H (8.6-10.3) mg/dL Phosphorus 4.2 (2.5-5.0) mg/dL Magnesium 2.0 (1.9-2.7) mg/dL Total Bilirubin 1.80 H (0.2-1.0) mg/dL AST 15 (13-39) U/L ALT 6 L (7-52) U/L Alkaline Phosphatase 195 H (34-104) U/L Troponin I 0.03 (<0.04) ng/mL B-Natriuretic Peptide ( - 100) pg/mL Total Protein 7.4 (6.4-8.9) g/dL Albumin 2.8 L (3.2-5.2) g/dL Globulin 4.6 H (2-4) g/dL Albumin/Globulin Ratio 0.6 L (1-3) 10/05/17 10/05/17 Range/Units 15:21 15:21 WBC (3.5-10.8) 10^3/ul RBC (4.0-5.4) 10^6/ul Hgb (14.0-18.0) g/dl Hct (42-52) % MCV (80-94) fL MCH (27-31) pg MCHC (31-36) g/dl RDW (10.5-15) % Plt Count (150-450) 10^3/ul MPV (7.4-10.4) um3 Neut % (Auto) (38-83) % Lymph % (Auto) (25-47) % Rabun % (Auto) (1-9) % Eos % (Auto) (0-6) % Baso % (Auto) (0-2) % Absolute Neuts (auto) (1.5-7.7) 10^3/ul Absolute Lymphs (auto) (1.0-4.8) 10^3/ul Absolute Monos (auto) (0-0.8) 10^3/ul Absolute Eos (auto) (0-0.6) 10^3/ul Absolute Basos (auto) (0-0.2) 10^3/ul Absolute Nucleated RBC 10^3/ul Nucleated RBC % INR (Anticoag Therapy) (0.77-1.02) APTT (26.0-36.3) seconds Sodium (133-145) mmol/L Potassium (3.5-5.0) mmol/L Chloride (101-111) mmol/L Carbon Dioxide (22-32) mmol/L Anion Gap (2-11) mmol/L BUN (6-24) mg/dL Creatinine (0.67-1.17) mg/dL Est GFR ( Amer) (>60) Est GFR (Non-Af Amer) (>60) BUN/Creatinine Ratio (8-20) Glucose (70-100) mg/dL Lactic Acid 1.4 (0.5-2.0) mmol/L Calcium (8.6-10.3) mg/dL Phosphorus (2.5-5.0) mg/dL Magnesium (1.9-2.7) mg/dL Total Bilirubin (0.2-1.0) mg/dL AST (13-39) U/L ALT (7-52) U/L Alkaline Phosphatase (34-104) U/L Troponin I (<0.04) ng/mL B-Natriuretic Peptide 484 H ( - 100) pg/mL Total Protein (6.4-8.9) g/dL Albumin (3.2-5.2) g/dL Globulin (2-4) g/dL Albumin/Globulin Ratio (1-3) Result Diagrams: 10/05/17 15:21 10/05/17 15:21 Lab Statement: Any lab studies that have been ordered have been reviewed, and results considered in the medical decision making process. - Radiology CXR Xray Interpretation: Positive (See Comments) - CARDIOMEGALY WITH INTERSTITIAL EDEMA CONSISTENT WITH VASCULAR CONGESTION. Dr. Downing has reviewed this report. Radiology Interpretation Completed By: Radiologist - EKG 15:10 Cardiac Rate: Tachycardia EKG Interpretation: Atrial tachycardia at 103 BPM. Prolonged QRS. Normal QTc. Complex Multi-Symp Course/Dx Course Of Treatment: pt presented with ams and dypsnea. pt admitted to medicine for further care. pt was admitted early in his ED stay. - Diagnoses Provider Diagnoses: CHF (congestive heart failure), Altered mental status, unspecified - Physician Notifications Discussed Care Of Patient With: Rosalba Shah Time Discussed With Above Provider: 16:38 Instructed by Provider To: Admit As Inpatient Discharge - Discharge Plan Condition: Stable Disposition: ADMITTED TO [facility] The documentation as recorded by the Chan moulton Thomas accurately reflects the service I personally performed and the decisions made by Chang cortes Norma, MD.
--- NOTE | 2017-10-05 22:50 | HP ---
CC: Providers at [facility]. * HOSPITAL MEDICINE HISTORY AND PHYSICAL: DATE OF ADMISSION: 10/05/17. ATTENDING PHYSICIAN: Maryam Begum DO * (dictation provided by Lorna Schulz NP ). CHIEF COMPLAINT: Altered mental status. HISTORY OF PRESENT ILLNESS: Mr. Geller is a 62-year-old male resident of [facility], who has a history of endstage renal disease on hemodialysis. Per the report from the half-way, the patient stop taking dialysis two weeks ago as he "graduated" and no longer needed that service. The patient was doing well until yesterday when it was noted that he had an elevated respiratory rate. Today, it was noted that he had concern for depressed mentation and therefore he was sent to the emergency room for evaluation. In the emergency room, he has altered mental status and is arousable but not saying anything coherent and therefore is not able to provide any information today. In the emergency room, Mr. Geller had labs which showed that his creatinine was 2.86, which was consistent with his recent history, BUN was only 35. His electrolytes were normal. His lactic acid was 1.4, his BNP is 484, which is consistent with previous. His chest x-ray showed vascular congestion, but this is also consistent with previous x-rays. PAST MEDICAL HISTORY: 1. Endstage renal disease, previously on hemodialysis. 2. History of MRSA bacteremia due to dialysis catheter infection. 3. History of congestive heart failure. 4. Hyperammonemia. 5. Morbid obesity. 6. Cellulitis. MEDICATIONS: 1. Oxycodone/acetaminophen 5/325 mg one tab p.o. q. 6 hours p.r.n. 2. Lactulose 30 mL p.o. b.i.d. 3. Omeprazole 20 mg p.o. daily. 4. Lactobacillus one cap p.o. q.a.m. 5. Hydrocortisone cream b.i.d. 6. Bicitra 15 mL at 8 a.m. b.i.d. 7. Rifaximin 550 mg p.o. b.i.d. 8. Guaifenesin ER 1200 mg p.o. b.i.d. 9. Midodrine 10 mg p.o. t.i.d. 10. Atorvastatin 10 mg p.o. daily. 11. Chloraseptic as needed. ALLERGIES: HEPARIN, CEPHALEXIN, PENICILLIN, RIVAROXABAN, SULFA ANTIBIOTICS AND WARFARIN. FAMILY HISTORY: Unobtainable today. SOCIAL HISTORY: Unobtainable today. The patient resides at [facility]. REVIEW OF SYSTEMS: Unobtainable today. PHYSICAL EXAMINATION GENERAL: Ms. Geller is lying in bed. He does not appear to be in any distress. VITAL SIGNS: Temperature 97.5, pulse rate 102, O2 saturation 92% on room air, blood pressure 105/67. LUNGS: Clear to auscultation bilaterally, but very diminished and auscultation is quite difficult given his obesity. HEART: S1 and S2. There is no murmur, rub, or gallop. ABDOMEN: Soft and nontender. EXTREMITIES: No cyanosis, positive for 2 to 3+ pitting edema. NEUROLOGIC: He is drowsy, but he awakens to voice. He mumbles incoherently when I asked questions. He seems to move all extremities. His pupils are equal and reactive. His face is symmetrical. SKIN: No open areas identified in the emergency department. LABORATORY DATA: WBC 7.4, hemoglobin 11.6, hematocrit 36, and platelet count 258. INR 1.31. Sodium 140, potassium 4.3, chloride 106, serum bicarbonate 28, BUN 35, creatinine 2.86, glucose 79. Lactic acid 1.4. Ammonia levels pending. BNP is 484. Chest x-ray shows chronic vascular congestion similar to previous. ASSESSMENT: Mr. Geller is a 62-year-old male who has a history of congestive heart failure and endstage renal disease on hemodialysis, who reportedly was taken off dialysis two weeks ago as he had improved significantly in terms of his renal function. He presents today from [facility] with concerns that he had an elevated respiratory rate yesterday, now with altered mental status. Our plans are for an inpatient admission as I expect his length of stay to be greater than 2 days for the followin. Altered mental status: It is not quite clear what is driving Mr. Geller's altered mental status at this point. He does have an ammonia level pending as well as an ABG, which perhaps will be revealing. His BUN and creatinine are not significantly elevated and consistent with previous. He does not have any sign of infection. He has no fever. No leukocytosis. Plan to follow up on ABG and ammonia level and continue to evaluate for any new symptomatology to explain his apparent encephalopathy today. I will note during this previous admission to the hospital that his mental status would wax and wane to some degree. 2. Endstage renal disease. No longer on hemodialysis. The patient's BUN and creatinine are essentially at his current baseline. I see no indication for the resumption of dialysis at this point. We will try to hold any nephrotoxins and we will review the case with Dr. Jacinto when he is available. 3. DVT prophylaxis with heparin subcu. 4. Code status is full code. TIME SPENT: Approximately 60 minutes were spent on the admission of this patient; more than half time was spent with the patient at the bedside reviewing the events leading up to this hospitalization, performing the physical examination, and reviewing my plan of care. LORNA SCHULZ NP [id number]/CPS #: [id number] BRITANY
[2017-10-06] MEDS: Omeprazole CAP* 20 MG PO SCH (05:48)
[2017-10-06 06:17] LABS: ABS Basophils 0.3 10^3/ul (0-0.2); ABS Eosinophils 1.5 10^3/ul (0-0.6); ABS Lymphocytes 1.2 10^3/ul (1.0-4.8); ABS Monocytes 0.9 10^3/ul (0-0.8); ABS Neutrophils 3.3 10^3/ul (1.5-7.7); ABS Nucleated RBC 0 10^3/ul; Eosinophil % 20.6 % (0-6); Hematocrit 33 % (42-52); Hemoglobin 10.6 g/dl (14.0-18.0); Lymphocyte % 16.6 % (25-47); Mean Corpuscular HGB Conc 32 g/dl (31-36); Mean Corpuscular Hemoglobin 31 pg (27-31); Mean Corpuscular Volume 98 fL (80-94); Mean Platelet Volume 8 um3 (7.4-10.4); Nucleated Red Blood Cells % 0.1; Platelet Count 218 10^3/ul (150-450); Red Blood Count 3.39 10^6/ul (4.0-5.4); Red Cell Distribution Width 18 % (10.5-15); White Blood Count 7.1 10^3/ul (3.5-10.8)
[2017-10-06 06:46] LABS: EGFR Non-African American 22.1 (>60)
[2017-10-06] MEDS: Sodium Citrate/Citric Acid* 15 ML UDC PO SCH ×2 (07:56→20:11)
[2017-10-06] MEDS: guaiFENesin ER TAB 600 MG PO SCH ×2 (07:56→20:11)
[2017-10-06] MEDS: RiFAXimin* 550 MG TAB PO SCH ×2 (07:57→20:12)
[2017-10-06] MEDS: Hydrocortisone 1% CREAM* 30 GM TUBE TOPICAL SCH ×2 (07:57→20:13)
[2017-10-06] MEDS: CMCS:Midodrine (NF) 5 MG TAB PO SCH ×3 (07:57→20:12)
--- NOTE | 2017-10-06 08:34 | PN ---
Subjective Date of Service: 10/06/17 Interval History: Mr. Geller is more responsive than yesterday. He was able to finish his breakfast and does answer yes/no and follow commands. However, he remains lethargic and not at baseline. He also appears slightly more short of breath than on admission. He denies any complaint to me but his nurse notes that he did complain of this to her. Objective Active Medications: Atorvastatin Calcium (Lipitor*) 10 mg PO 1900 MASTER Citric Acid/Sodium Citrate (Bicitra*) 15 ml PO 0800,2000 MASTER Guaifenesin (Mucinex*) 1,200 mg PO 0800,2000 MASTER Hydrocortisone (Hytone Cream 1%*) 1 applic TOPICAL BID MASTER Midodrine (Midodrine (Nf)) 10 mg PO TID MASTER Omeprazole (Prilosec Cap*) 20 mg PO 0700 MASTER Rifaximin (Xifaxan*) 550 mg PO 0800,2000 MASTER Throat Lozenges (Chloraseptic Sudheer*) 1 sudheer PO Q2H PRN Vital Signs: Temp Pulse Resp BP Pulse Ox 97.2 F 102 16 130/70 91 10/06/17 07:34 10/06/17 07:34 10/06/17 07:34 10/06/17 07:34 10/06/17 07:34 Oxygen Devices in Use Now: None Appearance: Obese male lying in bed in NAD Eyes: No Scleral Icterus Ears/Nose/Mouth/Throat: Mucous Membranes Moist Neck: Trachea Midline Respiratory: Symmetrical Chest Expansion and Respiratory Effort, - - Wheezing noted at bedside, difficult auscultation due to body habitus Cardiovascular: - - +2 lower extremity edema Abdominal: NL Sounds; No Tenderness; No Distention Skin: - - bilateral LEs red and dry, appears chronic with no active infection, minimal excoriation to buttocks Neurological: - - awakens to voice, will say one or two words, lethargic, follows commands weakly Nutrition: Taking PO's Result Diagrams: 10/06/17 05:49 10/06/17 05:49 Additional Lab and Data: . Assess/Plan/Problems-Billing Assessment: Mr. Geller is a 62 yo M with a PMH of recent acute on chronic renal failure now off hemodialysis, episodes of hyperammonemia who was admitted on 10/05/17 with altered mental status. - Patient Problems (1) Altered mental status Comment: - At this point, suspect this is related to elevated ammonia. - Plan to continue lactulose and rifaximin. - No evidence of infection or other etiology for encephalopathy. (2) Hepatic encephalopathy Comment: - Ammonia level 90 on arrival. - Increase dose of lactulose, continue rifaximin. (3) CHF (congestive heart failure) Comment: - EF 40-45% by most recent echo. - Has lower extremity edema and vascular congestion on xray, both of which are chronic. However he does appear somewhat SOB today therefore does have component of acute on chronic CHF. - Will start low dose lasix. - Monitor I/Os and daily weights. (4) CKD (chronic kidney disease) stage 4, GFR 15-29 ml/min Comment: - Creatinine stable at current baseline. - Continue bicitra. - Will give low dose lasix for edema and vascular congestion, monitor Cr closely. (5) HTN (hypertension) Comment: - SBP 100-150. - Continue Midodrine TID. (6) HLD (hyperlipidemia) Comment: - Continue atorvastatin. (7) DVT prophylaxis Comment: - SCDs and fondaparinux, heparin allergy. Status and Disposition: Inpatient with expected LOS > 2 days. Anticipate discharge back to [facility] when medically stable.
[2017-10-06] MEDS: Fondaparinux* 2.5 MG/0.5 ML SYRINGE SUBCUT SCH (10:46)
[2017-10-06] MEDS: Furosemide TAB* 20 MG PO SCH (10:46)
[2017-10-06] MEDS: Atorvastatin* 10 MG TAB PO SCH (17:20)
[2017-10-07] MEDS: Omeprazole CAP* 20 MG PO SCH (08:52)
[2017-10-07] MEDS: Furosemide TAB* 20 MG PO SCH (08:53)
[2017-10-07] MEDS: Hydrocortisone 1% CREAM* 30 GM TUBE TOPICAL SCH ×2 (08:53→20:22)
[2017-10-07] MEDS: RiFAXimin* 550 MG TAB PO SCH ×2 (08:53→20:21)
[2017-10-07] MEDS: guaiFENesin ER TAB 600 MG PO SCH ×2 (08:53→20:21)
[2017-10-07] MEDS: Fondaparinux* 2.5 MG/0.5 ML SYRINGE SUBCUT SCH (08:53)
[2017-10-07] MEDS: CMCS:Midodrine (NF) 5 MG TAB PO SCH ×3 (08:53→20:21)
[2017-10-07] MEDS: Sodium Citrate/Citric Acid* 15 ML UDC PO SCH ×2 (08:53→20:21)
--- NOTE | 2017-10-07 13:33 | PN ---
Subjective Date of Service: 10/07/17 Interval History: Patient has no new complaints. Breathing a bit better today. Tolerating food. He knows he's in [place]. He thinks it's the 1st of the month. Receiving lactulose. Denies diarrhea. Family History: Unchanged from Admission Social History: Unchanged from Admission Past Medical History: Unchanged from Admission Objective Active Medications: Atorvastatin Calcium (Lipitor*) 10 mg PO 1900 [facility] Last Admin: 10/06/17 17:20 Dose: 10 mg Citric Acid/Sodium Citrate (Bicitra*) 15 ml PO [facility] Last Admin: 10/07/17 08:53 Dose: 15 ml Fondaparinux (Arixtra*) 2.5 mg SUBCUT DAILY [facility] Last Admin: 10/07/17 08:53 Dose: 2.5 mg Furosemide (Lasix Tab*) 20 mg PO DAILY [facility] Last Admin: 10/07/17 08:53 Dose: 20 mg Guaifenesin (Mucinex*) 1,200 mg PO [facility] Last Admin: 10/07/17 08:53 Dose: 1,200 mg Hydrocortisone (Hytone Cream 1%*) 1 applic TOPICAL BID [facility] Last Admin: 10/07/17 08:53 Dose: 1 applic Lactulose (Lactulose*) 30 ml PO TID [facility] Last Admin: 10/07/17 13:00 Dose: 30 ml Midodrine (Midodrine (Nf)) 10 mg PO TID [facility] PRN Reason: Protocol Last Admin: 10/07/17 13:00 Dose: 10 mg Omeprazole (Prilosec Cap*) 20 mg PO 0700 [facility] Last Admin: 10/07/17 08:52 Dose: 20 mg Rifaximin (Xifaxan*) 550 mg PO [facility] Last Admin: 10/07/17 08:53 Dose: 550 mg Throat Lozenges (Chloraseptic Sudheer*) 1 sudheer PO Q2H PRN PRN Reason: COUGH Vital Signs - 8 hr 10/07/17 10/07/17 10/07/17 07:45 08:00 11:52 Temperature 36.3 C 36.2 C Pulse Rate 100 101 Respiratory 16 28 22 Rate Blood Pressure 112/57 126/67 (mmHg) O2 Sat by Pulse 94 94 93 Oximetry Oxygen Devices in Use Now: None Appearance: obese, no distress Eyes: No Scleral Icterus Ears/Nose/Mouth/Throat: Clear Oropharnyx Neck: NL Appearance and Movements; NL JVP Respiratory: Symmetrical Chest Expansion and Respiratory Effort, Clear to Auscultation Cardiovascular: NL Sounds; No Murmurs; No JVD, RRR Abdominal: - - obese, massively distended Lymphatic: No Cervical Adenopathy Extremities: - Neurological: - - oriented Lines/Tubes/Other Access: Clean, Dry and Intact Peripheral IV Nutrition: Taking PO's Result Diagrams: 10/06/17 05:49 10/06/17 05:49 Additional Lab and Data: Laboratory Tests 10/05/17 10/05/17 10/05/17 15:21 15:21 20:25 Ammonia 90 H B-Natriuretic Peptide 484 H Albumin 2.8 L Assess/Plan/Problems-Billing Assessment: Mr. Geller is a 62 yo M with a PMH of recent acute on chronic renal failure now off hemodialysis, episodes of hyperammonemia who was admitted on 10/05/17 with altered mental status. - Patient Problems (1) Altered mental status Current Visit: Yes Status: Acute Priority: High Code(s): R41.82 - ALTERED MENTAL STATUS, UNSPECIFIED SNOMED Code(s): 473647069 Comment: - improving MS as ammonia treated - Plan to continue lactulose and rifaximin. - hypercalcemia could be contributing to encephalopathy. (2) CKD (chronic kidney disease) stage 4, GFR 15-29 ml/min Current Visit: Yes Status: Chronic Priority: Medium Code(s): N18.4 - CHRONIC KIDNEY DISEASE, STAGE 4 (SEVERE) SNOMED Code(s): 496801544 Comment: - Creatinine stable after starting lasix. - Continue bicitra. - continue low dose lasix for edema and vascular congestion, monitor Cr closely. (3) Hypercalcemia Current Visit: Yes Status: Acute Priority: Medium Code(s): E83.52 - HYPERCALCEMIA SNOMED Code(s): 05631350 Comment: - corrected Ca 12.9, moderate-severe - likely related to CKD - checking VitD, PTH, calcium ionized (4) DVT prophylaxis Current Visit: No Status: Acute Priority: Low Code(s): WAL7502 - SNOMED Code(s): 429195032 Comment: - SCDs and fondaparinux, heparin allergy. Status and Disposition: Inpatient with expected LOS > 2 days. Anticipate discharge back to [facility] [place] when medically stable.
[2017-10-07] MEDS: Atorvastatin* 10 MG TAB PO SCH (18:28)
[2017-10-08 07:29] LABS: EGFR Non-African American 19.6 (>60)
[2017-10-08] MEDS: Fondaparinux* 2.5 MG/0.5 ML SYRINGE SUBCUT SCH (07:41)
[2017-10-08] MEDS: Sodium Citrate/Citric Acid* 15 ML UDC PO SCH ×2 (07:41→20:19)
[2017-10-08] MEDS: guaiFENesin ER TAB 600 MG PO SCH ×2 (07:42→20:19)
[2017-10-08] MEDS: Omeprazole CAP* 20 MG PO SCH (07:42)
[2017-10-08] MEDS: Furosemide TAB* 20 MG PO SCH (07:42)
[2017-10-08] MEDS: RiFAXimin* 550 MG TAB PO SCH ×2 (07:42→20:19)
[2017-10-08] MEDS: CMCS:Midodrine (NF) 5 MG TAB PO SCH ×3 (07:42→20:19)
[2017-10-08] MEDS: Hydrocortisone 1% CREAM* 30 GM TUBE TOPICAL SCH ×2 (07:42→20:19)
[2017-10-08 08:52] LABS: ABS Basophils 0.4 10^3/ul (0-0.2); ABS Eosinophils 1.5 10^3/ul (0-0.6); ABS Lymphocytes 1.5 10^3/ul (1.0-4.8); ABS Monocytes 1.2 10^3/ul (0-0.8); ABS Neutrophils 4.7 10^3/ul (1.5-7.7); ABS Nucleated RBC 0 10^3/ul; Eosinophil % 15.9 % (0-6); Hematocrit 29 % (42-52); Hemoglobin 9.2 g/dl (14.0-18.0); Lymphocyte % 16.2 % (25-47); Mean Corpuscular HGB Conc 32 g/dl (31-36); Mean Corpuscular Hemoglobin 32 pg (27-31); Mean Corpuscular Volume 99 fL (80-94); Mean Platelet Volume 8 um3 (7.4-10.4); Nucleated Red Blood Cells % 0.2; Platelet Count 229 10^3/ul (150-450); Red Blood Count 2.93 10^6/ul (4.0-5.4); Red Cell Distribution Width 18 % (10.5-15); White Blood Count 9.3 10^3/ul (3.5-10.8)
--- NOTE | 2017-10-08 11:29 | PN ---
Subjective Date of Service: 10/08/17 Interval History: Patient more confused today. He does not know where he is. He cannot say whether he is voiding adequately. He is eating OK. Family History: Unchanged from Admission Social History: Unchanged from Admission Past Medical History: Unchanged from Admission Objective Active Medications: Atorvastatin Calcium (Lipitor*) 10 mg PO 1900 [facility] Last Admin: 10/07/17 18:28 Dose: 10 mg Citric Acid/Sodium Citrate (Bicitra*) 15 ml PO [facility] Last Admin: 10/08/17 07:41 Dose: 15 ml Fondaparinux (Arixtra*) 2.5 mg SUBCUT DAILY [facility] Last Admin: 10/08/17 07:41 Dose: 2.5 mg Furosemide (Lasix Tab*) 20 mg PO DAILY [facility] Last Admin: 10/08/17 07:42 Dose: 20 mg Guaifenesin (Mucinex*) 1,200 mg PO 799,1999 [facility] Last Admin: 10/08/17 07:42 Dose: 1,200 mg Hydrocortisone (Hytone Cream 1%*) 1 applic TOPICAL BID [facility] Last Admin: 10/08/17 07:42 Dose: 1 applic Lactulose (Lactulose*) 30 ml PO TID [facility] Last Admin: 10/08/17 07:41 Dose: 30 ml Midodrine (Midodrine (Nf)) 10 mg PO TID [facility] PRN Reason: Protocol Last Admin: 10/08/17 07:42 Dose: 10 mg Omeprazole (Prilosec Cap*) 20 mg PO 0700 [facility] Last Admin: 10/08/17 07:42 Dose: 20 mg Rifaximin (Xifaxan*) 550 mg PO [facility] Last Admin: 10/08/17 07:42 Dose: 550 mg Throat Lozenges (Chloraseptic Sudheer*) 1 sudheer PO Q2H PRN PRN Reason: COUGH Vital Signs - 8 hr 10/08/17 10/08/17 10/08/17 03:28 07:52 08:00 Pulse Rate 100 100 Respiratory 17 20 20 Rate Blood Pressure 138/78 121/65 (mmHg) O2 Sat by Pulse 81 90 90 Oximetry Oxygen Devices in Use Now: None Appearance: lethargic, no resp distress Neck: NL Appearance and Movements; NL JVP Respiratory: Clear to Auscultation Cardiovascular: NL Sounds; No Murmurs; No JVD, RRR Abdominal: NL Sounds; No Tenderness; No Distention, - - obese, soft, NT Extremities: - - 1+ edema bilat LE Skin: - - chronic venous stasis bilat Neurological: Alert and Oriented x 3 Lines/Tubes/Other Access: Clean, Dry and Intact Peripheral IV Nutrition: Taking PO's Result Diagrams: 10/08/17 08:20 10/08/17 06:55 Additional Lab and Data: Laboratory Tests 10/08/17 10/08/17 10/08/17 06:55 06:55 06:55 Hct Calcium 11.5 H Ionized Calcium 5.99 H Alkaline Phosphatase 186 H Ammonia 78 H Albumin 2.6 L 25-OH Vitamin D Total PTH Intact Calcium (PTH Intact) 10/08/17 10/08/17 10/08/17 06:55 06:55 08:20 Hct 29 L Calcium Ionized Calcium Alkaline Phosphatase Ammonia Albumin 25-OH Vitamin D Total 22.0 PTH Intact 4.4 Calcium (PTH Intact) 11.3 H Assess/Plan/Problems-Billing Assessment: Mr. Geller is a 62 yo M with a PMH of recent acute on chronic renal failure now off hemodialysis, episodes of hyperammonemia who was admitted on 10/05/17 with altered mental status. - Patient Problems (1) Altered mental status Current Visit: Yes Status: Acute Priority: High Code(s): R41.82 - ALTERED MENTAL STATUS, UNSPECIFIED SNOMED Code(s): 594727076 Comment: - mental status worse today, though NH3 better - Plan to continue lactulose and rifaximin. - hypercalcemia could be contributing to encephalopathy. (2) CKD (chronic kidney disease) stage 4, GFR 15-29 ml/min Current Visit: Yes Status: Chronic Priority: Medium Code(s): N18.4 - CHRONIC KIDNEY DISEASE, STAGE 4 (SEVERE) SNOMED Code(s): 123323619 Comment: - Creatinine now worse. Will stop lasix - Continue bicitra. - may have post-renal obstruction. Ultrasound ordered of kidneys/bladder - discussed case with Dr. Jacinto and Dr. Hutchison - anemia worsened, will check erythopoetin and iron stores. (3) Hypercalcemia Current Visit: Yes Status: Acute Priority: Medium Code(s): E83.52 - HYPERCALCEMIA SNOMED Code(s): 81310877 Comment: - differential includes primary or tertiary hyperparathyroid - could treat with saline diuresis if bladder known to be voiding well - will assess thyroid, adrenals as cause. (4) DVT prophylaxis Current Visit: No Status: Acute Priority: Low Code(s): ZPW7291 - SNOMED Code(s): 760767394 Comment: - SCDs and fondaparinux, heparin allergy. (5) Cirrhosis of liver with ascites Current Visit: Yes Status: Acute Priority: Medium Code(s): K74.60 - UNSPECIFIED CIRRHOSIS OF LIVER SNOMED Code(s): 47652907 Comment: -cirrhosis thought to be due to fatty liver -continue Xifaxan and lactulose for elevated ammonia. Status and Disposition: Inpatient with expected LOS > 2 days. Anticipate discharge back to [facility] when medically stable.
--- NOTE | 2017-10-08 12:57 | RAD ---
INDICATION: Morbid obesity. Acute renal failure. COMPARISON: July 09, 2017 TECHNIQUE: Longitudinal and transverse scans of the kidneys and bladder were obtained. FINDINGS: Kidneys: The right kidney measures 11.9 x 6.8 x 6.9 cm. No hydronephrosis, masses, or characterize seen. There is nonvisualization of the left kidney. The left kidney was also not identified at the time of earlier imaging. Bladder: The bladder is partially distended. There are no intrinsic or extrinsic masses. The prevoid volume is 87 ml. The patient was incontinent which did not allow for evaluation of the postvoid residual. Ureteral jets are not identified. This is likely related to technical factors. Other: There is a small amount of ascites IMPRESSION: NORMAL RIGHT KIDNEY. NONVISUALIZATION LEFT KIDNEY. THE EXAMINATION IS LIMITED DUE TO OBESITY.
[2017-10-08] MEDS: Atorvastatin* 10 MG TAB PO SCH (20:18)
[2017-10-09 06:03] LABS: EGFR Non-African American 18.4 (>60)
[2017-10-09] MEDS: guaiFENesin ER TAB 600 MG PO SCH ×2 (08:24→19:58)
[2017-10-09] MEDS: CMCS:Midodrine (NF) 5 MG TAB PO SCH ×3 (08:24→19:58)
[2017-10-09] MEDS: Fondaparinux* 2.5 MG/0.5 ML SYRINGE SUBCUT SCH (08:24)
[2017-10-09] MEDS: Sodium Citrate/Citric Acid* 15 ML UDC PO SCH ×2 (08:24→19:59)
[2017-10-09] MEDS: Omeprazole CAP* 20 MG PO SCH (08:24)
[2017-10-09] MEDS: RiFAXimin* 550 MG TAB PO SCH ×2 (08:24→19:58)
[2017-10-09] MEDS: Hydrocortisone 1% CREAM* 30 GM TUBE TOPICAL SCH ×2 (08:25→19:59)
--- NOTE | 2017-10-09 09:45 | PN ---
Subjective Date of Service: 10/09/17 Interval History: Patient seen and examined at bedside. Denies fever, chills, shortness of breath , chest discomfort, N/V/D. Pt continues to have confusion. Tele: Sinus rhythm, rate 90-100's. Family History: Unchanged from Admission Social History: Unchanged from Admission Past Medical History: Unchanged from Admission Objective Active Medications: Atorvastatin Calcium (Lipitor*) 10 mg PO 1900 [facility] Citric Acid/Sodium Citrate (Bicitra*) 15 ml PO 0800,2000 [facility] Fondaparinux (Arixtra*) 2.5 mg SUBCUT DAILY [facility] Guaifenesin (Mucinex*) 1,200 mg PO 0800,2000 [facility] Hydrocortisone (Hytone Cream 1%*) 1 applic TOPICAL BID [facility] Lactulose (Lactulose*) 30 ml PO TID [facility] Midodrine (Midodrine (Nf)) 10 mg PO TID [facility] Omeprazole (Prilosec Cap*) 20 mg PO 0700 [facility] Rifaximin (Xifaxan*) 550 mg PO 0800,2000 [facility] Throat Lozenges (Chloraseptic Sudheer*) 1 sudheer PO Q2H PRN Reason: COUGH Vital Signs - 8 hr 10/09/17 10/09/17 04:10 05:00 Pulse Rate 102 Blood Pressure 134/94 (mmHg) O2 Sat by Pulse 84 91 Oximetry Oxygen Devices in Use Now: None Appearance: NAD, laying in bed Ears/Nose/Mouth/Throat: Mucous Membranes Moist Respiratory: Symmetrical Chest Expansion and Respiratory Effort, Clear to Auscultation - , diminished Cardiovascular: NL Sounds; No Murmurs; No JVD, RRR Abdominal: - - Large, soft, non tender. Pt with 2+ pitting edema to left side ( he is laying on this side) Extremities: - - 2+ bilateral LE edema Neurological: - - Alert and Oriented to Person and Place Lines/Tubes/Other Access: Clean, Dry and Intact Peripheral IV - site benign Nutrition: Taking PO's Result Diagrams: 10/08/17 08:20 10/09/17 05:29 Additional Lab and Data: Laboratory Tests 10/08/17 10/08/17 10/08/17 06:55 06:55 06:55 Hct Calcium 11.5 H Ionized Calcium 5.99 H Alkaline Phosphatase 186 H Ammonia 78 H Albumin 2.6 L 25-OH Vitamin D Total PTH Intact Calcium (PTH Intact) 10/08/17 10/08/17 10/08/17 06:55 06:55 08:20 Hct 29 L Calcium Ionized Calcium Alkaline Phosphatase Ammonia Albumin 25-OH Vitamin D Total 22.0 PTH Intact 4.4 Calcium (PTH Intact) 11.3 H Assess/Plan/Problems-Billing Assessment: Mr. Geller is a 62 yo M with a PMH of recent acute on chronic renal failure now off hemodialysis, episodes of hyperammonemia who was admitted on 10/05/17 with altered mental status. - Patient Problems (1) Altered mental status Code(s): R41.82 - ALTERED MENTAL STATUS, UNSPECIFIED SNOMED Code(s): 620730519 Comment: - Continues to have altered mental status - Suspect secondary to hyperammonemia - Hypercalcemia could also be contributing to encephalopathy - Plan to continue lactulose (increase to QID) and rifaximin (2) CKD (chronic kidney disease) stage 4, GFR 15-29 ml/min Code(s): N18.4 - CHRONIC KIDNEY DISEASE, STAGE 4 (SEVERE) SNOMED Code(s): 642160278 Comment: - Acute on chronic - Creatinine continues to rise - Renal/bladder ultrasound - no significant findings - Discussed case with Dr. Jacinto and Dr. Hutchison - Anemia worsened, will check erythopoetin and iron stores - Continue bicitra (3) Hypercalcemia Code(s): E83.52 - HYPERCALCEMIA SNOMED Code(s): 41850645 Comment: - Differential includes primary or tertiary hyperparathyroid, ? increased due to inactivity - Plan to treat with saline diuresis - Will assess for thyroid and adrenal causes (4) Hepatic encephalopathy Code(s): K72.90 - HEPATIC FAILURE, UNSPECIFIED WITHOUT COMA SNOMED Code(s): 99081747 Comment: - Ammonia level 90 at admission - Continue lactulose (increased) and rifaximin (5) Cirrhosis of liver with ascites Code(s): K74.60 - UNSPECIFIED CIRRHOSIS OF LIVER SNOMED Code(s): 19896039 Comment: - Cirrhosis thought to be due to fatty liver vs ONEIL - Continue Xifaxan and lactulose (increased) for elevated ammonia (6) Morbid obesity Code(s): E66.01 - MORBID (SEVERE) OBESITY DUE TO EXCESS CALORIES SNOMED Code(s ): 171824812 Comment: - BMI ~ 42 (7) Afib Code(s): I48.91 - UNSPECIFIED ATRIAL FIBRILLATION SNOMED Code(s): 56702885 Comment: - Rate controlled, not currently anticoagulated at home - Patient has documented allergy to warfarin - Continue Arixtra (8) Diabetes mellitus Code(s): E11.9 - TYPE 2 DIABETES MELLITUS WITHOUT COMPLICATIONS SNOMED Code(s) : 89139337 Comment: - BGs 60-70s. - Diet controlled. (9) HLD (hyperlipidemia) Code(s): E78.5 - HYPERLIPIDEMIA, UNSPECIFIED SNOMED Code(s): 47450538 Comment: - Continue atorvastatin. (10) HTN (hypertension) Code(s): I10 - ESSENTIAL (PRIMARY) HYPERTENSION SNOMED Code(s): 29685202 Comment: - SBP 100-130. - Continue Midodrine TID. (11) DVT prophylaxis Code(s): UNS8696 - SNOMED Code(s): 250758081 Comment: - SCDs and fondaparinux, heparin allergy (12) Full code status Code(s): Z78.9 - OTHER SPECIFIED HEALTH STATUS SNOMED Code(s): 325816111 Status and Disposition: Inpatient with expected LOS > 2 days. Anticipate discharge back to [facility] when medically stable.
[2017-10-09] MEDS ORDERED: Furosemide IV* 10 MG/ML VIAL (40 MG) IV ONE (10:23)
[2017-10-09] MEDS ORDERED: NS 0.9% 1000 ML* 1,000 ML IV SCH (13:00)
[2017-10-09] MEDS: Atorvastatin* 10 MG TAB PO SCH (18:05)
--- NOTE | 2017-10-10 01:29 | PN ---
PROGRESS NOTE: DATE OF SERVICE/DICTATION: 10/09/17 HISTORY: Mr. Geller is a 62-year-old gentleman who I know from previous management of chronic renal failure last fall. He had actually had recovery of renal function, which has actually occurred a couple of times in the past on him and we were able to discontinue dialysis. He presented on this occasion because of changes in mental status. He apparently was confused, somewhat disoriented, very somnolent. He actually was unable to give me any history at all right now. So, the history is actually taken from the record. PAST MEDICAL HISTORY: His previous medical history is significant for 2 other episodes of acute on chronic renal failure requiring dialysis prior to the last occasion. He has a history of morbid obesity. 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 He has a history of congestive heart failure and history of cellulitis in the past. MEDICATIONS: His medications included: 1. Oxycodone with acetaminophen. 2. Lactulose 30 cc b.i.d. 3. Omeprazole 20 mg daily. 4. Lactobacillus acidophilus 1 daily. 5. Hydrocortisone cream b.i.d. 6. Bicitra 15 cc twice a day. 7. Rifaximin 550 mg p.o. b.i.d. 8. Guaifenesin ER 1200 mg b.i.d. 9. Midodrine 10 mg t.i.d. 10. Atorvastatin 10 mg daily. ALLERGIES: He is allergic to HEPARIN, CEPHALEXIN, PENICILLIN, RIVAROXABAN, SULFA ANTIBIOTICS and a WARFARIN. At the present time, he mumbles and responds to questions, but really does not make sense to me at all. PHYSICAL EXAMINATION: His blood pressure is 134/94 with a pulse of 102, respirations are 14. His mucous membranes are moist. He is anicteric. His neck is very thick and I cannot see his neck veins. His chest reveals very distant breath sounds. Heart, I can barely hear any heart tones at all. The abdomen is soft and nontender. He does have some abdominal wall edema and he has got 2+ peripheral edema. LABORATORY DATA: Review of his laboratory studies reveal a white count of 9.3, hemoglobin of 9.2, hematocrit of 29, platelet count 229,000. INR 1.31. Sodium 140, potassium 4.1, total CO2 25, chloride 106, BUN 40, creatinine 3.39. We were able to discontinue dialysis when his creatinine was down at 3.42. He presented with a creatinine of 2.89. Glucose is 67, calcium of 11.7, ionized calcium of 5.99, ammonia 78, albumin 2.6, PTH of 4.4, TSH 5.62. IMPRESSION: 1. Acute on chronic renal insufficiency. 2. Hypercalcemia, the etiology of which is not yet determined. Other than immobility, there is no obvious culprits at the present time. One would think that his PTH should be suppressed at this level of calcium and yet it is mid ranged normal. There is the possibility of vitamin D intoxication. We have a 25- hydroxyvitamin D but not a 125-dihydroxy vitamin D, that should be obtained. Vitamin A level should be obtained as well. Probably would be a reasonable thing to see some protein immunoelectrophoresis on his blood and his urine with free light chains change and immunoglobulins until we see a PTH- related peptide back. I do not think there is much value in scanning everything looking for malignancy. The more esoteric causes such as familial hypocalciuric hypercalcemia is not likely since this is a new event in him and that should have presented a long time ago. Again, clearly sarcoid and granulomatous diseases would likely have presented sometime ago as well. I have discussed the case with Kathryn Choudhury and Dr. Camarena. [id number]/[facility] #: [id number] BRITANY
[2017-10-10 06:42] LABS: ABS Basophils 0.3 10^3/ul (0-0.2); ABS Eosinophils 1.6 10^3/ul (0-0.6); ABS Lymphocytes 1.3 10^3/ul (1.0-4.8); ABS Monocytes 0.9 10^3/ul (0-0.8); ABS Neutrophils 3.2 10^3/ul (1.5-7.7); ABS Nucleated RBC 0 10^3/ul; Eosinophil % 22.5 % (0-6); Hematocrit 36 % (42-52); Hemoglobin 11.4 g/dl (14.0-18.0); Lymphocyte % 17.5 % (25-47); Mean Corpuscular HGB Conc 32 g/dl (31-36); Mean Corpuscular Hemoglobin 32 pg (27-31); Mean Corpuscular Volume 99 fL (80-94); Mean Platelet Volume 8 um3 (7.4-10.4); Nucleated Red Blood Cells % 0.2; Platelet Count 185 10^3/ul (150-450); Red Blood Count 3.58 10^6/ul (4.0-5.4); Red Cell Distribution Width 18 % (10.5-15); White Blood Count 7.3 10^3/ul (3.5-10.8)
[2017-10-10 06:51] LABS: EGFR Non-African American 17.2 (>60)
[2017-10-10] MEDS: CMCS:Midodrine (NF) 5 MG TAB PO SCH ×3 (08:27→20:00)
[2017-10-10] MEDS: RiFAXimin* 550 MG TAB PO SCH ×2 (08:27→20:00)
[2017-10-10] MEDS: Omeprazole CAP* 20 MG PO SCH (08:27)
[2017-10-10] MEDS: guaiFENesin ER TAB 600 MG PO SCH ×2 (08:28→19:59)
[2017-10-10] MEDS: Hydrocortisone 1% CREAM* 30 GM TUBE TOPICAL SCH ×2 (08:28→20:00)
[2017-10-10] MEDS: Fondaparinux* 2.5 MG/0.5 ML SYRINGE SUBCUT SCH (08:28)
[2017-10-10] MEDS: Sodium Citrate/Citric Acid* 15 ML UDC PO SCH ×2 (08:28→20:00)
--- NOTE | 2017-10-10 09:42 | PN ---
Subjective Date of Service: 10/10/17 Interval History: Patient seen and examined at bedside. Denies fever, chills, shortness of breath , chest discomfort, N/V/D. Pt denies pain. Pt continues to have confusion. Per [facility] they feel Pt will not tolerate parathyroid scan, as he will need to lay still for a few hours. They are also unsure if he would fit on the [facility] table due to his size. Family History: Unchanged from Admission Social History: Unchanged from Admission Past Medical History: Unchanged from Admission Objective Active Medications: Atorvastatin Calcium (Lipitor*) 10 mg PO 1900 [facility] Citric Acid/Sodium Citrate (Bicitra*) 15 ml PO 0800,2000 [facility] Fondaparinux (Arixtra*) 2.5 mg SUBCUT DAILY [facility] Guaifenesin (Mucinex*) 1,200 mg PO 0800,1999 [facility] Hydrocortisone (Hytone Cream 1%*) 1 applic TOPICAL BID [facility] Sodium Chloride (Ns 0.9% 1000 Ml*) 1,000 mls @ 0 mls/hr IV PER RATE [facility] Lactulose (Lactulose*) 30 ml PO QID [facility] Midodrine (Midodrine (Nf)) 10 mg PO TID [facility] Omeprazole (Prilosec Cap*) 20 mg PO 0700 [facility] Rifaximin (Xifaxan*) 550 mg PO 0800,1999 [facility] Throat Lozenges (Chloraseptic Sudheer*) 1 sudheer PO Q2H PRN Reason: COUGH Vital Signs - 8 hr 10/10/17 10/10/17 10/10/17 03:35 07:54 08:00 Temperature 97.5 F 96.1 F Pulse Rate 97 99 Respiratory 17 22 19 Rate Blood Pressure 115/71 126/68 (mmHg) O2 Sat by Pulse 93 100 100 Oximetry Oxygen Devices in Use Now: Nasal Cannula - 2L Appearance: NAD, laying in bed Respiratory: Symmetrical Chest Expansion and Respiratory Effort, Clear to Auscultation Cardiovascular: NL Sounds; No Murmurs; No JVD, RRR Abdominal: - - Large, soft, non tender Extremities: - - 2-3+ pitting edema Skin: - - 2-3+ pitting edema to left side of ABD Neurological: - - Alert and Oriented to Person and Place, confused Lines/Tubes/Other Access: Clean, Dry and Intact Peripheral IV - site benign Nutrition: Taking PO's Result Diagrams: 10/10/17 06:12 10/10/17 06:12 Additional Lab and Data: Laboratory Tests 10/08/17 10/08/17 10/08/17 06:55 06:55 06:55 Hct Calcium 11.5 H Ionized Calcium 5.99 H Alkaline Phosphatase 186 H Ammonia 78 H Albumin 2.6 L 25-OH Vitamin D Total PTH Intact Calcium (PTH Intact) 10/08/17 10/08/17 10/08/17 06:55 06:55 08:20 Hct 29 L Calcium Ionized Calcium Alkaline Phosphatase Ammonia Albumin 25-OH Vitamin D Total 22.0 PTH Intact 4.4 Calcium (PTH Intact) 11.3 H Assess/Plan/Problems-Billing Assessment: Mr. Geller is a 62 yo M with a PMH of recent acute on chronic renal failure now off hemodialysis, episodes of hyperammonemia who was admitted on 10/05/17 with altered mental status. - Patient Problems (1) Altered mental status Code(s): R41.82 - ALTERED MENTAL STATUS, UNSPECIFIED SNOMED Code(s): 689431667 Comment: - Continues to have altered mental status - Suspect secondary to hyperammonemia - Hypercalcemia could also be contributing to encephalopathy - Plan to continue lactulose (increased to QID) and rifaximin (2) CKD (chronic kidney disease) stage 4, GFR 15-29 ml/min Code(s): N18.4 - CHRONIC KIDNEY DISEASE, STAGE 4 (SEVERE) SNOMED Code(s): 008941919 Comment: - Acute on chronic - Creatinine continues to rise - Renal/bladder ultrasound - no significant findings - Discussed case with Dr. Jacinto and Dr. Hutchison - Continue bicitra (3) Hypercalcemia Code(s): E83.52 - HYPERCALCEMIA SNOMED Code(s): 65112364 Comment: - Differential includes primary or tertiary hyperparathyroid, ? increased due to inactivity - Plan to treat with saline diuresis - Will assess for thyroid (unable to perforn [facility] parathyroid scan at this time) and adrenal causes (4) Hepatic encephalopathy Code(s): K72.90 - HEPATIC FAILURE, UNSPECIFIED WITHOUT COMA SNOMED Code(s): 76924873 Comment: - Ammonia level 90 at admission, trending down - Continue lactulose (increased) and rifaximin (5) Cirrhosis of liver with ascites Code(s): K74.60 - UNSPECIFIED CIRRHOSIS OF LIVER SNOMED Code(s): 73493065 Comment: - Cirrhosis thought to be due to fatty liver vs ONEIL - Continue Xifaxan and lactulose (increased) for elevated ammonia (6) Morbid obesity Code(s): E66.01 - MORBID (SEVERE) OBESITY DUE TO EXCESS CALORIES SNOMED Code(s ): 155179282 Comment: - BMI ~ 42 (7) Afib Code(s): I48.91 - UNSPECIFIED ATRIAL FIBRILLATION SNOMED Code(s): 17529730 Comment: - Rate controlled, not currently anticoagulated at home - Patient has documented allergy to warfarin - Continue Arixtra (8) Diabetes mellitus Code(s): E11.9 - TYPE 2 DIABETES MELLITUS WITHOUT COMPLICATIONS SNOMED Code(s) : 75158592 Comment: - BGs 60-70s. - Diet controlled. (9) HLD (hyperlipidemia) Code(s): E78.5 - HYPERLIPIDEMIA, UNSPECIFIED SNOMED Code(s): 71127103 Comment: - Continue atorvastatin. (10) HTN (hypertension) Code(s): I10 - ESSENTIAL (PRIMARY) HYPERTENSION SNOMED Code(s): 76580737 Comment: - SBP 100-140's. - Continue Midodrine TID. (11) DVT prophylaxis Code(s): IMI2229 - SNOMED Code(s): 595542312 Comment: - SCDs and fondaparinux, heparin allergy (12) Full code status Code(s): Z78.9 - OTHER SPECIFIED HEALTH STATUS SNOMED Code(s): 170929125 Status and Disposition: Inpatient with expected LOS > 2 days. Anticipate discharge back to [facility] [place] when medically stable.
[2017-10-10] MEDS: Atorvastatin* 10 MG TAB PO SCH (18:17)
[2017-10-11] MEDS: Omeprazole CAP* 20 MG PO SCH (05:59)
[2017-10-11 09:05] LABS: EGFR Non-African American 16.5 (>60)
[2017-10-11] MEDS: CMCS:Midodrine (NF) 5 MG TAB PO SCH ×3 (09:17→23:20)
[2017-10-11] MEDS: RiFAXimin* 550 MG TAB PO SCH ×2 (09:17→23:15)
[2017-10-11] MEDS: guaiFENesin ER TAB 600 MG PO SCH ×2 (09:17→23:12)
[2017-10-11] MEDS: Sodium Citrate/Citric Acid* 15 ML UDC PO SCH ×2 (09:18→23:16)
[2017-10-11] MEDS: Hydrocortisone 1% CREAM* 30 GM TUBE TOPICAL SCH ×2 (09:24→23:19)
[2017-10-11] MEDS: Fondaparinux* 2.5 MG/0.5 ML SYRINGE SUBCUT SCH (09:25)
--- NOTE | 2017-10-11 12:26 | PN ---
Subjective Date of Service: 10/11/17 Interval History: Patient seen and examined at bedside. Denies fever, chills, shortness of breath , chest discomfort, N/V/D. Pt continues to be INC urine. Pt continues to have confusion. Family History: Unchanged from Admission Social History: Unchanged from Admission Past Medical History: Unchanged from Admission Objective Active Medications: Atorvastatin Calcium (Lipitor*) 10 mg PO 1900 [facility] Citric Acid/Sodium Citrate (Bicitra*) 15 ml PO 0800,2000 [facility] Fondaparinux (Arixtra*) 2.5 mg SUBCUT DAILY [facility] Guaifenesin (Mucinex*) 1,200 mg PO 0800,2000 [facility]STER Hydrocortisone (Hytone Cream 1%*) 1 applic TOPICAL BID MASTER Lactulose (Lactulose*) 30 ml PO QID MASTER Midodrine (Midodrine (Nf)) 10 mg PO TID [facility]STER Omeprazole (Prilosec Cap*) 20 mg PO 0700 [facility] Rifaximin (Xifaxan*) 550 mg PO 0800,2000 [facility] Throat Lozenges (Chloraseptic Sudheer*) 1 sudheer PO Q2H PRN Reason: COUGH Vital Signs - 8 hr 10/11/17 07:52 Temperature 97.5 F Pulse Rate 99 Respiratory 24 Rate Blood Pressure 110/37 (mmHg) O2 Sat by Pulse 95 Oximetry Oxygen Devices in Use Now: None Appearance: NAD, laying in bed Respiratory: Symmetrical Chest Expansion and Respiratory Effort, Clear to Auscultation Cardiovascular: NL Sounds; No Murmurs; No JVD, RRR Abdominal: NL Sounds; No Tenderness; No Distention Extremities: - - 2-3+ Neurological: - - Alert and Oriented to Person, Pt states he is at [facility]. Lines/Tubes/Other Access: Clean, Dry and Intact Peripheral IV - site benign Nutrition: Taking PO's Result Diagrams: 10/10/17 06:12 10/11/17 08:34 Additional Lab and Data: Laboratory Tests 10/08/17 10/08/17 10/08/17 06:55 06:55 06:55 Hct Calcium 11.5 H Ionized Calcium 5.99 H Alkaline Phosphatase 186 H Ammonia 78 H Albumin 2.6 L 25-OH Vitamin D Total PTH Intact Calcium (PTH Intact) 10/08/17 10/08/17 10/08/17 06:55 06:55 08:20 Hct 29 L Calcium Ionized Calcium Alkaline Phosphatase Ammonia Albumin 25-OH Vitamin D Total 22.0 PTH Intact 4.4 Calcium (PTH Intact) 11.3 H Assess/Plan/Problems-Billing Assessment: Mr. Geller is a 62 yo M with a PMH of recent acute on chronic renal failure now off hemodialysis, episodes of hyperammonemia who was admitted on 10/05/17 with altered mental status. - Patient Problems (1) Altered mental status Code(s): R41.82 - ALTERED MENTAL STATUS, UNSPECIFIED SNOMED Code(s): 134381348 Comment: - Continues to have altered mental status - Suspect secondary to hyperammonemia - Hypercalcemia could also be contributing to encephalopathy - Plan to continue lactulose (increased to QID) and rifaximin (2) CKD (chronic kidney disease) stage 4, GFR 15-29 ml/min Code(s): N18.4 - CHRONIC KIDNEY DISEASE, STAGE 4 (SEVERE) SNOMED Code(s): 320838869 Comment: - Acute on chronic - Creatinine continues to rise - Renal/bladder ultrasound - no significant findings - Discussed case with Dr. Jacinto and Dr. Hutchison - Continue bicitra (3) Hypercalcemia Code(s): E83.52 - HYPERCALCEMIA SNOMED Code(s): 37880592 Comment: - Suspect secondary to hyperparathyroidism and inactivity - Uunable to perform [facility] parathyroid scan inpatient - Dr. Jacinto following (4) Hepatic encephalopathy Code(s): K72.90 - HEPATIC FAILURE, UNSPECIFIED WITHOUT COMA SNOMED Code(s): 53983495 Comment: - Ammonia level 90 at admission, trending down - Continue lactulose and rifaximin (5) Cirrhosis of liver with ascites Code(s): K74.60 - UNSPECIFIED CIRRHOSIS OF LIVER SNOMED Code(s): 85689471 Comment: - Cirrhosis thought to be due to fatty liver vs ONEIL - Continue Xifaxan and lactulose for elevated ammonia (6) Morbid obesity Code(s): E66.01 - MORBID (SEVERE) OBESITY DUE TO EXCESS CALORIES SNOMED Code(s ): 853483925 Comment: - BMI ~ 42 (7) Afib Code(s): I48.91 - UNSPECIFIED ATRIAL FIBRILLATION SNOMED Code(s): 65691198 Comment: - Rate controlled, not currently anticoagulated at home - Patient has documented allergy to warfarin - Continue Arixtra (8) Diabetes mellitus Code(s): E11.9 - TYPE 2 DIABETES MELLITUS WITHOUT COMPLICATIONS SNOMED Code(s) : 46446685 Comment: - BGs 60-70s. - Diet controlled. (9) HLD (hyperlipidemia) Code(s): E78.5 - HYPERLIPIDEMIA, UNSPECIFIED SNOMED Code(s): 39933362 Comment: - Continue atorvastatin. (10) HTN (hypertension) Code(s): I10 - ESSENTIAL (PRIMARY) HYPERTENSION SNOMED Code(s): 90924602 Comment: - SBP 110-140's. - Continue Midodrine TID. (11) DVT prophylaxis Code(s): OVA4218 - SNOMED Code(s): 847534128 Comment: - SCDs and fondaparinux, heparin allergy (12) Full code status Code(s): Z78.9 - OTHER SPECIFIED HEALTH STATUS SNOMED Code(s): 138461366 Status and Disposition: Inpatient with expected LOS > 2 days. Anticipate discharge back to [facility] when medically stable.
[2017-10-11] MEDS: NS 0.9% 1000 ML* 1,000 ML IV SCH (18:06)
[2017-10-11] MEDS: Atorvastatin* 10 MG TAB PO SCH (18:09)
[2017-10-12] MEDS: NS 0.9% 1000 ML* 1,000 ML IV SCH ×2 (04:35→13:46)
[2017-10-12 06:10] LABS: EGFR Non-African American 15.9 (>60)
[2017-10-12] MEDS: CMCS:Midodrine (NF) 5 MG TAB PO SCH ×3 (09:27→20:45)
[2017-10-12] MEDS: Sodium Citrate/Citric Acid* 15 ML UDC PO SCH ×2 (09:27→20:44)
[2017-10-12] MEDS: Fondaparinux* 2.5 MG/0.5 ML SYRINGE SUBCUT SCH (09:27)
[2017-10-12] MEDS: guaiFENesin ER TAB 600 MG PO SCH ×2 (09:27→20:45)
[2017-10-12] MEDS: Omeprazole CAP* 20 MG PO SCH (09:28)
[2017-10-12] MEDS: RiFAXimin* 550 MG TAB PO SCH ×2 (09:28→20:45)
[2017-10-12] MEDS: Hydrocortisone 1% CREAM* 30 GM TUBE TOPICAL SCH ×2 (09:28→20:53)
--- NOTE | 2017-10-12 13:58 | PN ---
Subjective Date of Service: 10/12/17 Interval History: Patient seen and examined at bedside. Denies fever, chills, shortness of breath , chest discomfort, N/V/D. Pt continues to have altered mental status and lethargy. Family History: Unchanged from Admission Social History: Unchanged from Admission Past Medical History: Unchanged from Admission Objective Active Medications: Atorvastatin Calcium (Lipitor*) 10 mg PO 1900 [facility] Citric Acid/Sodium Citrate (Bicitra*) 15 ml PO 0800,2000 [facility] Fondaparinux (Arixtra*) 2.5 mg SUBCUT DAILY [facility] Guaifenesin (Mucinex*) 1,200 mg PO 0800,2000 [facility] Hydrocortisone (Hytone Cream 1%*) 1 applic TOPICAL BID MASTER Sodium Chloride (Ns 0.9% 1000 Ml*) 1,000 mls @ 125 mls/hr IV PER RATE [facility] Lactulose (Lactulose*) 30 ml PO QID [facility] Midodrine (Midodrine (Nf)) 10 mg PO TID MA[facility] Omeprazole (Prilosec Cap*) 20 mg PO 0700 [facility] Rifaximin (Xifaxan*) 550 mg PO 0800,1999 [facility] Throat Lozenges (Chloraseptic Sudheer*) 1 sudheer PO Q2H PRN Reason: COUGH Vital Signs - 8 hr 10/12/17 10/12/17 10/12/17 07:49 09:25 09:35 Temperature 96.5 F 97.4 F Pulse Rate 92 Respiratory 20 Rate Blood Pressure 106/50 (mmHg) O2 Sat by Pulse 94 96 Oximetry 10/12/17 09:37 Temperature Pulse Rate Respiratory 18 Rate Blood Pressure (mmHg) O2 Sat by Pulse Oximetry Oxygen Devices in Use Now: None Appearance: NAD, laying in bed Respiratory: Symmetrical Chest Expansion and Respiratory Effort, Clear to Auscultation - , diminished Cardiovascular: NL Sounds; No Murmurs; No JVD, RRR Extremities: - - 2-3+ bilateral LE edema and to the left side of abdomen Neurological: - - Alert and Oriented to Person and Place, confused Lines/Tubes/Other Access: Clean, Dry and Intact Peripheral IV - site benign Nutrition: Taking PO's Result Diagrams: 10/10/17 06:12 10/13/17 07:28 Additional Lab and Data: Laboratory Tests 10/08/17 10/08/17 10/08/17 06:55 06:55 06:55 Hct Calcium 11.5 H Ionized Calcium 5.99 H Alkaline Phosphatase 186 H Ammonia 78 H Albumin 2.6 L 25-OH Vitamin D Total PTH Intact Calcium (PTH Intact) 10/08/17 10/08/17 10/08/17 06:55 06:55 08:20 Hct 29 L Calcium Ionized Calcium Alkaline Phosphatase Ammonia Albumin 25-OH Vitamin D Total 22.0 PTH Intact 4.4 Calcium (PTH Intact) 11.3 H Assess/Plan/Problems-Billing Assessment: Mr. Geller is a 62 yo M with a PMH of recent acute on chronic renal failure now off hemodialysis, episodes of hyperammonemia who was admitted on 10/05/17 with altered mental status. - Patient Problems (1) Altered mental status Code(s): R41.82 - ALTERED MENTAL STATUS, UNSPECIFIED SNOMED Code(s): 596245917 Comment: - Continues to have altered mental status - Suspect secondary to hyperammonemia - Hypercalcemia could also be contributing to encephalopathy - Plan to continue lactulose (increased to QID) and rifaximin (2) CKD (chronic kidney disease) stage 4, GFR 15-29 ml/min Code(s): N18.4 - CHRONIC KIDNEY DISEASE, STAGE 4 (SEVERE) SNOMED Code(s): 721786335 Comment: - Acute on chronic - Creatinine continues to rise - Renal/bladder ultrasound - no significant findings - Discussed case with Dr. Jacinto and Dr. Hutchison - Continue bicitra (3) Anemia Code(s): D64.9 - ANEMIA, UNSPECIFIED SNOMED Code(s): 053228998 Comment: - HH stable - Suspect ACD (4) Hypercalcemia Code(s): E83.52 - HYPERCALCEMIA SNOMED Code(s): 49540243 Comment: - Suspect secondary to secondary hyperparathyroidism and inactivity - Unable to perform NM parathyroid scan inpatient - Dr. Jacinto following (5) Hepatic encephalopathy Code(s): K72.90 - HEPATIC FAILURE, UNSPECIFIED WITHOUT COMA SNOMED Code(s): 75067270 Comment: - Ammonia level 90 at admission, trending down - Continue lactulose and rifaximin (6) Cirrhosis of liver with ascites Code(s): K74.60 - UNSPECIFIED CIRRHOSIS OF LIVER SNOMED Code(s): 72930734 Comment: - Cirrhosis thought to be due to fatty liver vs ONEIL - Continue Xifaxan and lactulose for elevated ammonia (7) Morbid obesity Code(s): E66.01 - MORBID (SEVERE) OBESITY DUE TO EXCESS CALORIES SNOMED Code(s ): 436645528 Comment: - BMI ~ 42 (8) Afib Code(s): I48.91 - UNSPECIFIED ATRIAL FIBRILLATION SNOMED Code(s): 00177944 Comment: - Rate controlled, not currently anticoagulated at home - Patient has documented allergy to warfarin - Continue Arixtra (9) Diabetes mellitus Code(s): E11.9 - TYPE 2 DIABETES MELLITUS WITHOUT COMPLICATIONS SNOMED Code(s) : 15127481 Comment: - BGs 60-80s. - Diet controlled. (10) HLD (hyperlipidemia) Code(s): E78.5 - HYPERLIPIDEMIA, UNSPECIFIED SNOMED Code(s): 20871700 Comment: - Continue atorvastatin. (11) HTN (hypertension) Code(s): I10 - ESSENTIAL (PRIMARY) HYPERTENSION SNOMED Code(s): 77416285 Comment: - SBP 90-140's. - Continue Midodrine TID. (12) DVT prophylaxis Code(s): KQH1711 - SNOMED Code(s): 183056211 Comment: - SCDs and fondaparinux, heparin allergy (13) Full code status Code(s): Z78.9 - OTHER SPECIFIED HEALTH STATUS SNOMED Code(s): 355912057 Status and Disposition: Inpatient with expected LOS > 2 days. Anticipate discharge back to [facility] [place] when medically stable.
[2017-10-12] MEDS: Atorvastatin* 10 MG TAB PO SCH (20:45)
[2017-10-13] MEDS: Omeprazole CAP* 20 MG PO SCH (06:10)
[2017-10-13] MEDS: NS 0.9% 1000 ML* 1,000 ML IV SCH (07:54)
[2017-10-13 07:57] LABS: EGFR Non-African American 15.8 (>60)
[2017-10-13] MEDS: RiFAXimin* 550 MG TAB PO SCH ×2 (08:01→22:20)
[2017-10-13] MEDS: Sodium Citrate/Citric Acid* 15 ML UDC PO SCH ×2 (08:01→22:23)
[2017-10-13] MEDS: guaiFENesin ER TAB 600 MG PO SCH ×2 (08:01→22:20)
[2017-10-13] MEDS: Fondaparinux* 2.5 MG/0.5 ML SYRINGE SUBCUT SCH (08:02)
[2017-10-13] MEDS: Hydrocortisone 1% CREAM* 30 GM TUBE TOPICAL SCH ×2 (08:03→22:31)
[2017-10-13] MEDS: CMCS:Midodrine (NF) 5 MG TAB PO SCH ×3 (09:53→22:21)
--- NOTE | 2017-10-13 15:26 | PN ---
Subjective Date of Service: 10/13/17 Interval History: Pt is feeling ok. He denies any pain or SOB. He is lethargic and not very talkative today. Family History: Unchanged from Admission Social History: Unchanged from Admission Past Medical History: Unchanged from Admission Objective Active Medications: Atorvastatin Calcium (Lipitor*) 10 mg PO 1900 [facility] Last Admin: 10/12/17 20:45 Dose: 10 mg Calcitonin [place] (Fortical(Nr)) 200 units ALT NARE DAILY [facility] PRN Reason: Protocol Citric Acid/Sodium Citrate (Bicitra*) 15 ml PO [facility] Last Admin: 10/13/17 08:01 Dose: 15 ml Fondaparinux (Arixtra*) 2.5 mg SUBCUT DAILY [facility] Last Admin: 10/13/17 08:02 Dose: 2.5 mg Guaifenesin (Mucinex*) 1,200 mg PO [facility] Last Admin: 10/13/17 08:01 Dose: 1,200 mg Hydrocortisone (Hytone Cream 1%*) 1 applic TOPICAL BID [facility] Last Admin: 10/13/17 08:03 Dose: 1 applic Sodium Chloride (Ns 0.9% 1000 Ml*) 1,000 mls @ 125 mls/hr IV PER RATE [facility] Last Admin: 10/13/17 07:54 Dose: 125 mls/hr Lactulose (Lactulose*) 30 ml PO QID [facility] Last Admin: 10/13/17 13:53 Dose: 30 ml Midodrine (Midodrine (Nf)) 10 mg PO TID [facility] PRN Reason: Protocol Last Admin: 10/13/17 13:53 Dose: 10 mg Omeprazole (Prilosec Cap*) 20 mg PO 0700 [facility] Last Admin: 10/13/17 06:10 Dose: 20 mg Rifaximin (Xifaxan*) 550 mg PO [facility] Last Admin: 10/13/17 08:01 Dose: 550 mg Throat Lozenges (Chloraseptic Sudheer*) 1 sudheer PO Q2H PRN PRN Reason: COUGH Vital Signs - 8 hr 10/13/17 10/13/17 07:56 08:00 Temperature 96.3 F Pulse Rate 107 Respiratory 22 22 Rate Blood Pressure 106/65 (mmHg) O2 Sat by Pulse 94 Oximetry Oxygen Devices in Use Now: None Appearance: Middle aged morbidly obese male lying in bed sleeping, awakens to voice, NAD Eyes: No Scleral Icterus Ears/Nose/Mouth/Throat: Mucous Membranes Moist Respiratory: Symmetrical Chest Expansion and Respiratory Effort, Clear to Auscultation - anteriorly Cardiovascular: NL Sounds; No Murmurs; No JVD, RRR, - - marked anasarca to abdomen Abdominal: NL Sounds; No Tenderness; No Distention Skin: No Nodules or Sclerosis, - - dry crusty skin to B/L LE Neurological: - - lethargic Result Diagrams: 10/10/17 06:12 10/13/17 07:28 Additional Lab and Data: Laboratory Tests 10/08/17 10/08/17 10/08/17 06:55 06:55 06:55 Hct Calcium 11.5 H Ionized Calcium 5.99 H Alkaline Phosphatase 186 H Ammonia 78 H Albumin 2.6 L 25-OH Vitamin D Total PTH Intact Calcium (PTH Intact) 10/08/17 10/08/17 10/08/17 06:55 06:55 08:20 Hct 29 L Calcium Ionized Calcium Alkaline Phosphatase Ammonia Albumin 25-OH Vitamin D Total 22.0 PTH Intact 4.4 Calcium (PTH Intact) 11.3 H Assess/Plan/Problems-Billing Mr. Geller is a 62 yo M with a PMH of recent acute on chronic renal failure now off hemodialysis, episodes of hyperammonemia who was admitted on 10/05/17 with altered mental status. - Patient Problems (1) Altered mental status Current Visit: Yes Status: Acute Code(s): R41.82 - ALTERED MENTAL STATUS, UNSPECIFIED SNOMED Code(s): 352085257 Comment: THe patient remains lethargic. He does seem to answer some questions appropriately. Will continue lactulose and rifaximin. Repeat ammonia level tomorrow AM. Hypercalcemia also could be playing a large role. Will start intranasal calcitonin. Recheck ABG to r/o marked hypercarbia. (2) Hypercalcemia Current Visit: Yes Status: Acute Priority: Medium Code(s): E83.52 - HYPERCALCEMIA SNOMED Code(s): 68571703 Comment: No clear cause of hypercalcemia identified. Dr. Jacinto thinks possibly secondary to inactivity. Will start intranasal calcitonin today. Check iCal tomorrow. (3) Hepatic encephalopathy Current Visit: Yes Status: Acute Code(s): K72.90 - HEPATIC FAILURE, UNSPECIFIED WITHOUT COMA SNOMED Code(s): 68298661 Comment: Ammonia last checked 10/11/17. Continue lactulose and rifaximin. (4) CKD (chronic kidney disease) stage 4, GFR 15-29 ml/min Current Visit: Yes Status: Chronic Code(s): N18.4 - CHRONIC KIDNEY DISEASE, STAGE 4 (SEVERE) SNOMED Code(s): 756238973 Comment: The patient's creatinine continues to worsen slowly. ? secondary to hypercalcemia. Initiate tx for elevated calcium. Continue bicitra. Dr. Jacinto is following. (5) Diabetes mellitus Current Visit: No Status: Chronic Code(s): E11.9 - TYPE 2 DIABETES MELLITUS WITHOUT COMPLICATIONS SNOMED Code(s): 32086402 Comment: THe patient has been hypoglycemic likely from poor intake. Will start D5NS at 75ml/hr. Monitor sugars. (6) Afib Current Visit: Yes Status: Chronic Code(s): I48.91 - UNSPECIFIED ATRIAL FIBRILLATION SNOMED Code(s): 05324808 Comment: Rate is controlled. Continue arixra. (7) HTN (hypertension) Current Visit: Yes Status: Chronic Code(s): I10 - ESSENTIAL (PRIMARY) HYPERTENSION SNOMED Code(s): 89547940 Comment: BP is stable and in ok range. Continue Midodrine TID. (8) HLD (hyperlipidemia) Current Visit: Yes Status: Chronic Code(s): E78.5 - HYPERLIPIDEMIA, UNSPECIFIED SNOMED Code(s): 24976651 Comment: Continue atorvastatin. (9) Cirrhosis of liver with ascites Current Visit: Yes Status: Acute Code(s): K74.60 - UNSPECIFIED CIRRHOSIS OF LIVER SNOMED Code(s): 81242608 Comment: Cirrhosis thought to be due to fatty liver. Continue rifaximin and lactulose for elevated ammonia. (10) DVT prophylaxis Current Visit: Yes Status: Acute Code(s): EJF7418 - SNOMED Code(s): 629271142 Comment: SCDs and fondaparinux (11) Full code status Current Visit: Yes Status: Acute Code(s): Z78.9 - OTHER SPECIFIED HEALTH STATUS SNOMED Code(s): 680782828 Comment: Status and Disposition: .
--- NOTE | 2017-10-13 18:35 | PN ---
Hospitalist Progress Note Date of Service: 10/13/17 I was called by the nurse for an abnormal ABG showing metabolic acidosis with a PO2 55. Patients O2 is 95% RA. He was seen and rounded on by Dr. Bell today who thought he appeared to be more lethargic and ordered an ABG. I am currently covering this patient at this time. The patient was assessed at the bedside and per nurse he is more lethargic today. He answers some of my questions but appears lethargic. Plan is to transfer pt to [facility] for Bipap, repeat ABG in 1 hour. I spoke to his HCP (ex-) and stated his wishes are for intubation if he fails Bipap.
[2017-10-13] MEDS: Atorvastatin* 10 MG TAB PO SCH (22:19)
[2017-10-13] MEDS: Nystatin TOP POWDER* 15 GM BTL TOPICAL SCH (22:25)
[2017-10-13] MEDS: D5NS 0.9% 1000 ML BAG* 1,000 ML IV SCH (22:31)
[2017-10-14 06:04] LABS: Hematocrit 38 % (42-52); Hemoglobin 11.9 g/dl (14.0-18.0); Mean Corpuscular HGB Conc 31 g/dl (31-36); Mean Corpuscular Hemoglobin 32 pg (27-31); Mean Corpuscular Volume 102 fL (80-94); Mean Platelet Volume 8 um3 (7.4-10.4); Platelet Count 154 10^3/ul (150-450); Red Blood Count 3.74 10^6/ul (4.0-5.4); Red Cell Distribution Width 19 % (10.5-15); White Blood Count 8.8 10^3/ul (3.5-10.8)
[2017-10-14 06:17] LABS: EGFR Non-African American 14.9 (>60)
--- NOTE | 2017-10-14 09:27 | PN ---
Subjective Date of Service: 10/14/17 Interval History: pt pulled off his BIPAP in AM once he became more responsive. As per RN pt had no UO x last 24H. Family History: Unchanged from Admission Social History: Unchanged from Admission Past Medical History: Unchanged from Admission Objective Active Medications: Atorvastatin Calcium (Lipitor*) 10 mg PO 1900 [facility] Last Admin: 10/13/17 22:19 Dose: 10 mg Calcitonin [place] (Fortical(Nr)) 200 units ALT NARE DAILY [facility] PRN Reason: Protocol Citric Acid/Sodium Citrate (Bicitra*) 15 ml PO 799,1999 [facility] Last Admin: 10/13/17 22:23 Dose: 15 ml Fondaparinux (Arixtra*) 2.5 mg SUBCUT DAILY [facility] Last Admin: 10/13/17 08:02 Dose: 2.5 mg Guaifenesin (Mucinex*) 1,200 mg PO [facility] Last Admin: 10/13/17 22:20 Dose: 1,200 mg Hydrocortisone (Hytone Cream 1%*) 1 applic TOPICAL BID [facility] Last Admin: 10/13/17 22:31 Dose: 1 applic Dextrose/Sodium Chloride (D5ns 0.9% 1000 Ml Bag*) 1,000 mls @ 75 mls/hr IV PER RATE [facility] Last Admin: 10/13/17 22:31 Dose: 75 mls/hr Lactulose (Lactulose*) 30 ml PO QID [facility] Last Admin: 10/13/17 22:23 Dose: 30 ml Midodrine (Midodrine (Nf)) 10 mg PO TID [facility] PRN Reason: Protocol Last Admin: 10/13/17 22:21 Dose: 10 mg Nystatin (Nystatin Top Powder*) 1 applic TOPICAL TID [facility] Last Admin: 10/13/17 22:25 Dose: 1 applic Omeprazole (Prilosec Cap*) 20 mg PO 0700 [facility] Last Admin: 10/13/17 06:10 Dose: 20 mg Rifaximin (Xifaxan*) 550 mg PO 799,1999 [facility] Last Admin: 10/13/17 22:20 Dose: 550 mg Throat Lozenges (Chloraseptic Sudheer*) 1 sudheer PO Q2H PRN PRN Reason: COUGH Vital Signs - 8 hr 10/14/17 10/14/17 10/14/17 02:00 03:00 03:01 Temperature Pulse Rate 105 105 Respiratory 20 22 23 Rate Blood Pressure 102/75 (mmHg) O2 Sat by Pulse 100 96 Oximetry 10/14/17 10/14/17 10/14/17 03:51 04:00 05:00 Temperature 97.0 F Pulse Rate 94 Respiratory 22 19 23 Rate Blood Pressure 118/79 (mmHg) O2 Sat by Pulse 98 Oximetry 10/14/17 10/14/17 10/14/17 05:01 06:00 07:20 Temperature Pulse Rate 102 105 Respiratory 16 25 Rate Blood Pressure 125/91 113/82 (mmHg) O2 Sat by Pulse 97 97 97 Oximetry 10/14/17 08:00 Temperature 97.1 F Pulse Rate Respiratory Rate Blood Pressure (mmHg) O2 Sat by Pulse Oximetry Oxygen Devices in Use Now: Nasal Cannula Appearance: 62 yo , obese M in NAD, mild tachypnea noted, increased WOB, conversational, oriented to self only Eyes: No Scleral Icterus, PERRLA Ears/Nose/Mouth/Throat: NL Teeth, Lips, Gums, Mucous Membranes Moist Neck: NL Appearance and Movements; NL JVP, Trachea Midline Respiratory: Symmetrical Chest Expansion and Respiratory Effort, - - rales at b/ l bases crackles b/l mid lungs Cardiovascular: - - irregular Lymphatic: No Cervical Adenopathy Extremities: - - diffuse anasarca noted worse on left side of abdomen and left leg than right Skin: - - left toes cyanotic, cool to touch, R 3rd toe open area of skin tear at1 cm in diam, venous stasis changed b/l LE's Neurological: - - generalized weakness, no focal deficit, speech clear Result Diagrams: 10/14/17 05:46 10/14/17 06:37 Additional Lab and Data: Laboratory Tests 10/08/17 10/08/17 10/08/17 06:55 06:55 06:55 Hct Calcium 11.5 H Ionized Calcium 5.99 H Alkaline Phosphatase 186 H Ammonia 78 H Albumin 2.6 L 25-OH Vitamin D Total PTH Intact Calcium (PTH Intact) 10/08/17 10/08/17 10/08/17 06:55 06:55 08:20 Hct 29 L Calcium Ionized Calcium Alkaline Phosphatase Ammonia Albumin 25-OH Vitamin D Total 22.0 PTH Intact 4.4 Calcium (PTH Intact) 11.3 H Assess/Plan/Problems-Billing Mr. Geller is a 62 yo M with a PMH of recent acute on chronic renal failure now off hemodialysis, episodes of hyperammonemia who was admitted on 10/05/17 with altered mental status. - Patient Problems (1) Altered mental status Comment: THe patient remains lethargic. He does seem to answer some questions appropriately. Will continue lactulose and rifaximin. Repeat ammonia level today stable (2) Hypercalcemia Comment: No clear cause of hypercalcemia identified. Dr. Jacinto thinks possibly secondary to inactivity.improved ofter intranasal calcitonin . (3) Hepatic encephalopathy Comment: Ammonia still elevated. Continue lactulose and rifaximin. supect renal failure an uremia may play a role (4) CKD (chronic kidney disease) stage 4, GFR 15-29 ml/min Comment: No UO x at least 12 hrs. Li to be placed today. will discuss further tx and possible dialysis with Dr. Jacinto. Continue bicitra, but pt still has metabolic acidosis. (5) Diabetes mellitus Comment: THe patient has been hypoglycemic likely from poor intake. Cont D5NS at 75ml/hr. Monitor sugars foe hypoglycemia. still hypoglycemic today. will tx with D50 (6) Afib Comment: Rate is controlled. Continue arixra. (7) Hypotension Comment: no further episodes on midrodrine (8) Cirrhosis of liver with ascites Comment: Cirrhosis thought to be due to fatty liver. Continue rifaximin and lactulose for elevated ammonia. (9) Cyanosis Comment: of left toes. will get arterial dopplers. Foot not tender to palpation (10) DVT prophylaxis Comment: SCDs and fondaparinux Status and Disposition: inpatient .
[2017-10-14] MEDS: CMCS:Midodrine (NF) 5 MG TAB PO SCH ×3 (09:30→20:16)
[2017-10-14] MEDS: Omeprazole CAP* 20 MG PO SCH (11:47)
[2017-10-14] MEDS: CMC:Calcitonin NASAL(NF) 200 UNITS/SPRAY NASAL.SPR ALT NARE SCH (11:47)
[2017-10-14] MEDS: RiFAXimin* 550 MG TAB PO SCH ×2 (11:47→20:16)
[2017-10-14] MEDS: Fondaparinux* 2.5 MG/0.5 ML SYRINGE SUBCUT SCH (11:48)
[2017-10-14] MEDS: Sodium Citrate/Citric Acid* 15 ML UDC PO SCH ×2 (11:50→20:16)
[2017-10-14] MEDS: guaiFENesin ER TAB 600 MG PO SCH ×2 (11:50→20:16)
[2017-10-14] MEDS: D5NS 0.9% 1000 ML BAG* 1,000 ML IV SCH (11:50)
[2017-10-14] MEDS: Nystatin TOP POWDER* 15 GM BTL TOPICAL SCH ×3 (11:51→20:16)
[2017-10-14] MEDS: Hydrocortisone 1% CREAM* 30 GM TUBE TOPICAL SCH ×2 (11:51→20:16)
[2017-10-14] MEDS: Atorvastatin* 10 MG TAB PO SCH (20:16)
[2017-10-14] MEDS ORDERED: Albuterol 2.5 MG/3 ML NEB.SOL* (0.083%) INH PRN (20:34)
[2017-10-14] MEDS ORDERED: Albuterol 2.5 MG/3 ML NEB.SOL* (0.083%) ONE (20:46)
--- NOTE | 2017-10-14 20:53 | RAD ---
INDICATION: Cyanotic left toes COMPARISON: None. TECHNIQUE: Shankar scale, color Doppler, and spectral analysis utilized to image the left lower extremity arteries. Flow velocities were determined at each visualized artery. REPORT: Visualization is limited by combination of obesity and third spacing edema. The left common femoral artery, proximal femoral profundus popliteal artery and infrapopliteal arteries exhibit patency. There is no flow identified at the mid-level and distal right superficial femoral artery. There is a mild velocity decrease at the popliteal artery relative to the proximal superficial femoral artery from 136 cm/s in the proximal superficial femoral artery down to 70 cm/s at the distal SFA/popliteal artery. IMPRESSION: There is no flow identified at the mid-level and distal right superficial femoral artery. There is a mild velocity drop from the proximal superficial femoral artery to the popliteal artery that could indicate an occlusion of the distal left SFA. Alternatively the patient's body habitus and third spacing edema may be limiting visualization of the left superficial femoral artery.
[2017-10-14] MEDS: LORazepam INJ* 2 MG/ML 1 ML VIAL IV PRN (20:57)
[2017-10-15 05:51] LABS: Hematocrit 34 % (42-52); Hemoglobin 10.7 g/dl (14.0-18.0); Mean Corpuscular HGB Conc 31 g/dl (31-36); Mean Corpuscular Hemoglobin 31 pg (27-31); Mean Corpuscular Volume 99 fL (80-94); Mean Platelet Volume 8 um3 (7.4-10.4); Platelet Count 146 10^3/ul (150-450); Red Blood Count 3.46 10^6/ul (4.0-5.4); Red Cell Distribution Width 19 % (10.5-15); White Blood Count 10.4 10^3/ul (3.5-10.8)
[2017-10-15 06:03] LABS: EGFR Non-African American 12.6 (>60)
[2017-10-15 06:10] LABS: INR 1.7 (0.77-1.02)
[2017-10-15] MEDS: Dextrose 50% Syringe 50 ML* 25 GM/50 ML SYRINGE IV PUSH PRN (06:28)
[2017-10-15] MEDS: D5NS 0.9% 1000 ML BAG* 1,000 ML IV SCH ×2 (07:02→20:00)
--- NOTE | 2017-10-15 08:18 | PN ---
PROGRESS NOTE: DATE OF SERVICE: HISTORY: Mr. Geller remains very confused. He barely arouses to stimulation. He has had no urine outp ut at all for the past [address] Perez was in earlier today and attempted a catheter, which was un successful. He will be back in a little while to make another attempt. A bladder scan is being done right now. He had some respiratory failure last night, he had pulled off his BiPAP. PHYSICAL EXAMINATION: He remains afebrile. His blood pressure is 113/82, heart rate of 105, O2 satu ration 97 on 2 L of oxygen. He has very distant lung sounds, but I did not hear much in the way of r ales. His heart tones are still very, very difficult to hear. His abdomen is relatively soft, bowel sounds are positive. He has been having diarrhea. He still has 1+ edema, but he is still remarkabl y less edematous than when we were dialyzing him last fall and his weight remains down about 50 kg fr om that time. LABORATORY DATA: Hemoglobin is 11.9, white cells 8.8, platelets 154,000. His electrolytes are withi n normal limits. BUN 46, creatinine 4.6, glucose 63. Calcium is down a little bit, 10.9. IMPRESSION AND PLAN: I suggested yesterday that we start him on some Miacalcin nasal spray since all of the rest of the tests for the hypercalcemia have come back. While his TSH is slightly elevated, I do not think that is certainly the likely cause of his hypercalcemia. His PTH is normal. His josselin min A level was actually low. His parathyroid-related peptide is low range normal. As a result, I t hink we can blame his hypercalcemia on the fact that he is totally immobile. At the present time, I do not believe the fluid overload is a major contributor to his respiratory status. Hopefully, a cat heter can be placed and I hope that he has significant bladder outlet obstruction to account for his worsening renal function. [id number]/[facility] #: [id number]
[2017-10-15] MEDS: Nystatin TOP POWDER* 15 GM BTL TOPICAL SCH ×3 (08:30→20:39)
--- NOTE | 2017-10-15 09:22 | PN ---
Subjective Date of Service: 10/15/17 Interval History: pt had been on BIPAP since last night. Still on it in aM, easily arousable, but conversation limited due to mask. C/o no pain. Pt was incontinent of urine last night and rectal tube was placed due to continuous diarrhea secondary to Lactulose Family History: Unchanged from Admission Social History: Unchanged from Admission Past Medical History: Unchanged from Admission Objective Active Medications: Albuterol (Ventolin 2.5 Mg/3 Ml Neb.Frieda*) 2.5 mg INH Q2H PRN PRN Reason: SOB/WHEEZING Last Admin: 10/14/17 20:53 Dose: 2.5 mg Atorvastatin Calcium (Lipitor*) 10 mg PO 1900 [facility] Last Admin: 10/14/17 20:16 Dose: 10 mg Calcitonin [place] (Fortical(Nr)) 200 units ALT NARE DAILY [facility] PRN Reason: Protocol Last Admin: 10/14/17 11:47 Dose: 200 units Citric Acid/Sodium Citrate (Bicitra*) 15 ml PO 799,1999 [facility] Last Admin: 10/14/17 20:16 Dose: 15 ml Dextrose (D50w Syringe 50 Ml*) 25 gm IV PUSH ONCE PRN PRN Reason: FS < 60 Last Admin: 10/15/17 06:28 Dose: 25 gm Fondaparinux (Arixtra*) 2.5 mg SUBCUT DAILY [facility] Last Admin: 10/14/17 11:48 Dose: 2.5 mg Guaifenesin (Mucinex*) 1,200 mg PO 799,1999 [facility] Last Admin: 10/14/17 20:16 Dose: 1,200 mg Hydrocortisone (Hytone Cream 1%*) 1 applic TOPICAL BID [facility] Last Admin: 10/14/17 20:16 Dose: 1 applic Dextrose/Sodium Chloride (D5ns 0.9% 1000 Ml Bag*) 1,000 mls @ 75 mls/hr IV PER RATE [facility] Last Admin: 10/15/17 07:02 Dose: 75 mls/hr Lactulose (Lactulose*) 30 ml PO QID [facility] Last Admin: 10/14/17 20:16 Dose: 30 ml Lorazepam (Ativan Inj*) 1 mg IV BEDTIME PRN PRN Reason: SLEEP Last Admin: 10/14/17 20:57 Dose: 1 mg Midodrine (Midodrine (Nf)) 10 mg PO TID [facility] PRN Reason: Protocol Last Admin: 10/14/17 20:16 Dose: 10 mg Nystatin (Nystatin Top Powder*) 1 applic TOPICAL TID [facility] Last Admin: 10/14/17 20:16 Dose: 1 applic Omeprazole (Prilosec Cap*) 20 mg PO 0700 [facility] Last Admin: 10/14/17 11:47 Dose: 20 mg Rifaximin (Xifaxan*) 550 mg PO 08,1999 [facility] Last Admin: 10/14/17 20:16 Dose: 550 mg Throat Lozenges (Chloraseptic Ramesh*) 1 ramesh PO Q2H PRN PRN Reason: COUGH Vital Signs - 8 hr 10/15/17 10/15/17 10/15/17 02:00 02:01 03:00 Temperature Pulse Rate 107 Respiratory 24 22 22 Rate Blood Pressure 94/59 (mmHg) O2 Sat by Pulse 98 Oximetry 10/15/17 10/15/17 10/15/17 03:08 03:46 04:00 Temperature Pulse Rate 106 108 Respiratory 29 22 23 Rate Blood Pressure 92/47 98/63 (mmHg) O2 Sat by Pulse 97 95 Oximetry 10/15/17 10/15/17 10/15/17 04:46 05:00 05:01 Temperature 98.1 F Pulse Rate 106 Respiratory 22 19 Rate Blood Pressure 98/78 (mmHg) O2 Sat by Pulse 96 Oximetry 10/15/17 10/15/17 05:46 06:00 Temperature Pulse Rate 106 Respiratory 22 22 Rate Blood Pressure 100/52 (mmHg) O2 Sat by Pulse 96 Oximetry Oxygen Devices in Use Now: BiPAP Appearance: 62 yo M in nAD, BIPAP in place, oriented to self Eyes: No Scleral Icterus, PERRLA Ears/Nose/Mouth/Throat: Mucous Membranes Moist Neck: NL Appearance and Movements; NL JVP, Trachea Midline Respiratory: Symmetrical Chest Expansion and Respiratory Effort, - - crackles at b/l lower lungs Cardiovascular: NL Sounds; No Murmurs; No JVD, RRR Abdominal: NL Sounds; No Tenderness; No Distention Lymphatic: No Cervical Adenopathy Extremities: - - generalized anasarca worse on left side of body Skin: No Nodules or Sclerosis, - - excoriations on b/l thighs L>R, no evidence of cellulitis. Venosus stasis skin changes b/l distal LE's and small skin tear on right second toe Neurological: - - generalized weakness, no focal deficit Result Diagrams: 10/15/17 05:35 10/15/17 05:35 Additional Lab and Data: Laboratory Tests 10/08/17 10/08/17 10/08/17 06:55 06:55 06:55 Hct Calcium 11.5 H Ionized Calcium 5.99 H Alkaline Phosphatase 186 H Ammonia 78 H Albumin 2.6 L 25-OH Vitamin D Total PTH Intact Calcium (PTH Intact) 10/08/17 10/08/17 10/08/17 06:55 06:55 08:20 Hct 29 L Calcium Ionized Calcium Alkaline Phosphatase Ammonia Albumin 25-OH Vitamin D Total 22.0 PTH Intact 4.4 Calcium (PTH Intact) 11.3 H Assess/Plan/Problems-Billing Mr. Geller is a 62 yo M with a PMH of recent acute on chronic renal failure now off hemodialysis, episodes of hyperammonemia who was admitted on 10/05/17 with altered mental status. - Patient Problems (1) Altered mental status Comment: THe patient remains lethargic. He does seem to answer some questions appropriately. Will continue lactulose and rifaximin. ammonia continues to be > 100 despite Lactulose and rifaximin tx and continious diarrhea. (2) Hypercalcemia Comment: No clear cause of hypercalcemia identified. Dr. Jacinto thinks possibly secondary to inactivity.improving ofter intranasal calcitonin . (3) Hepatic encephalopathy Comment: Ammonia still elevated. Continue lactulose and rifaximin. supect renal failure an uremia may play a role (4) CKD (chronic kidney disease) stage 4, GFR 15-29 ml/min Comment: As d/w DR. Jacinto , possible dialysis on Monday. Spoke with DR. Sanchez who will place dialysis cath on Monday AM (will hold Arixtra today prior to pocedure) Continue bicitra for mixed metabolic acidosis. Pt had been incontinent of urine and his bladder scan was 90 ml on 10/14/17, unfortunately DR. Perez was unable to place a Li on 10/14/17 and recommended IR suprapubic cath if indicated. Due to pt being incontinent of urine and no signs of retention, will not request suprapubic cath at this point. (5) Diabetes mellitus Comment: THe patient has been intermittently hypoglycemic likely from poor intake. Cont D5NS at 75ml/hr. Monitor sugars for hypoglycemia. (6) Afib Comment: In NSR today. Holding Arixtra today due to dialysis cath planned for AM. (7) Hypotension Comment: no further episodes on midrodrine (8) Cirrhosis of liver with ascites Comment: Cirrhosis thought to be due to fatty liver. Continue rifaximin and lactulose for elevated ammonia. (9) Cyanosis Comment: of left toes noted on 10/14/17, resolved on 10/15/17 . arterial dopplers suggest distal SFA stenosis. Foot not tender to palpation today, warm and perfused, but poor peripheral pulses noted.Suspect pt's SFA was poorly visualised due to anasarca that is worse on left. will cont to monitor. for now pt is not a candidate for angiogram or CTA due to renal failure (10) Respiratory acidosis Comment: Worsened by fluid retention and anasarca. Hope it will improve after dialysis started. For now continue BIPAP (11) DVT prophylaxis Comment: SCDs , fondaparinux held today due to planned procedure in aM Status and Disposition: inpatient .
[2017-10-15] MEDS: Hydrocortisone 1% CREAM* 30 GM TUBE TOPICAL SCH ×2 (14:30→20:39)
[2017-10-15] MEDS: Omeprazole CAP* 20 MG PO SCH (15:48)
[2017-10-15] MEDS: guaiFENesin ER TAB 600 MG PO SCH ×2 (15:49→21:15)
[2017-10-15] MEDS: Sodium Citrate/Citric Acid* 15 ML UDC PO SCH ×2 (15:50→21:15)
[2017-10-15] MEDS: RiFAXimin* 550 MG TAB PO SCH ×2 (15:50→21:15)
[2017-10-15] MEDS: CMC:Calcitonin NASAL(NF) 200 UNITS/SPRAY NASAL.SPR ALT NARE SCH (15:52)
[2017-10-15] MEDS: CMCS:Midodrine (NF) 5 MG TAB PO SCH ×3 (15:53→20:36)
[2017-10-15] MEDS ORDERED: Metoprolol Tartrate IV* 1 MG/ML 5 ML VIAL ONE (19:17)
--- NOTE | 2017-10-15 19:22 | RAD ---
INDICATION: Renal failure COMPARISON: Similar examination July 18, 2017 TECHNIQUE: Real time ultrasound images of the bilateral jugular and subclavian vein were acquired with euceda scale and Doppler color flow imaging. FINDINGS: Bilaterally the jugular veins and subclavian veins exhibited color flow and normal venous phasicity. IMPRESSION: Bilaterally the jugular and subclavian veins appear to be adequately patent.
[2017-10-15] MEDS: LORazepam INJ* 2 MG/ML 1 ML VIAL IV PRN (20:26)
[2017-10-15] MEDS: Atorvastatin* 10 MG TAB PO SCH (20:39)
[2017-10-15] MEDS ORDERED: Metoprolol Tartrate IV* 1 MG/ML 5 ML VIAL IV ONE (21:00)
[2017-10-16 06:12] LABS: Hematocrit 34 % (42-52); Hemoglobin 10.7 g/dl (14.0-18.0); Mean Corpuscular HGB Conc 31 g/dl (31-36); Mean Corpuscular Hemoglobin 31 pg (27-31); Mean Corpuscular Volume 100 fL (80-94); Mean Platelet Volume 8 um3 (7.4-10.4); Platelet Count 136 10^3/ul (150-450); Red Blood Count 3.43 10^6/ul (4.0-5.4); Red Cell Distribution Width 18 % (10.5-15); White Blood Count 13.1 10^3/ul (3.5-10.8)
[2017-10-16 06:23] LABS: EGFR Non-African American 10.4 (>60)
[2017-10-16 06:26] LABS: INR 1.87 (0.77-1.02)
[2017-10-16] MEDS ORDERED: Dextrose 50% Syringe 50 ML* 25 GM/50 ML SYRINGE ONE (06:39)
[2017-10-16] MEDS: Dextrose 50% Syringe 50 ML* 25 GM/50 ML SYRINGE IV PUSH PRN (06:41)
[2017-10-16] MEDS: D5NS 0.9% 1000 ML BAG* 1,000 ML IV SCH (09:25)
[2017-10-16] MEDS: Hydrocortisone 1% CREAM* 30 GM TUBE TOPICAL SCH ×2 (09:45→20:55)
[2017-10-16] MEDS: Nystatin TOP POWDER* 15 GM BTL TOPICAL SCH ×3 (09:45→20:55)
[2017-10-16] MEDS ORDERED: Norepinephrine 16MCG/ML IVPRE* 4,000 MCG/250 ML BAG IV ONE (10:55)
[2017-10-16] MEDS: NS 0.9% IV SCH ×2 (11:02→14:38)
[2017-10-16] MEDS: NOREPINEPHRINE IV SCH ×2 (11:02→14:38)
[2017-10-16] MEDS ORDERED: fentaNYL* 50 MCG/ML 2 ML VIAL (100 MCG VIAL) IV SLOW PU ONE (11:15)
[2017-10-16] MEDS ORDERED: Propofol* 10 MG/ML 20 ML BTL IV PUSH ONE (11:23)
[2017-10-16] MEDS: Omeprazole CAP* 20 MG PO SCH (12:16)
[2017-10-16] MEDS: guaiFENesin ER TAB 600 MG PO SCH (12:16)
[2017-10-16] MEDS: CMCS:Midodrine (NF) 5 MG TAB PO SCH (12:17)
[2017-10-16] MEDS: Sodium Citrate/Citric Acid* 15 ML UDC PO SCH (12:17)
[2017-10-16] MEDS: RiFAXimin* 550 MG TAB PO SCH (12:17)
[2017-10-16] MEDS: CMC:Calcitonin NASAL(NF) 200 UNITS/SPRAY NASAL.SPR ALT NARE SCH (12:17)
[2017-10-16] MEDS ORDERED: NS 0.9% IV SCH (12:29)
[2017-10-16] MEDS ORDERED: NOREPINEPHRINE IV SCH (12:29)
--- NOTE | 2017-10-16 12:40 | PN ---
Progress Note - Progress Note Date of Service: 10/16/17 Note: CRITICAL CARE MEDICINE PROCEDURE NOTE DATE: 10/16/17 TIME: 1115 SERVICE: Critical Care Medicine LOCATION OF PROCEDURE: ICU PROCEDURE: Endotracheal intubation PROCEDURALIST: Dr. Villalobos Consent obtain: No, procedure performed emergently Time out held: Not indicated INDICATION: Acute respiratory failure sec to msof and obtundation towards stupor. PROCEDURE: Oxygenation maintained and vitals monitored. Patient in supine position. Pre-medication with fentanyl 200mcg IV. Glidescope #4 inserted with Grade 1 view obtained. 8.5 endotracheal tube inserted to 23cm lip. Good chest rise with breath sounds appreciated in bilaterally lung shelby. EtCO2 + color change. Portable chest x-ray pending. Patient otherwise tolerated well. Monika Villalobos DO
--- NOTE | 2017-10-16 12:47 | PN ---
Progress Note - Progress Note Date of Service: 10/16/17 Note: CRITICAL CARE MEDICINE PROCEDURE NOTE DATE: 10/16/17 TIME: 1130 SERVICE: Critical Care Medicine LOCATION OF PROCEDURE: ICU PROCEDURE: Central line/hemodialysis line insertion. PROCEDURALIST: Dr. Villalobos Consent obtain: No, procedure performed emergently due to refractory hypotension Time out held: Yes INDICATION: MSOF; Acute on chronic renal failure PROCEDURE: Oxygenation maintained and vitals monitored. Patient in supine position. SITE: RIGHT Internal jugular Site preparation with chlorhexidine locally. Full sterile drape, gown, hat, mask, gloves. 5ml 1% Lidocaine utilized at incision site. Standard sterile Seldinger technique utilized via ultrasound guidance and Mahurkar catheter was inserted to 18cm and sutured in place. Good blood return /wave form. High venous pressures. Minimal blood loss. Site dressed with tegaderm. Portable chest x-ray pending. Patient otherwise tolerated well. Monika Villalobos,
--- NOTE | 2017-10-16 13:05 | PN ---
Progress Note - Progress Note Date of Service: 10/16/17 Note: CRITICAL CARE MEDICINE Date: 10/16/17 Time: 1035 SUBJECTIVE: Patient seen and examined. Taking over for hospitalist service. PHYSICAL EXAM: Vital Signs: Reviewed. Neurologic: obtunded to stupor. moves ext to pain but no verbal communication and cannot arouse to open eyes. HEENT: pupils equal. Sclera anicteric. Trachea midline. MM dry with crusted blood. poor dentition. Cardiovascular: distant, S1 S2 Respiratory: dec bs on left; off bipap cannot maintain with forced exhalation and poor excursion Abdomen: Soft, morbidly obese, with anasarca. old scarring Extremities: cool. edematous with chronic changes Access: piv LABS: Reviewed. IMAGING: Reviewed. MEDICATIONS: Reviewed. ASSESSMENT: 62 M MSOF Acute hypoxic and hypercapnic respiratory failure Hepatic encephalopathy stage IV Acute on chronic renal failure - now anuric. ONEIL Hypercalcemia Morbid obesity Sacral decubitus unstagable at present Relative adrenal insufficiency Malnutrition mod to severe degree PLAN: Neurologic: airway control. intubation. continued lactulose and rifaximin. doubt ct would help but avoid cerebral edema. Cardiovascular: poor overall perfusion given his surface area needs. Interstitial volume grossly overloaded, and intravasc may remain poor. cellular water deficiency, al beit more salt overloaded, but water losses from renal previous perhaps and certainly with lactulose use. colloid load for what its worth. will need vasopressors. empiric steroids. Respiratory: intubation. mech vent. get to aprv to open atelectasis. Gastrointestinal: ogt. tf. rx. sort liver dynamics as able. Renal/Metabolic: place hd cath and start ihd this week to see if we can improve water and toxin clearance. Nephro following. calcitonin rx. Infectious Disease: no real infective source but at risk. Hematology: plt have dropped (and have done this in past). coags up. follow. Endocrine: empiric stress dose steroids. Musculoskeletal: wound eval. poor ability to help self. Psych/Social: will try to find family. Supportive and preventative care as ordered. SUP: ppi VTE prophylaxis: holding chemical at present Disposition: ICU; prognosis quite guarded Code Status: Full presently Critical Care Time: 35min, excluding procedures. Monika Villalobos,
[2017-10-16] MEDS: Chlorhexidine MOUTHWASH 0.12%* 15 ML UDC TOPICAL SCH ×3 (13:40→19:49)
[2017-10-16] MEDS: Hydrocortisone INJ* 100 MG VIAL IV SCH ×2 (13:41→20:55)
--- NOTE | 2017-10-16 13:48 | RAD ---
INDICATION: Respiratory failure COMPARISON: October 05, 2017 TECHNIQUE: An AP portable view obtained at 1236 hours is submitted. FINDINGS: Bones/Soft Tissues: There are no acute bony findings. There is an endotracheal tube in proper position. A nasogastric tube passes normally through the mediastinum Cardiomediastinal: The correct silhouette is not adequately evaluated due to complete opacification left hemithorax. Lungs: Right hemothorax grossly clear. Complete opacification left hemithorax. Pleura: Suspect small right-sided effusion. Other: None IMPRESSION: COMPLETE OPACIFICATION LEFT HEMITHORAX WITH MEDIASTINAL SHIFT TO THE LEFT INDICATING VOLUME LOSS. RIGHT LUNG ESSENTIALLY CLEAR.
[2017-10-16] MEDS: Albumin Human 25%* 25 GM/100 ML BTL IV SCH ×2 (14:24→19:26)
[2017-10-16] MEDS: Atorvastatin* 10 MG TAB PO SCH (18:03)
[2017-10-16] MEDS: Propofol* 100 ML IV SCH ×3 (19:49→23:58)
[2017-10-16] MEDS ORDERED: Atorvastatin* 10 MG TAB PEG TUBE SCH (19:56)
[2017-10-16] MEDS ORDERED: RiFAXimin* 550 MG TAB PEG TUBE SCH (19:57)
[2017-10-16] MEDS ORDERED: Sodium Citrate/Citric Acid* 15 ML UDC PEG TUBE SCH (19:59)
[2017-10-16] MEDS: LORazepam INJ* 2 MG/ML 1 ML VIAL IV PRN (20:53)
[2017-10-16] MEDS: Norepinephrine 16MCG/ML IVPRE* 4,000 MCG/250 ML BAG IV SCH (22:01)
[2017-10-16] MEDS ORDERED: fentaNYL* 50 MCG/ML 2 ML VIAL (100 MCG VIAL) ONE (22:16)
[2017-10-16] MEDS: fentaNYL* 50 MCG/ML 2 ML VIAL (100 MCG VIAL) IV SLOW PU PRN (22:18)
[2017-10-17] MEDS: Chlorhexidine MOUTHWASH 0.12%* 15 ML UDC TOPICAL SCH ×6 (01:09→19:39)
[2017-10-17] MEDS: Norepinephrine 16MCG/ML IVPRE* 4,000 MCG/250 ML BAG IV SCH ×9 (01:17→22:28)
[2017-10-17] MEDS: Propofol* 100 ML IV SCH ×5 (01:17→10:08)
[2017-10-17] MEDS: Albumin Human 25%* 25 GM/100 ML BTL IV SCH ×2 (01:19→06:55)
[2017-10-17] MEDS: Hydrocortisone INJ* 100 MG VIAL IV SCH ×3 (05:16→20:10)
[2017-10-17 05:38] LABS: ABS Basophils 0.1 10^3/ul (0-0.2); ABS Eosinophils 0.1 10^3/ul (0-0.6); ABS Lymphocytes 0.8 10^3/ul (1.0-4.8); ABS Monocytes 0.6 10^3/ul (0-0.8); ABS Neutrophils 14.2 10^3/ul (1.5-7.7); ABS Nucleated RBC 0.1 10^3/ul; Eosinophil % 0.5 % (0-6); Hematocrit 39 % (42-52); Hemoglobin 12.2 g/dl (14.0-18.0); Mean Corpuscular HGB Conc 31 g/dl (31-36); Mean Corpuscular Hemoglobin 31 pg (27-31); Mean Corpuscular Volume 100 fL (80-94); Mean Platelet Volume 8 um3 (7.4-10.4); Nucleated Red Blood Cells % 0.4; Platelet Count 149 10^3/ul (150-450); Red Blood Count 3.92 10^6/ul (4.0-5.4); Red Cell Distribution Width 19 % (10.5-15); White Blood Count 15.7 10^3/ul (3.5-10.8)
[2017-10-17 05:47] LABS: INR 1.96 (0.77-1.02)
[2017-10-17 05:56] LABS: EGFR Non-African American 11.9 (>60)
[2017-10-17] MEDS: Sodium Citrate/Citric Acid* 15 ML UDC G TUBE SCH ×2 (08:11→19:39)
[2017-10-17] MEDS: RiFAXimin* 550 MG TAB G TUBE SCH ×2 (08:24→19:39)
[2017-10-17] MEDS: Lansoprazole susp Kit 3 MG/ML (30 MG = 10 ML) G TUBE SCH (08:24)
[2017-10-17] MEDS: CMC:Calcitonin NASAL(NF) 200 UNITS/SPRAY NASAL.SPR ALT NARE SCH (08:25)
[2017-10-17] MEDS: fentaNYL* 50 MCG/ML 2 ML VIAL (100 MCG VIAL) IV SLOW PU PRN (08:25)
[2017-10-17] MEDS: Hydrocortisone 1% CREAM* 30 GM TUBE TOPICAL SCH (08:25)
[2017-10-17] MEDS: Nystatin TOP POWDER* 15 GM BTL TOPICAL SCH ×2 (08:25→13:41)
[2017-10-17] MEDS ORDERED: fentaNYL* 50 MCG/ML 2 ML VIAL (100 MCG VIAL) IV SLOW PU PRN (08:39)
--- NOTE | 2017-10-17 09:20 | RAD ---
Indication: Altered mental status. History of respiratory disease/tobacco use. Cardiac disease. Comparison: October 16, 2017 Technique: Upright AP 0850 hours Report: Endotracheal tube tip 4.2 cm above the [place]. Nasogastric tube passes to the stomach with conspicuity of the 10th Limited. Cardiomegaly. Unremarkable central pulmonary vasculature. Enlarged heart and leftward rotation obscures the LEFT lung base. No gross pulmonary infiltrate or pleural effusions. IMPRESSION: Gross resolution of LEFT lung atelectasis compared with the exam of one day prior.
--- NOTE | 2017-10-17 10:58 | PN ---
PROGRESS NOTE: DATE OF SERVICE: HISTORY: Mr. Geller remains obtunded. He just required being intubated for respiratory failure. He flores s been hypotensive. He remains significantly edematous. His chest continues to have very distant gil ath sounds and heart tones. He has positive bowel sounds. His laboratory values reveal that his rico cium has come down nicely with the administration of Miacalcin, now 10.3. Unfortunately, his creatin ine continues to go up, now at 5.56. His ammonia is 94. IMPRESSION: Recurrent acute renal failure. He has had some urine output in the last day. Dr. Susannah garland and I have agreed that we probably should proceed on to hemodialyze him and try to ultrafilter off some extra fluid; however, he now has multiple organ systems that are impaired and as a result it is likely that he will not survive this. [id number]/[facility] #: [id number]
--- NOTE | 2017-10-17 13:21 | RAD ---
INDICATION: Altered mental status COMPARISON: CT the brain July 16, 2017 TECHNIQUE: Contiguous axial sections of the brain were obtained from the skull base to the vertex without contrast. FINDINGS: The ventricles, cisterns and sulci are within normal limits. The brock-white matter differentiation is adequately maintained and there is no sulcal effacement. No significant focal abnormality or mass effect is present. There is no evidence for intracranial hemorrhage. No significant focal osseous abnormality is present. There is moderate mucosal thickening of the bilateral ethmoid air cells with trace dependent fluid in the bilateral maxillary sinuses. The mastoid air cells are well aerated bilaterally. IMPRESSION: Interval development of paranasal sinus mucosal disease without CT apparent acute intracranial abnormality.
[2017-10-17] MEDS ORDERED: Albumin Human 5%* 250 GM/250 ML BTL IV ONE ×2 (15:10→15:11)
[2017-10-17] MEDS ORDERED: D5W IVPB SCH (15:15)
[2017-10-17] MEDS ORDERED: VASOPRESSIN IVPB SCH (15:15)
--- NOTE | 2017-10-17 15:47 | PN ---
Date of Service: 10/17/17 - [facility] progress note Critical Care Services: Pt seen and examined at bedside. His condition has been worsening since last night. He has been needing full support with mechanical ventilation, has been needing 2 vasopressors at maximal dose, no purposeful movements since sedation has been on hold. Ex- at bedside Vital Signs: Temp Pulse Resp BP SpO2 FiO2 98.8 F 69 13 81/36 97 40 10/17/17 12:00 10/17/17 15:00 10/17/17 13:00 10/17/17 15:00 10/17/17 15:00 10/17 11:58 Physical Exam: Neurologic: obtunded to stupor, withdraws ext to pain. HEENT: Pupils equal, sclera anicteric, trachea midline, MM dry with crusted blood Cardiovascular: S1, S2+, tachycardic Respiratory: Decreased BS at bases L>R Abdomen: Soft, obese,anasarca. old scarring Extremities: cool, edematous with chronic changes Skin: Sacral decub + Fluid Balance (Past 24 Hours): E=8679 O=100 Net 3176 Intake & Output 10/15/17 10/16/17 10/17/17 10/18/17 06:59 06:59 06:59 06:59 Intake Total 1718 1970 3276 Output Total 800 1600 100 0 Balance 046 346 8511 0 Weight 319 lb 7.197 oz 317 lb 7.45 oz 313 lb 11.485 oz Intake: IV Fluids 1298 1790 659 D5W NS (0.9%) 1298 1790 600 ns 59 Medicated IV 2557 CC - Norepinephrine/ 1438 Levophed CC - Propofol/Diprivan 709 GEN - Albumin 410 Oral 420 180 NG Tube Irrigate Amount 60 Output: Urine 0 0 0 Liquid Stool 800 1600 100 Other: Estimated Void Large # Voids 1 Labs: Laboratory Results - last 24 hr 10/16/17 10/16/17 10/16/17 15:17 18:29 23:39 WBC RBC Hgb Hct MCV MCH MCHC RDW Plt Count MPV Neut % (Auto) Lymph % (Auto) [place] % (Auto) Eos % (Auto) Baso % (Auto) Absolute Neuts (auto) Absolute Lymphs (auto) Absolute Monos (auto) Absolute Eos (auto) Absolute Basos (auto) Absolute Nucleated RBC Nucleated RBC % INR (Anticoag Therapy) Sodium Potassium Chloride Carbon Dioxide Anion Gap BUN Creatinine Est GFR ( Amer) Est GFR (Non-Af Amer) BUN/Creatinine Ratio Glucose POC Glucose (mg/dL) 81 83 71 Calcium Phosphorus Magnesium Total Bilirubin AST ALT Alkaline Phosphatase Ammonia Total Protein Albumin Globulin Albumin/Globulin Ratio 10/17/17 10/17/17 10/17/17 05:25 05:25 05:25 WBC 15.7 H RBC 3.92 L Hgb 12.2 L Hct 39 L MCV 100 H MCH 31 MCHC 31 RDW 19 H Plt Count 149 L MPV 8 Neut % (Auto) 90.3 H Lymph % (Auto) 5.0 L [place] % (Auto) 3.9 Eos % (Auto) 0.5 Baso % (Auto) 0.3 Absolute Neuts (auto) 14.2 H Absolute Lymphs (auto) 0.8 L Absolute Monos (auto) 0.6 Absolute Eos (auto) 0.1 Absolute Basos (auto) 0.1 Absolute Nucleated RBC 0.1 Nucleated RBC % 0.4 INR (Anticoag Therapy) 1.96 H Sodium 140 Potassium TNP Chloride 108 Carbon Dioxide 17 L Anion Gap 15 H BUN 45 H Creatinine 4.96 H Est GFR ( Amer) 15.2 Est GFR (Non-Af Amer) 11.9 BUN/Creatinine Ratio 9.1 Glucose 74 POC Glucose (mg/dL) Calcium 10.2 Phosphorus 4.6 Magnesium 1.9 Total Bilirubin 3.70 H D AST TNP ALT 5 L Alkaline Phosphatase 124 H Ammonia Total Protein 6.9 Albumin 3.1 L Globulin 3.8 Albumin/Globulin Ratio 0.8 L 10/17/17 05:25 WBC RBC Hgb Hct MCV MCH MCHC RDW Plt Count MPV Neut % (Auto) Lymph % (Auto) [place] % (Auto) Eos % (Auto) Baso % (Auto) Absolute Neuts (auto) Absolute Lymphs (auto) Absolute Monos (auto) Absolute Eos (auto) Absolute Basos (auto) Absolute Nucleated RBC Nucleated RBC % INR (Anticoag Therapy) Sodium Potassium Chloride Carbon Dioxide Anion Gap BUN Creatinine Est GFR ( Amer) Est GFR (Non-Af Amer) BUN/Creatinine Ratio Glucose POC Glucose (mg/dL) Calcium Phosphorus Magnesium Total Bilirubin AST ALT Alkaline Phosphatase Ammonia 73 H Total Protein Albumin Globulin Albumin/Globulin Ratio Impression: MSOF Acute hypoxic and hypercapnic respiratory failure Hypotension/Shock requiring vasopressor support Hepatic encephalopathy stage IV Acute on chronic renal failure - now anuric. ONEIL Hypercalcemia Morbid obesity Sacral decubitus unstagable at present Relative adrenal insufficiency Malnutrition mod to severe degree Plan: Neurologic: s/p intubation after failing NIPPV yesterday. Metabolic encephalopathy, no change in mental status even after holding sedation for hrs, continue lactulose and rifaximin. Brain CT reviewed- npa cute changes Cardiovascular: Worsening hypotension, 3rd spacing, needing 2 vasopressors, albumin prn, empiric steroids. Respiratory:S/p intubation yesterday, c/w mech vent, tolerating APRV, O2 status stable with minimal FiO2 requirement Gastrointestinal: c/w ogt, c/w Rifaximin, albumin Renal/Metabolic: Plan to place HD cath if pt appears to be in stable situation to tolerate it. His condition has been worsening since yesterday and I do not anticipate recovery looking at his current status as condition appears to be only deteriorating. c/w calcitonin rx. Infectious Disease: no real infective source but at risk. On GI px with Rifaximin Hematology: Low plt, coags high sec to liver failure, no active bleeding Endocrine: C/w empiric stress dose steroids. Musculoskeletal: Decub/wound care Psych/Social: Family meeting today with daughter(HCP), son, and ex- to discuss advance directives. Supportive and preventative care as ordered. SUP: PPI VTE prophylaxis: holding heparin given low platelets and high INR Disposition: ICU; prognosis poor Code Status: Full presently, family and HCP to make decision as he has wished for DNR status as per son in the past Critical Care Time: 35min, excluding procedures, additional 30 min with family meeting(conference call) and discussion of advanced directives.
[2017-10-17] MEDS: Atorvastatin* 10 MG TAB G TUBE SCH (17:36)
[2017-10-17] MEDS ORDERED: NS 0.9% 1000 ML* 1,000 ML IV ONE (23:05)
[2017-10-17] MEDS ORDERED: Albumin Human 5%* 12.5 GM/250 ML BTL IV ONE (23:09)
[2017-10-18] MEDS ORDERED: Phytonadione Oral Solution* 5 MG/25 ML UDC NG TUBE ONE (00:52)
[2017-10-18] MEDS ORDERED: Norepinephrine 8 mg in 500 mL NS (Pharmacy Admixed Drip) IV SCH (01:00)
[2017-10-18] MEDS ORDERED: Dextrose 50% Syringe 50 ML* 25 GM/50 ML SYRINGE ONE (01:17)
[2017-10-18] MEDS: Chlorhexidine MOUTHWASH 0.12%* 15 ML UDC TOPICAL SCH ×6 (01:37→20:01)
[2017-10-18] MEDS: Nystatin TOP POWDER* 15 GM BTL TOPICAL SCH ×4 (01:37→22:25)
[2017-10-18] MEDS: Hydrocortisone 1% CREAM* 30 GM TUBE TOPICAL SCH ×3 (01:37→22:25)
[2017-10-18 01:48] LABS: Hematocrit 47 % (42-52)
[2017-10-18] MEDS: Dextrose 50% Syringe 50 ML* 25 GM/50 ML SYRINGE IV PUSH PRN ×2 (01:53→02:03)
[2017-10-18 02:01] LABS: EGFR Non-African American 10.3 (>60)
[2017-10-18] MEDS ORDERED: NOREPINEPHRINE IV SCH ×2 (03:00)
[2017-10-18] MEDS ORDERED: D5W IV SCH ×2 (03:00)
[2017-10-18] MEDS ORDERED: Sodium Bicarbonate 8.4% IV* 100 MEQ in D5W 1000 ML BAG* 1,000 ML IVPB SCH ×2 (03:00→11:30)
--- NOTE | 2017-10-18 03:35 | PN ---
Progress Note - Progress Note Date of Service: 10/18/17 Note: Numerous issues overnight including hypotension, scant bleeding noted from mouth and OG tube, worsened serum CO2, ammonia level and low blood glucose. I discussed with the patient's son and ex- who were in the room about the patient's grim prognosis. While in the room, the patient suddenly put out ~ 400ml of dark red blood from his OG tube. H/H at 0110 was in range with where he has been. Follow up CBC later this AM. Attempting IVF bolus and bicarb drip to improve pressure and acid/base status. Blood glucose also markedly low at 18. He has received 2 amps D50 with mild improvement in blood sugar. Continue to follow glucoses closely. I am very concerned the patient will decompensate even further, perhaps even develop cardiac arrest. It is unlikely he will survive despite all efforts.
[2017-10-18 05:44] LABS: INR 2.53 (0.77-1.02)
[2017-10-18] MEDS: Hydrocortisone INJ* 100 MG VIAL IV SCH ×3 (05:44→22:25)
[2017-10-18 06:10] LABS: ABS Basophils 0 10^3/ul (0-0.2); ABS Eosinophils 0.6 10^3/ul (0-0.6); ABS Lymphocytes 1.9 10^3/ul (1.0-4.8); ABS Monocytes 0.8 10^3/ul (0-0.8); ABS Nucleated RBC 0.2 10^3/ul; Hematocrit 42 % (42-52); Lymphocyte % 9.7 % (25-47); Mean Corpuscular HGB Conc 29 g/dl (31-36); Mean Corpuscular Hemoglobin 31 pg (27-31); Mean Corpuscular Volume 107 fL (80-94); Mean Platelet Volume 9 um3 (7.4-10.4); Nucleated Red Blood Cells % 1.1; Platelet Count 136 10^3/ul (150-450); Red Blood Count 3.89 10^6/ul (4.0-5.4); Red Cell Distribution Width 19 % (10.5-15); White Blood Count 19.3 10^3/ul (3.5-10.8)
[2017-10-18] MEDS: Sodium Citrate/Citric Acid* 15 ML UDC G TUBE SCH ×2 (08:18→20:01)
[2017-10-18] MEDS: RiFAXimin* 550 MG TAB G TUBE SCH ×2 (08:18→20:01)
--- NOTE | 2017-10-18 08:28 | PN ---
Date of Service: 10/18/17 - [facility] note Critical Care Services: Pt seen and examined at bedside. Overnight events noted. Pt continues to deteriorate. Had GI bleed last night, acidosis worsening, remains hypotensive with 2 pressors, fluid boluses and albumin Vital Signs: Temp Pulse Resp BP SpO2 FiO2 98.6 F 69 12 99/48 99 30 10/18/17 07:41 10/18/17 08:00 10/18/17 08:00 10/18/17 08:00 10/18/17 08:00 10/18 08:00 Physical Exam: O/E: Neurologic: No response to stimuli, has been off sedation, no purposeful movements. HEENT: Pupils equal, sclera anicteric, trachea midline, MM dry with crusted blood, OGT, ETT in place Cardiovascular: S1, S2+, tachycardic Respiratory: Decreased BS at bases L>R Abdomen: Soft, obese,anasarca. old scarring Extremities: cool, edematous with chronic skin changes, no cellulitis Skin: Sacral decub + Fluid Balance (Past 24 Hours): I= 3752 O= 100 Net 3652 Intake & Output 10/16/17 10/17/17 10/18/17 10/19/17 06:59 06:59 06:59 06:59 Intake Total 1970 3276 3752.6 Output Total 1600 100 100 Balance 370 3176 3652.6 Weight 317 lb 7.45 oz 313 lb 11.485 oz 325 lb 6.436 oz Intake: IV Fluids 1790 659 495 D5W NS (0.9%) 1790 600 albumin 495 ns 59 IVPB 238 albumin 238 Medicated IV 2557 2959.6 CC - Norepinephrine/ 1438 2551 Levophed CC - Propofol/Diprivan 709 119 CC - Vasopressin/ 77.6 Pitressin GEN - Albumin 410 Sodium Bicarbonate 212 Oral 180 0 Tube Feeding Flush Amount 60 NG Tube Irrigate Amount 60 Output: Urine 0 0 0 Liquid Stool 1600 100 100 Labs: Laboratory Results - last 24 hr 10/16/17 10/17/17 10/17/17 23:39 11:49 17:40 WBC RBC Hgb Hct MCV MCH MCHC RDW Plt Count MPV Neut % (Auto) Lymph % (Auto) Arroyo % (Auto) Eos % (Auto) Baso % (Auto) Absolute Neuts (auto) Absolute Lymphs (auto) Absolute Monos (auto) Absolute Eos (auto) Absolute Basos (auto) Absolute Nucleated RBC Nucleated RBC % INR (Anticoag Therapy) VBG pH VBG pCO2 VBG pO2 VBG HCO3 VBG O2 Saturation VBG Base Excess Sodium Potassium Chloride Carbon Dioxide Anion Gap BUN Creatinine Est GFR ( Amer) Est GFR (Non-Af Amer) BUN/Creatinine Ratio Glucose POC Glucose (mg/dL) 71 81 74 Lactic Acid Calcium Phosphorus Magnesium Total Bilirubin AST ALT Alkaline Phosphatase Ammonia Total Protein Albumin Globulin Albumin/Globulin Ratio 10/18/17 10/18/17 10/18/17 01:10 01:14 01:28 WBC RBC Hgb 13.0 L Hct 47 MCV MCH MCHC RDW Plt Count MPV Neut % (Auto) Lymph % (Auto) Arroyo % (Auto) Eos % (Auto) Baso % (Auto) Absolute Neuts (auto) Absolute Lymphs (auto) Absolute Monos (auto) Absolute Eos (auto) Absolute Basos (auto) Absolute Nucleated RBC Nucleated RBC % INR (Anticoag Therapy) VBG pH VBG pCO2 VBG pO2 VBG HCO3 VBG O2 Saturation VBG Base Excess Sodium Potassium Chloride Carbon Dioxide Anion Gap BUN Creatinine Est GFR ( Amer) Est GFR (Non-Af Amer) BUN/Creatinine Ratio Glucose POC Glucose (mg/dL) 34 L* Lactic Acid Calcium Phosphorus Magnesium Total Bilirubin AST ALT Alkaline Phosphatase Ammonia 134 H Total Protein Albumin Globulin Albumin/Globulin Ratio 10/18/17 10/18/17 10/18/17 01:28 01:31 02:00 WBC RBC Hgb Hct MCV MCH MCHC RDW Plt Count MPV Neut % (Auto) Lymph % (Auto) Arroyo % (Auto) Eos % (Auto) Baso % (Auto) Absolute Neuts (auto) Absolute Lymphs (auto) Absolute Monos (auto) Absolute Eos (auto) Absolute Basos (auto) Absolute Nucleated RBC Nucleated RBC % INR (Anticoag Therapy) VBG pH VBG pCO2 VBG pO2 VBG HCO3 VBG O2 Saturation VBG Base Excess Sodium 141 Potassium 4.5 Chloride 109 Carbon Dioxide 10 L* Anion Gap 22 H BUN 49 H Creatinine 5.61 H Est GFR ( Amer) 13.2 Est GFR (Non-Af Amer) 10.3 BUN/Creatinine Ratio 8.7 Glucose 18 L* POC Glucose (mg/dL) 29 L* 56 L Lactic Acid Calcium 10.1 Phosphorus 7.2 H Magnesium 2.0 Total Bilirubin 3.60 H AST 96 H ALT 15 Alkaline Phosphatase 109 H Ammonia Total Protein 6.8 Albumin 3.3 Globulin 3.5 Albumin/Globulin Ratio 0.9 L 10/18/17 10/18/17 10/18/17 02:42 02:43 03:59 WBC RBC Hgb Hct MCV MCH MCHC RDW Plt Count MPV Neut % (Auto) Lymph % (Auto) Arroyo % (Auto) Eos % (Auto) Baso % (Auto) Absolute Neuts (auto) Absolute Lymphs (auto) Absolute Monos (auto) Absolute Eos (auto) Absolute Basos (auto) Absolute Nucleated RBC Nucleated RBC % INR (Anticoag Therapy) VBG pH VBG pCO2 VBG pO2 VBG HCO3 VBG O2 Saturation VBG Base Excess Sodium Potassium Chloride Carbon Dioxide Anion Gap BUN Creatinine Est GFR ( Amer) Est GFR (Non-Af Amer) BUN/Creatinine Ratio Glucose POC Glucose (mg/dL) 90 68 L Lactic Acid 10.4 H* Calcium Phosphorus Magnesium Total Bilirubin AST ALT Alkaline Phosphatase Ammonia Total Protein Albumin Globulin Albumin/Globulin Ratio 10/18/17 10/18/17 10/18/17 05:25 05:30 05:30 WBC 19.3 H RBC 3.89 L Hgb 12.0 L Hct 42 MCV 107 H MCH 31 MCHC 29 L RDW 19 H Plt Count 136 L MPV 9 Neut % (Auto) 82.9 Lymph % (Auto) 9.7 L Arroyo % (Auto) 4.2 Eos % (Auto) 3.0 Baso % (Auto) 0.2 Absolute Neuts (auto) 16.0 H Absolute Lymphs (auto) 1.9 Absolute Monos (auto) 0.8 Absolute Eos (auto) 0.6 Absolute Basos (auto) 0 Absolute Nucleated RBC 0.2 Nucleated RBC % 1.1 INR (Anticoag Therapy) 2.53 H VBG pH VBG pCO2 VBG pO2 VBG HCO3 VBG O2 Saturation VBG Base Excess Sodium Potassium Chloride Carbon Dioxide Anion Gap BUN Creatinine Est GFR ( Amer) Est GFR (Non-Af Amer) BUN/Creatinine Ratio Glucose POC Glucose (mg/dL) 122 H Lactic Acid Calcium Phosphorus Magnesium Total Bilirubin AST ALT Alkaline Phosphatase Ammonia Total Protein Albumin Globulin Albumin/Globulin Ratio 10/18/17 10/18/17 05:30 05:30 WBC RBC Hgb Hct MCV MCH MCHC RDW Plt Count MPV Neut % (Auto) Lymph % (Auto) Arroyo % (Auto) Eos % (Auto) Baso % (Auto) Absolute Neuts (auto) Absolute Lymphs (auto) Absolute Monos (auto) Absolute Eos (auto) Absolute Basos (auto) Absolute Nucleated RBC Nucleated RBC % INR (Anticoag Therapy) VBG pH < 7.00 L VBG pCO2 51 VBG pO2 52 H VBG HCO3 5.8 L VBG O2 Saturation 84.4 H VBG Base Excess -24.0 L Sodium Potassium Chloride Carbon Dioxide Anion Gap BUN Creatinine Est GFR ( Amer) Est GFR (Non-Af Amer) BUN/Creatinine Ratio Glucose POC Glucose (mg/dL) Lactic Acid 9.7 H* Calcium Phosphorus Magnesium Total Bilirubin AST ALT Alkaline Phosphatase Ammonia Total Protein Albumin Globulin Albumin/Globulin Ratio Nutrition: OGT feeds, on hold this am sec to upper GI bleed Impression: 1. MSOF with signficant deterioration 2. Acute hypoxic and hypercapnic respiratory failure, no signficant change 3. Hypotension/Shock requiring vasopressor support, worsening, maxed out on 2 pressors, receiving fluid boluses 4. Hepatic encephalopathy stage IV, ammonia levels increasing 5. Acute on chronic renal failure - now anuric, HD on hold given current status. 6. ONEIL 7. Hypercalcemia 8. Morbid obesity 9. Sacral decubitus unstagable at present 10. Relative adrenal insufficiency 12. Lactic and AG metabolic acidosis 13. Acute GI bleed 14. Hypoglycemia Plan: 1. Neurologic: s/p intubation, resp mechanics acceptable, Metabolic encephalopathy, no change in mental status, has not been requiring sedation. NH3 trending up, continue lactulose and rifaximin. Brain CT reviewed- no acute changes consistent with metabolic encephalopathy Cardiovascular: Worsening hypotension, 3rd spacing, on max dose of 2 vasopressors, albumin, fluid boluses, stress dose steroids. Respiratory:S/p intubation, c/w mech vent, tolerating APRV, O2 status stable with minimal FiO2 requirements, pulm toilet Gastrointestinal: c/w OGT, had 400cc blood yesterday through OGT, c/w PPI, Rifaximin, albumin Renal/Metabolic: Had HD cath in Rt IJ. His condition has been worsening and is not stable at this time for HD. Acidosis, renal function has been worsening. On bicarb drip. c/w calcitonin rx. Infectious Disease: no real infective source but at risk. On GI px with Rifaximin Hematology: Low plt, coags high sec to liver failure, upper GI bleed last night , H&H stable, being closely monitored Endocrine: C/w empiric stress dose steroids. Moniotr BS closely, has needed dextrose yesterday Musculoskeletal: Decub/wound care Psych/Social: Family meeting yesterday with daughter(HCP), son, and ex- to discuss advance directives. Daughter lives in [place], on her way here, she is HCP, would want to continue with full code status, understands poor prognosis but believes in miracles. Supportive and preventative care as ordered. SUP: PPI VTE prophylaxis: holding heparin given low platelets and high INR Disposition: ICU; prognosis poor Code Status: Full presently, family and HCP(daughter) to make decision as he has wished for DNR status as per son in the past. Daughter to arrive later today Critical Care Time: 35min
[2017-10-18] MEDS: Lansoprazole susp Kit 3 MG/ML (30 MG = 10 ML) G TUBE SCH (09:57)
[2017-10-18] MEDS: CMC:Calcitonin NASAL(NF) 200 UNITS/SPRAY NASAL.SPR ALT NARE SCH (10:00)
[2017-10-18] MEDS: D5W IV SCH ×6 (11:48→22:25)
[2017-10-18] MEDS: NOREPINEPHRINE IV SCH ×6 (11:48→22:25)
[2017-10-18] MEDS ORDERED: D5W IVPB SCH (15:35)
[2017-10-18] MEDS ORDERED: VASOPRESSIN IVPB SCH (15:35)
[2017-10-18] MEDS ORDERED: Morphine INJ* 10 MG/ML 1 ML CARPUJECT ONE (18:26)
[2017-10-18] MEDS: Morphine INJ* 10 MG/ML 1 ML CARPUJECT IV PRN ×2 (18:31→20:10)
[2017-10-18 19:25] VITALS: BP 93/48
[2017-10-18] MEDS: Atorvastatin* 10 MG TAB G TUBE SCH (19:27)
--- NOTE | 2017-10-20 05:44 | DS ---
CC: Providers at [facility]. DISCHARGE SUMMARY/EXPIRATION SUMMARY: DATE OF ADMISSION: 10/05/17 DATE OF EXPIRATION: 10/18/17 TIME OF EXPIRATION: 9 p.m. PRIMARY CARE PHYSICIAN: [facility]iders at [facility]. REASON FOR : Cardiopulmonary arrest. CHIEF COMPLAINT FOR ADMISSION: Altered mental status. BRIEF SUMMARY OF VISIT: The patient is 62-year-old male resident of [facility] with endstage renal disease on hemodialysis, congestive heart failure, liver failure, hyperammonemia, cellulitis who was admitted for evaluation of altered mental status, was found to be having worsening renal function in the setting of stopping of dialysis with significant acidosis. His mental status has worsened while he was in the hospital and was transferred for ICU for further management. Please refer to admission history and physical for further details. The patient continued to get worse during hospitalization. He was found to have multi-organ dysfunction, worsening of hypoxemic and hypercapnic respiratory failure requiring intubation. The patient was intubated and initiated on mechanical ventilation on 10/16/17. The patient also had hemodialysis catheter placed for dialysis. He was also being treated with broad-spectrum antibiotics for sepsis. In spite of maximal support he continued to deteriorate. He was on maximal doses of vasopressors. He continued to show signs of multisystem organ failure. He was initiated on bicarbonate drip for worsening acidosis. His mental status worsened significantly. He did not respond to any therapy. The patient's family was updated of worsening status. His daughter arrived from [place]. She is elder daughter, signed MOL[employer] forms and wished for DNR and terminal extubation. The patient was terminally extubated on 10/18/17 around 8 p.m. He soon after extubation. His vasopressor drips were also held as per family's whishes. The patient was pronounced at 9 p.m. on 10/18/17. Refer to progress notes and other documentation during the hospitalization. This is a brief summary of his stay from 10/05/17 to 10/18/17. Please refer to daily progress notes for further details of hospital course [id number]/[facility] #: [id number] MTDD
== END 2017-10-18 21:00 | disposition expired | DRG 441 ==
LOC: ED 14:39 → MED 18:01 → ICU 10-13 16:24
PROVIDERS: ADMIT Internal Medicine; ATTEND Internal Medicine
PROC: 3E033XZ Introduction of Vasopressor into Peripheral Vein, Percutaneous Approach (ICD-10-PCS; principal; 2017-10-15)
PROC: 5A1D70Z Performance of Urinary Filtration, Intermittent, Less than 6 Hours Per Day (ICD-10-PCS; 2017-10-16)
DX: K72.90 Hepatic failure, unspecified without coma (principal); E43 Unspecified severe protein-calorie malnutrition; R57.9 Shock, unspecified; I95.9 Hypotension, unspecified; E87.4 Mixed disorder of acid-base balance; J96.02 Acute respiratory failure with hypercapnia; J96.01 Acute respiratory failure with hypoxia; I13.2 Hypertensive heart and chronic kidney disease with heart failure and with stage 5 chronic kidney disease, or end stage renal disease; L89.150 Pressure ulcer of sacral region, unstageable; E27.40 Unspecified adrenocortical insufficiency; R18.8 Other ascites; I13.0 Hypertensive heart and chronic kidney disease with heart failure and stage 1 through stage 4 chronic kidney disease, or unspecified chronic kidney disease; N18.4 Chronic kidney disease, stage 4 (severe); N17.9 Acute kidney failure, unspecified; K92.2 Gastrointestinal hemorrhage, unspecified; Z68.41 Body mass index [BMI] 40.0-44.9, adult; E11.22 Type 2 diabetes mellitus with diabetic chronic kidney disease; E66.01 Morbid (severe) obesity due to excess calories; I50.9 Heart failure, unspecified; E83.52 Hypercalcemia; E78.5 Hyperlipidemia, unspecified; K74.60 Unspecified cirrhosis of liver; K75.81 Nonalcoholic steatohepatitis (NASH); I48.91 Unspecified atrial fibrillation; D63.1 Anemia in chronic kidney disease; B35.1 Tinea unguium; Z88.0 Allergy status to penicillin; Z88.8 Allergy status to other drugs, medicaments and biological substances; Z88.1 Allergy status to other antibiotic agents; Z88.2 Allergy status to sulfonamides; Z93.3 Colostomy status; Z87.891 Personal history of nicotine dependence; Z99.2 Dependence on renal dialysis; Z86.14 Personal history of Methicillin resistant Staphylococcus aureus infection; R32 Unspecified urinary incontinence; R19.7 Diarrhea, unspecified; I70.202 Unspecified atherosclerosis of native arteries of extremities, left leg; E11.649 Type 2 diabetes mellitus with hypoglycemia without coma
CPT/HCPCS: 36415; 36600; 70450; 71045; 76770; 80048; 80053; 82140; 82271; 82306; 82330; 82397; 82533; 82652; 82668; 82728; 82784; 82803; 82977; 83540; 83550; 83605; 83735; 83880; 83970; 84100; 84134; 84155; 84165; 84443; 84484; 84590; 85014; 85018; 85025; 85027; 85610; 85730; 87040; 90935; 93005; 93970; 94002; 94003; 94640; 94660; 94760; 99283; A9270-GY; G0257; J1720; J1940; J2060; J2270; J2704; J3010; J3490; J7060; P9045; P9047